=== PATIENT | male | born 1965 | race Caucasian/White ===

== ENCOUNTER 2022-08-24 13:07 | Inpatient (IN) | payer MEDICARE, MEDICAID ==
[~2022-08-24] VITALS: Ht 157.5 cm; Wt 52.4 kg
[2022-08-24] MEDS ORDERED: SODIUM CHLORIDE 0.9% 1,000 ML IV ONE (13:45)
[2022-08-24 14:15] LABS: Basophils # (auto) 0 10 ^3/uL (0-0.2); Basophils % (auto) 0.1 % (0.0-2.0); Eosinophils # (auto) 0.2 10 ^3/uL (0-0.8); Hemoglobin 7.8 g/dL (13.5-17.5); Monocytes # (auto) 0.7 10 ^3/uL (0-1.3); Neutrophils % (auto) 88.5 % (37.0-80.0)
[2022-08-24 14:16] LABS: Eosinophils % (auto) 1.8 % (0.0-7.0); Hematocrit 24.1 % (41.0-53.0); Lymphocytes # (auto) 0.5 10 ^3/uL (0.4-5.4); Mean Corpuscular Hemoglobin 26.2 pg (28.0-32.0); Mean Corpuscular Hgb Conc. 32.4 g/dL (32.0-36.0); Monocytes % (auto) 5.6 % (0.0-12.0); Neutrophils # (auto) 11.6 10 ^3/uL (1.6-8.6); Red Blood Cells 2.97 10^6/uL (4.5-5.90); Red Cell Distribution Width 15.7 % (11.8-14.3)
[2022-08-24 14:45] LABS: Albumin 2.7 g/dL (3.4-5.0); Anion Gap 3 (5-15); Blood Alcohol < 3.0 mg/dL (0-5); Blood Urea Nitrogen 16 mg/dL (7-18); Calcium 8.4 mg/dL (8.5-10.1); Carbon Dioxide 32 mmol/L (21-32); Chloride 100 mmol/L (98-107); Glucose 108 mg/dL (74-106); Potassium 3.9 mmol/L (3.5-5.1); Sodium 135 mmol/L (136-145)
[2022-08-24 14:47] LABS: INR 1.25 (0.9-1.15); Partial Thromboplastin Time 29.8 sec (24.6-33.4)
[2022-08-24 14:49] LABS: Alanine Aminotransferase 23 U/L (16-61); Alkaline Phosphatase 64 U/L (45-117); Aspartate Aminotransferase 8 U/L (15-37); BUN/Creatinine Ratio 16.3 (10.0-20.0); Bilirubin, Total 0.4 mg/dL (0.2-1.0); GFR African American 102 mL/min; GFR Non-African American 84 mL/min; Total Protein 5.4 g/dL (6.4-8.2)
[2022-08-24] MEDS ORDERED: PANTOPRAZOLE 40 MG/10 ML VIAL INJ IV ONE (15:45)
[2022-08-24] MEDS ORDERED: MORPHINE SULFATE INJ 2 MG/ml SYRG IV PRN (15:45)
[2022-08-24] MEDS ORDERED: NITROGLYCERIN 0.4 MG SL TAB SL PRN (15:45)
[2022-08-24 16:17] LABS: Urine Bacteria NONE SEEN /hpf (None Seen); Urine Blood Negative /uL (Negative); Urine Specific Gravity 1.005 (1.001-1.035); Urine WBC <1 /hpf (0 - 3)
[2022-08-24 16:28] LABS: Alcohol, Urine < 3.0 mg/dL (0-10); Amphetamine Screen, Urine NEGATIVE (NEGATIVE); Barbiturate Scree,Urine NEGATIVE (NEGATIVE); Benzodiazephine Screen, Urine NEGATIVE (NEGATIVE); Cannabinoid Screen, Urine NEGATIVE (NEGATIVE); Cocaine Screen, Urine NEGATIVE (NEGATIVE); Opiate Scree,Urine NEGATIVE (NEGATIVE); Phencyclidine Screen, Urine NEGATIVE (NEGATIVE)
[2022-08-24] MEDS ORDERED: ALBUMIN 25% 50 ML IV ONE (16:30)
[2022-08-24] MEDS ORDERED: ALBUTEROL SULF 2.5 MG/0.5ML(0.5%) NEB SOLN NEB PRN (16:30)
[2022-08-24] MEDS ORDERED: LEVO50TA7 PO ×2 (16:50→17:41)
[2022-08-24] MEDS ORDERED: RISP3TAB44 PO ×2 (16:50→17:43)
[2022-08-24] MEDS: SODIUM CHLORIDE 0.9% 1,000 ML IV SCH (17:04)
[2022-08-24 17:32] LABS: Cholesterol 82 mg/dL (< 200); Free T3 1.54 pg/mL (2.3-4.2); Free T4 (Free Thyroxine) 1.01 ng/dL (0.89-1.76); HDL Cholesterol 53 mg/dL (40-59); LDL Cholesterol 31 mg/dL (< 100); Triglycerides 13 mg/dL (< 150)
[2022-08-24] MEDS ORDERED: BENZ0.5T19 PO (17:37)
[2022-08-24] MEDS ORDERED: CHLO1TAB37 PO (17:39)
[2022-08-24] MEDS ORDERED: DOCU100T15 PO (17:39)
[2022-08-24] MEDS ORDERED: FERR325T24 PO (17:40)
[2022-08-24] MEDS ORDERED: LISI10TA34 PO (17:42)
[2022-08-24] MEDS ORDERED: PANT40TA2 PO (17:42)
[2022-08-24] MEDS ORDERED: SENN1TAB14 PO (17:44)
[2022-08-24] MEDS ORDERED: TAMS1CAP25 PO (17:45)
[2022-08-24] MEDS ORDERED: TRAZ1TAB12 PO (17:45)
[2022-08-24] MEDS ORDERED: LORA-1105 PO (17:46)
[2022-08-24] MEDS ORDERED: ONDA-144 PO (17:47)
[2022-08-24 19:45] VITALS: BP 120/64
[2022-08-24] MEDS: CEFEPIME 1GM/ 50ML 50 ML IV SCH (22:26)
[2022-08-24] MEDS: risperiDONE 1 MG TAB PO SCH (22:27)
[2022-08-25] MEDS: SODIUM CHLORIDE 0.9% 1,000 ML IV SCH ×3 (00:05→16:02)
[2022-08-25 01:01] VITALS: BP 97/60
[2022-08-25] MEDS ORDERED: TAMS0.4C36 PO (03:43)
[2022-08-25] MEDS ORDERED: QUET50TA27 PO (03:43)
[2022-08-25] MEDS ORDERED: DOCU-265 PO (03:43)
[2022-08-25] MEDS ORDERED: PANT40T PO (03:43)
[2022-08-25] MEDS ORDERED: CHOL20002 PO (03:43)
[2022-08-25 05:00] VITALS: BP_SYST 124; BP_SYST 132; BP_SYST 144; BP_DIAS 69; BP_DIAS 72; BP_DIAS 79
[2022-08-25] MEDS: CEFEPIME 1GM/ 50ML 50 ML IV SCH ×3 (05:54→21:45)
[2022-08-25 06:30] LABS: Basophils # (auto) 0 10 ^3/uL (0-0.2); Basophils % (auto) 0.3 % (0.0-2.0); Eosinophils # (auto) 0.4 10 ^3/uL (0-0.8); Eosinophils % (auto) 5.8 % (0.0-7.0); Hematocrit 25.5 % (41.0-53.0); Hemoglobin 8.2 g/dL (13.5-17.5); Lymphocytes # (auto) 1.2 10 ^3/uL (0.4-5.4); Lymphocytes % (auto) 15.5 % (10.0-50.0); Mean Corpuscular Hemoglobin 26.5 pg (28.0-32.0); Mean Corpuscular Hgb Conc. 32.3 g/dL (32.0-36.0); Mean Corpuscular Volume 82.1 fL (80.0-100.0); Monocytes # (auto) 0.5 10 ^3/uL (0-1.3); Monocytes % (auto) 6.1 % (0.0-12.0); Neutrophils # (auto) 5.4 10 ^3/uL (1.6-8.6); Neutrophils % (auto) 72.3 % (37.0-80.0); Red Blood Cells 3.11 10^6/uL (4.5-5.90); Red Cell Distribution Width 16.1 % (11.8-14.3); White Blood Cell 7.5 10^3/uL (4.4-10.8)
[2022-08-25 06:48] LABS: Potassium 4.6 mmol/L (3.5-5.1)
[2022-08-25 06:54] LABS: Albumin 2.9 g/dL (3.4-5.0); BUN/Creatinine Ratio 15.2 (10.0-20.0); Bilirubin, Total 0.4 mg/dL (0.2-1.0); Calcium 8.6 mg/dL (8.5-10.1); Total Protein 6.4 g/dL (6.4-8.2)
[2022-08-25] MEDS: LEVOTHYROXINE SODIUM 50 MCG TAB PO SCH (08:57)
[2022-08-25] MEDS: PANTOPRAZOLE 40 MG/10 ML VIAL INJ IV SCH (08:57)
[2022-08-25] MEDS: risperiDONE 1 MG TAB PO SCH ×2 (08:58→21:46)
[2022-08-25 09:00] VITALS: BP 147/76
[2022-08-25 13:00] VITALS: BP 142/84
[2022-08-25] MEDS ORDERED: BENZTROPINE MESY 0.5 MG TAB PO ONE (15:45)
[2022-08-25] MEDS ORDERED: QUEtiapine FUMARATE 25 MG TAB PO ONE (15:45)
[2022-08-25 17:00] VITALS: BP 139/82
[2022-08-25] MEDS: traZODone HCL 50 MG TAB PO SCH (21:46)
[2022-08-25] MEDS: LORazepam 0.5 MG TAB PO SCH (21:55)
[2022-08-25] MEDS: chlorproMAZINE HCL 25 MG TAB PO SCH (21:55)
[2022-08-25 22:00] VITALS: BP 134/76
[2022-08-25] MEDS ORDERED: LORazepam 2MG/ML-1ML VIAL IV PRN (23:15)
[2022-08-26] MEDS: SODIUM CHLORIDE 0.9% 1,000 ML IV SCH ×3 (01:05→22:17)
[2022-08-26 05:00] VITALS: BP 137/78
[2022-08-26] MEDS: CEFEPIME 1GM/ 50ML 50 ML IV SCH ×2 (06:04→14:36)
[2022-08-26] MEDS: LORazepam 0.5 MG TAB PO SCH ×3 (06:05→21:47)
[2022-08-26 09:00] VITALS: BP 149/90
[2022-08-26] MEDS ORDERED: ADENOSINE 45 MG in GIVE UN-DILUTED 0 ML IV ONE (09:30)
[2022-08-26] MEDS: risperiDONE 1 MG TAB PO SCH ×2 (11:28→21:47)
[2022-08-26] MEDS: LEVOTHYROXINE SODIUM 50 MCG TAB PO SCH (11:28)
[2022-08-26] MEDS: QUEtiapine FUMARATE 25 MG TAB PO SCH (11:29)
[2022-08-26] MEDS: BENZTROPINE MESY 0.5 MG TAB PO SCH (11:30)
[2022-08-26] MEDS: PANTOPRAZOLE 40 MG/10 ML VIAL INJ IV SCH (11:30)
[2022-08-26] MEDS: chlorproMAZINE HCL 25 MG TAB PO SCH ×2 (11:37→21:47)
[2022-08-26 13:00] VITALS: BP 145/94
[2022-08-26 17:00] VITALS: BP 159/84
[2022-08-26] MEDS: traZODone HCL 50 MG TAB PO SCH (21:46)
[2022-08-26 21:52] VITALS: BP 157/96
[2022-08-26 23:15] VITALS: BP 139/78
[2022-08-27] MEDS: SODIUM CHLORIDE 0.9% 1,000 ML IV SCH ×3 (02:05→18:45)
[2022-08-27 05:00] VITALS: BP 153/77
[2022-08-27] MEDS: LORazepam 0.5 MG TAB PO SCH ×3 (06:03→22:20)
[2022-08-27 09:00] VITALS: BP 141/89
[2022-08-27] MEDS: BENZTROPINE MESY 0.5 MG TAB PO SCH (09:01)
[2022-08-27] MEDS: PANTOPRAZOLE 40 MG TAB PO SCH (09:02)
[2022-08-27] MEDS: LEVOTHYROXINE SODIUM 50 MCG TAB PO SCH (09:02)
[2022-08-27] MEDS: risperiDONE 1 MG TAB PO SCH ×2 (09:03→22:20)
[2022-08-27] MEDS: QUEtiapine FUMARATE 25 MG TAB PO SCH (09:03)
[2022-08-27] MEDS: chlorproMAZINE HCL 25 MG TAB PO SCH ×2 (09:04→22:20)
[2022-08-27 13:00] VITALS: BP 134/87
[2022-08-27 17:00] VITALS: BP 149/82
[2022-08-27 20:44] VITALS: BP 149/82
[2022-08-27 22:13] VITALS: BP 149/85
[2022-08-27] MEDS: traZODone HCL 50 MG TAB PO SCH (22:19)
[2022-08-28] MEDS: SODIUM CHLORIDE 0.9% 1,000 ML IV SCH ×3 (03:05→21:34)
[2022-08-28 05:00] VITALS: BP 121/73
[2022-08-28] MEDS: LORazepam 0.5 MG TAB PO SCH ×3 (05:46→21:36)
[2022-08-28 09:00] VITALS: BP 132/82
[2022-08-28] MEDS: QUEtiapine FUMARATE 25 MG TAB PO SCH (10:12)
[2022-08-28] MEDS: LEVOTHYROXINE SODIUM 50 MCG TAB PO SCH (10:12)
[2022-08-28] MEDS: risperiDONE 1 MG TAB PO SCH ×2 (10:12→21:35)
[2022-08-28] MEDS: PANTOPRAZOLE 40 MG TAB PO SCH (10:13)
[2022-08-28] MEDS: chlorproMAZINE HCL 25 MG TAB PO SCH ×2 (10:13→22:00)
[2022-08-28] MEDS: BENZTROPINE MESY 0.5 MG TAB PO SCH (10:14)
[2022-08-28 11:22] LABS: Basophils # (auto) 0 10 ^3/uL (0-0.2); Eosinophils # (auto) 0.3 10 ^3/uL (0-0.8); Hemoglobin 9.9 g/dL (13.5-17.5); Red Cell Distribution Width 16.1 % (11.8-14.3); White Blood Cell 6.2 10^3/uL (4.4-10.8)
[2022-08-28 11:23] LABS: Basophils % (auto) 0.4 % (0.0-2.0); Eosinophils % (auto) 4.9 % (0.0-7.0); Hematocrit 30.8 % (41.0-53.0); Lymphocytes % (auto) 16.6 % (10.0-50.0); Mean Corpuscular Hemoglobin 26.5 pg (28.0-32.0); Mean Corpuscular Hgb Conc. 32.2 g/dL (32.0-36.0); Mean Corpuscular Volume 82.3 fL (80.0-100.0); Monocytes # (auto) 0.4 10 ^3/uL (0-1.3); Monocytes % (auto) 5.7 % (0.0-12.0); Neutrophils # (auto) 4.5 10 ^3/uL (1.6-8.6); Neutrophils % (auto) 72.4 % (37.0-80.0); Red Blood Cells 3.74 10^6/uL (4.5-5.90)
[2022-08-28 11:34] LABS: INR 1.11 (0.9-1.15); Partial Thromboplastin Time 28.2 sec (24.6-33.4)
[2022-08-28 11:44] LABS: Calcium 8.7 mg/dL (8.5-10.1)
[2022-08-28 11:46] LABS: BUN/Creatinine Ratio 12.2 (10.0-20.0)
[2022-08-28 13:00] VITALS: BP 137/89
[2022-08-28] MEDS: traZODone HCL 50 MG TAB PO SCH (21:34)
[2022-08-28 22:00] VITALS: BP 150/80
[2022-08-29] MEDS: SODIUM CHLORIDE 0.9% 1,000 ML IV SCH ×3 (04:05→21:09)
[2022-08-29 05:00] VITALS: BP 156/95
[2022-08-29] MEDS: LORazepam 0.5 MG TAB PO SCH ×3 (05:48→21:09)
[2022-08-29 08:39] VITALS: BP 149/86
[2022-08-29] MEDS: risperiDONE 1 MG TAB PO SCH ×2 (10:01→21:10)
[2022-08-29] MEDS: BENZTROPINE MESY 0.5 MG TAB PO SCH (10:02)
[2022-08-29] MEDS: QUEtiapine FUMARATE 25 MG TAB PO SCH (10:02)
[2022-08-29] MEDS: PANTOPRAZOLE 40 MG TAB PO SCH (10:02)
[2022-08-29] MEDS: LEVOTHYROXINE SODIUM 50 MCG TAB PO SCH (10:02)
[2022-08-29] MEDS: chlorproMAZINE HCL 25 MG TAB PO SCH ×2 (10:05→21:10)
[2022-08-29 12:39] VITALS: BP 144/83
[2022-08-29 17:00] VITALS: BP 147/81
[2022-08-29] MEDS: traZODone HCL 50 MG TAB PO SCH (21:10)
[2022-08-29 22:00] VITALS: BP 123/65
[2022-08-30 05:00] VITALS: BP 152/86
[2022-08-30] MEDS: SODIUM CHLORIDE 0.9% 1,000 ML IV SCH ×3 (05:05→21:09)
[2022-08-30] MEDS: LORazepam 0.5 MG TAB PO SCH ×3 (06:08→21:13)
[2022-08-30 09:00] VITALS: BP 164/82
[2022-08-30] MEDS: PANTOPRAZOLE 40 MG TAB PO SCH (10:25)
[2022-08-30] MEDS: risperiDONE 1 MG TAB PO SCH ×2 (10:25→21:14)
[2022-08-30] MEDS: QUEtiapine FUMARATE 25 MG TAB PO SCH (10:25)
[2022-08-30] MEDS: LEVOTHYROXINE SODIUM 50 MCG TAB PO SCH (10:25)
[2022-08-30] MEDS: BENZTROPINE MESY 0.5 MG TAB PO SCH (10:26)
[2022-08-30] MEDS: chlorproMAZINE HCL 25 MG TAB PO SCH ×2 (10:28→21:14)
[2022-08-30 13:00] VITALS: BP 158/87
[2022-08-30] MEDS: traZODone HCL 50 MG TAB PO SCH (21:13)
[2022-08-30 22:00] VITALS: BP 138/81
[2022-08-31 05:00] VITALS: BP 146/83
[2022-08-31] MEDS: LORazepam 0.5 MG TAB PO SCH ×3 (05:34→22:14)
[2022-08-31] MEDS: SODIUM CHLORIDE 0.9% 1,000 ML IV SCH ×3 (06:13→18:34)
[2022-08-31] MEDS: QUEtiapine FUMARATE 25 MG TAB PO SCH (10:17)
[2022-08-31] MEDS: BENZTROPINE MESY 0.5 MG TAB PO SCH (10:17)
[2022-08-31] MEDS: PANTOPRAZOLE 40 MG TAB PO SCH (10:17)
[2022-08-31] MEDS: chlorproMAZINE HCL 25 MG TAB PO SCH ×2 (10:18→22:20)
[2022-08-31] MEDS: risperiDONE 1 MG TAB PO SCH ×2 (10:18→22:12)
[2022-08-31] MEDS: LEVOTHYROXINE SODIUM 50 MCG TAB PO SCH (10:18)
[2022-08-31 13:00] VITALS: BP 157/91
[2022-08-31 17:00] VITALS: BP 165/96
[2022-08-31] MEDS: traZODone HCL 50 MG TAB PO SCH (22:13)
[2022-09-01 05:00] VITALS: BP 142/94
[2022-09-01] MEDS: LORazepam 0.5 MG TAB PO SCH ×3 (07:07→21:11)
[2022-09-01] MEDS: SODIUM CHLORIDE 0.9% 1,000 ML IV SCH ×2 (07:16→16:43)
[2022-09-01 09:15] VITALS: BP 145/81
[2022-09-01] MEDS: PANTOPRAZOLE 40 MG TAB PO SCH (09:30)
[2022-09-01] MEDS: QUEtiapine FUMARATE 25 MG TAB PO SCH (09:30)
[2022-09-01] MEDS: BENZTROPINE MESY 0.5 MG TAB PO SCH (09:30)
[2022-09-01] MEDS: risperiDONE 1 MG TAB PO SCH ×2 (09:30→21:11)
[2022-09-01] MEDS: LEVOTHYROXINE SODIUM 50 MCG TAB PO SCH (09:31)
[2022-09-01] MEDS: chlorproMAZINE HCL 25 MG TAB PO SCH ×2 (09:31→21:12)
[2022-09-01 12:54] VITALS: BP 145/81
[2022-09-01 13:10] VITALS: BP 161/83
[2022-09-01 16:33] VITALS: BP 162/88
[2022-09-01] MEDS: traZODone HCL 50 MG TAB PO SCH (21:10)
[2022-09-02] MEDS: SODIUM CHLORIDE 0.9% 1,000 ML IV SCH ×3 (01:57→16:25)
[2022-09-02 04:09] VITALS: BP 120/65
[2022-09-02] MEDS: LORazepam 0.5 MG TAB PO SCH ×2 (06:38→14:28)
[2022-09-02 08:48] VITALS: BP 121/65
[2022-09-02] MEDS ORDERED: OXYCODONE W/ ACETAMINOPHEN 5/325MG TABLET PO PRN (09:30)
[2022-09-02] MEDS: chlorproMAZINE HCL 25 MG TAB PO SCH (10:17)
[2022-09-02] MEDS: risperiDONE 1 MG TAB PO SCH (10:17)
[2022-09-02] MEDS: QUEtiapine FUMARATE 25 MG TAB PO SCH (10:17)
[2022-09-02] MEDS: BENZTROPINE MESY 0.5 MG TAB PO SCH (10:17)
[2022-09-02] MEDS: PANTOPRAZOLE 40 MG TAB PO SCH (10:17)
[2022-09-02] MEDS: LEVOTHYROXINE SODIUM 50 MCG TAB PO SCH (10:17)
[2022-09-02 12:54] VITALS: BP 138/84
[2022-09-02] MEDS ORDERED: GABAPENTIN 300 MG CAP PO SCH (14:00)
[2022-09-02 17:27] VITALS: BP 162/86
== END 2022-09-02 19:10 | disposition home or self-care (01) | DRG 871 ==
LOC: ER 13:07 → TELE-WESTW 16:00
PROVIDERS: ADMIT Registered Nurse; ATTEND Family Medicine
DX: A41.9 Sepsis, unspecified organism (principal); E43 Unspecified severe protein-calorie malnutrition; D64.9 Anemia, unspecified; E03.9 Hypothyroidism, unspecified; I10 Essential (primary) hypertension; K21.9 Gastro-esophageal reflux disease without esophagitis; F20.9 Schizophrenia, unspecified; E86.0 Dehydration; E88.09 Other disorders of plasma-protein metabolism, not elsewhere classified; N40.0 Benign prostatic hyperplasia without lower urinary tract symptoms; R13.10 Dysphagia, unspecified; I95.9 Hypotension, unspecified; Z68.21 Body mass index [BMI] 21.0-21.9, adult
CPT/HCPCS: 36415; 70450; 70551; 71045; 78452; 80048; 80053; 80061; 80307; 80320; 81001; 82962; 83036; 83605; 83735; 84439; 84443; 84481; 84484; 85025; 85379; 85610; 85730; 86850; 86900; 86901; 87040; 87086; 93005; 93017; 93306; 93886; 95819; 96361; 96365; 96375; 97110; 97116; 97163; 97530; C9113; G0378; J0153; Q0161

== ENCOUNTER 2024-05-19 17:59 | Inpatient (IN) | payer MEDICARE, MEDICAID ==
[~2024-05-19] VITALS: Ht 157.5 cm; Wt 72.0 kg
[~2024-05-19 17:59] MED LIST: BENZ0.5T PO; CHLO1TAB37 PO; CHOL20002 PO; DOCU-265 PO; DOCU100T15 PO; FERR325T24 PO; LEVO50TA7 PO; LISI10TA34 PO; LORA-1105 PO; ONDA-144 PO; PANT40T PO; PANT40TA2 PO; QUET50TA27 PO; RISP3TAB44 PO; SENN1TAB14 PO; TAMS0.4C39 PO; TAMS1CAP25 PO; TRAZ1TAB12 PO
--- NOTE | 2024-05-19 18:19 | ED.PDOC ---
History of Present Illness HPI Comments 59-year-old male who came to ER via EMS due to GI bleed. Per EMS, patient picked up at an assisted care facility, has history of hypertension, COPD and schizophrenia. He is not on home oxygen. Noted that patient has been having bloody stools recently, in noted that he was saturating at 85% on room air. Upon arrival of paramedics, patient had an episode of hematemesis. Patient is a very poor informant, and no further information could be taken from him. Chief Complaint: GI bleed Time Seen by MD: 18:18 Primary Care Provider: GOVIND Reviewed Notes: Pattern [employer] Notes Allergies: Coded Allergies: NO KNOWN ALLERGIES (Unverified , 08/24/22) Home Meds Reported Medications Cholecalciferol (VITAMIN D3) 2,000 Unit Tab, 1 CAP PO DAILY 08/25/22 Tamsulosin Hcl (Tamsulosin Hcl) 0.4 Mg Cap, 1 CAP PO DAILY 08/25/22 Docusate Sodium (Docusate Sodium) 100 Mg Cap, 1 CAP PO DAILY 08/25/22 Pantoprazole Sodium Sesquihydr (Pantoprazole Sodium) 40 Mg Tab, 1 TAB PO BID 08/25/22 Quetiapine Fumerate (QUETIAPINE FUMARATE) 50 Mg Tab, 1 TAB PO 08/25/22 Ondansetron (Zofran) 4 Mg Tab, 8 MG PO, TAB 08/24/22 Lorazepam (Lorazepam) 2 Mg Tab, 2 MG PO TID, TAB 08/24/22 Trazodone Hcl (Trazodone Hcl) 150 Mg Tab, 150 MG PO DAILY, MG 08/24/22 Tamsulosin HCl (Tamsulosin Hydrochloride) 0.4 Mg Cap, 0.4 MG PO, CAP 08/24/22 Senna (Senna Lax) 8.6 Mg Tab, 8.6 MG PO QHSP PRN for FOR CONSTIPATION, MG 08/24/22 Risperidone (Risperidone) 3 Mg Tab, 3 MG PO BID, TAB 08/24/22 Pantoprazole Sodium Sesquihydr (Protonix) 40 Mg Tab, 40 MG PO BID, #30 TAB 08/24/22 Lisinopril (Lisinopril) 10 Mg Tab, 10 MG PO DAILY for 30 Days, MG 08/24/22 Levothyroxine Sodium (Levothyroxine Sodium) 50 Mcg Tab, 50 MCG PO QAM for 30 Days, MCG 08/24/22 Ferrous Sulfate (Ferrous Sulfate) 325 Mg Tab, 325 MG PO DAILY, MG 08/24/22 Docusate Sodium (Docusate Sodium) 100 Mg Tab, 100 MG PO DAILYP PRN for FOR CONSTIPATION, MG 08/24/22 Chlorpromazine Hcl (Chlorpromazine Hcl) 25 Mg Tab, 50 MG PO BID, MG 08/24/22 Benztropine Mesylate (Benztropine Mesylate) 0.5 Mg Tab, 0.5 MG PO DAILY, MG 08/24/22 Risperidone (Risperidone) 3 Mg Tab, 1 TAB PO BID 08/24/22 Levothyroxine Sodium (Levothyroxine Sodium) 50 Mcg Tab, 1 TAB PO DAILY 08/24/22 Information Source: Emergency Med Personnel Mode of Arrival: EMS Severity: Moderate Timing: Days Review of Systems Unable to obtain do to Mental Illness Patient responds " Don't threaten a 72 year old man you b" when asked about abdominal pain. Vital Signs Vital Signs Date Time Temp Pulse Resp B/P (MAP) Pulse Ox O2 Delivery O2 Flow Rate FiO2 05/19/24 19:20 70 15 100 Nasal Cannula* 2 28 05/19/24 19:20 98.3 101/51 (68) 98.3 Physical Exam General: Awake, alert and oriented. No acute distress. Skin: Skin in warm, dry and intact. Appropriate color for ethnicity. Nailbeds pink with no cyanosis. HEENT: Dried blood around the mouth. The head is normocephalic and atraumatic. Conjunctivae are clear without exudates or hemorrhage. Sclera is non-icteric. EOM are intact. No signs of nystagmus. Eyelids are normal in appearance without swelling or lesions. Oral mucosa is pink and moist Neck: The neck is supple with normal range of motion. No JVD. Cardiac: Heart rate and rhythm are normal. No murmurs, gallops, or rubs are auscultated. Respiratory: No signs of respiratory distress. Lung sounds are clear in all lobes bilaterally without rales, ronchi, or wheezes. Abdominal: Abdomen is soft, non-tender without distention. Bowel sounds are present and normoactive in all four quadrants. Extremities: Upper and lower extremities are atraumatic in appearance without deformity or edema. Neurological: The patient is awake, alert normal speech. Speech is clear. There is no facial asymmetry. He is following commands. Past Medical History PAST MEDICAL HISTORY: COPD, GERD, HTN, Schizophrenia, Thyroid Surgical History: Denies all surgeries Family History Family History: Reviewed,noncontributory to illness Social History Smoker: Non-Smoker Alcohol: Denies ETOH Use Drugs: Denies Drug Use Lives In: Assisted Care Was a procedure done? Was a procedure done?: No Differential Dx Considerations may include: Anemia, electrolyte imbalance, COPD, pneumonia, GI bleed, schizophrenia, peptic ulcer disease, esophageal varices, other X-Ray, Labs, Meds, VS Vital Signs Date Time Temp Pulse Resp B/P (MAP) Pulse Ox O2 Delivery O2 Flow Rate FiO2 05/19/24 19:20 70 15 100 Nasal Cannula* 2 28 05/19/24 19:20 98.3 70 15 101/51 (68) 100 98.3 05/19/24 18:45 98.0 75 14 108/60 (76) 95 98.0 05/19/24 18:45 75 14 95 Nasal Cannula* 2 28 05/19/24 18:22 98.0 75 16 108/64 (79) 93 Lab Test 05/19/24 18:53 05/19/24 18:34 Range/Units Blood Gas Specimen Type Arterial Blood Gas Sample Site Right radial Blood Gas Patient Temperature 37.0 Arterial Blood Date Drawn [id number] Arterial Blood pH 7.513 H 7.350-7.450 Arterial Blood Partial Pressure CO2 50.6 H 35.0-48.0 mmHg Arterial Blood Partial Pressure O2 68.6 L 83.0-108.0 mmHg Arterial Blood HCO3 39.7 H 21.0-28.0 mmol/L Arterial Blood Oxygen Saturation 92.8 L 94.0-98.0 % Arterial Blood Base Excess 14.9 H -2.0-3.0 mmol/L Arterial Blood Oxyhemoglobin 92.0 L 94.0-98.0 % Arterial Blood Carboxyhemoglobin 0.2 L 0.5-1.5 % Arterial Blood Methemoglobin 0.7 0.0-1.5 % Richard Test N/a Blood Gas Total Hemoglobin 11.30 L 13.5-17.5 g/dL Blood Gas Liter Flow 3.00 Blood Gas Modality Nasal cannula FiO2 % 32.0 White Blood Count 15.7 H 4.4-10.8 10^3/uL Red Blood Count 3.88 L 4.5-5.90 10^6/uL Hemoglobin 10.5 L 13.5-17.5 g/dL Hematocrit 31.7 L 41.0-53.0 % Mean Corpuscular Volume 81.8 80.0-100.0 fL Mean Corpuscular Hemoglobin 27.0 L 28.0-32.0 pg Mean Corpuscular Hemoglobin Concent 33.0 32.0-36.0 g/dL Red Cell Distribution Width 17.6 H 11.8-14.3 % Platelet Count 307 140-450 10^3/uL Mean Platelet Volume 7.3 6.9-10.8 fL Neutrophils (%) (Auto) 90.0 H 37.0-80.0 % Lymphocytes (%) (Auto) 4.1 L 10.0-50.0 % Monocytes (%) (Auto) 5.6 0.0-12.0 % Eosinophils (%) (Auto) 0.1 0.0-7.0 % Basophils (%) (Auto) 0.2 0.0-2.0 % Neutrophils # (Auto) 14.1 H 1.6-8.6 10 ^3/uL Lymphocytes # (Auto) 0.7 0.4-5.4 10 ^3/uL Monocytes # (Auto) 0.9 0-1.3 10 ^3/uL Eosinophils # (Auto) 0 0-0.8 10 ^3/uL Basophils # (Auto) 0 0-0.2 10 ^3/uL Nucleated Red Blood Cells 0.1 % Prothrombin Time 13.1 H 9.3-11.8 sec Prothrombin Time INR 1.26 H 0.9-1.15 Sodium Level 133 L 136-145 mmol/L Potassium Level 3.5 3.5-5.1 mmol/L Chloride Level 84 L 98-107 mmol/L Carbon Dioxide Level > 40 *H 20-31 mmol/L Anion Gap 8.36520 5-15 Blood Urea Nitrogen 32 H 9-23 mg/dL Creatinine 1.77 H 0.700-1.30 mg/dL Glomerular Filtration Rate Calc 44 >90 mL/min BUN/Creatinine Ratio 18.1 10.0-20.0 Serum Glucose 153 H 74-106 mg/dL Lactic Acid Level 1.4 0.4-2.0 mmol/L Calcium Level 11.7 H 8.7-10.4 mg/dL Total Bilirubin 0.3 0.2-1.0 mg/dL Aspartate Amino Transferase (AST) 32 13-40 U/L Alanine Aminotransferase (ALT) 345 H 7-40 U/L Alkaline Phosphatase 97 46-116 U/L Total Protein 7.7 5.7-8.2 g/dL Albumin 4.5 3.2-4.8 g/dL Current Medications Medications (Trade) Dose Ordered Sig/Jose Route Start Time Stop Time Status Last Admin Pantoprazole Sodium (Protonix) 40 mg ONCE ONCE IV 05/19/24 18:15 05/19/24 18:19 DC 05/19/24 22:06 Sodium Chloride 1,000 ml @ 1,000 mls/hr Q1H ONCE IV 05/19/24 18:15 05/19/24 19:14 DC 05/19/24 21:50 Ondansetron HCl (Zofran) 4 mg ONCE ONCE IV 05/19/24 18:15 05/19/24 18:19 DC 05/19/24 22:06 CHEST RADIOGRAPH Indication: hypoxia Technique: Single frontal view of the chest was obtained Comparison: XY CHEST PORTABLE on DOS: 08/24/22 FINDINGS: Lines and Tubes: Dual-chamber pacemaker in place with pulse generator over the left chest. Lungs: Prominent perihilar peribronchial thickening and left lower lobe infiltrate. Findings may represent pneumonia or bronchitis. Pleura: No effusion. No pneumothorax. Cardiomediastinal contours: Unremarkable Bones: No acute osseous abnormality. IMPRESSION: 1. Bilateral perihilar peribronchial thickening with left lower lobe airspace disease findings may represent bronchitis or pneumonia. X-Ray, Labs, Meds, VS Comment Chest x-ray independent interpretation-bilateral pneumonia EKG independent interpretation-paced rhythm. No STEMI Time of 1ST Reevaluation: 18:13 Reevaluation 1ST: Unchanged Patient Education/Counseling: Diagnosis, Treatment Family Education/Counseling: No Family Present Departure 1 Departure Time of Disposition: 21:19 Impression: Primary Impression: Hypoxia Additional Impressions: GI bleed Pneumonia Metabolic alkalosis Acute kidney injury Anemia Hyponatremia Disposition: ADMITTED INPATIENT Condition: Stable Comments 59-year-old male who presented to the ED via EMS with hypoxia and witnessed episode of hematemesis EN route. Antibiotics initiated for possible bilateral pneumonia and GI bleed of unknown origin. IV fluids initiated. Patient admitted for further treatment, evaluation and monitoring. Extensive evaluation was performed in attempt to identify or rule out: (See differential diagnosis section) The following tests were ordered, and results were reviewed by me: (See [place] [facility] results section) The following test were independently interpreted by me: EKG, chest x-ray I reviewed and agreed with the following test results read by other providers: N/A I reviewed the following notes from the pt's past medical encounters: Hospitalization in August of 2022 at this facility Additional information was gathered from interviewing the following independent historians: EMS personnel Discussion of management or test interpretation with external physician/other qualified health resident care provider: N/A Addressed an acute or chronic illness that poses a threat to life or bodily function: GI bleed on anticoagulation, hypoxia, acute kidney injury, metabolic alkalosis, hyponatremia Decision regarding hospitalization or escalation of hospital level of care: Risk and benefits of admission for further treatment of patient's condition was considered. Due to patient's current clinical condition, high risk of decline and poor outcome if discharged and need for further inpatient management and monitoring, patient will be admitted to the hospital. Drug therapy requiring intensive monitoring for toxicity: N/A Parenteral controlled substances: N/A Decision regarding elective major surgery with identified patient or procedure risk factors: N/A Decision regarding emergency major surgery: N/A Decision not to resuscitate or to de-escalate care because of poor prognosis: N/ A Diagnosis or treatment significantly limited by social determinants of health: History of schizophrenia Critical Care Note Critical Care Time?: Yes (35 min-critical care time only) Critical care comment: Hypoxia, GI bleed on Eliquis Due to a high probability of clinically significant, life threatening deterioration, the patient required my highest level of preparedness to intervene emergently and I personally spent this critical care time directly and personally managing the patient. This critical care time included obtaining a history; examining the patient; pulse oximetry; ordering and review of studies; arranging urgent treatment with development of a management plan; evaluation of patient's response to treatment; frequent reassessment; and, discussions with other providers. This critical care time was performed to assess and manage the high probability of imminent, life-threatening deterioration that could result in multi-organ failure. It was exclusive of separately billable procedures and treating other patients and teaching time. Please see my other sections and the rest of the note for further information on patient assessment and treatment. Stability Stability form required: No I personally scribed for NAEL MALONEY MD ([email or web address]) on 05/19/24 at 18:19. Electronically submitted by Adam Villareal ([email or web address]). I personally scribed for NAEL MALONEY MD ([email or web address]) on 05/19/24 at 19:31. Electronically submitted by Adam Villareal ([email or web address]). NAEL MALONEY MD May 19, 2024 18:19
[2024-05-19 18:45] VITALS: PULSE 75; RESP 14; O2SAT 95
[2024-05-19 19:00] LABS: Base Excess 14.9 mmol/L (-2.0-3.0)
[2024-05-19 19:03] LABS: Basophils # (auto) 0 10 ^3/uL (0-0.2); Basophils % (auto) 0.2 % (0.0-2.0); Eosinophils # (auto) 0 10 ^3/uL (0-0.8); Eosinophils % (auto) 0.1 % (0.0-7.0); Hematocrit 31.7 % (41.0-53.0); Hemoglobin 10.5 g/dL (13.5-17.5); Lymphocytes # (auto) 0.7 10 ^3/uL (0.4-5.4); Lymphocytes % (auto) 4.1 % (10.0-50.0); Mean Corpuscular Volume 81.8 fL (80.0-100.0); Monocytes # (auto) 0.9 10 ^3/uL (0-1.3); Monocytes % (auto) 5.6 % (0.0-12.0); Neutrophils # (auto) 14.1 10 ^3/uL (1.6-8.6); Nucleated Red Blood Cells % 0.1 %; Platelet Count (auto) 307 10^3/uL (140-450); Red Blood Cells 3.88 10^6/uL (4.5-5.90); Red Cell Distribution Width 17.6 % (11.8-14.3); White Blood Cell 15.7 10^3/uL (4.4-10.8)
[2024-05-19 19:17] LABS: Albumin 4.5 g/dL (3.2-4.8); Alkaline Phosphatase 97 U/L (46-116); Aspartate Aminotransferase 32 U/L (13-40); BUN/Creatinine Ratio 18.1 (10.0-20.0); INR 1.26 (0.9-1.15); Potassium 3.5 mmol/L (3.5-5.1); Prothrombin Time 13.1 sec (9.3-11.8)
[2024-05-19 19:18] LABS: Total Protein 7.7 g/dL (5.7-8.2)
[2024-05-19 19:20] VITALS: PULSE 70; RESP 15; O2SAT 100
[2024-05-19 19:25] LABS: Alanine Aminotransferase 345 U/L (7-40); Anion Gap 8.99999 (5-15); Bilirubin, Total 0.3 mg/dL (0.2-1.0); Blood Urea Nitrogen 32 mg/dL (9-23); Calcium 11.7 mg/dL (8.7-10.4); Chloride 84 mmol/L (98-107); Glucose 153 mg/dL (74-106); Sodium 133 mmol/L (136-145)
--- NOTE | 2024-05-19 19:26 | DVH ---
CHEST RADIOGRAPH Indication: hypoxia Technique: Single frontal view of the chest was obtained Comparison: XY CHEST PORTABLE on DOS: 08/24/22 FINDINGS: Lines and Tubes: Dual-chamber pacemaker in place with pulse generator over the left chest. Lungs: Prominent perihilar peribronchial thickening and left lower lobe infiltrate. Findings may repr esent pneumonia or bronchitis. Pleura: No effusion. No pneumothorax. Cardiomediastinal contours: Unremarkable Bones: No acute osseous abnormality. IMPRESSION: 1. Bilateral perihilar peribronchial thickening with left lower lobe airspace disease findings may r epresent bronchitis or pneumonia.
[2024-05-19 19:46] LABS: Carbon Dioxide > 40 mmol/L (20-31)
[2024-05-19] MEDS: IOHEXOL 300 MG/ML 100ML BOTTLE IJ ONE (20:22)
--- NOTE | 2024-05-19 21:09 | DVH ---
Exam: CT CT AB PEL WITH IV CON ONLY History: GI Bleed protocol ( Upper GI Bleed) Comparison Study: None available at time of dictation. Contrast: Type of contrast: Omnipaque 300 Contrast injected: 100 mL Contrast wasted: 0 TECHNIQUE: A digital food runner image was obtained. During the uneventful, intravenous administration of c ontrast material, multislice data acquisition was obtained through the abdomen and pelvis. The data s et was subsequently reconstructed into axial images. Images were reviewed on a work station using a c ombination of axial and multiplanar using a variety of window levels and settings. Radiation Dose Information: CT Dose: CTDI volume is 8.37 mGy. Dose-length product is 478 mGy*cm FINDINGS: Lung Bases: Bibasilar pulmonary airspace disease.. Normal heart size. No pleural or pericardial effu naty. Bibasilar bronchiectasis and peribronchial thickening. Liver: The liver is normal in size. No focal lesions. Normal hepatic vascular enhancement. Gallbladder and Biliary Tree: Unremarkable Spleen: Unremarkable Pancreas: The pancreas is normal in appearance without focal lesions or abnormal enhancement. Adrenal Glands: Unremarkable Kidneys: Kidneys demonstrate normal symmetric enhancement without focal lesions, calculi or hydroneph rosis. Bladder: Unremarkable Bowel: The stomach is grossly normal in appearance. Small hiatal hernia and thickening of the distal thoracic esophagus. Small bowel and colon are normal in caliber and distribution. The appendix is no t visualized; however, no secondary findings of acute appendicitis identified. Ascites: Absent Lymphadenopathy: No mesenteric, retroperitoneal or periportal lymphadenopathy. Abdominal Wall and Mesentery: Unremarkable. Vasculature: The visualized abdominal aorta is normal in size and caliber. Abdominal and pelvic vess els demonstrate normal enhancement. Pelvic Organs: Unremarkable Musculoskeletal: No aggressive focal bony lesions, acute fractures or dislocation. Soft tissues: Unremarkable. IMPRESSION: 1. Bibasilar infiltrates bronchiectasis and peribronchial thickening. 2. No bowel obstruction 3. No calcified gallstones. All CT scans at this medical facility are performed using dose modulation techniques as appropriate t o a performed exam including the following: Automated exposure control was utilized; adjustment of th e MA and/or KV according to patient size; and use of iterative reconstruction technique.
[2024-05-19] MEDS: SODIUM CHLORIDE 0.9% 1,000 ML IV ONE (21:50)
[2024-05-19] MEDS: cefTRIAXone 1GM/50ML D5W 50 ML IV ONE (22:00)
[2024-05-19] MEDS: PANTOPRAZOLE 40 MG/10 ML VIAL INJ IV ONE (22:06)
[2024-05-19] MEDS: ONDANSETRON HCL 4 MG/2 ML VIAL IV ONE (22:06)
[2024-05-20] MEDS ORDERED: ACETAMINOPHEN 325 MG TAB PO PRN (00:45)
[2024-05-20] MEDS: SODIUM CHLORIDE 0.9% 1,000 ML IV SCH (00:45)
[2024-05-20] MEDS ORDERED: HYDROcodone-ACET 5/325MG TAB PO PRN (00:45)
[2024-05-20] MEDS: AZITHROMYCIN 500MG/ 250ML 250 ML IV ONE (01:30)
[2024-05-20] MEDS ORDERED: MORPHINE SULFATE INJ 2 MG/ml SYRG IV PRN (01:45)
[2024-05-20] MEDS ORDERED: NITROGLYCERIN 0.4 MG SL TAB SL PRN (01:45)
--- NOTE | 2024-05-20 02:14 | DVHHP2 ---
History of Present Illness Reason for Visit: GI bleed History of Present Illness The patient is a 59-year-old male with past medical history of COPD, GERD, hypertension, schizophrenia, and thyroid disease who presented to [facility] ED for evaluation of GI bleed. Patient reports having bloody stool, desaturating on room air at 85%, episodes of hematemesis, getting worse that prompted this visit. Patient was seen and evaluated in the ED, laboratory data shows WBC 15.7, hemoglobin 10.5, hematocrit 31.7, platelets 307, sodium 133, potassium 3.5, BUN 32, creatinine 1.77, GFR 44, glucose 153, calcium 11.7, PT 13.1, INR 1.26, AST 32, ALT 345, blood pressure 101/51, heart rate 74, temper ature 98.3, O2 saturation 99% on oxygen. Chest x-ray revealing bilateral perihilar peribronchial thickening with left lower lobe airspace disease findings may represent bronchitis or pneumonia; abdomen/pelvis CT revealing bibasilar infiltrates bronchiectasis, peribronchial thickening, no bowel obstruction. Patient was started on IV antibiotic regimen doxycycline, please see medication orders section in the computer. On my assessment, patient denied chest pain, no headache, no dizziness, currently on oxygen, no nausea, no vomiting, no fever, no chills. Patient was admitted for further evaluation and medical management. Past Medical History COPD, GERD, HTN, Schizophrenia, Thyroid disease. Past Surgical History Denies all surgeries Family History Reviewed, noncontributory to the management of this case. Past Social History The patient lives at home, denies smoking, alcohol or illicit drugs abuse. Review of Systems Constitutional: No: Fever, Chills, Sweats, Weakness, Malaise, Other Eyes: No: Pain, Vision change, Conjunctivae inflammation, Eyelid inflammation, Other, Redness ENT: No: Ear pain, Ear discharge, Nose pain, Nose discharge, Nose congestion, Mouth pain, Mouth swelling, Throat pain, Throat swelling, Other Respiratory: Shortness of breath; No: Cough, Dry, SOB with excertion, Wheezing, Hemoptysis, Pleuritic Pain, Sputum, Wheezing, Other Cardiovascular: No: Chest Pain, Palpitations, Orthopnea, Paroxysmal Noc. Dyspnea, Edema, Lt Headedness, Other Gastrointestinal: Other (Hematemesis); No: Nausea, Vomiting, Abdominal Pain, Di arrhea, Constipation, Melena, Hematochezia Genitourinary: No Dysuria, No Frequency, No Incontinence, No Hematuria, No Retention, No Other Musculoskeletal: No: other, neck pain, shoulder pain, arm pain, back pain, hand pain, leg pain, foot pain Skin: No: Rash, Lesions, Jaundice, Bruising, Other Neurological: No: Weakness, Numbness, Incoordination, Change in speech, Confusion, Seizures, Other Allergies: Coded Allergies: NO KNOWN ALLERGIES (Unverified , 08/24/22) Medications Current Medications Medications Dose Ordered Sig/Jose Route Start Time Stop Time Status Last Admin Dose Admin Pantoprazole Sodium 40 mg DAILY IV 05/20/24 10:00 Ceftriaxone Sodium 50 ml @ 100 mls/hr Q24H IV 05/20/24 21:00 Azithromycin 250 ml @ 125 mls/hr DAILY IV 05/21/24 10:00 Sodium Chloride 1,000 ml @ 60 mls/hr [id number] IV 05/20/24 00:45 Acetaminophen/ Hydrocodone Bitart 1 tab Q4HP PRN PO 05/20/24 00:45 Ondansetron HCl 4 mg Q4HP PRN IV 05/20/24 00:45 Docusate Sodium 100 mg BIDPRN PRN PO 05/20/24 00:45 Acetaminophen 650 mg Q6HP PRN PO 05/20/24 00:45 Levothyroxine Sodium 50 mcg QAM@0600 PO 05/20/24 06:00 Exam Vital Signs Vital Signs Date Time Temp Pulse Resp B/P (MAP) Pulse Ox O2 Delivery O2 Flow Rate FiO2 05/19/24 22:10 74 05/19/24 19:20 15 100 Nasal Cannula* 2 28 05/19/24 19:20 98.3 101/51 (68) 98.3 General Appearance: Alert, Oriented X3, Cooperative, No acute distress HEENT: Atraumatic, PERRLA, EOMI, Mucous membr. moist/pink Respiratory: Normal air movement, Other (Diminished breath sounds) Cardiovascular: Regular rate, Normal S1, Normal S2, No murmurs Abdominal: Normal bowel sounds, Soft, No tenderness, No hepatospenomegaly, No masses Extremities: No clubbing, No cyanosis, No edema, Normal pulses, No tenderness/swelling Skin: No rashes, No breakdown, No significant lesion Neuro: Normal gait, Normal speech, Strength at 5/5 X4 ext, Normal tone, Sensation intact, Cranial nerves 3-12 NL, Reflexes 2+ Psych/Mental Status: Mental status NL, Mood NL Labs/Xrays Labs Test 05/19/24 18:53 05/19/24 18:34 Range/Units Blood Gas Specimen Type Arterial Blood Gas Sample Site Right radial Blood Gas Patient Temperature 37.0 Arterial Blood Date Drawn [id number] Arterial Blood pH 7.513 H 7.350-7.450 Arterial Blood Partial Pressure CO2 50.6 H 35.0-48.0 mmHg Arterial Blood Partial Pressure O2 68.6 L 83.0-108.0 mmHg Arterial Blood HCO3 39.7 H 21.0-28.0 mmol/L Arterial Blood Oxygen Saturation 92.8 L 94.0-98.0 % Arterial Blood Base Excess 14.9 H -2.0-3.0 mmol/L Arterial Blood Oxyhemoglobin 92.0 L 94.0-98.0 % Arterial Blood Carboxyhemoglobin 0.2 L 0.5-1.5 % Arterial Blood Methemoglobin 0.7 0.0-1.5 % Richard Test N/a Blood Gas Total Hemoglobin 11.30 L 13.5-17.5 g/dL Blood Gas Liter Flow 3.00 Blood Gas Modality Nasal cannula FiO2 % 32.0 White Blood Count 15.7 H 4.4-10.8 10^3/uL Red Blood Count 3.88 L 4.5-5.90 10^6/uL Hemoglobin 10.5 L 13.5-17.5 g/dL Hematocrit 31.7 L 41.0-53.0 % Mean Corpuscular Volume 81.8 80.0-100.0 fL Mean Corpuscular Hemoglobin 27.0 L 28.0-32.0 pg Mean Corpuscular Hemoglobin Concent 33.0 32.0-36.0 g/dL Red Cell Distribution Width 17.6 H 11.8-14.3 % Platelet Count 307 140-450 10^3/uL Mean Platelet Volume 7.3 6.9-10.8 fL Neutrophils (%) (Auto) 90.0 H 37.0-80.0 % Lymphocytes (%) (Auto) 4.1 L 10.0-50.0 % Monocytes (%) (Auto) 5.6 0.0-12.0 % Eosinophils (%) (Auto) 0.1 0.0-7.0 % Basophils (%) (Auto) 0.2 0.0-2.0 % Neutrophils # (Auto) 14.1 H 1.6-8.6 10 ^3/uL Lymphocytes # (Auto) 0.7 0.4-5.4 10 ^3/uL Monocytes # (Auto) 0.9 0-1.3 10 ^3/uL Eosinophils # (Auto) 0 0-0.8 10 ^3/uL Basophils # (Auto) 0 0-0.2 10 ^3/uL Nucleated Red Blood Cells 0.1 % Prothrombin Time 13.1 H 9.3-11.8 sec Prothrombin Time INR 1.26 H 0.9-1.15 Sodium Level 133 L 136-145 mmol/L Potassium Level 3.5 3.5-5.1 mmol/L Chloride Level 84 L 98-107 mmol/L Carbon Dioxide Level > 40 *H 20-31 mmol/L Anion Gap 8.58214 5-15 Blood Urea Nitrogen 32 H 9-23 mg/dL Creatinine 1.77 H 0.700-1.30 mg/dL Glomerular Filtration Rate Calc 44 >90 mL/min BUN/Creatinine Ratio 18.1 10.0-20.0 Serum Glucose 153 H 74-106 mg/dL Lactic Acid Level 1.4 0.4-2.0 mmol/L Calcium Level 11.7 H 8.7-10.4 mg/dL Total Bilirubin 0.3 0.2-1.0 mg/dL Aspartate Amino Transferase (AST) 32 13-40 U/L Alanine Aminotransferase (ALT) 345 H 7-40 U/L Alkaline Phosphatase 97 46-116 U/L Total Protein 7.7 5.7-8.2 g/dL Albumin 4.5 3.2-4.8 g/dL PATIENT: HENRIQUE HERNANDEZ LACCT: [id number] UNIT: [id number] : 1965 LOC: ER ROOM / BED: / AGE / SEX: 59 / M ADM STATUS: REG ER SERVICE [id number] ORDERING PHYSICIAN: NAEL MALONEY MD PROCEDURE(s): ABPLIV - CT AB PEL WITH IV CON ONLY REASON: GI Bleed protocol (? Upper GI Bleed) ORDER NUMBER(s): [id number], ACCESSION NUMBER(s): [id number] Exam: CT CT AB PEL WITH IV CON ONLY History: GI Bleed protocol ( Upper GI Bleed) Comparison Study: None available at time of dictation. Contrast: Type of contrast: Omnipaque 300 Contrast injected: 100 mL Contrast wasted: 0 TECHNIQUE: A digital stone sandblaster image was obtained. During the uneventful, intravenous administration of contrast material, multislice data acquisition was obtained through the abdomen and pelvis. The data set was subsequently reconstructed into axial images. Images were reviewed on a work station using a combination of axial and multiplanar using a variety of window levels and settings. Radiation Dose Information: CT Dose: CTDI volume is 8.37 mGy. Dose-length product is 478 mGy*cm FINDINGS: Lung Bases: Bibasilar pulmonary airspace disease. Normal heart size. No pleural or pericardial effusion. Bibasilar bronchiectasis and peribronchial thickening. Liver: The liver is normal in size. No focal lesions. Normal hepatic vascular enhancement. Gallbladder and Biliary Tree: Unremarkable Spleen: Unremarkable Pancreas: The pancreas is normal in appearance without focal lesions or abnormal enhancement. Adrenal Glands: Unremarkable Kidneys: Kidneys demonstrate normal symmetric enhancement without focal lesions, calculi or hydronephrosis. Bladder: Unremarkable Bowel: The stomach is grossly normal in appearance. Small hiatal hernia and thickening of the distal thoracic esophagus. Small bowel and colon are normal in caliber and distribution. The appendix is not visualized; however, no secondary findings of acute appendicitis identified. Ascites: Absent Lymphadenopathy: No mesenteric, retroperitoneal or periportal lymphadenopathy. Abdominal Wall and Mesentery: Unremarkable. Vasculature: The visualized abdominal aorta is normal in size and caliber. Abdominal and pelvic vessels demonstrate normal enhancement. Pelvic Organs: Unremarkable Musculoskeletal: No aggressive focal bony lesions, acute fractures or dislocation. Soft tissues: Unremarkable. IMPRESSION: 1. Bibasilar infiltrates bronchiectasis and peribronchial thickening. 2. No bowel obstruction 3. No calcified gallstones. ORDERING PHYSICIAN: NAEL MALONEY MD PROCEDURE(s): CXR1 - CHEST XRAY 1 VIEW REASON: hypoxia ORDER NUMBER(s): [id number], ACCESSION NUMBER(s): [id number] CHEST RADIOGRAPH Indication: hypoxia Technique: Single frontal view of the chest was obtained Comparison: XY CHEST PORTABLE on DOS: 08/24/22 FINDINGS: Lines and Tubes: Dual-chamber pacemaker in place with pulse generator over the left chest. Lungs: Prominent perihilar peribronchial thickening and left lower lobe infiltrate. Findings may represent pneumonia or bronchitis. Pleura: No effusion. No pneumothorax. Cardiomediastinal contours: Unremarkable Bones: No acute osseous abnormality. IMPRESSION: 1. Bilateral perihilar peribronchial thickening with left lower lobe airspace disease findings may represent bronchitis or pneumonia. Assessment/Plan Assessment/Plan Acute respiratory failure with hypoxia Hyponatremia GI bleed Elevated liver enzymes Acute kidney injury Anemia, unspecified Pneumonia, unspecified organism Plan 1. Admit to telemetry unit 2. Breathing treatment 3. Pain control management 4. IV antibiotic management 5. Management of fluids and electrolytes 6. Consultation for Nephrology/hospitalist 7. Diagnostic test chest x-ray 8. DVT prophylaxis-on SCDs 9. Repeat labs CBC, CMP in a.m. 10. Home medication reviewed and reconciled 11. Continue with current medical management 12. Treatment plan discussed with patient and RN. Patient verbalized understanding. Plan discussed with: Patient, Other (RN) My Orders Orders - DION OWEN DNP Procedure Category Date Status Time Complete Blood Count LAB 05/20/24 Logged 04:00 Comprehensive LAB 05/20/24 Logged Metabolic Panel 04:00 Pantoprazole PHA 05/20/24 In Process (Protonix) 10:00 Ceftriaxone 1gm/50ml PHA 05/20/24 In Process D5w (Rocephin) 21:00 Azithromycin 500mg/ PHA 05/20/24 In Process 250ml (Zithromax 50 01:30 *[facility] CONS 05/20/24 Transmitted -[place] 00:41 Allergies YOLANDE 05/20/24 In Process 00:41 Code Status CODE 05/20/24 Transmitted 00:41 Sodium Chloride 0.9% PHA 05/20/24 In Process 00:45 Oxygen Per Hour RT 05/20/24 Transmitted 00:41 Hydrocodone-Acet PHA 05/20/24 In Process 5/325mg Tab ([place] 00:45 Ondansetron Hcl PHA 05/20/24 In Process (Zofran) 00:45 Docusate Sodium PHA 05/20/24 In Process Capsule (Colace 00:45 Complete Blood Count LAB 05/21/24 Verified 04:00 Comprehensive LAB 05/21/24 Verified Metabolic Panel 04:00 Cardiac DIET 05/20/24 Transmitted Diet-2gna,Lofat,Lochol Breakfast Condition: Serious YOLANDE 05/20/24 In Process 00:41 Acetaminophen Tablet PHA 05/20/24 In Process (Tylenol Tablet) 00:45 Bedrest With Bathroom YOLANDE 05/20/24 In Process Privileg 00:41 Sequential YOLANDE 05/20/24 In Process Compression Device Levothyroxine Tablet PHA 05/20/24 In Process (Synthroid Tablet) 06:00 Azithromycin 500mg/ PHA 05/21/24 In Process 250ml (Zithromax 50 10:00 Admit ADMIT 05/20/24 Transmitted 01:45 Nitroglycerin [facility] 05/20/24 Transmitted Sublingual (Ntrostat 01:45 Morphine Sulfate [facility] 05/20/24 Transmitted Injection 01:45 Notify Of Changes [facility] 05/20/24 Transmitted From Base 01:45 Business Economist For [facility] 05/20/24 Transmitted 24 Hours 01:45 Emergency Dysrhythmia [facility] 05/20/24 Transmitted Protocol 01:45 Rhythm Strips Once [facility] 05/20/24 Transmitted Every Shift 01:45 Oxygen By Nasal 05/20/24 Transmitted Cannula 01:45 Problem List: (1) Acute respiratory failure with hypoxia (2) Anemia, unspecified (3) GI bleed (4) Elevated liver enzymes (5) Hyponatremia (6) Acute kidney injury (7) Pneumonia, unspecified organism Date of Service: May 20, 2024 Billing Provider: DION OWEN DNP Common Visit Codes: [id number] INP/OBS CARE (HIGH) DION OWEN DNP May 20, 2024 02:14
--- NOTE | 2024-05-20 04:00 | ECG ---
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
[2024-05-20] MEDS: LEVOTHYROXINE SODIUM 50 MCG TAB PO SCH (06:00)
[2024-05-20 07:45] VITALS: RESP 11; O2SAT 96
[2024-05-20 08:00] LABS: Basophils # (auto) 0 10 ^3/uL (0-0.2); Basophils % (auto) 0.1 % (0.0-2.0); Eosinophils # (auto) 0.1 10 ^3/uL (0-0.8); Hemoglobin 8.4 g/dL (13.5-17.5); Monocytes # (auto) 0.8 10 ^3/uL (0-1.3); Platelet Count (auto) 271 10^3/uL (140-450)
[2024-05-20 08:03] LABS: Eosinophils % (auto) 0.3 % (0.0-7.0); Hematocrit 25.9 % (41.0-53.0); Lymphocytes % (auto) 5.8 % (10.0-50.0); Mean Corpuscular Hemoglobin 26.6 pg (28.0-32.0); Mean Corpuscular Hgb Conc. 32.2 g/dL (32.0-36.0); Mean Corpuscular Volume 82.6 fL (80.0-100.0); Neutrophils % (auto) 88.8 % (37.0-80.0); Red Blood Cells 3.14 10^6/uL (4.5-5.90); Red Cell Distribution Width 17.6 % (11.8-14.3); White Blood Cell 16.9 10^3/uL (4.4-10.8)
[2024-05-20 08:17] LABS: Albumin 3.5 g/dL (3.2-4.8); Anion Gap 3 (5-15); Calcium 9.9 mg/dL (8.7-10.4); Potassium 4.3 mmol/L (3.5-5.1)
[2024-05-20 08:18] LABS: Bilirubin, Total 0.2 mg/dL (0.2-1.0); Carbon Dioxide 37 mmol/L (20-31); Chloride 95 mmol/L (98-107); Glucose 125 mg/dL (74-106); Sodium 135 mmol/L (136-145)
[2024-05-20 08:30] LABS: BUN/Creatinine Ratio 28.7 (10.0-20.0)
[2024-05-20 09:00] LABS: Alkaline Phosphatase 74 U/L (46-116); Blood Urea Nitrogen 27 mg/dL (9-23)
[2024-05-20 09:01] LABS: Alanine Aminotransferase 223 U/L (7-40); Aspartate Aminotransferase 20 U/L (13-40)
[2024-05-20] MEDS: PANTOPRAZOLE 40 MG/10 ML VIAL INJ IV SCH (10:16)
[2024-05-20 15:01] LABS: COVID19 ANTIGEN SOFIA FIA NEGATIVE (NEGATIVE); Rapid Influenza A Negative (Negative); Rapid Influenza B Negative (Negative)
[2024-05-20] MEDS: ONDANSETRON HCL 4 MG/2 ML VIAL IV PRN (15:06)
[2024-05-20 18:45] VITALS: BP 101/53; PULSE 70; RESP 20; TEMP 98.1; O2SAT 94
--- NOTE | 2024-05-20 19:38 | DVHINCON2 ---
Date of service: May 20, 2024 Reason for Consultation tessy History of Present Illness 59 years old male past medical history of schizophrenia, hypertension, COPD presented with chief complaints of GI bleeding bloody stool nephrology consulted for acute kidney injury patient is a poor historian Past Medical History As per HPI Allergies: Coded Allergies: NO KNOWN ALLERGIES (Unverified , 08/24/22) Home Meds Reported Medications Cholecalciferol (VITAMIN D3) 2,000 Unit Tab, 1 CAP PO DAILY 08/25/22 Tamsulosin Hcl (Tamsulosin Hcl) 0.4 Mg Cap, 1 CAP PO DAILY 08/25/22 Docusate Sodium (Docusate Sodium) 100 Mg Cap, 1 CAP PO DAILY 08/25/22 Pantoprazole Sodium Sesquihydr (Pantoprazole Sodium) 40 Mg Tab, 1 TAB PO BID 08/25/22 Quetiapine Fumerate (QUETIAPINE FUMARATE) 50 Mg Tab, 1 TAB PO 08/25/22 Ondansetron (Zofran) 4 Mg Tab, 8 MG PO, TAB 08/24/22 Lorazepam (Lorazepam) 2 Mg Tab, 2 MG PO TID, TAB 08/24/22 Trazodone Hcl (Trazodone Hcl) 150 Mg Tab, 150 MG PO DAILY, MG 08/24/22 Tamsulosin HCl (Tamsulosin Hydrochloride) 0.4 Mg Cap, 0.4 MG PO, CAP 08/24/22 Senna (Senna Lax) 8.6 Mg Tab, 8.6 MG PO QHSP PRN for FOR CONSTIPATION, MG 08/24/22 Risperidone (Risperidone) 3 Mg Tab, 3 MG PO BID, TAB 08/24/22 Pantoprazole Sodium Sesquihydr (Protonix) 40 Mg Tab, 40 MG PO BID, #30 TAB 08/24/22 Lisinopril (Lisinopril) 10 Mg Tab, 10 MG PO DAILY for 30 Days, MG 08/24/22 Levothyroxine Sodium (Levothyroxine Sodium) 50 Mcg Tab, 50 MCG PO QAM for 30 Days, MCG 08/24/22 Ferrous Sulfate (Ferrous Sulfate) 325 Mg Tab, 325 MG PO DAILY, MG 08/24/22 Docusate Sodium (Docusate Sodium) 100 Mg Tab, 100 MG PO DAILYP PRN for FOR CONSTIPATION, MG 08/24/22 Chlorpromazine Hcl (Chlorpromazine Hcl) 25 Mg Tab, 50 MG PO BID, MG 08/24/22 Benztropine Mesylate (Benztropine Mesylate) 0.5 Mg Tab, 0.5 MG PO DAILY, MG 08/24/22 Risperidone (Risperidone) 3 Mg Tab, 1 TAB PO BID 08/24/22 Levothyroxine Sodium (Levothyroxine Sodium) 50 Mcg Tab, 1 TAB PO DAILY 08/24/22 Current Medications Current Medications Medications (Trade) Dose Ordered Sig/Jose Route PRN Reason Start Time Stop Time Status Last Admin Pantoprazole Sodium (Protonix) 40 mg DAILY IV 05/20/24 10:00 05/20/24 10:16 Ceftriaxone Sodium 50 ml @ 100 mls/hr Q24H IV 05/20/24 21:00 Azithromycin 250 ml @ 125 mls/hr DAILY IV 05/21/24 10:00 Sodium Chloride 1,000 ml @ 60 mls/hr [id number] IV 05/20/24 00:45 05/20/24 17:35 Acetaminophen/ Hydrocodone Bitart ([place] 5/325MG Tab) 1 tab Q4HP PRN PO MODERATE PAIN (4-6 PAIN SCALE) 05/20/24 00:45 Ondansetron HCl (Zofran) 4 mg Q4HP PRN IV NAUSEA / VOMITING 05/20/24 00:45 05/20/24 15:06 Docusate Sodium (Colace Capsule) 100 mg BIDPRN PRN PO FOR CONSTIPATION 05/20/24 00:45 Acetaminophen (Tylenol Tablet) 650 mg Q6HP PRN PO PAIN SCALE 1-3 OR TEMP>100.4 05/20/24 00:45 Levothyroxine Sodium (Synthroid Tablet) 50 mcg QAM@0600 PO 05/20/24 06:00 Nitroglycerin (Ntrostat Sublingual) 0.4 mg Q5MINP PRN SL FOR CHEST PAIN 05/20/24 01:45 Morphine Sulfate 2 mg Q30M PRN IV FOR CHEST PAIN 05/20/24 01:45 Family History: Patient reports no known family medical history. Review of Systems Unknown exactly H&P Exam Vital Signs/I&O Vital Sign Date Time Temp Pulse Resp B/P (MAP) Pulse Ox O2 Delivery O2 Flow Rate FiO2 05/20/24 18:51 Nasal Cannula* 4 36 05/20/24 18:45 98.1 70 20 101/53 (21) 94 98.1 Intake and Output 05/19/24 05/20/24 19:00 07:00 Intake Total 60 ml Balance 60 ml Intake IV Total 60 ml Physical Exam General-not in any distress HEENT-normocephalic, no icterus, no pallor, neck supple Respiratory-fair air entry bilateral, no rhonchi, no wheeze [id number] heard, no murmurs appreciated Abdominal-soft, nontender, nondistended Musculoskeletal-no pedal edema, no calf tenderness Labs/Diagnostic Data Labs/Diagnostic Data Laboratory Tests Test 05/20/24 14:27 05/20/24 07:30 05/19/24 18:53 05/19/24 18:34 Range/Units Influenza Type A Antigen Negative Negative Influenza Type B Antigen Negative Negative SARS-CoV-2 Antigen (Rapid) Negative NEGATIVE White Blood Count 16.9 H 15.7 H 4.4-10.8 10^3/uL Red Blood Count 3.14 L 3.88 L 4.5-5.90 10^6/uL Hemoglobin 8.4 #L 10.5 L 13.5-17.5 g/dL Hematocrit 25.9 #L 31.7 L 41.0-53.0 % Mean Corpuscular Volume 82.6 81.8 80.0-100.0 fL Mean Corpuscular Hemoglobin 26.6 L 27.0 L 28.0-32.0 pg Mean Corpuscular Hemoglobin Concent 32.2 33.0 32.0-36.0 g/dL Red Cell Distribution Width 17.6 H 17.6 H 11.8-14.3 % Platelet Count 271 307 140-450 10^3/uL Mean Platelet Volume 7.3 7.3 6.9-10.8 fL Neutrophils (%) (Auto) 88.8 H 90.0 H 37.0-80.0 % Lymphocytes (%) (Auto) 5.8 L 4.1 L 10.0-50.0 % Monocytes (%) (Auto) 5.0 5.6 0.0-12.0 % Eosinophils (%) (Auto) 0.3 0.1 0.0-7.0 % Basophils (%) (Auto) 0.1 0.2 0.0-2.0 % Neutrophils # (Auto) 15.0 H 14.1 H 1.6-8.6 10 ^3/uL Lymphocytes # (Auto) 1.0 0.7 0.4-5.4 10 ^3/uL Monocytes # (Auto) 0.8 0.9 0-1.3 10 ^3/uL Eosinophils # (Auto) 0.1 0 0-0.8 10 ^3/uL Basophils # (Auto) 0 0 0-0.2 10 ^3/uL Nucleated Red Blood Cells 0.0 0.1 % Sodium Level 135 L 133 L 136-145 mmol/L Potassium Level 4.3 3.5 3.5-5.1 mmol/L Chloride Level 95 #L 84 L 98-107 mmol/L Carbon Dioxide Level 37 H > 40 *H 20-31 mmol/L Anion Gap 3 L 8.96844 5-15 Blood Urea Nitrogen 27 H 32 H 9-23 mg/dL Creatinine 0.94 1.77 H 0.700-1.30 mg/dL Glomerular Filtration Rate Calc 95 44 >90 mL/min BUN/Creatinine Ratio 28.7 H 18.1 10.0-20.0 Serum Glucose 125 H 153 H 74-106 mg/dL Calcium Level 9.9 11.7 H 8.7-10.4 mg/dL Total Bilirubin 0.2 0.3 0.2-1.0 mg/dL Aspartate Amino Transferase (AST) 20 32 13-40 U/L Alanine Aminotransferase (ALT) 223 H 345 H 7-40 U/L Alkaline Phosphatase 74 97 46-116 U/L Total Protein 6.0 7.7 5.7-8.2 g/dL Albumin 3.5 4.5 3.2-4.8 g/dL Blood Gas Specimen Type Arterial Blood Gas Sample Site Right radial Blood Gas Patient Temperature 37.0 Arterial Blood Date Drawn [id number] Arterial Blood pH 7.513 H 7.350-7.450 Arterial Blood Partial Pressure CO2 50.6 H 35.0-48.0 mmHg Arterial Blood Partial Pressure O2 68.6 L 83.0-108.0 mmHg Arterial Blood HCO3 39.7 H 21.0-28.0 mmol/L Arterial Blood Oxygen Saturation 92.8 L 94.0-98.0 % Arterial Blood Base Excess 14.9 H -2.0-3.0 mmol/L Arterial Blood Oxyhemoglobin 92.0 L 94.0-98.0 % Arterial Blood Carboxyhemoglobin 0.2 L 0.5-1.5 % Arterial Blood Methemoglobin 0.7 0.0-1.5 % Richard Test N/a Blood Gas Total Hemoglobin 11.30 L 13.5-17.5 g/dL Blood Gas Liter Flow 3.00 Blood Gas Modality Nasal cannula FiO2 % 32.0 Prothrombin Time 13.1 H 9.3-11.8 sec Prothrombin Time INR 1.26 H 0.9-1.15 Lactic Acid Level 1.4 0.4-2.0 mmol/L Assessment Acute kidney injury hemodynamic mediated etiology Anemia /GI bleeding Acute hypoxic respiratory failure, pneumonia Metabolic alkalosis Recommendations Patient has received enough IV fluids since admission he has received IV contrast on admission for CT scan DC IV fluids patient needing 4 L nasal cannula Antibiotics renal function improved since admission Plan discussed with: Patient RAQUEL MAIN MD May 20, 2024 19:38
[2024-05-20] MEDS: cefTRIAXone 1GM/50ML D5W 50 ML IV SCH (20:23)
[2024-05-20 21:00] VITALS: BP 97/46; PULSE 68; RESP 17; TEMP 97.7; O2SAT 94
[2024-05-21] VITALS (8 sets, daily range): BP systolic 100–110; BP diastolic 44–57; PULSE 64–79; RESP 14–18; TEMP 97.7–99.1; O2SAT 96–100
[2024-05-21 04:56] LABS: Basophils # (auto) 0 10 ^3/uL (0-0.2); Eosinophils # (auto) 0.4 10 ^3/uL (0-0.8); Eosinophils % (auto) 4.9 % (0.0-7.0); Monocytes # (auto) 0.6 10 ^3/uL (0-1.3); White Blood Cell 7.7 10^3/uL (4.4-10.8)
[2024-05-21 04:59] LABS: Basophils % (auto) 0.2 % (0.0-2.0); Hematocrit 23.9 % (41.0-53.0); Hemoglobin 7.8 g/dL (13.5-17.5); Lymphocytes # (auto) 1.2 10 ^3/uL (0.4-5.4); Lymphocytes % (auto) 15.1 % (10.0-50.0); Mean Corpuscular Hemoglobin 26.9 pg (28.0-32.0); Mean Corpuscular Hgb Conc. 32.4 g/dL (32.0-36.0); Mean Corpuscular Volume 82.9 fL (80.0-100.0); Monocytes % (auto) 8.2 % (0.0-12.0); Neutrophils # (auto) 5.5 10 ^3/uL (1.6-8.6); Neutrophils % (auto) 71.6 % (37.0-80.0); Platelet Count (auto) 240 10^3/uL (140-450); Red Blood Cells 2.88 10^6/uL (4.5-5.90); Red Cell Distribution Width 17.5 % (11.8-14.3)
[2024-05-21 05:21] LABS: Albumin 3.3 g/dL (3.2-4.8); Alkaline Phosphatase 66 U/L (46-116); Anion Gap 2 (5-15); Aspartate Aminotransferase 21 U/L (13-40); BUN/Creatinine Ratio 14.1 (10.0-20.0); Blood Urea Nitrogen 10 mg/dL (9-23); Calcium 9.8 mg/dL (8.7-10.4); Potassium 3.8 mmol/L (3.5-5.1); Sodium 138 mmol/L (136-145)
[2024-05-21 05:28] LABS: Alanine Aminotransferase 164 U/L (7-40); Bilirubin, Total 0.2 mg/dL (0.2-1.0); Carbon Dioxide 38 mmol/L (20-31); Chloride 98 mmol/L (98-107); Glucose 114 mg/dL (74-106); Total Protein 5.6 g/dL (5.7-8.2)
--- NOTE | 2024-05-21 08:57 | DVHPN2 ---
Progress Note Date Seen: May 21, 2024 Medical Necessity Reason Pt with a Central, PICC or Fol: No Subjective Patient reports: No new complaints Objective vital signs Vital Sign Date Time Temp Pulse Resp B/P (MAP) Pulse Ox O2 Delivery O2 Flow Rate FiO2 05/21/24 05:00 98.2 66 17 105/53 (70) 98 98.2 05/20/24 20:30 Nasal Cannula* 4 36 Total Intake and Output 05/20/24 05/20/24 05/21/24 15:00 23:00 07:00 Intake Total 480 ml 50 ml 150 ml Output Total 700 ml 500 ml Balance -220 ml 50 ml -350 ml medications Current Medications Medications Dose Ordered Sig/Jose Route Start Time Stop Time Status Last Admin Dose Admin Pantoprazole Sodium 40 mg DAILY IV 05/20/24 10:00 05/20/24 10:16 40 MG Ceftriaxone Sodium 50 ml @ 100 mls/hr Q24H IV 05/20/24 21:00 05/20/24 20:23 100 MLS/HR Azithromycin 250 ml @ 125 mls/hr DAILY IV 05/21/24 10:00 Acetaminophen/ Hydrocodone Bitart 1 tab Q4HP PRN PO 05/20/24 00:45 Ondansetron HCl 4 mg Q4HP PRN IV 05/20/24 00:45 05/20/24 15:06 4 MG Docusate Sodium 100 mg BIDPRN PRN PO 05/20/24 00:45 Acetaminophen 650 mg Q6HP PRN PO 05/20/24 00:45 Levothyroxine Sodium 50 mcg QAM@0600 PO 05/20/24 06:00 05/21/24 05:47 50 MCG Nitroglycerin 0.4 mg Q5MINP PRN SL 05/20/24 01:45 Morphine Sulfate 2 mg Q30M PRN IV 05/20/24 01:45 laboratory and microbiology Laboratory Tests 05/21/24 04:32 Test 05/21/24 04:32 Range/Units Serum Glucose 114 H 74-106 mg/dL Problem List/Assessment/Plan Problem List/Assessment/Plan Acute kidney injury hemodynamic mediated etiology Anemia /GI bleeding Acute hypoxic respiratory failure, pneumonia Metabolic alkalosis Recommendations will sign off this case/pls reconsult if needed renal function improved since admission Plan discussed with: Patient RAQUEL MAIN MD May 21, 2024 08:57
[2024-05-21] MEDS: AZITHROMYCIN 500MG/ 250ML 250 ML IV SCH (09:56)
--- NOTE | 2024-05-21 20:14 | DVHPN2 ---
Subjective in bed resting Reviewed: Care Plan Changes from previous H/P or p: No Changes Eyes: No Pain, No Vision change, No Conjunctivae inflammation, No Eyelid inflammation, No Other, No Redness ENT: No Ear pain, No Ear discharge, No Nose pain, No Nose discharge, No Nose congestion, No Mouth pain, No Mouth swelling, No Throat pain, No Throat swelling, No Other Cardiovascular: No Chest Pain, No Palpitations, No Orthopnea, No Paroxysmal Noc. Dyspnea, No Edema, No Lt Headedness, No Other Respiratory: No Cough, No Dry; Shortness of breath; No SOB with excertion, No Wheezing, No Hemoptysis, No Pleuritic Pain, No Sputum, No Other Gastrointestinal: No Nausea, No Vomiting, No Abdominal Pain, No Diarrhea, No Constipation, No Melena, No Hematochezia; Other (Hematemesis) Genitourinary: No Dysuria, No Frequency, No Incontinence, No Hematuria, No Retention, No Other Musculoskeletal: No other, No neck pain, No shoulder pain, No arm pain, No back pain, No hand pain, No leg pain, No foot pain Skin: No Rash, No Lesions, No Jaundice, No Bruising, No Other Objective Vitals Vital Signs Date Time Temp Pulse Resp B/P (MAP) Pulse Ox O2 Delivery O2 Flow Rate FiO2 05/21/24 17:00 98.1 68 14 104/44 (64) 100 98.1 05/21/24 08:00 Nasal Cannula* 4 36 Intake/Output Intake and Output 05/21/24 05:00 Intake Total 590 ml Output Total 700 ml Balance -110 ml IV Total 590 ml Output Urine Total 700 ml General Appearance: Alert, Oriented X3 Lungs: Clear to auscultation Cardiovascular: Regular rate, Normal S1 Medications Current Medications Medications Dose Ordered Sig/Jose Route Start Time Stop Time Status Last Admin Dose Admin Pantoprazole Sodium 40 mg DAILY IV 05/20/24 10:00 05/21/24 09:56 40 MG Ceftriaxone Sodium 50 ml @ 100 mls/hr Q24H IV 05/20/24 21:00 05/20/24 20:23 100 MLS/HR Azithromycin 250 ml @ 125 mls/hr DAILY IV 05/21/24 10:00 05/21/24 09:56 125 MLS/HR Acetaminophen/ Hydrocodone Bitart 1 tab Q4HP PRN PO 05/20/24 00:45 Ondansetron HCl 4 mg Q4HP PRN IV 05/20/24 00:45 05/20/24 15:06 4 MG Docusate Sodium 100 mg BIDPRN PRN PO 05/20/24 00:45 Acetaminophen 650 mg Q6HP PRN PO 05/20/24 00:45 Levothyroxine Sodium 50 mcg QAM@0600 PO 05/20/24 06:00 05/21/24 05:47 50 MCG Nitroglycerin 0.4 mg Q5MINP PRN SL 05/20/24 01:45 Morphine Sulfate 2 mg Q30M PRN IV 05/20/24 01:45 Hold Laboratory Results Laboratory Tests 05/21/24 04:32 Chemistry Test 05/21/24 04:32 Albumin 3.3 g/dL (3.2-4.8) Calcium Level 9.8 mg/dL (8.7-10.4) Total Protein 5.6 g/dL (5.7-8.2) L LFT Test 05/21/24 04:32 Alanine Aminotransferase (ALT) 164 U/L (7-40) H Alkaline Phosphatase 66 U/L (46-116) Aspartate Amino Transferase (AST) 21 U/L (13-40) Total Bilirubin 0.2 mg/dL (0.2-1.0) Assessment/Plan Assessment/Plan Acute respiratory failure with hypoxia Hyponatremia GI bleed Elevated liver enzymes Acute kidney injury Anemia, unspecified Pneumonia, unspecified organism Plan Continue duonebs IV abx monitor kidney function has been trending down to normal Monitor H and H Plan discussed with: Patient Date of Service: May 21, 2024 Billing Provider: MICHAEL SERNA MD Common Visit Codes: [id number] INP/OBS CARE(HIGH) MICHAEL SERNA MD May 21, 2024 20:14
[2024-05-21] MEDS: DOCUSATE SOD 100 MG CAP PO PRN (21:46)
[2024-05-22] VITALS (7 sets, daily range): BP systolic 95–123; BP diastolic 46–65; PULSE 59–81; RESP 17–18; TEMP 97.6–98.6; O2SAT 94–100
[2024-05-22 10:56] LABS: Hematocrit 25.2 % (41.0-53.0)
--- NOTE | 2024-05-22 11:27 | DVHPN2 ---
Subjective The patient is seen and examined at bedside. Still complaint of shortness for breath. Reviewed: Care Plan, H&P, Labs, Medications, Previous Orders, Radiology Changes from previous H/P or p: No Changes Eyes: No Pain, No Vision change, No Conjunctivae inflammation, No Eyelid inflammation, No Other, No Redness ENT: No Ear pain, No Ear discharge, No Nose pain, No Nose discharge, No Nose congestion, No Mouth pain, No Mouth swelling, No Throat pain, No Throat swelling, No Other Cardiovascular: No Chest Pain, No Palpitations, No Orthopnea, No Paroxysmal Noc. Dyspnea, No Edema, No Lt Headedness, No Other Respiratory: No Cough, No Dry; Shortness of breath; No SOB with excertion, No Wheezing, No Hemoptysis, No Pleuritic Pain, No Sputum, No Other Gastrointestinal: No Nausea, No Vomiting, No Abdominal Pain, No Diarrhea, No Constipation, No Melena, No Hematochezia; Other (Hematemesis) Genitourinary: No Dysuria, No Frequency, No Incontinence, No Hematuria, No Retention, No Other Musculoskeletal: No other, No neck pain, No shoulder pain, No arm pain, No back pain, No hand pain, No leg pain, No foot pain Skin: No Rash, No Lesions, No Jaundice, No Bruising, No Other Objective Vitals Vital Signs Date Time Temp Pulse Resp B/P (MAP) Pulse Ox O2 Delivery O2 Flow Rate FiO2 05/22/24 09:00 97.6 65 17 123/65 (84) 98 97.6 05/21/24 19:30 Nasal Cannula* 4 36 Intake/Output Intake and Output 05/22/24 07:00 Intake Total 3220 ml Output Total 1200 ml Balance 2020 ml Intake Oral 2920 ml IV Total 300 ml Output Urine Total 1200 ml # Voids 3 General Appearance: Alert, Oriented X3, Cooperative, No acute distress HEENT: Atraumatic, PERRLA, EOMI, Mucous membr. moist/pink Neck: Supple Lungs: Clear to auscultation, Normal air movement Cardiovascular: Regular rate, Normal S1, Normal S2, No murmurs, Gallops, Rubs Abdomen: Normal bowel sounds, Soft, No tenderness Neuro: Cranial nerves 3-12 NL Psych/Mental Status: Mental status NL Medications Current Medications Medications Dose Ordered Sig/Jose Route Start Time Stop Time Status Last Admin Dose Admin Pantoprazole Sodium 40 mg DAILY IV 05/20/24 10:00 05/21/24 09:56 40 MG Ceftriaxone Sodium 50 ml @ 100 mls/hr Q24H IV 05/20/24 21:00 05/21/24 21:00 100 MLS/HR Azithromycin 250 ml @ 125 mls/hr DAILY IV 05/21/24 10:00 05/21/24 09:56 125 MLS/HR Acetaminophen/ Hydrocodone Bitart 1 tab Q4HP PRN PO 05/20/24 00:45 Ondansetron HCl 4 mg Q4HP PRN IV 05/20/24 00:45 05/20/24 15:06 4 MG Docusate Sodium 100 mg BIDPRN PRN PO 05/20/24 00:45 05/21/24 21:46 100 MG Acetaminophen 650 mg Q6HP PRN PO 05/20/24 00:45 Levothyroxine Sodium 50 mcg QAM@0600 PO 05/20/24 06:00 05/22/24 05:18 50 MCG Nitroglycerin 0.4 mg Q5MINP PRN SL 05/20/24 01:45 Morphine Sulfate 2 mg Q30M PRN IV 05/20/24 01:45 Hold Laboratory Results Laboratory Tests 05/21/24 04:32 05/22/24 01:00 Labs and/or images reviewed: Labs reviewed by me Assessment/Plan Assessment/Plan Acute respiratory failure with hypoxia Hyponatremia GI bleed Elevated liver enzymes Acute kidney injury Anemia, unspecified Pneumonia, unspecified organism Plan Continuing current management. Continuing with IV antibiotics. Continuing to monitor electrolytes. Continuing to monitor kidney function Transfuse as needed if hemoglobin less than seven. This medical document was created using an electronic medical record system with [employer] direct computerized dictation system. Although this document has been carefully reviewed, there may still be some phonetic and typographical errors. These areas are purely typographical due to imperfections of the software programs, and do not reflect any compromise in the patient's medical care. Plan discussed with: Patient Date of Service: May 22, 2024 Billing Provider: ZELALEM MARK MD Common Visit Codes: [id number] INP/OBS CARE(HIGH) ZELALEM MARK MD May 22, 2024 11:27
--- NOTE | 2024-05-22 12:25 | DVHINCON2 ---
GI Consult Consult Note GI consult note Date of Consultation: 05/22/2024 Chief Complaint: Positive stool occult Referring Physician: Kvng QUINTANA H&P: 59-year-old male with past medical history of COPD, GERD, hypertension, schizophrenia and thyroid disease, presented to ER for GI bleed Patient denies abdominal pain. No nausea or vomiting Per chart patient had episodes of hematemesis, and also complains of black stool Patient is a poor historian No EGD or colonoscopy in past per patient No blood thinners Last BM per RN 05/21/2024, no melena or red blood noted per RN Past Medical History: COPD, GERD, HTN, Schizophrenia, Thyroid disease. Past Surgical History: Denies Social History: NO smoking, drinking ETOH and use of illegal drugs. Family History: Noncontributory Review of Systems: Constitutional: no fever, chill, weight loss HEENT: no eye pain, no hearing loss, no oral lesion, no scleral icterus Heart: no chest pain, no chest pressure Lung: Shortness of breath Abdomen: see HPI Physical exam: General: NAD, AAOX3 Chest: lung brooks clear to auscultation Heart: RRR, no murmur Abdomen: non-distended, no tenderness to palpation, +BS Labs: Labs Test 05/22/24 01:00 05/21/24 22:00 05/21/24 04:32 05/20/24 14:27 Range/Units Hemoglobin 8.0 L 13.5-17.5 g/dL Hematocrit 25.2 L 41.0-53.0 % Stool Occult Blood Positive Negative Stool Occult Blood Sample #3 Negative White Blood Count 7.7 # 4.4-10.8 10^3/uL Red Blood Count 2.88 L 4.5-5.90 10^6/uL Mean Corpuscular Volume 82.9 80.0-100.0 fL Mean Corpuscular Hemoglobin 26.9 L 28.0-32.0 pg Mean Corpuscular Hemoglobin Concent 32.4 32.0-36.0 g/dL Red Cell Distribution Width 17.5 H 11.8-14.3 % Platelet Count 240 140-450 10^3/uL Mean Platelet Volume 7.2 6.9-10.8 fL Neutrophils (%) (Auto) 71.6 37.0-80.0 % Lymphocytes (%) (Auto) 15.1 10.0-50.0 % Monocytes (%) (Auto) 8.2 0.0-12.0 % Eosinophils (%) (Auto) 4.9 0.0-7.0 % Basophils (%) (Auto) 0.2 0.0-2.0 % Neutrophils # (Auto) 5.5 1.6-8.6 10 ^3/uL Lymphocytes # (Auto) 1.2 0.4-5.4 10 ^3/uL Monocytes # (Auto) 0.6 0-1.3 10 ^3/uL Eosinophils # (Auto) 0.4 0-0.8 10 ^3/uL Basophils # (Auto) 0 0-0.2 10 ^3/uL Nucleated Red Blood Cells 0.0 % Sodium Level 138 136-145 mmol/L Potassium Level 3.8 3.5-5.1 mmol/L Chloride Level 98 98-107 mmol/L Carbon Dioxide Level 38 H 20-31 mmol/L Anion Gap 2 L 5-15 Blood Urea Nitrogen 10 # 9-23 mg/dL Creatinine 0.71 0.700-1.30 mg/dL Glomerular Filtration Rate Calc 107 >90 mL/min BUN/Creatinine Ratio 14.1 10.0-20.0 Serum Glucose 114 H 74-106 mg/dL Calcium Level 9.8 8.7-10.4 mg/dL Total Bilirubin 0.2 0.2-1.0 mg/dL Aspartate Amino Transferase (AST) 21 13-40 U/L Alanine Aminotransferase (ALT) 164 H 7-40 U/L Alkaline Phosphatase 66 46-116 U/L Total Protein 5.6 L 5.7-8.2 g/dL Albumin 3.3 3.2-4.8 g/dL Influenza Type A Antigen Negative Negative Influenza Type B Antigen Negative Negative SARS-CoV-2 Antigen (Rapid) Negative NEGATIVE Test 05/19/24 18:53 05/19/24 18:34 Range/Units Blood Gas Specimen Type Arterial Blood Gas Sample Site Right radial Blood Gas Patient Temperature 37.0 Arterial Blood Date Drawn [id number] Arterial Blood pH 7.513 H 7.350-7.450 Arterial Blood Partial Pressure CO2 50.6 H 35.0-48.0 mmHg Arterial Blood Partial Pressure O2 68.6 L 83.0-108.0 mmHg Arterial Blood HCO3 39.7 H 21.0-28.0 mmol/L Arterial Blood Oxygen Saturation 92.8 L 94.0-98.0 % Arterial Blood Base Excess 14.9 H -2.0-3.0 mmol/L Arterial Blood Oxyhemoglobin 92.0 L 94.0-98.0 % Arterial Blood Carboxyhemoglobin 0.2 L 0.5-1.5 % Arterial Blood Methemoglobin 0.7 0.0-1.5 % Richard Test N/a Blood Gas Total Hemoglobin 11.30 L 13.5-17.5 g/dL Blood Gas Liter Flow 3.00 Blood Gas Modality Nasal cannula FiO2 % 32.0 Prothrombin Time 13.1 H 9.3-11.8 sec Prothrombin Time INR 1.26 H 0.9-1.15 Lactic Acid Level 1.4 0.4-2.0 mmol/L Imaging: CT abdomen pelvis IMPRESSION: 1. Bibasilar infiltrates bronchiectasis and peribronchial thickening. 2. No bowel obstruction 3. No calcified gallstones. Assessment: GI bleed Anemia Pneumonia Elevated LFTs Plan: Discussed with Dr. Viera Monitor labs, transfuse if hemoglobin less than seven Protonix We will reassess for possible GI procedures when patient is stable Discussed plan with patient and RN Thank you for this consult Date of Service: May 22, 2024 Billing Provider: REAL VILLAR Common Visit Codes: CONSULT ONLY Consultation Codes: [id number] CONSULT <60MIN REAL VILLAR May 22, 2024 12:25
[2024-05-22] MEDS ORDERED: FURO20TA3 PO (13:11)
[2024-05-22] MEDS ORDERED: DONE5TAB80 PO ×2 (13:11→13:12)
[2024-05-22] MEDS ORDERED: LISI2.5T47 PO (13:14)
[2024-05-22] MEDS ORDERED: LORA-1123 PO (13:39)
[2024-05-22] MEDS ORDERED: RIS1T PO (13:39)
[2024-05-22] MEDS ORDERED: SUCR1TAB PO (13:39)
[2024-05-22] MEDS ORDERED: METO25TA93 PO (13:39)
[2024-05-22] MEDS ORDERED: OLAN1TAB19 PO (13:39)
[2024-05-22] MEDS ORDERED: ASCO500T11 PO (13:39)
[2024-05-22] MEDS ORDERED: CHOL20007 PO (13:42)
[2024-05-22] MEDS ORDERED: ZOLP5TAB5 PO (13:44)
[2024-05-22] MEDS: SUCRALFATE 1 GM TAB PO SCH (17:24)
[2024-05-22] MEDS: ZOLPIDEM TARTRATE 5 MG TAB PO SCH (21:25)
[2024-05-22] MEDS: SENNA 8.6 MG TAB PO SCH (21:26)
[2024-05-22] MEDS: risperiDONE 1 MG TAB PO SCH (21:26)
[2024-05-22] MEDS: OLANZapine 5 MG TAB PO SCH (21:27)
[2024-05-23] VITALS (8 sets, daily range): BP systolic 91–149; BP diastolic 48–76; PULSE 60–73; RESP 16–19; TEMP 97.2–98.5; O2SAT 91–100
[2024-05-23] MEDS: PANTOPRAZOLE 40 MG TAB PO SCH (06:08)
[2024-05-23] MEDS: LEVOTHYROXINE SODIUM 50 MCG TAB PO SCH (06:08)
[2024-05-23] MEDS: DOCUSATE CALCIUM 240 MG CAP PO SCH (09:21)
[2024-05-23] MEDS: LORazepam 0.5 MG TAB PO SCH (09:22)
[2024-05-23] MEDS: FUROSEMIDE 20 MG TAB PO SCH (09:25)
[2024-05-23] MEDS: TAMSULOSIN HYDROCHLORIDE 0.4 MG CAP PO SCH (09:26)
[2024-05-23] MEDS: CHOLECALCIFEROL (VITD3) 1,000UNIT=25mCg TAB PO SCH (09:26)
[2024-05-23] MEDS: ASCORBIC ACID 500 MG TAB PO SCH (09:27)
[2024-05-23] MEDS: LISINOPRIL 5 MG TAB PO SCH (09:27)
[2024-05-23] MEDS: DONEPEZIL HYDROCHLORIDE 5 MG TAB PO SCH (09:27)
[2024-05-23] MEDS ORDERED: LORazepam 0.5 MG TAB PO SCH ×2 (10:00→15:00)
[2024-05-23] MEDS ORDERED: METOPROLOL SUCCINATE XL 50 MG TAB PO SCH (10:00)
--- NOTE | 2024-05-23 21:46 | DVHPN2 ---
Progress Note - Dictate Date Seen: May 23, 2024 Medical Necessity Reason Pt with a Central, PICC or Fol: No Subjective No new complaints\ Hungry and wants to eat Hb stable at 8.0 Pt wants an endoscopy vital signs Vital Sign Date Time Temp Pulse Resp B/P (MAP) Pulse Ox O2 Delivery O2 Flow Rate FiO2 05/23/24 16:59 97.2 66 17 103/48 (66) 100 97.2 05/23/24 08:00 Nasal Cannula* 4 36 Total Intake and Output 05/22/24 05/22/24 05/23/24 15:00 23:00 07:00 Intake Total 250 ml 594 ml 125 ml Output Total 700 ml Balance 250 ml -106 ml 125 ml medications Current Medications Medications Dose Ordered Sig/Jose Route Start Time Stop Time Status Last Admin Dose Admin Ceftriaxone Sodium 50 ml @ 100 mls/hr Q24H IV 05/20/24 21:00 05/22/24 21:25 100 MLS/HR Azithromycin 250 ml @ 125 mls/hr DAILY IV 05/21/24 10:00 05/23/24 09:28 125 MLS/HR Acetaminophen/ Hydrocodone Bitart 1 tab Q4HP PRN PO 05/20/24 00:45 Ondansetron HCl 4 mg Q4HP PRN IV 05/20/24 00:45 05/20/24 15:06 4 MG Docusate Sodium 100 mg BIDPRN PRN PO 05/20/24 00:45 05/21/24 21:46 100 MG Acetaminophen 650 mg Q6HP PRN PO 05/20/24 00:45 Nitroglycerin 0.4 mg Q5MINP PRN SL 05/20/24 01:45 Morphine Sulfate 2 mg Q30M PRN IV 05/20/24 01:45 Hold Docusate Calcium 240 mg DAILY PO 05/23/24 10:00 05/23/24 09:21 240 MG Donepezil HCl 5 mg DAILY PO 05/23/24 10:00 05/23/24 09:27 5 MG Furosemide 20 mg DAILY PO 05/23/24 10:00 05/23/24 09:25 20 MG Levothyroxine Sodium 50 mcg QAM@0600 PO 05/23/24 06:00 05/23/24 06:08 50 MCG Lisinopril 2.5 mg DAILY PO 05/23/24 10:00 05/23/24 09:27 2.5 MG Lorazepam 1 mg DAILY PO 05/23/24 15:00 Cancel Olanzapine 10 mg BID PO 05/22/24 22:00 05/23/24 09:21 10 MG Pantoprazole Sodium 40 mg DAILY@0700 PO 05/23/24 07:00 05/23/24 06:08 40 MG Risperidone 4 mg BID PO 05/22/24 22:00 05/23/24 09:25 4 MG Sennosides 17.2 mg BID PO 05/22/24 22:00 05/23/24 09:26 17.2 MG Tamsulosin HCl 0.4 mg DAILY PO 05/23/24 10:00 05/23/24 09:26 0.4 MG Sucralfate 1 gm TIDAC PO 05/22/24 17:00 05/23/24 15:13 1 GM Ascorbic Acid 500 mg DAILY PO 05/23/24 10:00 05/23/24 09:27 500 MG Cholecalciferol 2,000 unit DAILY PO 05/23/24 10:00 05/23/24 09:26 2,000 UNIT Zolpidem Tartrate 5 mg HS PO 05/22/24 22:00 05/22/24 21:25 5 MG Lorazepam 1 mg Q8HR PO 05/23/24 08:00 05/23/24 15:13 1 MG objective General: NAD, AAOX3 Chest: lung brooks clear to auscultation Heart: RRR, no murmur Abdomen: non-distended, no tenderness to palpation, +BS laboratory and microbiology Laboratory Tests 05/22/24 01:00 05/21/24 04:32 Test 05/21/24 04:32 Range/Units Serum Glucose 114 H 74-106 mg/dL Problems(with codes): (1) Elevated liver enzymes (2) Pneumonia, unspecified organism (3) Anemia, unspecified (4) GI bleed Prognosis PLAN NPO S/P MN IV PPI EGD tomorrow afternnon Plan discussed with: Patient JEANNETTE TIWARI MD May 23, 2024 21:46
[2024-05-24] VITALS (12 sets, daily range): BP systolic 92–141; BP diastolic 54–72; PULSE 61–81; RESP 14–18; TEMP 97.6–98.7; O2SAT 94–100
[2024-05-24 07:47] LABS: Basophils # (auto) 0 10 ^3/uL (0-0.2); Eosinophils # (auto) 0.3 10 ^3/uL (0-0.8); Neutrophils # (auto) 5.8 10 ^3/uL (1.6-8.6); Platelet Count (auto) 322 10^3/uL (140-450)
[2024-05-24 07:50] LABS: Basophils % (auto) 0.5 % (0.0-2.0); Eosinophils % (auto) 3.8 % (0.0-7.0); Hematocrit 25.2 % (41.0-53.0); Hemoglobin 8.3 g/dL (13.5-17.5); Lymphocytes # (auto) 1.1 10 ^3/uL (0.4-5.4); Lymphocytes % (auto) 14.3 % (10.0-50.0); Mean Corpuscular Hgb Conc. 32.7 g/dL (32.0-36.0); Mean Corpuscular Volume 82.6 fL (80.0-100.0); Monocytes # (auto) 0.4 10 ^3/uL (0-1.3); Monocytes % (auto) 5.8 % (0.0-12.0); Neutrophils % (auto) 75.6 % (37.0-80.0); Red Blood Cells 3.05 10^6/uL (4.5-5.90); Red Cell Distribution Width 17.4 % (11.8-14.3); White Blood Cell 7.6 10^3/uL (4.4-10.8)
[2024-05-24] MEDS ORDERED: SODIUM CHLORIDE LOCK 10 ML ONE (09:32)
[2024-05-24] MEDS ORDERED: fentaNYL CITRATE 100 MCG/2 ML VL ONE (09:33)
[2024-05-24] MEDS ORDERED: diphenhdrAMINE HCL 50 MG/1 ML VL ONE (09:33)
--- NOTE | 2024-05-24 12:35 | DVHPN2 ---
Reviewed: Care Plan, H&P, Labs, Medications, Previous Orders, Radiology Changes from previous H/P or p: No Changes General: Per HPI Eyes: No Pain, No Vision change, No Conjunctivae inflammation, No Eyelid inflammation, No Other, No Redness ENT: No Ear pain, No Ear discharge, No Nose pain, No Nose discharge, No Nose congestion, No Mouth pain, No Mouth swelling, No Throat pain, No Throat swelling, No Other Cardiovascular: No Chest Pain, No Palpitations, No Orthopnea, No Paroxysmal Noc. Dyspnea, No Edema, No Lt Headedness, No Other Respiratory: No Cough, No Dry; Shortness of breath; No SOB with excertion, No Wheezing, No Hemoptysis, No Pleuritic Pain, No Sputum, No Other Gastrointestinal: No Nausea, No Vomiting, No Abdominal Pain, No Diarrhea, No Constipation, No Melena, No Hematochezia; Other (Hematemesis) Genitourinary: No Dysuria, No Frequency, No Incontinence, No Hematuria, No Retention, No Other Musculoskeletal: No other, No neck pain, No shoulder pain, No arm pain, No back pain, No hand pain, No leg pain, No foot pain Skin: No Rash, No Lesions, No Jaundice, No Bruising, No Other Objective Vitals Vital Signs Date Time Temp Pulse Resp B/P (MAP) Pulse Ox O2 Delivery O2 Flow Rate FiO2 05/24/24 08:44 110/58 05/24/24 08:36 98.7 63 16 94 98.7 05/24/24 08:15 Nasal Cannula* 4 36 Intake/Output Intake and Output 05/24/24 07:00 Intake Total 1190 ml Output Total 1550 ml Balance -360 ml Intake Oral 1190 ml Output Urine Total 1550 ml General Appearance: Alert, Oriented X3, Cooperative, No acute distress HEENT: Atraumatic, PERRLA, EOMI, Mucous membr. moist/pink Neck: Supple Lungs: Clear to auscultation, Normal air movement Cardiovascular: Regular rate, Normal S1, Normal S2, No murmurs, Gallops, Rubs Abdomen: Normal bowel sounds, Soft, No tenderness Neuro: Cranial nerves 3-12 NL Psych/Mental Status: Mental status NL Medications Current Medications Medications Dose Ordered Sig/Jose Route Start Time Stop Time Status Last Admin Dose Admin Ceftriaxone Sodium 50 ml @ 100 mls/hr Q24H IV 05/20/24 21:00 05/23/24 21:00 100 MLS/HR Azithromycin 250 ml @ 125 mls/hr DAILY IV 05/21/24 10:00 05/24/24 08:53 125 MLS/HR Acetaminophen/ Hydrocodone Bitart 1 tab Q4HP PRN PO 05/20/24 00:45 Ondansetron HCl 4 mg Q4HP PRN IV 05/20/24 00:45 05/20/24 15:06 4 MG Docusate Sodium 100 mg BIDPRN PRN PO 05/20/24 00:45 05/21/24 21:46 100 MG Acetaminophen 650 mg Q6HP PRN PO 05/20/24 00:45 Nitroglycerin 0.4 mg Q5MINP PRN SL 05/20/24 01:45 Morphine Sulfate 2 mg Q30M PRN IV 05/20/24 01:45 Hold Docusate Calcium 240 mg DAILY PO 05/23/24 10:00 05/23/24 09:21 240 MG Donepezil HCl 5 mg DAILY PO 05/23/24 10:00 05/23/24 09:27 5 MG Furosemide 20 mg DAILY PO 05/23/24 10:00 05/23/24 09:25 20 MG Levothyroxine Sodium 50 mcg QAM@0600 PO 05/23/24 06:00 05/23/24 06:08 50 MCG Lisinopril 2.5 mg DAILY PO 05/23/24 10:00 05/24/24 08:44 2.5 MG Lorazepam 1 mg DAILY PO 05/23/24 15:00 Cancel Olanzapine 10 mg BID PO 05/22/24 22:00 05/23/24 22:39 10 MG Pantoprazole Sodium 40 mg DAILY@0700 PO 05/23/24 07:00 05/23/24 06:08 40 MG Risperidone 4 mg BID PO 05/22/24 22:00 05/23/24 22:39 4 MG Sennosides 17.2 mg BID PO 05/22/24 22:00 05/23/24 22:39 17.2 MG Tamsulosin HCl 0.4 mg DAILY PO 05/23/24 10:00 05/23/24 09:26 0.4 MG Sucralfate 1 gm TIDAC PO 05/22/24 17:00 05/23/24 15:13 1 GM Ascorbic Acid 500 mg DAILY PO 05/23/24 10:00 05/23/24 09:27 500 MG Cholecalciferol 2,000 unit DAILY PO 05/23/24 10:00 05/23/24 09:26 2,000 UNIT Zolpidem Tartrate 5 mg HS PO 05/22/24 22:00 05/23/24 22:38 5 MG Lorazepam 1 mg Q8HR PO 05/23/24 08:00 05/23/24 22:38 1 MG Laboratory Results Laboratory Tests 05/21/24 04:32 05/24/24 06:28 Labs and/or images reviewed: Labs reviewed by me, Image(s) reviewed by me Assessment/Plan Assessment/Plan Acute respiratory failure with hypoxia Hyponatremia GI bleed Elevated liver enzymes Acute kidney injury Anemia, unspecified Pneumonia, unspecified organism Plan Continuing current management. Continuing with IV antibiotics. Continuing to monitor electrolytes. Continuing to monitor kidney function Transfuse as needed if hemoglobin less than seven. Plan discussed with: Patient Date of Service: May 23, 2024 Billing Provider: LEONELA RABAGO DO Common Visit Codes: [id number] INP/OBS CARE(HIGH) LEONELA RABAGO DO May 24, 2024 12:35
[2024-05-24] MEDS ORDERED: LACTULOSE 20Gm/30ML SOLN PO PRN (12:45)
[2024-05-24] MEDS: LIDOCAINE VISCOUS 2% 15ML UD ONE (14:32)
[2024-05-24] MEDS: MIDAZOLAM HCL 5 MG/ML-1ML VIAL ONE (14:33)
--- NOTE | 2024-05-24 14:43 | DVHOP2 ---
Operative Report DATE OF OPERATION: 05/24/24 PROCEDURE: Upper Endoscopy with biopsy. PREOPERATIVE INDICATION: The patient is a 59 -year-old male undergoing endoscopy for upper GI bleed POSTOPERATIVE DIAGNOSES: 1. 5 cm sliding-type hiatal hernia with the acute grade C erosive esophagitis with distal esophageal ulcers and circumferential ulceration at the GE junction from which biopsies were obtained 2. Minimal gastroduodenitis otherwise normal examination of the 2nd and 3rd part of the duodenal PROCEDURE PERFORMED BY: Jeannette Viera GI NURSE: Angelic SCOPE: Olympus videoendoscope. ASA CLASS: 2. PREOPERATIVE MEDICATIONS: Versed 2 mg ordered and given by me,, Propofol 50 mg IV under supervision given by anesthesiologist present in the room I administered moderate sedation throughout this _10_ minutes procedure. An independent trained observer pushed medications at my direction, and monitored the patient's level of consciousness and physiological status throughout. PROCEDURE IN DETAIL: After obtaining an informed consent, the patient was placed on left lateral decubitus position. The patient was then sedated with the above medications. A bite block was placed between his teeth. The endoscope was then passed through the oropharynx, into the esophagus, and through the stomach and pylorus up to the second and third part of the duodenum. The endoscope was then withdrawn. Duodenal biopsies were obtained The 2nd and 3rd part of the duodenum and the duodenal bulb were normal. The pre-pyloric area and antrum showed minimal gastritis. On retroflexion the fundus cardia and angularis were normal. A hiatal hernia was noted. Gastric biopsies were obtained The endoscope was then withdrawn into the distal esophagus where the patient had a 5 cm sliding-type hiatal hernia with the acute grade C to D erosive esophagitis There was circumferential ulceration at the GE junction and also linear ulcers extending into the distal 5-7 cm of the esophagus from which biopsies were obtained The remaining mid to proximal esophagus and oropharynx were unremarkable The patient tolerated the procedure well without difficulty. COMPLICATIONS : None SPECIMENS: Duodenal biopsy Gastric biopsies Esophageal biopsies DISPOSITION: Transfer back to the floor Stable PLAN: 1. Await for biopsy result 2. Will place pt on Protonix 40 mg bid 3. Carafate suspension 1 g p.o. 4 times a day 4. DC aspirin NSAIDs smoking alcohol 5. Lifestyle and strict dietary modifications for GERD 6. Resume GI soft diet advance as tolerated 7. Outpatient follow up with GI Services for ongoing medical management Patient must be counseled about taking his medications regularly because otherwise he is at risk of developing an esophageal stricture as the esophagitis heals JEANNETTE VIERA MD May 24, 2024 14:43
--- NOTE | 2024-05-24 21:07 | DVHINCON2 ---
Date of service: May 24, 2024 Referring Physician Leonela Rabago DO Reason for Consultation Acute hypoxic respiratory failure History of Present Illness A 59-year-old man with past medical history of COPD, GERD, hypertension, schizophrenia, and thyroid disease who presented to ED on 05/20/24 for evaluation of GI bleed. Patient reported bloody stool, desaturating on room air at 85%, episodes of hematemesis, getting worse that prompted this visit. ED workup showed WBC 15.7, hemoglobin 10.5, hematocrit 31.7, platelets 307, sodium 133, potassium 3.5, BUN 32, creatinine 1.77, GFR 44, glucose 153, calcium 11.7, PT 13.1, INR 1.26, AST 32, ALT 345. Blood pressure was 101/51, heart rate 74, temperature 98.3, O2 saturation 99% on oxygen. Chest x-ray revealing bilateral perihilar peribronchial thickening with left lower lobe airspace disease, findings may represent bronchitis or pneumonia; abdomen/pelvis CT revealing bibasilar infiltrates, bronchiectasis, peribronchial thickening, and no bowel obstruction. Patient was admitted for further care, and pulmonary consultation is requested for evaluation and management of acute hypoxic respiratory failure. Review of Systems: 14-point review of systems negative unless otherwise noted above. Past Medical History: COPD, GERD, hypertension, schizophrenia, and thyroid disease Past Surgical History: None Medications: Reviewed. Allergies: Morphine Pollen Extract. Family History: No family history of premature CAD. No family history of lung disorders. Social History: Nonsmoker. No alcohol or illicit drug use. Family History: Patient reports no known family medical history. Allergies: Coded Allergies: Morphine (Verified Allergy, Unknown, 05/20/24) Pollen Extract (Verified Allergy, Unknown, 05/20/24) Home Meds Active Scripts Azithromycin (Azithromycin) 250 Mg Tab, 250 MG PO DAILY MDD 500 for 5 Days, #6 TAB 0 Refills 2 TABLETS ORALLY ON DAY ONE, THEN 1 TABLET ORALLY DAILY FOR 4 DAYS Prov:LEONELA RABAGO DO 05/25/24 Tamsulosin Hcl (Flomax) 0.4 Mg Cap, 0.4 MG PO DAILY for 30 Days, #30 CAP 4 Refills Prov:LEONELA RABAGO DO 05/25/24 Sucralfate (Sucralfate) 1 Gm Tab, 1 GM PO TIDAC for 30 Days, #90 TAB 4 Refills Prov:LEONELA RABAGO DO 05/25/24 Pantoprazole Sodium Sesquihydr (Pantoprazole Sodium) 40 Mg Tab, 40 MG PO BID for 30 Days, #60 TAB 4 Refills Prov:LEONELA RABAGO DO 05/25/24 Reported Medications Zolpidem Tartrate (Zolpidem Tartrate) 5 Mg Tab, 1 TAB PO QPM for FOR INSOMNIA, #30 TAB 2 Refills 05/22/24 Cholecalciferol (VITAMIN D3) 2,000 Unit Tab, 2000 UNIT PO DAILY, TAB 05/22/24 Ascorbic Acid (VITAMIN C TABLET) 500 Mg Tb, 500 MG PO DAILY for FOR SUPPLEMENT, TAB 05/22/24 Sucralfate (Sucralfate) 1 Gm Tab, 1 GM PO, GM 05/22/24 Risperidone (RisperDAL TABLET) 1 Mg Tb, 1 TAB PO QPM, #30 TAB 1 Refill 05/22/24 Olanzapine (OLANZAPINE) 10 Mg Tab, 10 MG PO DAILY for 30 Days, MG 05/22/24 Metoprolol Succinate (Metoprolol Succinate Er) 25 Mg Tab, 25 MG PO DAILY for 30 Days, MG 05/22/24 Lorazepam (Lorazepam) 1 Mg Tab, 1 TAB PO BID, #60 TAB 05/22/24 Lisinopril (Lisinopril) 2.5 Mg Tab, 2.5 MG PO DAILY for 30 Days, MG 05/22/24 Donepezil Hydrochloride (DONEPEZIL HCL) 5 Mg Tab, 5 MG PO DAILY for 30 Days, MG 05/22/24 Furosemide (Furosemide) 20 Mg Tab, 20 MG PO DAILY for 30 Days, MG 05/22/24 Cholecalciferol (VITAMIN D3) 2,000 Unit Tab, 1 CAP PO DAILY 08/25/22 Tamsulosin Hcl (Tamsulosin Hcl) 0.4 Mg Cap, 1 CAP PO DAILY 08/25/22 Docusate Sodium (Docusate Sodium) 100 Mg Cap, 1 CAP PO DAILY 08/25/22 Pantoprazole Sodium Sesquihydr (Pantoprazole Sodium) 40 Mg Tab, 1 TAB PO BID 08/25/22 Quetiapine Fumerate (QUETIAPINE FUMARATE) 50 Mg Tab, 1 TAB PO 08/25/22 Ondansetron (Zofran) 4 Mg Tab, 8 MG PO, TAB 08/24/22 Lorazepam (Lorazepam) 2 Mg Tab, 2 MG PO TID, TAB 08/24/22 Trazodone Hcl (Trazodone Hcl) 150 Mg Tab, 150 MG PO DAILY, MG 08/24/22 Senna (Senna Lax) 8.6 Mg Tab, 8.6 MG PO QHSP PRN for FOR CONSTIPATION, MG 08/24/22 Risperidone (Risperidone) 3 Mg Tab, 3 MG PO BID, TAB 08/24/22 Pantoprazole Sodium Sesquihydr (Protonix) 40 Mg Tab, 40 MG PO BID, #30 TAB 08/24/22 Docusate Sodium (Docusate Sodium) 100 Mg Tab, 100 MG PO DAILYP PRN for FOR CONST IPATION, MG 08/24/22 Chlorpromazine Hcl (Chlorpromazine Hcl) 25 Mg Tab, 50 MG PO BID, MG 08/24/22 Benztropine Mesylate (Benztropine Mesylate) 0.5 Mg Tab, 0.5 MG PO DAILY, MG 08/24/22 Risperidone (Risperidone) 3 Mg Tab, 1 TAB PO BID 08/24/22 Levothyroxine Sodium (Levothyroxine Sodium) 50 Mcg Tab, 1 TAB PO DAILY 08/24/22 Discontinued Reported Medications Donepezil Hydrochloride (DONEPEZIL HCL) 5 Mg Tab, 5 MG PO DAILY for 30 Days, MG 05/22/24 Tamsulosin HCl (Tamsulosin Hydrochloride) 0.4 Mg Cap, 0.4 MG PO, CAP 08/24/22 Lisinopril (Lisinopril) 10 Mg Tab, 10 MG PO DAILY for 30 Days, MG 08/24/22 Ferrous Sulfate (Ferrous Sulfate) 325 Mg Tab, 325 MG PO DAILY, MG 08/24/22 Current Medications Current Medications Medications (Trade) Dose Ordered Sig/Jose Route PRN Reason Start Time Stop Time Status Last Admin Lactulose 30 ml DAILYPRN PRN PO FOR CONSTIPATION 05/24/24 12:45 Pantoprazole Sodium (Protonix Tablet) 40 mg BID PO 05/24/24 22:00 Vital Signs Vital Signs Date Time Temp Pulse Resp B/P (MAP) Pulse Ox O2 Delivery O2 Flow Rate FiO2 05/24/24 17:04 98.0 69 18 141/72 (95) 96 98.0 05/24/24 14:46 Nasal Cannula 2.0 94 Physical Exam Gen.: Patient lying in bed in no apparent distress. On supplemental oxygen. Head: Normocephalic, atraumatic. Eyes: EOMI/PERRLA. Ears: Normal hearing. Normal anatomy. Neck/trachea: Trachea midline, supple. Nose: Normal external anatomy. Mouth: Moist mucous membranes. Chest: Decreased air entry bilaterally. No wheezing or rhonchi. Cardiovascular: Positive S1, positive S2. Regular rate and rhythm. Abdomen: Positive bowel sounds in all 4 quadrants. Soft, non-tender, non- distended. : Deferred. Rectal: Deferred. Skin: Warm, dry. Intact. Extremities: 2+ radial pulses bilaterally. No lower extremity edema. Neuro: Awake, alert, oriented x3. No gross motor or sensory deficits. Cranial nerves II through XII intact. Gait not assessed. Labs/Diagnostic Data Labs Test 05/24/24 06:28 05/21/24 22:00 05/21/24 04:32 05/20/24 14:27 Range/Units White Blood Count 7.6 4.4-10.8 10^3/uL Red Blood Count 3.05 L 4.5-5.90 10^6/uL Hemoglobin 8.3 L 13.5-17.5 g/dL Hematocrit 25.2 L 41.0-53.0 % Mean Corpuscular Volume 82.6 80.0-100.0 fL Mean Corpuscular Hemoglobin 27.0 L 28.0-32.0 pg Mean Corpuscular Hemoglobin Concent 32.7 32.0-36.0 g/dL Red Cell Distribution Width 17.4 H 11.8-14.3 % Platelet Count 322 140-450 10^3/uL Mean Platelet Volume 7.7 6.9-10.8 fL Neutrophils (%) (Auto) 75.6 37.0-80.0 % Lymphocytes (%) (Auto) 14.3 10.0-50.0 % Monocytes (%) (Auto) 5.8 0.0-12.0 % Eosinophils (%) (Auto) 3.8 0.0-7.0 % Basophils (%) (Auto) 0.5 0.0-2.0 % Neutrophils # (Auto) 5.8 1.6-8.6 10 ^3/uL Lymphocytes # (Auto) 1.1 0.4-5.4 10 ^3/uL Monocytes # (Auto) 0.4 0-1.3 10 ^3/uL Eosinophils # (Auto) 0.3 0-0.8 10 ^3/uL Basophils # (Auto) 0 0-0.2 10 ^3/uL Nucleated Red Blood Cells 0.0 % Stool Occult Blood Positive Negative Stool Occult Blood Sample #3 Negative Sodium Level 138 136-145 mmol/L Potassium Level 3.8 3.5-5.1 mmol/L Chloride Level 98 98-107 mmol/L Carbon Dioxide Level 38 H 20-31 mmol/L Anion Gap 2 L 5-15 Blood Urea Nitrogen 10 # 9-23 mg/dL Creatinine 0.71 0.700-1.30 mg/dL Glomerular Filtration Rate Calc 107 >90 mL/min BUN/Creatinine Ratio 14.1 10.0-20.0 Serum Glucose 114 H 74-106 mg/dL Calcium Level 9.8 8.7-10.4 mg/dL Total Bilirubin 0.2 0.2-1.0 mg/dL Aspartate Amino Transferase (AST) 21 13-40 U/L Alanine Aminotransferase (ALT) 164 H 7-40 U/L Alkaline Phosphatase 66 46-116 U/L Total Protein 5.6 L 5.7-8.2 g/dL Albumin 3.3 3.2-4.8 g/dL Influenza Type A Antigen Negative Negative Influenza Type B Antigen Negative Negative SARS-CoV-2 Antigen (Rapid) Negative NEGATIVE Test 05/19/24 18:53 05/19/24 18:34 Range/Units Blood Gas Specimen Type Arterial Blood Gas Sample Site Right radial Blood Gas Patient Temperature 37.0 Arterial Blood Date Drawn [id number] Arterial Blood pH 7.513 H 7.350-7.450 Arterial Blood Partial Pressure CO2 50.6 H 35.0-48.0 mmHg Arterial Blood Partial Pressure O2 68.6 L 83.0-108.0 mmHg Arterial Blood HCO3 39.7 H 21.0-28.0 mmol/L Arterial Blood Oxygen Saturation 92.8 L 94.0-98.0 % Arterial Blood Base Excess 14.9 H -2.0-3.0 mmol/L Arterial Blood Oxyhemoglobin 92.0 L 94.0-98.0 % Arterial Blood Carboxyhemoglobin 0.2 L 0.5-1.5 % Arterial Blood Methemoglobin 0.7 0.0-1.5 % Richard Test N/a Blood Gas Total Hemoglobin 11.30 L 13.5-17.5 g/dL Blood Gas Liter Flow 3.00 Blood Gas Modality Nasal cannula FiO2 % 32.0 Prothrombin Time 13.1 H 9.3-11.8 sec Prothrombin Time INR 1.26 H 0.9-1.15 Lactic Acid Level 1.4 0.4-2.0 mmol/L Assessment Impression: Acute hypoxic respiratory failure Dependence on supplemental oxygen GI hemorrhage Elevated liver enzymes Acute kidney injury, resolved Anemia Pneumonia, unspecified organism Plan: Supplemental oxygen Titrate to keep O2 sats above 92%. Pt undergoing upper endoscopy w/ biopsy by GI today Continue antibiotics Monitor renal function. Monitor electrolytes. Supplement as necessary. Monitor ins and outs. Monitor hemoglobin Follow up GI recommendations GI prophylaxis - Protonix DVT prophylaxis. Prognosis: Poor given patient's multiple co-morbidities. Rest of plan per hospitalist and other consultants. Thank you, Dr. Rabago, for allowing me to participate in this patient's care. Further recommendations will depend on the patient's clinical course. Please do not hesitate to contact me if you have any questions or concerns. This medical document was created using an electronic medical record system with [employer] computerized dictation system. Although these documentations are being carefully reviewed, there may still be some phonetic and typographical changes. The errors are purely typographical, due to imperfection on the software program, and do not reflect any compromise in the patient's medical care. Plan discussed with: Patient, Other (RN/Dr. Rabago) TESSIE GUNTER MD May 24, 2024 21:06
[2024-05-24] MEDS: PANTOPRAZOLE 40 MG TAB PO SCH (21:34)
[2024-05-25 05:00] VITALS: BP 115/61; PULSE 67; RESP 18; TEMP 98.6; O2SAT 97
[2024-05-25 08:00] VITALS: PULSE 74; PULSE 84; RESP 18; O2SAT 96
[2024-05-25 08:36] VITALS: BP 97/57; PULSE 74; RESP 18; TEMP 98.4; O2SAT 96
[2024-05-25 13:00] VITALS: BP 132/59; PULSE 89; RESP 18; TEMP 97.9; O2SAT 100
[2024-05-25] MEDS ORDERED: TAMS-35 PO (14:17)
[2024-05-25] MEDS ORDERED: SUCR1TAB PO (14:17)
[2024-05-25] MEDS ORDERED: AZIT-43 PO (14:17)
[2024-05-25] MEDS ORDERED: PANT40T PO (14:17)
--- NOTE | 2024-05-25 14:18 | DVHDS2 ---
Discharge Summary Date of Admission May 20, 2024 at 01:45 Date of Discharge: May 25, 2024 Labs/Diagnostic Data: Laboratory Results Test 05/24/24 06:28 05/21/24 22:00 05/21/24 04:32 05/20/24 14:27 White Blood Count 7.6 10^3/uL (4.4-10.8) Red Blood Count 3.05 10^6/uL (4.5-5.90) Hemoglobin 8.3 g/dL (13.5-17.5) Hematocrit 25.2 % (41.0-53.0) Mean Corpuscular Volume 82.6 fL (80.0-100.0) Mean Corpuscular Hemoglobin 27.0 pg (28.0-32.0) Mean Corpuscular Hemoglobin Concent 32.7 g/dL (32.0-36.0) Red Cell Distribution Width 17.4 % (11.8-14.3) Platelet Count 322 10^3/uL (140-450) Mean Platelet Volume 7.7 fL (6.9-10.8) Neutrophils (%) (Auto) 75.6 % (37.0-80.0) Lymphocytes (%) (Auto) 14.3 % (10.0-50.0) Monocytes (%) (Auto) 5.8 % (0.0-12.0) Eosinophils (%) (Auto) 3.8 % (0.0-7.0) Basophils (%) (Auto) 0.5 % (0.0-2.0) Neutrophils # (Auto) 5.8 10 ^3/uL (1.6-8.6) Lymphocytes # (Auto) 1.1 10 ^3/uL (0.4-5.4) Monocytes # (Auto) 0.4 10 ^3/uL (0-1.3) Eosinophils # (Auto) 0.3 10 ^3/uL (0-0.8) Basophils # (Auto) 0 10 ^3/uL (0-0.2) Nucleated Red Blood Cells 0.0 % Stool Occult Blood Positive (Negative) Stool Occult Blood Sample #3 (Negative) Sodium Level 138 mmol/L (136-145) Potassium Level 3.8 mmol/L (3.5-5.1) Chloride Level 98 mmol/L (98-107) Carbon Dioxide Level 38 mmol/L (20-31) Anion Gap 2 (5-15) Blood Urea Nitrogen 10 mg/dL (9-23) Creatinine 0.71 mg/dL (0.700-1.30) Glomerular Filtration Rate Calc 107 mL/min (>90) BUN/Creatinine Ratio 14.1 (10.0-20.0) Serum Glucose 114 mg/dL (74-106) Calcium Level 9.8 mg/dL (8.7-10.4) Total Bilirubin 0.2 mg/dL (0.2-1.0) Aspartate Amino Transferase (AST) 21 U/L (13-40) Alanine Aminotransferase (ALT) 164 U/L (7-40) Alkaline Phosphatase 66 U/L (46-116) Total Protein 5.6 g/dL (5.7-8.2) Albumin 3.3 g/dL (3.2-4.8) Influenza Type A Antigen Negative (Negative) Influenza Type B Antigen Negative (Negative) SARS-CoV-2 Antigen (Rapid) Negative (NEGATIVE) Test 05/19/24 18:53 05/19/24 18:34 Blood Gas Specimen Type Arterial Blood Gas Sample Site Right radial Blood Gas Patient Temperature 37.0 Arterial Blood Date Drawn [id number] Arterial Blood pH 7.513 (7.350-7.450) Arterial Blood Partial Pressure CO2 50.6 mmHg (35.0-48.0) Arterial Blood Partial Pressure O2 68.6 mmHg (83.0-108.0) Arterial Blood HCO3 39.7 mmol/L (21.0-28.0) Arterial Blood Oxygen Saturation 92.8 % (94.0-98.0) Arterial Blood Base Excess 14.9 mmol/L (-2.0-3.0) Arterial Blood Oxyhemoglobin 92.0 % (94.0-98.0) Arterial Blood Carboxyhemoglobin 0.2 % (0.5-1.5) Arterial Blood Methemoglobin 0.7 % (0.0-1.5) Richard Test N/a Blood Gas Total Hemoglobin 11.30 g/dL (13.5-17.5) Blood Gas Liter Flow 3.00 Blood Gas Modality Nasal cannula FiO2 % 32.0 Prothrombin Time 13.1 sec (9.3-11.8) Prothrombin Time INR 1.26 (0.9-1.15) Lactic Acid Level 1.4 mmol/L (0.4-2.0) Other Laboratory Tests 05/24/24 06:28 05/21/24 04:32 Brief Hx & Hospital Course: Acute respiratory failure with hypoxia Hyponatremia GI bleed Elevated liver enzymes Acute kidney injury Anemia, unspecified Pneumonia, unspecified organism discharged to home with self care Condition at Discharge: Good Final Diagnosis/Problems List see above Discharge Disposition: Home Discharge Instruct/Medications Diet: Cardiac 2g Na,low cholest Activity: No Restrictions, As Tolerated Discharge Statement: "Patient was advised to return to the ER or call 911 if any headaches, dizziness, shortness of breath, chest pain, abdominal pain, bleeding, fevers, or worsening of medical condition. Patient was counseled about treatment plan, medications, possible side effects, patientverbalized understanding. All questions were answered to the best of my ability. This discharge took greater then 30 minutes in planning, reviewing documentation, counseling the patient, and discussing with other team members." ASSESSMENT ASSESSMENT Assessment Date of Service: May 25, 2024 Billing Provider: LEONELA RABAGO DO Common Visit Codes: 87510-UTQ/OBS DISCH DAY >30min LEONELA RABAGO DO May 25, 2024 14:18
[2024-05-25 15:22] VITALS: BP 97/52; TEMP 36.6
[2024-05-25 16:41] VITALS: BP 121/61; PULSE 77; RESP 16; TEMP 98; O2SAT 98
--- NOTE | 2024-05-25 19:26 | DVHPN2 ---
Progress Note - Dictate Date Seen: May 25, 2024 (Late entryPatient seen at bedside at 10:00 a.m.) Medical Necessity Reason Pt with a Central, PICC or Fol: No Subjective No new complaints\ Tolerating diet Hb stable at 8.3 EGD findings discussed showing hiatal hernia with severe esophagitis vital signs Vital Sign Date Time Temp Pulse Resp B/P (MAP) Pulse Ox O2 Delivery O2 Flow Rate FiO2 05/25/24 16:41 98.0 77 16 121/61 (81) 98 98.0 05/25/24 08:00 Nasal Cannula* 2 28 Total Intake and Output 05/24/24 05/24/24 05/25/24 15:00 23:00 07:00 Intake Total 50 ml 650 ml 275 ml Output Total 400 ml Balance 50 ml 650 ml -125 ml medications Current Medications Medications Dose Ordered Sig/Jose Route Start Time Stop Time Status Last Admin Dose Admin Lorazepam 1 mg DAILY PO 05/23/24 15:00 Cancel objective General: NAD, AAOX3 Chest: lung brooks clear to auscultation Heart: RRR, no murmur Abdomen: non-distended, no tenderness to palpation, +BS laboratory and microbiology Laboratory Tests 05/24/24 06:28 05/21/24 04:32 Test 05/21/24 04:32 Range/Units Serum Glucose 114 H 74-106 mg/dL Problems(with codes): (1) Hiatal hernia with gastroesophageal reflux disease and esophagitis (2) Elevated liver enzymes (3) Acute respiratory failure with hypoxia (4) Pneumonia, unspecified organism (5) GI bleed (6) Anemia, unspecified Prognosis Plan Discharge planning is in progress Soft mechanical diet Protonix 40 mg p.o. twice a day Carafate 1 g p.o. twice a day DC aspirin NSAIDs smoking alcohol Outpatient follow up with GI elective colonoscopy Plan discussed with: Patient JEANNETTE TIWARI MD May 25, 2024 19:26
--- NOTE | 2024-05-25 23:54 | DVHPN2 ---
Progress Note - Dictate Date Seen: May 25, 2024 Medical Necessity Reason Pt with a Central, PICC or Fol: No Subjective Patient seen and examined at bedside. Breathing comfortably on room air. Overnight events reviewed. vital signs Vital Sign Date Time Temp Pulse Resp B/P (MAP) Pulse Ox O2 Delivery O2 Flow Rate FiO2 05/25/24 16:41 98.0 77 16 121/61 (81) 98 98.0 05/25/24 08:00 Nasal Cannula* 2 28 Total Intake and Output 05/24/24 05/24/24 05/25/24 15:00 23:00 07:00 Intake Total 50 ml 650 ml 275 ml Output Total 400 ml Balance 50 ml 650 ml -125 ml medications Current Medications Medications Dose Ordered Sig/Jose Route Start Time Stop Time Status Last Admin Dose Admin Lorazepam 1 mg DAILY PO 05/23/24 15:00 Cancel objective Gen.: Patient lying in bed in no apparent distress. Breathing on room air. Head: Normocephalic, atraumatic. Eyes: EOMI/PERRLA. Ears: Normal hearing. Normal anatomy. Neck/trachea: Trachea midline, supple. Nose: Normal external anatomy. Mouth: Moist mucous membranes. Chest: Decreased air entry bilaterally. No wheezing or rhonchi. Cardiovascular: Positive S1, positive S2. Regular rate and rhythm. Abdomen: Positive bowel sounds in all 4 quadrants. Soft, non-tender, non- distended. : Deferred. Rectal: Deferred. Skin: Warm, dry. Intact. Extremities: 2+ radial pulses bilaterally. No lower extremity edema. Neuro: Awake, alert, oriented x3. No gross motor or sensory deficits. Cranial nerves II through XII intact. Gait not assessed. laboratory and microbiology Laboratory Tests 05/24/24 06:28 05/21/24 04:32 Test 05/21/24 04:32 Range/Units Serum Glucose 114 H 74-106 mg/dL Assessment/Plan Impression: Acute hypoxic respiratory failure GI hemorrhage Elevated liver enzymes Acute kidney injury, resolved Anemia Pneumonia, unspecified organism Events: Currently on room air Supplemental oxygen PRN Continue antibiotics Incentive spirometry Hemoglobin stable S/p upper endoscopy w/ biopsy by GI Patient is stable for discharge from the pulmonary standpoint. Labs and imaging reviewed. Rest of plan as noted below. Plan: Supplemental oxygen PRN Titrate to keep O2 sats above 92%. Continue antibiotics Monitor renal function. Monitor electrolytes. Supplement as necessary. Monitor ins and outs. Monitor hemoglobin GI recommendations appreciated. GI prophylaxis - Protonix DVT prophylaxis. Prognosis: Guarded given patient's multiple co-morbidities. Rest of plan per hospitalist and other consultants. Thank you, Dr. Denise, for allowing me to participate in this patient's care. Further recommendations will depend on the patient's clinical course. Please do not hesitate to contact me if you have any questions or concerns. This medical document was created using an electronic medical record system with [employer] dictation system. Although these documentations are being carefully reviewed, there may still be some phonetic and typographical changes. The errors are purely typographical, due to imperfection on the software program, and do not reflect any compromise in the patient's medical care. Plan discussed with: Patient, Other (NESHA Winchester) TESSIE GUNTER MD May 25, 2024 23:54
== END 2024-05-25 17:15 | disposition home or self-care (01) | DRG 380 ==
LOC: EDBD 17:59 → EDUNIT# 17:59 → ER 18:02 → TELE 05-20 01:45 → TELE-WESTW 05-20 18:48 → OVERFLOW 05-23 15:52 → WEST WING 05-23 16:06 → OVERFLOW 05-24 13:26 → TELE-WESTW 05-24 13:44
PROVIDERS: ADMIT Nurse Practitioner Family; ATTEND Internal Medicine
PROC: 0DB68ZX Excision of Stomach, Via Natural or Artificial Opening Endoscopic, Diagnostic (ICD-10-PCS; 2024-05-24)
PROC: 0DB38ZX Excision of Lower Esophagus, Via Natural or Artificial Opening Endoscopic, Diagnostic (ICD-10-PCS; 2024-05-24)
PROC: 0DB98ZX Excision of Duodenum, Via Natural or Artificial Opening Endoscopic, Diagnostic (ICD-10-PCS; principal; 2024-05-24 14:35)
DX: K22.11 Ulcer of esophagus with bleeding (principal); J15.69 Pneumonia due to other Gram-negative bacteria; J96.01 Acute respiratory failure with hypoxia; J15.9 Unspecified bacterial pneumonia; J44.0 Chronic obstructive pulmonary disease with (acute) lower respiratory infection; N17.9 Acute kidney failure, unspecified; E87.1 Hypo-osmolality and hyponatremia; E87.3 Alkalosis; K29.91 Gastroduodenitis, unspecified, with bleeding; K25.4 Chronic or unspecified gastric ulcer with hemorrhage; D64.9 Anemia, unspecified; I10 Essential (primary) hypertension; F20.9 Schizophrenia, unspecified; K21.9 Gastro-esophageal reflux disease without esophagitis; K44.9 Diaphragmatic hernia without obstruction or gangrene; Z99.81 Dependence on supplemental oxygen; Z79.899 Other long term (current) drug therapy
CPT/HCPCS: 36415; 36600; 43239; 71045; 74177; 80053; 81001; 82270; 82805; 83605; 85014; 85018; 85025; 85610; 86850; 86900; 86901; 87426; 87804; 93005; 96361; 96365; 96367; 96375; 96376; 99291; G0378; J2250; J2405; J2470

== ENCOUNTER 2024-06-12 11:23 | Inpatient (IN) | payer MEDICARE, MEDICAID ==
[~2024-06-12] VITALS: Ht 165.1 cm; Wt 64.9 kg
[~2024-06-12 11:23] MED LIST changes: +ASCO500T11 PO; +AZIT-43 PO; +CHOL20007 PO; +DONE5TAB80 PO; -FERR325T24 PO; +FURO20TA3 PO; -LISI10TA34 PO; +LISI2.5T47 PO; +LORA-1123 PO; +METO25TA93 PO; +OLAN1TAB19 PO; +RIS1T PO; +SUCR1TAB PO; +TAMS-35 PO; -TAMS1CAP25 PO; +ZOLP5TAB5 PO
--- NOTE | 2024-06-12 11:51 | ED.PDOC ---
SOB-HPI HPI Comments HPI: Poor Historian. 59 y.o male presents to the ED for a chief complaint of acute on chronic SOB x 1 week. EMS reports patient resides at an assisted living facility, is on oxygen at the facility but was not using it on scene. Patient's SPO2 read 72% RA and was placed on a nonrebreather. Per EMS, patient is a frequent flyer with multiple visits of SOB. Vitals BP: 124/74 HR: 72 Temp: 98.4 F RR: 24 SPO2: 96% RA Past medical history: schizophrenia, GERD, COPD, HTN, Thyroid, and on Eliquis Past surgical history: Denies Allergies: Morphine and pollen extract REVIEW OF SYSTEMS: CONSTITUTIONAL: Denies acute: fever, diaphoresis, chills, HEAD: Denies acute: headache, photophobia Eyes: Denies acute: Double vision, vision loss, eye pain, eye discharge. EARS: Denies acute: tinnitus, hearing loss, ear discharge, ear pain, THROAT: Denies acute: sore throat, swelling, difficulty swallowing , pain with swallowing, change in voice. NECK: Denies acute: neck pain, neck swelling, stiff neck. HEART: Denies acute : chest pain, palpitations, LUNGS: Denies acute: wheezing, cough, hemoptysis ABDOMEN: Denies acute: abdominal pain, Nausea, Vomiting, diarrhea, melena , hematemesis, hematochezia SKIN: Denies acute: rash, redness, lesions, itchiness. EXTREMITIES: Denies acute: calf pain, numbness, tingling, weakness, denies pain in extremity. Denies acute: Low back pain. Neuro: Denies acute: focal neurological deficit, motor or sensory focal neurological deficit, tremors, seizure like activity, confusion, dizziness, change in mental status, loss of bowel or bladder function, cauda equina like symptoms. : Denies acute: dysuria, hematuria, flank pain, increase in urinary frequency. PSYCH: Denies acute: hallucination, suicidal ideation, homicidal ideation. PHYSICAL EXAM: General: no acute distress, awake and alert. Head: normocephalic, atraumatic. Neck: supple, trachea is midline, no swelling. Throat: Normal phonation. Eyes:, no erythema, no purulent discharge, no proptosis, no icterus. Heart: regular rate, regular rhythm, no significant murmur appreciated. Lungs: no apparent respiratory distress, Able to speak in full sentences. No wheezing, no rhonchi, no crackles. No stridors Clear to auscultation bilaterally. Abdomen: non tender to palpation, non distended, soft, no guarding, no rebound, + bowel sounds. Neuro: Awake, Alert, oriented to name, self, situation, follows commands Skin: no petechia, no purpura, no cyanosis, non-pale, not jaundice. Lower extremities: --no - Pitting edema no deformity, no focal swelling, no calf TTP. Makes eye contact. moves all four extremities. Face: no apparent facial droop. ED COURSE: Chief Complaint: Shortness of Breath Time Seen by MD: 11:30 Primary Care Provider: GOVIND Reviewed notes: Nurses Notes, Service Manager Notes, Allergies Information Source: Patient, Emergency Med Personnel Mode of Arrival: EMS Past Medical History PAST MEDICAL HISTORY: COPD, GERD, HTN, Schizophrenia, Thyroid Surgical History: Denies all surgeries Family History Family History: Reviewed,noncontributory to illness Social History Smoker: Non-Smoker Alcohol: Denies ETOH Use Drugs: Denies Drug Use Lives In: Assisted Care Was a procedure done? Was a procedure done?: No Differential Dx Differential Diagnosis: COPD, Pneumonia, Pulmonary Embolism, Respiratory Distress, URI, Other (DDx include ACS, unstable angina, anxiety, PE, pneumoth roax, neoplasm, cardiac ischemia, COPD, asthma, CHF, pleural effusion, tobacco abuse, pneumonia, hypoxia, hypercapnia, anemia., infection/sepsis., pulmonary edema. Asthma, Cardiac tamponade, infection.) X-Ray, Labs, Meds, VS Vital Signs Date Time Temp Pulse Resp B/P (MAP) Pulse Ox O2 Delivery O2 Flow Rate FiO2 06/12/24 17:00 67 17 118/71 (87) 99 06/12/24 16:00 74 06/12/24 15:20 77 20 138/70 94 4.0 36 06/12/24 15:00 76 19 108/55 (72) 100 06/12/24 14:19 108/55 06/12/24 13:00 65 17 114/55 (74) 100 06/12/24 12:49 Non-Rebreather 15 N/A 06/12/24 12:35 70 06/12/24 12:33 65 119/62 (81) 100 06/12/24 11:34 69 06/12/24 11:34 24 96 Non-Rebreather 10 N/A 06/12/24 11:30 98.4 72 24 124/74 (91) 96 Lab Test 06/12/24 14:53 06/12/24 14:51 06/12/24 13:15 Range/Units Urine Color Colorless Yellow Urine Clarity Clear Clear Urine pH 7.0 5.0-9.0 Urine Specific [place] 1.006 1.001-1.035 Urine Protein Negative Negative Urine Ketones Negative Negative Urine Blood Negative Negative /uL Urine Nitrite Negative Negative Urine Bilirubin Negative Negative Urine Urobilinogen Normal Negative mg/dL Urine Leukocyte Esterase Negative Negative /uL Urine RBC None seen 0 - 3 /hpf Urine Microscopic WBC < 1 0-3 /HPF Urine Squamous Epithelial Cells None seen <5 /hpf Urine Bacteria Few H None Seen /hpf Urine Glucose Normal Normal mg/dL Troponin I High Sensitivity < 3 L 3 L </=54 ng/L Thyroid Stimulating Hormone (TSH) 1.69 0.55-4.78 uIU/mL White Blood Count 5.4 4.4-10.8 10^3/uL Red Blood Count 3.41 L 4.5-5.90 10^6/uL Hemoglobin 9.2 L 13.5-17.5 g/dL Hematocrit 29.1 L 41.0-53.0 % Mean Corpuscular Volume 85.6 80.0-100.0 fL Mean Corpuscular Hemoglobin 27.0 L 28.0-32.0 pg Mean Corpuscular Hemoglobin Concent 31.6 L 32.0-36.0 g/dL Red Cell Distribution Width 20.7 H 11.8-14.3 % Platelet Count 156 140-450 10^3/uL Mean Platelet Volume 7.6 6.9-10.8 fL Neutrophils (%) (Auto) 75.8 37.0-80.0 % Lymphocytes (%) (Auto) 10.7 10.0-50.0 % Monocytes (%) (Auto) 12.0 0.0-12.0 % Eosinophils (%) (Auto) 1.3 0.0-7.0 % Basophils (%) (Auto) 0.2 0.0-2.0 % Neutrophils # (Auto) 4.1 1.6-8.6 10 ^3/uL Lymphocytes # (Auto) 0.6 0.4-5.4 10 ^3/uL Monocytes # (Auto) 0.6 0-1.3 10 ^3/uL Eosinophils # (Auto) 0.1 0-0.8 10 ^3/uL Basophils # (Auto) 0 0-0.2 10 ^3/uL Nucleated Red Blood Cells 0.1 % Sodium Level 141 136-145 mmol/L Potassium Level 4.0 3.5-5.1 mmol/L Chloride Level 97 L 98-107 mmol/L Carbon Dioxide Level 38 H 20-31 mmol/L Anion Gap 6 5-15 Blood Urea Nitrogen 12 9-23 mg/dL Creatinine 0.93 0.700-1.30 mg/dL Glomerular Filtration Rate Calc 96 >90 mL/min BUN/Creatinine Ratio 12.9 10.0-20.0 Serum Glucose 80 74-106 mg/dL Lactic Acid Level 0.8 0.4-2.0 mmol/L Calcium Level 9.5 8.7-10.4 mg/dL Total Bilirubin 0.3 0.2-1.0 mg/dL Aspartate Amino Transferase (AST) 23 13-40 U/L Alanine Aminotransferase (ALT) 21 7-40 U/L Alkaline Phosphatase 72 46-116 U/L B-Type Natriuretic Peptide 92.04 0-100 pg/mL Total Protein 6.2 5.7-8.2 g/dL Albumin 3.7 3.2-4.8 g/dL Current Medications Medications (Trade) Dose Ordered Sig/Jose Route Start Time Stop Time Status Last Admin Furosemide (Lasix Injection) 60 mg ONCE ONCE IV 06/12/24 14:00 06/12/24 14:01 DC 06/12/24 14:19 Albuterol (Ventolin Medneb) 2.5 mg Q4HPRN PRN NEB 06/12/24 15:45 06/12/24 19:48 Ipratropium [place] (Atrovent Medneb) 0.5 mg Q4HPRN PRN NEB 06/12/24 15:45 06/12/24 19:48 Methylprednisolone Sodium Succinate (Solu Medrol) 125 mg ONCE ONCE IV 06/12/24 15:45 06/12/24 15:54 DC 06/12/24 16:[address] [address] Ph: [phone] DIAGNOSTIC IMAGING Diagnostic Imaging Report : [id number] Signed PATIENT: HENRIQUE HERNANDEZ LACCT: [id number] UNIT: [id number] : 1965 LOC: ER ROOM / BED: / AGE / SEX: 59 / M ADM STATUS: REG ER SERVICE 1244 ORDERING PHYSICIAN: ANUJ HUNTER DO PROCEDURE(s): CXRP - CHEST PORTABLE REASON: sob ORDER NUMBER(s): [id number], ACCESSION NUMBER(s): [id number] CHEST RADIOGRAPH Indication: sob Technique: Single frontal view of the chest was obtained COMPARISON: XY CHEST XRAY 1 VIEW on DOS: 05/19/24, XY CHEST PORTABLE on DOS: 08/24/22 FINDINGS: Lines and Tubes: Left chest pacemaker Lungs: Increased interstitial prominence Pleura: No effusion. No pneumothorax. Cardiomediastinal contours: Unremarkable Bones: Unremarkable IMPRESSION: Pulmonary vascular congestion. ATED BY: MARCO A FINE MD DICTATED DATE/TIME: 06/12/241322 SIGNED BY: MARCO A FINE MD SIGNED DATE/TIME: 06/12/241322 CC: Time of 1ST Reevaluation: 11:50 Reevaluation 1ST: Unchanged Time of 2ND Reevaluation: 21:09 Reevaluation 2ND: Improved Patient Education/Counseling: Diagnosis, Treatment Family Education/Counseling: No Family Present Comments Patient presented with the above HPI.---respiratory---workup was initiated. patient was found with the above mentioned diagnosis. the following medications were ordered: please refer to order lists of meds and tests obtained by myself Dr. Hunter. Patient ED course and VS have been stabilized. Patient has been reassessed in the ED and remained in a stable condition. Pertinent incidental findings were discussed with the patient and/or family. Patient/family voices understanding and is agreeable with plan. Patient has been observed in the ED adequate length of time to insure improvement/stability. Escalation of care considered: Consideration of escalation to observation or admission Patient was ADMITTED to the medicine team for further evaluation and treatment of their presentation. Patient was DISCHARGED home in a stable condition. All the reports of any imaging studies that were ordered by myself were reviewed by myself. And dose of antibiotics was given for possible UTI given the presence of bacteria in the UA. Departure 1 Departure Time of Disposition: 13:52 Impression: Primary Impression: Acute respiratory distress Additional Impressions: Pulmonary vascular congestion Anemia Disposition: ADMITTED INPATIENT Admit to: Tele Condition: Guarded Discharged With: Self Critical Care Note Critical Care Time?: Yes (35 min-critical care time only) I personally scribed for ANJU HUNTER DO ([email or web address]) on 06/12/24 at 11:51. Electronically submitted by Marcela Mclaughlin (MCLAREN FLINT). I personally scribed for ANUJ HUNTER DO ([email or web address]) on 06/12/24 at 12:53. Electronically submitted by Marcela Mclaughlin (MCLAREN FLINT). I personally scribed for ANUJ HUNTER DO ([email or web address]) on 06/12/24 at 14:02. Electronically submitted by Marcela Mclaughlin (MCLAREN FLINT). I personally scribed for ANUJ HUNTER DO ([email or web address]) on 06/12/24 at 19:52. Electronically submitted by Marcela Mclaughlin (MCLAREN FLINT). ANUJ HUNTER DO Jun 12, 2024 11:51
--- NOTE | 2024-06-12 13:25 | DVH ---
CHEST RADIOGRAPH Indication: sob Technique: Single frontal view of the chest was obtained COMPARISON: XY CHEST XRAY 1 VIEW on DOS: 05/19/24, XY CHEST PORTABLE on DOS: 08/24/22 FINDINGS: Lines and Tubes: Left chest pacemaker Lungs: Increased interstitial prominence Pleura: No effusion. No pneumothorax. Cardiomediastinal contours: Unremarkable Bones: Unremarkable IMPRESSION: Pulmonary vascular congestion.
[2024-06-12 13:41] LABS: Basophils # (auto) 0 10 ^3/uL (0-0.2); Basophils % (auto) 0.2 % (0.0-2.0); Eosinophils # (auto) 0.1 10 ^3/uL (0-0.8); Eosinophils % (auto) 1.3 % (0.0-7.0); Hematocrit 29.1 % (41.0-53.0); Hemoglobin 9.2 g/dL (13.5-17.5); Lymphocytes # (auto) 0.6 10 ^3/uL (0.4-5.4); Lymphocytes % (auto) 10.7 % (10.0-50.0); Mean Corpuscular Hgb Conc. 31.6 g/dL (32.0-36.0); Mean Corpuscular Volume 85.6 fL (80.0-100.0); Monocytes # (auto) 0.6 10 ^3/uL (0-1.3); Neutrophils # (auto) 4.1 10 ^3/uL (1.6-8.6); Neutrophils % (auto) 75.8 % (37.0-80.0); Nucleated Red Blood Cells % 0.1 %; Platelet Count (auto) 156 10^3/uL (140-450); Red Blood Cells 3.41 10^6/uL (4.5-5.90); White Blood Cell 5.4 10^3/uL (4.4-10.8)
[2024-06-12 13:44] LABS: Red Cell Distribution Width 20.7 % (11.8-14.3)
[2024-06-12 13:53] LABS: Alanine Aminotransferase 21 U/L (7-40); Albumin 3.7 g/dL (3.2-4.8); Alkaline Phosphatase 72 U/L (46-116); Anion Gap 6 (5-15); Aspartate Aminotransferase 23 U/L (13-40); BUN/Creatinine Ratio 12.9 (10.0-20.0); Blood Urea Nitrogen 12 mg/dL (9-23); Calcium 9.5 mg/dL (8.7-10.4); Glucose 80 mg/dL (74-106); Sodium 141 mmol/L (136-145); Total Protein 6.2 g/dL (5.7-8.2)
[2024-06-12 13:54] LABS: Bilirubin, Total 0.3 mg/dL (0.2-1.0); Carbon Dioxide 38 mmol/L (20-31); Chloride 97 mmol/L (98-107)
[2024-06-12] MEDS: FUROSEMIDE 100 MG/10ML VIAL IV ONE (14:19)
--- NOTE | 2024-06-12 14:56 | ECG ---
[facility] Test Date: 2024-06-12 Test Time: 11:34:20 Pat Name: HENRIQUE HERNANDEZ Department: er Room: 0247T Gender: M Client Services Specialist: leonardo : 1965 Requested By: ANUJ HUNTER Order Number: [id number] Reading MD: Gorge Quarles Measurements Intervals [place] Rate: 69 P: 82 VT: 135 QRS: 115 QRSD: 113 T: -47 QT: 410 QTc: 440 Interpretive Statements Atrial-sensed ventricular-paced rhythm No further analysis attempted due to paced rhythm Electronically Signed On 06-17-2024 17:12:44 PST by Gorge Quarles Please click the below link to view image of tracing.
[2024-06-12 15:20] VITALS: BP 138/70; PULSE 77; RESP 20; O2SAT 94
[2024-06-12] MEDS ORDERED: HYDROcodone-ACET 5/325MG TAB PO PRN (15:45)
[2024-06-12 15:59] LABS: Urine Bacteria FEW /hpf (None Seen); Urine Blood Negative /uL (Negative); Urine Clarity Clear (Clear); Urine Color Colorless (Yellow); Urine Protein, UAD Negative (Negative); Urine Specific Gravity 1.006 (1.001-1.035); Urine Squamous Epithelial Cell None Seen /hpf (<5); Urine Urobilinogen Normal (Negative); Urine WBC < 1 /HPF (0-3)
[2024-06-12] MEDS: methylPREDNISolone SOD SUCC 125 MG/2 ML VL IV ONE (16:30)
[2024-06-12] MEDS ORDERED: NITROGLYCERIN 0.4 MG SL TAB SL PRN (17:45)
[2024-06-12] MEDS ORDERED: MORPHINE SULFATE INJ 2 MG/ml SYRG IV PRN (17:45)
--- NOTE | 2024-06-12 17:45 | DVHHP2 ---
History of Present Illness Reason for Visit: COPD with acute exacerbation History of Present Illness The patient is a 59-year-old male with past medical history of schizophrenia, thyroid disease, hypertension, GERD, and COPD who presented to [facility] ED with complaint of shortness of breaths for the past 1 week. P harvinderient's symptoms progressively get worse with generalized weakness, desaturating on room air at 72%, increased work of breathing, getting worse today that prompted this visit. Patient was seen and evaluated in the ED, laboratory data shows WBC 5.4, hemoglobin 9.2, hematocrit 29.1, platelets 156, sodium 141, potassium 4.0, BUN 12, creatinine 0.93, GFR 96, glucose 80, troponin 3, BNP 92.04, blood pressure 108/55, heart rate 65, temperature 98.4 F, O2 saturation 96% on non-rebreather. Chest x-ray revealing pulmonary vascular congestion. Please see medication orders section in the computer. On my assessment, patient denied chest pain, no headache, no dizziness, currently on oxygen, no diarrhea, no nausea, no vomiting, no fever, no chills. Patient was admitted for further evaluation and medical management. Past Medical History COPD, GERD, HTN, Schizophrenia, Thyroid Past Surgical History Denies all surgeries Family History Reviewed, noncontributory to the management of this case. Past Social History The patient lives at home, denies smoking, alcohol or illicit drugs abuse. Review of Systems Constitutional: Yes: Weakness; No: Fever, Chills, Sweats, Malaise, Other Eyes: No: Pain, Vision change, Conjunctivae inflammation, Eyelid inflammation, Other, Redness ENT: No: Ear pain, Ear discharge, Nose pain, Nose discharge, Nose congestion, Mouth pain, Mouth swelling, Throat pain, Throat swelling, Other Respiratory: Shortness of breath, SOB with excertion, Other (SOB at rest); No: Cough, Dry, Wheezing, Hemoptysis, Pleuritic Pain, Sputum, Wheezing Cardiovascular: No: Chest Pain, Palpitations, Orthopnea, Paroxysmal Noc. Dyspnea, Edema, Lt Headedness, Other Gastrointestinal: No: Nausea, Vomiting, Abdominal Pain, Diarrhea, Constipation, Melena, Hematochezia, Other Genitourinary: No Dysuria, No Frequency, No Incontinence, No Hematuria, No Retention, No Other Musculoskeletal: No: other, neck pain, shoulder pain, arm pain, back pain, hand pain, leg pain, foot pain Skin: No: Rash, Lesions, Jaundice, Bruising, Other Neurological: No: Weakness, Numbness, Incoordination, Change in speech, Confusion, Seizures, Other Allergies: Coded Allergies: Morphine (Verified Allergy, Unknown, 05/20/24) Pollen Extract (Verified Allergy, Unknown, 05/20/24) Medications Current Medications Medications Dose Ordered Sig/Jose Route Start Time Stop Time Status Last Admin Dose Admin Furosemide 40 mg DAILY IV 06/13/24 10:00 Albuterol 2.5 mg Q4HPRN PRN NEB 06/12/24 15:45 Ipratropium [place] 0.5 mg Q4HPRN PRN NEB 06/12/24 15:45 Methylprednisolone Sodium Succinate 40 mg Q8HR IV 06/12/24 22:00 Famotidine 20 mg Q12HR IV 06/12/24 22:00 Levothyroxine Sodium 50 mcg QAM@0600 PO 06/13/24 06:00 Risperidone 3 mg DAILY PO 06/13/24 10:00 Trazodone HCl 150 mg HS PO 06/12/24 22:00 Sodium Chloride 10 ml Q8HR IV 06/12/24 22:00 Acetaminophen/ Hydrocodone Bitart 1 tab Q4HP PRN PO 06/12/24 15:45 UNV Ondansetron HCl 4 mg Q4HP PRN IV 06/12/24 15:45 Docusate Sodium 100 mg BIDPRN PRN PO 06/12/24 15:45 Acetaminophen 650 mg Q6HP PRN PO 06/12/24 15:45 Exam Vital Signs Vital Signs Date Time Temp Pulse Resp B/P (MAP) Pulse Ox O2 Delivery O2 Flow Rate FiO2 06/12/24 17:00 67 17 118/71 (87) 99 06/12/24 15:20 4.0 36 06/12/24 12:49 Non-Rebreather 06/12/24 11:30 98.4 General Appearance: Alert, Oriented X3, Cooperative, No acute distress HEENT: Atraumatic, PERRLA, EOMI, Mucous membr. moist/pink Respiratory: Normal air movement, Other (Congestion) Cardiovascular: Regular rate, Normal S1, Normal S2, No murmurs Abdominal: Normal bowel sounds, Soft, No tenderness, No hepatospenomegaly, No masses Extremities: No clubbing, No cyanosis, No edema, Normal pulses, No tenderness/swelling Skin: No rashes, No breakdown, No significant lesion Neuro: Normal speech, Normal tone, Sensation intact, Cranial nerves 3-12 NL, Reflexes 2+, Other (Generalized weakness) Psych/Mental Status: Mental status NL, Mood NL Labs/Xrays Labs Test 06/12/24 14:53 06/12/24 14:51 06/12/24 13:15 Range/Units Urine Color Colorless Yellow Urine Clarity Clear Clear Urine pH 7.0 5.0-9.0 Urine Specific [place] 1.006 1.001-1.035 Urine Protein Negative Negative Urine Ketones Negative Negative Urine Blood Negative Negative /uL Urine Nitrite Negative Negative Urine Bilirubin Negative Negative Urine Urobilinogen Normal Negative mg/dL Urine Leukocyte Esterase Negative Negative /uL Urine RBC None seen 0 - 3 /hpf Urine Microscopic WBC < 1 0-3 /HPF Urine Squamous Epithelial Cells None seen <5 /hpf Urine Bacteria Few H None Seen /hpf Urine Glucose Normal Normal mg/dL Troponin I High Sensitivity < 3 L </=54 ng/L Thyroid Stimulating Hormone (TSH) 1.69 0.55-4.78 uIU/mL White Blood Count 5.4 4.4-10.8 10^3/uL Red Blood Count 3.41 L 4.5-5.90 10^6/uL Hemoglobin 9.2 L 13.5-17.5 g/dL Hematocrit 29.1 L 41.0-53.0 % Mean Corpuscular Volume 85.6 80.0-100.0 fL Mean Corpuscular Hemoglobin 27.0 L 28.0-32.0 pg Mean Corpuscular Hemoglobin Concent 31.6 L 32.0-36.0 g/dL Red Cell Distribution Width 20.7 H 11.8-14.3 % Platelet Count 156 140-450 10^3/uL Mean Platelet Volume 7.6 6.9-10.8 fL Neutrophils (%) (Auto) 75.8 37.0-80.0 % Lymphocytes (%) (Auto) 10.7 10.0-50.0 % Monocytes (%) (Auto) 12.0 0.0-12.0 % Eosinophils (%) (Auto) 1.3 0.0-7.0 % Basophils (%) (Auto) 0.2 0.0-2.0 % Neutrophils # (Auto) 4.1 1.6-8.6 10 ^3/uL Lymphocytes # (Auto) 0.6 0.4-5.4 10 ^3/uL Monocytes # (Auto) 0.6 0-1.3 10 ^3/uL Eosinophils # (Auto) 0.1 0-0.8 10 ^3/uL Basophils # (Auto) 0 0-0.2 10 ^3/uL Nucleated Red Blood Cells 0.1 % Sodium Level 141 136-145 mmol/L Potassium Level 4.0 3.5-5.1 mmol/L Chloride Level 97 L 98-107 mmol/L Carbon Dioxide Level 38 H 20-31 mmol/L Anion Gap 6 5-15 Blood Urea Nitrogen 12 9-23 mg/dL Creatinine 0.93 0.700-1.30 mg/dL Glomerular Filtration Rate Calc 96 >90 mL/min BUN/Creatinine Ratio 12.9 10.0-20.0 Serum Glucose 80 74-106 mg/dL Lactic Acid Level 0.8 0.4-2.0 mmol/L Calcium Level 9.5 8.7-10.4 mg/dL Total Bilirubin 0.3 0.2-1.0 mg/dL Aspartate Amino Transferase (AST) 23 13-40 U/L Alanine Aminotransferase (ALT) 21 7-40 U/L Alkaline Phosphatase 72 46-116 U/L B-Type Natriuretic Peptide 92.04 0-100 pg/mL Total Protein 6.2 5.7-8.2 g/dL Albumin 3.7 3.2-4.8 g/dL PATIENT: HENRIQUE HERNANDEZ LACCT: [id number] UNIT: [id number] : 1965 LOC: ER ROOM / BED: / AGE / SEX: 59 / M ADM STATUS: REG ER SERVICE 1244 ORDERING PHYSICIAN: ANUJ HUNTER DO PROCEDURE(s): CXRP - CHEST PORTABLE REASON: sob ORDER NUMBER(s): [id number], ACCESSION NUMBER(s): [id number] CHEST RADIOGRAPH Indication: sob Technique: Single frontal view of the chest was obtained COMPARISON: XY CHEST XRAY 1 VIEW on DOS: 05/19/24, XY CHEST PORTABLE on DOS: 5/15/23 FINDINGS: Lines and Tubes: Left chest pacemaker Lungs: Increased interstitial prominence Pleura: No effusion. No pneumothorax. Cardiomediastinal contours: Unremarkable Bones: Unremarkable IMPRESSION: Pulmonary vascular congestion. Assessment/Plan Assessment/Plan COPD with acute exacerbation Acute respiratory distress Pulmonary vascular congestion Anemia, unspecified Generalized weakness Plan 1. Admit to telemetry unit 2. Breathing treatment 3. Pain control management 4. Management of fluids and electrolytes 5. Consultation for pulmonology 6. Diagnostic tests chest x-ray 7. DVT prophylaxis on SCDs 8. Repeat labs CBC, CMP in a.m. 9. Continue with current medical management 10. Treatment plan discussed with patient and RN. Patient verbalized understanding. Plan discussed with: Patient, Other (RN) My Orders Orders - DION OWEN DNP Procedure Category Date Status Time Furosemide Injection PHA 06/13/24 In Process (Lasix Injection) 10:00 Albuterol Medneb PHA 06/12/24 In Process (Ventolin Medneb) 15:45 Ipratropium Medneb PHA 06/12/24 In Process (Atrovent Medneb) 15:45 Methylprednisolone PHA 06/12/24 In Process Sod Succ (Solu Medrol 22:00 Famotidine Injection PHA 06/12/24 In Process (Pepcid Injection) 22:00 Levothyroxine Tablet PHA 06/13/24 In Process (Synthroid Tablet) 06:00 Risperidone Tablet PHA 06/13/24 In Process (Risperdal Tablet) 10:00 Trazodone Hcl PHA 06/12/24 In Process (Desyrel) 22:00 Allergies YOLANDE 06/12/24 In Process 15:31 Code Status CODE 06/12/24 Transmitted 15:31 Sodium Chloride Lock PHA 06/12/24 In Process (Saline Lock Ns) 22:00 Oxygen Per Hour RT 06/12/24 Transmitted 15:31 Hydrocodone-Acet PHA 06/12/24 Pending 5/325mg Tab ([place] 15:45 Ondansetron Hcl PHA 06/12/24 In Process (Zofran) 15:45 Docusate Sodium PHA 06/12/24 In Process Capsule (Colace 15:45 Complete Blood Count LAB 06/13/24 Verified 04:00 Comprehensive LAB 06/13/24 Verified Metabolic Panel 04:00 Cardiac DIET 06/12/24 Transmitted Diet-2gna,Lofat,Lochol Dinner Condition: Serious YOLANDE 06/12/24 In Process 15:31 Acetaminophen Tablet PHA 06/12/24 In Process (Tylenol Tablet) 15:45 Bedrest With Bathroom YOLANDE 06/12/24 In Process Privileg 15:31 Sequential YOLANDE 06/12/24 In Process Compression Device Problem List: (1) COPD with acute exacerbation (2) Acute respiratory distress (3) Pulmonary vascular congestion (4) Anemia, unspecified (5) Generalized weakness Date of Service: Jun 12, 2024 Billing Provider: DION OWEN DNP Common Visit Codes: 39457-IOEFINC INP/OBS CARE (HIGH) DION OWEN DNP Jun 12, 2024 17:45
[2024-06-12 19:30] VITALS: PULSE 60; RESP 18; O2SAT 94
[2024-06-12] MEDS: ALBUTEROL SULF 2.5 MG/0.5ML(0.5%) NEB SOLN NEB PRN (19:48)
[2024-06-12] MEDS: IPRATROPIUM BROM 0.5 MG/2.5ML INH SOL NEB PRN (19:48)
[2024-06-12 19:49] VITALS: PULSE 62; RESP 18; O2SAT 96
[2024-06-12 19:55] VITALS: PULSE 78; RESP 16; O2SAT 99
[2024-06-12] MEDS: SODIUM CHLOR 0.9% PF (SALINE LOCK) 10ML VIAL/SYR IV SCH (22:23)
[2024-06-12] MEDS: FAMOTIDINE (10MG/ML) 2ML VL IV SCH (22:24)
[2024-06-12] MEDS: methylPREDNISolone SOD SUCC 40 MG/ML VL IV SCH (22:24)
[2024-06-12] MEDS: cefTRIAXone 1GM/50ML D5W 50 ML IV SCH (22:46)
[2024-06-12] MEDS: traZODone HCL 50 MG TAB PO SCH (23:14)
[2024-06-13] VITALS (11 sets, daily range): BP systolic 107–116; BP diastolic 51–62; PULSE 60–87; RESP 14–18; TEMP 97.4–98; O2SAT 85–99
[2024-06-13] MEDS: LEVOTHYROXINE SODIUM 50 MCG TAB PO SCH (06:12)
[2024-06-13 07:38] LABS: Basophils # (auto) 0 10 ^3/uL (0-0.2); Eosinophils # (auto) 0 10 ^3/uL (0-0.8); Hematocrit 30.5 % (41.0-53.0); Lymphocytes # (auto) 0.3 10 ^3/uL (0.4-5.4); Mean Corpuscular Hemoglobin 28.1 pg (28.0-32.0); Mean Corpuscular Hgb Conc. 32.9 g/dL (32.0-36.0); Mean Corpuscular Volume 85.3 fL (80.0-100.0); Monocytes # (auto) 0.2 10 ^3/uL (0-1.3); Monocytes % (auto) 2.1 % (0.0-12.0); Neutrophils % (auto) 93.9 % (37.0-80.0); Platelet Count (auto) 186 10^3/uL (140-450); Red Blood Cells 3.57 10^6/uL (4.5-5.90); Red Cell Distribution Width 20.3 % (11.8-14.3); White Blood Cell 8.5 10^3/uL (4.4-10.8)
[2024-06-13 07:52] LABS: Alanine Aminotransferase 17 U/L (7-40); Albumin 4.3 g/dL (3.2-4.8); Alkaline Phosphatase 80 U/L (46-116); Anion Gap 6 (5-15); Aspartate Aminotransferase 18 U/L (13-40); Bilirubin, Total 0.3 mg/dL (0.2-1.0); Blood Urea Nitrogen 14 mg/dL (9-23); Calcium 9.7 mg/dL (8.7-10.4); Chloride 100 mmol/L (98-107); Potassium 4.4 mmol/L (3.5-5.1); Sodium 140 mmol/L (136-145); Total Protein 7.4 g/dL (5.7-8.2)
[2024-06-13 08:11] LABS: Carbon Dioxide 34 mmol/L (20-31); Glucose 136 mg/dL (74-106)
[2024-06-13] MEDS: ONDANSETRON HCL 4 MG/2 ML VIAL IV PRN (09:53)
[2024-06-13] MEDS: risperiDONE 1 MG TAB PO SCH (10:42)
[2024-06-13] MEDS: FUROSEMIDE 40 MG/4 ML VIAL IV SCH ×2 (10:42→22:00)
[2024-06-13] MEDS: ACETAMINOPHEN 325 MG TAB PO PRN (10:43)
--- NOTE | 2024-06-13 17:47 | DVHPN2 ---
Subjective Seen and examined at bedside, still short of breath. Will increase Lasix. Changes from previous H/P or p: No Changes Eyes: No Pain, No Vision change, No Conjunctivae inflammation, No Eyelid inflammation, No Other, No Redness ENT: No Ear pain, No Ear discharge, No Nose pain, No Nose discharge, No Nose congestion, No Mouth pain, No Mouth swelling, No Throat pain, No Throat swelling, No Other Cardiovascular: No Chest Pain, No Palpitations, No Orthopnea, No Paroxysmal Noc. Dyspnea, No Edema, No Lt Headedness, No Other Respiratory: No Cough, No Dry; Shortness of breath, SOB with excertion; No Wheezing, No Hemoptysis, No Pleuritic Pain, No Sputum; Other (SOB at rest) Gastrointestinal: No Nausea, No Vomiting, No Abdominal Pain, No Diarrhea, No Constipation, No Melena, No Hematochezia, No Other Genitourinary: No Dysuria, No Frequency, No Incontinence, No Hematuria, No Retention, No Other Musculoskeletal: No other, No neck pain, No shoulder pain, No arm pain, No back pain, No hand pain, No leg pain, No foot pain Skin: No Rash, No Lesions, No Jaundice, No Bruising, No Other Objective Vitals Vital Signs Date Time Temp Pulse Resp B/P (MAP) Pulse Ox O2 Delivery O2 Flow Rate FiO2 06/13/24 16:59 97.9 66 17 108/51 (70) 94 97.9 06/13/24 14:57 Nasal Cannula* 3 32 Intake/Output Intake and Output 06/13/24 07:00 Intake Total 50 ml Output Total 420 ml Balance -370 ml Intake IV Total 50 ml Output Urine Total 420 ml Exam Gen: in bed NAD Cvs: N S1/S2, RRR Resp: Creps Abd: Soft, NT, BS+ Flour Inspector: AAO x 4 Medications Current Medications Medications Dose Ordered Sig/Jose Route Start Time Stop Time Status Last Admin Dose Admin Furosemide 40 mg DAILY IV 06/13/24 10:00 06/13/24 10:42 40 MG Albuterol 2.5 mg Q4HPRN PRN NEB 06/12/24 15:45 06/13/24 06:43 2.5 MG Ipratropium [place] 0.5 mg Q4HPRN PRN NEB 06/12/24 15:45 06/13/24 06:43 0.5 MG Methylprednisolone Sodium Succinate 40 mg Q8HR IV 06/12/24 22:00 06/13/24 15:39 40 MG Famotidine 20 mg Q12HR IV 06/12/24 22:00 06/13/24 10:42 20 MG Levothyroxine Sodium 50 mcg QAM@0600 PO 06/13/24 06:00 06/13/24 06:12 50 MCG Risperidone 3 mg DAILY PO 06/13/24 10:00 Trazodone HCl 150 mg HS PO 06/12/24 22:00 06/12/24 23:14 150 MG Sodium Chloride 10 ml Q8HR IV 06/12/24 22:00 06/13/24 14:00 10 ML Acetaminophen/ Hydrocodone Bitart 1 tab Q4HP PRN PO 06/12/24 15:45 Hold Ondansetron HCl 4 mg Q4HP PRN IV 06/12/24 15:45 06/13/24 09:53 4 MG Docusate Sodium 100 mg BIDPRN PRN PO 06/12/24 15:45 Acetaminophen 650 mg Q6HP PRN PO 06/12/24 15:45 Nitroglycerin 0.4 mg Q5MINP PRN SL 06/12/24 17:45 Morphine Sulfate 2 mg Q30M PRN IV 06/12/24 17:45 Hold Ceftriaxone Sodium 50 ml @ 100 mls/hr DAILY@2100 IV 06/12/24 22:30 06/12/24 22:46 100 MLS/HR Laboratory Results Laboratory Tests 06/13/24 05:43 Chemistry Test 06/13/24 05:43 Albumin 4.3 g/dL (3.2-4.8) Calcium Level 9.7 mg/dL (8.7-10.4) Total Protein 7.4 g/dL (5.7-8.2) LFT Test 06/13/24 05:43 Alanine Aminotransferase (ALT) 17 U/L (7-40) Alkaline Phosphatase 80 U/L (46-116) Aspartate Amino Transferase (AST) 18 U/L (13-40) Total Bilirubin 0.3 mg/dL (0.2-1.0) Urinalysis Test 06/12/24 14:53 Urine Color Colorless (Yellow) Urine Clarity Clear (Clear) Urine pH 7.0 (5.0-9.0) Urine Specific [place] 1.006 (1.001-1.035) Urine Protein Negative (Negative) Urine Ketones Negative (Negative) Urine Blood Negative /uL (Negative) Urine Nitrite Negative (Negative) Urine Bilirubin Negative (Negative) Urine Urobilinogen Normal mg/dL (Negative) Urine Leukocyte Esterase Negative /uL (Negative) Urine RBC None seen /hpf (0 - 3) Urine Microscopic WBC < 1 /HPF (0-3) Urine Squamous Epithelial Cells None seen /hpf (<5) Urine Bacteria Few /hpf (None Seen) H Urine Glucose Normal mg/dL (Normal) Assessment/Plan Assessment/Plan # Acute Diastolic CHF - Lasix IV # Recent GI Bleed - Protonix - Carafate # Anemia # COPD Exacerbation - Bronchodilators # Goals of care discussion >18 mins FULL CODE Plan discussed with: Patient My Orders Orders - VERENA EMERSON MD Procedure Category Date Status Time Pantoprazole Tablet PHA 06/14/24 Transmitted (Protonix Tablet) 06:00 Pantoprazole Tablet PHA 06/13/24 Transmitted (Protonix Tablet) 17:45 Sucralfate Tab PHA 06/13/24 Transmitted (Carafate Tab) 22:00 Complete Blood Count LAB 06/14/24 Verified 04:00 Comprehensive LAB 06/14/24 Verified Metabolic Panel 04:00 Date of Service: Jun 13, 2024 Billing Provider: VERENA EMERSON MD Common Visit Codes: [id number] INP/OBS CARE(HIGH) Secondary Visit Codes: [id number] CARE PLAN 30 MINUTES VERNEA EMERSON MD Jun 13, 2024 17:47
[2024-06-13] MEDS: PANTOPRAZOLE 40 MG TAB PO ONE (18:48)
[2024-06-13] MEDS: SUCRALFATE 1 GM TAB PO SCH (22:56)
[2024-06-14] VITALS (14 sets, daily range): BP systolic 104–133; BP diastolic 46–69; PULSE 60–105; RESP 16–20; TEMP 97.3–98.7; O2SAT 90–95
[2024-06-14] MEDS: PANTOPRAZOLE 40 MG TAB PO SCH (05:39)
[2024-06-14 06:22] LABS: Basophils # (auto) 0 10 ^3/uL (0-0.2); Eosinophils # (auto) 0 10 ^3/uL (0-0.8); Hemoglobin 10.1 g/dL (13.5-17.5); Lymphocytes # (auto) 0.2 10 ^3/uL (0.4-5.4); Lymphocytes % (auto) 2.7 % (10.0-50.0); Mean Corpuscular Hgb Conc. 31.6 g/dL (32.0-36.0); Mean Corpuscular Volume 85.5 fL (80.0-100.0); Monocytes # (auto) 0.6 10 ^3/uL (0-1.3); Monocytes % (auto) 6.9 % (0.0-12.0); Neutrophils # (auto) 7.6 10 ^3/uL (1.6-8.6); Neutrophils % (auto) 90.4 % (37.0-80.0); Platelet Count (auto) 184 10^3/uL (140-450); Red Blood Cells 3.74 10^6/uL (4.5-5.90); Red Cell Distribution Width 19.8 % (11.8-14.3); White Blood Cell 8.4 10^3/uL (4.4-10.8)
--- NOTE | 2024-06-14 06:46 | DVH ---
EXAM: XR Chest, 1 View CLINICAL INDICATION: R/O ASPIRATION TECHNIQUE: Frontal view of the chest. COMPARISON: XY CHEST PORTABLE on DOS: 06/12/24, XY CHEST XRAY 1 VIEW on DOS: 05/19/24, XY CHEST PORTABL E on DOS: 08/24/22 FINDINGS: LUNGS AND PLEURAL SPACES: Left basilar atelectasis or pneumonia. No pneumothorax. HEART: No cardiomegaly. MEDIASTINUM: Unremarkable. Normal mediastinal contour. BONES/JOINTS: Unremarkable. No acute fracture. IMPRESSION: Left basilar atelectasis or pneumonia.
[2024-06-14 06:52] LABS: Alanine Aminotransferase 26 U/L (7-40); Albumin 4.1 g/dL (3.2-4.8); Alkaline Phosphatase 78 U/L (46-116); Anion Gap 8.99999 (5-15); Aspartate Aminotransferase 31 U/L (13-40); BUN/Creatinine Ratio 16.8 (10.0-20.0); Blood Urea Nitrogen 18 mg/dL (9-23); Calcium 10.1 mg/dL (8.7-10.4); Chloride 91 mmol/L (98-107); Glucose 154 mg/dL (74-106); Potassium 4.3 mmol/L (3.5-5.1); Sodium 140 mmol/L (136-145); Total Protein 7.2 g/dL (5.7-8.2)
[2024-06-14 06:54] LABS: Bilirubin, Total 0.2 mg/dL (0.2-1.0)
[2024-06-14 06:57] LABS: Carbon Dioxide > 40 mmol/L (20-31)
--- NOTE | 2024-06-14 07:20 | RESUS ---
CODE ASSIST ASSESSSMENT Initial Information Code Assist Date: Jun 14, 2024 Code Assist Time: 06:12 Location of Arrest: [id number] Provider Name TAYA RESIDENT Time Notified: 06:12 Time PMD returned call: 06:12 Crash Cart Opened and Supplies: No Situation Staff concerned/worried, speci: SaO2 <90 Situation comment: PT STARTED VOMITTING, SA02 84. Background Background: 59 y.o male presents to the ED for a chief complaint of acute on chronic SOB x 1 week. EMS reports patient resides at an assisted living facility, is on oxygen at the facility but was not using it on scene. Patient's SPO2 read 72% RA and was placed on a nonrebreather. Per EMS, patient is a frequent flyer with multiple visits of SOB, Amitted to telemetry. Assessment Temperature (Fahrenheit): 98.4 Blood Pressure Systolic: 112 Blood Pressure Diastolic: 61 Respiratory Rate: 20 O2 Sat by Pulse Oximetry: 94 Assessment comment: Pt aaox4 speaking in full sentences, pt placed in oxymizer O2 sat improved to 94% xray ordered pt was to remain in telemetry. Outcome Outcome: Problem Resolved Team Members Team Members Caridad Madden Silvia RN HS, Jazmyne RN, Linda RN, Clemente RN, Nithin RN, Bob RT. DOMINGO HERNANDEZ Jun 14, 2024 07:20
--- NOTE | 2024-06-14 12:54 | DVHINCON2 ---
GI Consult Consult Note GI Consult note Date of Consultation: 06/14/2024 Chief Complaint: ? GI bleed Referring Physician: H&P: 59-year-old male PMH schizophrenia, thyroid disease, hypertension, GERD and COPD presented to ED with shortness of breath for one-week Patient had episode of vomiting while doing a breathing treatment, concerns for aspiration. CT chest completed results pending Patient denies abdominal pain. No nausea or vomiting. No hematemesis. No melena or red blood in stool SP EGD DATE OF OPERATION: 05/24/24 PROCEDURE: Upper Endoscopy with biopsy. PREOPERATIVE INDICATION: The patient is a 59 -year-old male undergoing endoscopy for upper GI bleed POSTOPERATIVE DIAGNOSES: 1. 5 cm sliding-type hiatal hernia with the acute grade C erosive esophagitis with distal esophageal ulcers and circumferential ulceration at the GE junction from which biopsies were obtained 2. Minimal gastroduodenitis otherwise normal examination of the 2nd and 3rd part of the duodenal PROCEDURE PERFORMED BY: Destinee Viera Pathology report acute esophagitis, and chronic gastritis Report placed in chart Past Medical History: COPD, GERD, HTN, Schizophrenia, Thyroid Past Surgical History: Denies Social History: NO smoking, drinking ETOH and use of illegal drugs. Family History: Noncontributory Review of Systems: Constitutional: no fever, chill, weight loss HEENT: no eye pain, no hearing loss, no oral lesion, no scleral icterus Heart: no chest pain, no chest pressure Lung: Shortness of breath Abdomen: see HPI Physical exam: General: NAD, AAOX3 Chest: lung brooks with mild wheezing bilaterally Heart: RRR, no murmur Abdomen: non-distended, no tenderness to palpation, +BS Labs: Labs Test 06/14/24 05:48 06/12/24 14:53 06/12/24 14:51 06/12/24 13:15 Range/Units White Blood Count 8.4 4.4-10.8 10^3/uL Red Blood Count 3.74 L 4.5-5.90 10^6/uL Hemoglobin 10.1 L 13.5-17.5 g/dL Hematocrit 32.0 L 41.0-53.0 % Mean Corpuscular Volume 85.5 80.0-100.0 fL Mean Corpuscular Hemoglobin 27.0 L 28.0-32.0 pg Mean Corpuscular Hemoglobin Concent 31.6 L 32.0-36.0 g/dL Red Cell Distribution Width 19.8 H 11.8-14.3 % Platelet Count 184 140-450 10^3/uL Mean Platelet Volume 7.7 6.9-10.8 fL Neutrophils (%) (Auto) 90.4 H 37.0-80.0 % Lymphocytes (%) (Auto) 2.7 L 10.0-50.0 % Monocytes (%) (Auto) 6.9 0.0-12.0 % Eosinophils (%) (Auto) 0.0 0.0-7.0 % Basophils (%) (Auto) 0.0 0.0-2.0 % Neutrophils # (Auto) 7.6 1.6-8.6 10 ^3/uL Lymphocytes # (Auto) 0.2 L 0.4-5.4 10 ^3/uL Monocytes # (Auto) 0.6 0-1.3 10 ^3/uL Eosinophils # (Auto) 0 0-0.8 10 ^3/uL Basophils # (Auto) 0 0-0.2 10 ^3/uL Nucleated Red Blood Cells 0.0 % Sodium Level 140 136-145 mmol/L Potassium Level 4.3 3.5-5.1 mmol/L Chloride Level 91 L 98-107 mmol/L Carbon Dioxide Level > 40 *H 20-31 mmol/L Anion Gap 8.44801 5-15 Blood Urea Nitrogen 18 9-23 mg/dL Creatinine 1.07 0.700-1.30 mg/dL Glomerular Filtration Rate Calc 81 >90 mL/min BUN/Creatinine Ratio 16.8 10.0-20.0 Serum Glucose 154 H 74-106 mg/dL Hemoglobin A1c 4.8 <5.7 % A1C Calcium Level 10.1 8.7-10.4 mg/dL Total Bilirubin 0.2 0.2-1.0 mg/dL Aspartate Amino Transferase (AST) 31 13-40 U/L Alanine Aminotransferase (ALT) 26 7-40 U/L Alkaline Phosphatase 78 46-116 U/L Total Protein 7.2 5.7-8.2 g/dL Albumin 4.1 3.2-4.8 g/dL Urine Color Colorless Yellow Urine Clarity Clear Clear Urine pH 7.0 5.0-9.0 Urine Specific [place] 1.006 1.001-1.035 Urine Protein Negative Negative Urine Ketones Negative Negative Urine Blood Negative Negative /uL Urine Nitrite Negative Negative Urine Bilirubin Negative Negative Urine Urobilinogen Normal Negative mg/dL Urine Leukocyte Esterase Negative Negative /uL Urine RBC None seen 0 - 3 /hpf Urine Microscopic WBC < 1 0-3 /HPF Urine Squamous Epithelial Cells None seen <5 /hpf Urine Bacteria Few H None Seen /hpf Urine Glucose Normal Normal mg/dL Troponin I High Sensitivity < 3 L </=54 ng/L Thyroid Stimulating Hormone (TSH) 1.69 0.55-4.78 uIU/mL Lactic Acid Level 0.8 0.4-2.0 mmol/L B-Type Natriuretic Peptide 92.04 0-100 pg/mL Imaging: CT chest Results pending Assessment: Esophagitis Gastritis Recent GI bleed Anemia COPD Plan: Discussed with Dr. Viera Protonix and Carafate Zofran We will continue to monitor the patient Clear liquid diet advanced as tolerated, after results of CT chest reviewed Discussed plan with patient and RN Thank you for the consult Date of Service: Jun 14, 2024 Billing Provider: REAL VILLAR Common Visit Codes: CONSULT ONLY Consultation Codes: [id number] CONSULT <60MIN REAL VILLAR Jun 14, 2024 12:54
--- NOTE | 2024-06-14 13:49 | DVH ---
Procedure: CT CHEST WITHOUT CONTRAST Reason for study/Clinical History: aspiration PNA Comparison Study: None available at time of dictation. TECHNIQUE: Multidetector CT of the chest was performed from the lung apices to the upper abdomen with out the use of intravenous contract. Axial, coronal and sagittal multiplanar reformats were performed . Radiation Dose Information: CT Dose: CTDI volume is 6.28 mGy. Dose-length product is 214.7 mGy*cm The dose indicators for CT are the volume Computed Tomography (CT) Dose Index (CTDIvol) and the Dose Length Product (DLP), and are measured in units of mGy and mGy-cm, respectively. These indicators are not patient dose, but values generated from the CT scanner acquisition factors. The report includes radiation exposure data for exposures received during this examination. FINDINGS: Lower neck: Unremarkable. Lungs: Diffuse tree-in-bud nodularity and patchy airspace opacities in the bilateral lower lobes. Heart/Vascular Structures: Cardiomegaly. Coronary artery calcifications. Vascular calcifications of t he aorta. Lymph Nodes: No adenopathy Pleura: No pleural effusion or significant pneumothorax. Musculoskeletal: No acute osseous abnormality. Degenerative changes of the spine. Soft tissues: Left chest wall pacemaker. Upper abdomen: Distended stomach. Moderate esophageal thickening; nonspecific and unchanged. IMPRESSION: Diffuse tree-in-bud nodularity with patchy bilateral airspace opacities in the bilateral lower lobes. Findings may represent atypical pneumonia with possible atelectasis or developing pneumonia in the l kojo bases. Findings appear improved when compared to images of the lung bases seen on CT chest dated 05/19/2024. Radiation optimization: All CT scans at this facility use at least one of these dose optimization [place] hniques: automated exposure control mA and/or kV adjustment per patient size (includes targeted exam s where dose is matched to clinical indication) or iterative reconstruction.
--- NOTE | 2024-06-14 16:43 | DVHPN2 ---
Subjective Seen and examined at bedside, patient has code assist early AM. Underwent repeat CT Chest. Patient seems drowsy at times. Changes from previous H/P or p: No Changes Eyes: No Pain, No Vision change, No Conjunctivae inflammation, No Eyelid inflammation, No Other, No Redness ENT: No Ear pain, No Ear discharge, No Nose pain, No Nose discharge, No Nose congestion, No Mouth pain, No Mouth swelling, No Throat pain, No Throat swelling, No Other Cardiovascular: No Chest Pain, No Palpitations, No Orthopnea, No Paroxysmal Noc. Dyspnea, No Edema, No Lt Headedness, No Other Respiratory: No Cough, No Dry; Shortness of breath, SOB with excertion; No Wheezing, No Hemoptysis, No Pleuritic Pain, No Sputum; Other (SOB at rest) Gastrointestinal: No Nausea, No Vomiting, No Abdominal Pain, No Diarrhea, No Constipation, No Melena, No Hematochezia, No Other Genitourinary: No Dysuria, No Frequency, No Incontinence, No Hematuria, No Retention, No Other Musculoskeletal: No other, No neck pain, No shoulder pain, No arm pain, No back pain, No hand pain, No leg pain, No foot pain Skin: No Rash, No Lesions, No Jaundice, No Bruising, No Other Objective Vitals Vital Signs Date Time Temp Pulse Resp B/P (MAP) Pulse Ox O2 Delivery O2 Flow Rate FiO2 06/14/24 12:40 98.7 72 17 119/68 (85) 92 98.7 06/14/24 08:00 Oxymizer 8 N/A Intake/Output Intake and Output 06/14/24 07:00 Intake Total 150 ml Output Total 1300 ml Balance -1150 ml Intake Oral 150 ml Output Urine Total 1300 ml # Voids 2 Exam Gen: in bed NAD Cvs: N S1/S2, RRR Resp: Creps Abd: Soft, NT, BS+ Hop Grower: AAO x 3 Medications Current Medications Medications Dose Ordered Sig/Jose Route Start Time Stop Time Status Last Admin Dose Admin Albuterol 2.5 mg Q4HPRN PRN NEB 06/12/24 15:45 06/14/24 05:48 2.5 MG Ipratropium [place] 0.5 mg Q4HPRN PRN NEB 06/12/24 15:45 06/14/24 05:48 0.5 MG Methylprednisolone Sodium Succinate 40 mg Q8HR IV 06/12/24 22:00 06/14/24 14:30 40 MG Levothyroxine Sodium 50 mcg QAM@0600 PO 06/13/24 06:00 06/13/24 06:12 50 MCG Risperidone 3 mg DAILY PO 06/13/24 10:00 06/14/24 09:29 3 MG Trazodone HCl 150 mg HS PO 06/12/24 22:00 06/13/24 22:57 150 MG Sodium Chloride 10 ml Q8HR IV 06/12/24 22:00 06/14/24 14:14 10 ML Acetaminophen/ Hydrocodone Bitart 1 tab Q4HP PRN PO 06/12/24 15:45 Hold Ondansetron HCl 4 mg Q4HP PRN IV 06/12/24 15:45 06/14/24 06:29 4 MG Docusate Sodium 100 mg BIDPRN PRN PO 06/12/24 15:45 Acetaminophen 650 mg Q6HP PRN PO 06/12/24 15:45 Nitroglycerin 0.4 mg Q5MINP PRN SL 06/12/24 17:45 Morphine Sulfate 2 mg Q30M PRN IV 06/12/24 17:45 Hold Ceftriaxone Sodium 50 ml @ 100 mls/hr DAILY@2100 IV 06/12/24 22:30 06/13/24 22:50 100 MLS/HR Pantoprazole Sodium 40 mg BID@0600,1700 PO 06/14/24 06:00 06/14/24 05:39 40 MG Sucralfate 1 gm QIDACHS PO 06/13/24 22:00 06/14/24 12:31 1 GM Furosemide 40 mg BID IV 06/13/24 22:00 06/14/24 09:29 40 MG Laboratory Results Laboratory Tests 06/14/24 05:48 Chemistry Test 06/14/24 05:48 Albumin 4.1 g/dL (3.2-4.8) Calcium Level 10.1 mg/dL (8.7-10.4) Total Protein 7.2 g/dL (5.7-8.2) LFT Test 06/14/24 05:48 Alanine Aminotransferase (ALT) 26 U/L (7-40) Alkaline Phosphatase 78 U/L (46-116) Aspartate Amino Transferase (AST) 31 U/L (13-40) Total Bilirubin 0.2 mg/dL (0.2-1.0) HgA1c, TSH Test 06/14/24 05:48 Hemoglobin A1c 4.8 % A1C (<5.7) Urinalysis Test 06/12/24 14:53 Urine Color Colorless (Yellow) Urine Clarity Clear (Clear) Urine pH 7.0 (5.0-9.0) Urine Specific [place] 1.006 (1.001-1.035) Urine Protein Negative (Negative) Urine Ketones Negative (Negative) Urine Blood Negative /uL (Negative) Urine Nitrite Negative (Negative) Urine Bilirubin Negative (Negative) Urine Urobilinogen Normal mg/dL (Negative) Urine Leukocyte Esterase Negative /uL (Negative) Urine RBC None seen /hpf (0 - 3) Urine Microscopic WBC < 1 /HPF (0-3) Urine Squamous Epithelial Cells None seen /hpf (<5) Urine Bacteria Few /hpf (None Seen) H Urine Glucose Normal mg/dL (Normal) Assessment/Plan Assessment/Plan # Possible Aspiration PNA due to Rapid Response - Merrem - CT Chest done # Acute Diastolic CHF - Lasix IV # Recent GI Bleed - Protonix - Carafate # Anemia # COPD Exacerbation - Bronchodilators # Chronic Resp Failure - Cont Oxygen # Goals of care discussion >18 mins FULL CODE critical care time 45 mins Plan discussed with: Patient My Orders Orders - VERENA EMERSON MD Procedure Category Date Status Time Pantoprazole Tablet PHA 06/14/24 In Process (Protonix Tablet) 06:00 Sucralfate Tab PHA 06/13/24 In Process (Carafate Tab) 22:00 Furosemide Injection PHA 06/13/24 In Process (Lasix Injection) 22:[address] 06/14/24 Resulted 11:[address] 06/14/24 Logged 11:22 Mechanical Soft Diet DIET 06/14/24 Transmitted Dinner Meropenem 2gm/ 250ml PHA 06/14/24 Logged 22:[address] 06/14/24 Logged 16:37 Abg W/ Co-Ox RT 06/14/24 Logged 16:37 Pt Request For Service PT 06/14/24 Logged 16:37 Date of Service: Jun 14, 2024 Billing Provider: VERENA EMERSON MD Common Visit Codes: [id number] CARE 30-74 MIN VERENA EMERSON MD Jun 14, 2024 16:43
[2024-06-14 16:56] LABS: Base Excess 16.3 mmol/L (-2.0-3.0)
--- NOTE | 2024-06-14 19:24 | DVH ---
CT HEAD WITHOUT CONTRAST INDICATION: aloc COMPARISON: CT HEAD WITHOUT CONTRAST on DOS: 08/24/22 TECHNIQUE: CT of the head without intravenous contrast. RADIATION DOSE: CTDIvol: 56.07 mGy, DLP: 1983.82 mGy*cm FINDINGS: There is no evidence of intracranial hemorrhage, infarct, extra-axial collection, mass effect, midli ne shift, herniation or hydrocephalus. The ventricles, sulci and cisterns are normal. The romero-whit e differentiation is normal. The cerebellar tonsils are mildly low-lying, stable compared to the prio r study. Considerable mucosal thickening in bilateral maxillary and ethmoid sinuses. Mastoid air cell s and middle ear cavities are clear. Soft tissues and osseous structures are unremarkable. IMPRESSION: No acute intracranial abnormality identified. Paranasal sinus mucosal disease.
[2024-06-14] MEDS: MEROPENEM 1GM IVPB 100 ML IV ONE (23:05)
[2024-06-14] MEDS: MEROPENEM 2GM/ 250ML 250 ML IV SCH (23:31)
[2024-06-15] VITALS (17 sets, daily range): BP systolic 103–134; BP diastolic 46–67; PULSE 60–73; RESP 16–19; TEMP 97.2–98.4; O2SAT 90–97
[2024-06-15 03:24] LABS: Base Excess 18.6 mmol/L (-2.0-3.0)
--- NOTE | 2024-06-15 10:26 | DVHSR ---
APPROVED REPORT EXAM: Two-dimensional and M-mode echocardiogram with Doppler and color Doppler. Blood Pressure: 106/52 mmHg INDICATION Heart Failure RISK FACTORS Height: 5'5", Weight: 145 DIMENSIONS LVDd4.8 (3.8-5.7cm)LA (2D)3.5 (1.9-4.0cm)Aortic Root2.9 (2.0-3.7cm) LVDs3.5 (2.5-4.0cm)LA (MM) (1.9-4.0cm)Aortic Cusp Exc1.7 (1.5-2.0cm) EF (%) 53.0 (55-70%)Rt. Atrium3.7 (1.9-4.0cm)Asc. Aorta3.0 cm IVSd0.9 (0.7-1.1cm)RV (D)2.9 (1.8-2.4cm) PWd0.8 (0.7-1.1cm) Mitral Valve MitralMitral Stenosis E wave0.86m/sMV Mean GR.mmHg A wave0.79m/sMV Peak GR.mmHg E/A ratio1.12D MVAcm2 DECEL [id number] 1/2 Timems Aortic Valve Aortic ValveAortic Stenosis V10.89m/Karli Mean GR.5mmHg V21.45m/Karli Peak GR.8mmHg LVOT Diameter2.2 (1.8-2.4cm)Doppler AVA2.33cm2 Pulmonic Valve V21.12m/s Tricuspid Valve TR Velocity2.36m/s [id number] Other Information Quality : Technically LimitedRhythm : Technically limited study due to body habitus. Conclusion Technically good study. Sinus rhythm. Normal chamber sizes. Normal valves. Left ventricular function preserved at 60% with normal RV function. Dopplers unremarkable. No pericardial effusion masses or vegetations.
--- NOTE | 2024-06-15 12:52 | DVHPN2 ---
Subjective Pt had episode of emesis after eating. No hematemesis Changes from previous H/P or p: No Changes Eyes: No Pain, No Vision change, No Conjunctivae inflammation, No Eyelid inflammation, No Other, No Redness ENT: No Ear pain, No Ear discharge, No Nose pain, No Nose discharge, No Nose congestion, No Mouth pain, No Mouth swelling, No Throat pain, No Throat swelling, No Other Cardiovascular: No Chest Pain, No Palpitations, No Orthopnea, No Paroxysmal Noc. Dyspnea, No Edema, No Lt Headedness, No Other Respiratory: No Cough, No Dry; Shortness of breath, SOB with excertion; No Wheezing, No Hemoptysis, No Pleuritic Pain, No Sputum; Other (SOB at rest) Gastrointestinal: No Nausea, No Vomiting, No Abdominal Pain, No Diarrhea, No Constipation, No Melena, No Hematochezia, No Other Genitourinary: No Dysuria, No Frequency, No Incontinence, No Hematuria, No Retention, No Other Musculoskeletal: No other, No neck pain, No shoulder pain, No arm pain, No back pain, No hand pain, No leg pain, No foot pain Skin: No Rash, No Lesions, No Jaundice, No Bruising, No Other Objective Vitals Vital Signs Date Time Temp Pulse Resp B/P (MAP) Pulse Ox O2 Delivery O2 Flow Rate FiO2 06/15/24 10:21 126/65 06/15/24 10:19 73 18 95 8.0 64 06/15/24 09:06 97.2 97.2 06/15/24 08:00 Oxymizer Intake/Output Intake and Output 06/15/24 07:00 Intake Total 800 ml Output Total 2000 ml Balance -1200 ml Intake Oral 550 ml IV Total 250 ml Output Urine Total 2000 ml General Appearance: Alert, Oriented X3, Cooperative, No acute distress, mild distress, moderate distress, severe distress, Other Lungs: Clear to auscultation, Normal air movement, Other Cardiovascular: Regular rate, Normal S1, Normal S2, No murmurs, Gallops, Rubs, Other Abdomen: Normal bowel sounds, Soft, No tenderness, No hepatospenomegaly, No masses, Other Medications Current Medications Medications Dose Ordered Sig/Jose Route Start Time Stop Time Status Last Admin Dose Admin Albuterol 2.5 mg Q4HPRN PRN NEB 06/12/24 15:45 06/15/24 06:30 2.5 MG Ipratropium [place] 0.5 mg Q4HPRN PRN NEB 06/12/24 15:45 06/15/24 06:30 0.5 MG Methylprednisolone Sodium Succinate 40 mg Q8HR IV 06/12/24 22:00 06/15/24 06:55 40 MG Levothyroxine Sodium 50 mcg QAM@0600 PO 06/13/24 06:00 06/15/24 06:26 50 MCG Risperidone 3 mg DAILY PO 06/13/24 10:00 06/15/24 10:21 3 MG Trazodone HCl 150 mg HS PO 06/12/24 22:00 06/14/24 22:31 150 MG Sodium Chloride 10 ml Q8HR IV 06/12/24 22:00 06/15/24 06:29 10 ML Acetaminophen/ Hydrocodone Bitart 1 tab Q4HP PRN PO 06/12/24 15:45 Hold Ondansetron HCl 4 mg Q4HP PRN IV 06/12/24 15:45 06/15/24 12:18 4 MG Docusate Sodium 100 mg BIDPRN PRN PO 06/12/24 15:45 Acetaminophen 650 mg Q6HP PRN PO 06/12/24 15:45 Nitroglycerin 0.4 mg Q5MINP PRN SL 06/12/24 17:45 Morphine Sulfate 2 mg Q30M PRN IV 06/12/24 17:45 Hold Pantoprazole Sodium 40 mg BID@0600,1700 PO 06/14/24 06:00 06/15/24 06:26 40 MG Sucralfate 1 gm QIDACHS PO 06/13/24 22:00 06/15/24 12:18 1 GM Furosemide 40 mg BID IV 06/13/24 22:00 06/15/24 10:21 40 MG Meropenem 250 ml @ 83.3 mls/hr Q8HR IV 06/14/24 22:00 06/15/24 10:29 83.3 MLS/HR Laboratory Results Laboratory Tests 06/14/24 05:48 Urinalysis Test 06/12/24 14:53 Urine Color Colorless (Yellow) Urine Clarity Clear (Clear) Urine pH 7.0 (5.0-9.0) Urine Specific [place] 1.006 (1.001-1.035) Urine Protein Negative (Negative) Urine Ketones Negative (Negative) Urine Blood Negative /uL (Negative) Urine Nitrite Negative (Negative) Urine Bilirubin Negative (Negative) Urine Urobilinogen Normal mg/dL (Negative) Urine Leukocyte Esterase Negative /uL (Negative) Urine RBC None seen /hpf (0 - 3) Urine Microscopic WBC < 1 /HPF (0-3) Urine Squamous Epithelial Cells None seen /hpf (<5) Urine Bacteria Few /hpf (None Seen) H Urine Glucose Normal mg/dL (Normal) Blood Gas Results Test 06/14/24 16:48 06/15/24 03:10 Arterial Blood pH 7.401 (7.350-7.450) 7.441 (7.350-7.450) FiO2 % 64.0 70.0 Labs and/or images reviewed: Labs reviewed by me, Image(s) reviewed by me Assessment/Plan Assessment/Plan Esophagitis Gastritis Recent GI bleed Anemia COPD Plan: Discussed with Dr. Maximiliano Genao Continue Protonix and Carafate We will continue to monitor the patient Plan discussed with: Patient, Other (RN) Date of Service: Jun 15, 2024 Billing Provider: REAL VILLAR Common Visit Codes: [id number] INP/OBS CARE(MOD) REAL VILLAR Jun 15, 2024 12:52
--- NOTE | 2024-06-15 17:42 | DVHPN2 ---
Subjective Seen and examined at bedside, patient was on BIPAP overnight. Patient is a Chronic CO2 retainer. ABG reviewed. Patient is now on nasal cannula oxygen. Get PT Eval. Changes from previous H/P or p: No Changes Eyes: No Pain, No Vision change, No Conjunctivae inflammation, No Eyelid inflammation, No Other, No Redness ENT: No Ear pain, No Ear discharge, No Nose pain, No Nose discharge, No Nose congestion, No Mouth pain, No Mouth swelling, No Throat pain, No Throat swelling, No Other Cardiovascular: No Chest Pain, No Palpitations, No Orthopnea, No Paroxysmal Noc. Dyspnea, No Edema, No Lt Headedness, No Other Respiratory: No Cough, No Dry; Shortness of breath, SOB with excertion; No Wheezing, No Hemoptysis, No Pleuritic Pain, No Sputum Gastrointestinal: No Nausea, No Vomiting, No Abdominal Pain, No Diarrhea, No Constipation, No Melena, No Hematochezia, No Other Genitourinary: No Dysuria, No Frequency, No Incontinence, No Hematuria, No Retention, No Other Musculoskeletal: No other, No neck pain, No shoulder pain, No arm pain, No back pain, No hand pain, No leg pain, No foot pain Skin: No Rash, No Lesions, No Jaundice, No Bruising, No Other Objective Vitals Vital Signs Date Time Temp Pulse Resp B/P (MAP) Pulse Ox O2 Delivery O2 Flow Rate FiO2 06/15/24 17:22 98.0 65 16 117/59 (78) 91 98.0 06/15/24 15:22 Nasal Cannula 6.0 06/15/24 15:22 44 Intake/Output Intake and Output 06/15/24 07:00 Intake Total 800 ml Output Total 2000 ml Balance -1200 ml Intake Oral 550 ml IV Total 250 ml Output Urine Total 2000 ml Exam Gen: in bed NAD Cvs: N S1/S2, RRR Resp: Creps Abd: Soft, NT, BS+ Toll [employer] Operator: AAO x 3 General Appearance: Alert, Oriented X3, Cooperative, No acute distress, mild distress, moderate distress, severe distress, Other Lungs: Clear to auscultation, Normal air movement, Other Cardiovascular: Regular rate, Normal S1, Normal S2, No murmurs, Gallops, Rubs, Other Abdomen: Normal bowel sounds, Soft, No tenderness, No hepatospenomegaly, No masses, Other Medications Current Medications Medications Dose Ordered Sig/Jose Route Start Time Stop Time Status Last Admin Dose Admin Albuterol 2.5 mg Q4HPRN PRN NEB 06/12/24 15:45 06/15/24 06:30 2.5 MG Ipratropium [place] 0.5 mg Q4HPRN PRN NEB 06/12/24 15:45 06/15/24 06:30 0.5 MG Methylprednisolone Sodium Succinate 40 mg Q8HR IV 06/12/24 22:00 06/15/24 14:00 40 MG Levothyroxine Sodium 50 mcg QAM@0600 PO 06/13/24 06:00 06/15/24 06:26 50 MCG Risperidone 3 mg DAILY PO 06/13/24 10:00 06/15/24 10:21 3 MG Trazodone HCl 150 mg HS PO 06/12/24 22:00 06/14/24 22:31 150 MG Sodium Chloride 10 ml Q8HR IV 06/12/24 22:00 06/15/24 14:26 10 ML Acetaminophen/ Hydrocodone Bitart 1 tab Q4HP PRN PO 06/12/24 15:45 Hold Ondansetron HCl 4 mg Q4HP PRN IV 06/12/24 15:45 06/15/24 12:18 4 MG Docusate Sodium 100 mg BIDPRN PRN PO 06/12/24 15:45 Acetaminophen 650 mg Q6HP PRN PO 06/12/24 15:45 Nitroglycerin 0.4 mg Q5MINP PRN SL 06/12/24 17:45 Morphine Sulfate 2 mg Q30M PRN IV 06/12/24 17:45 Hold Pantoprazole Sodium 40 mg BID@0600,1700 PO 06/14/24 06:00 06/15/24 06:26 40 MG Sucralfate 1 gm QIDACHS PO 06/13/24 22:00 06/15/24 12:18 1 GM Furosemide 40 mg BID IV 06/13/24 22:00 06/15/24 10:21 40 MG Meropenem 250 ml @ 83.3 mls/hr Q8HR IV 06/14/24 22:00 06/15/24 16:19 83.3 MLS/HR Laboratory Results Laboratory Tests 06/14/24 05:48 Urinalysis Test 06/12/24 14:53 Urine Color Colorless (Yellow) Urine Clarity Clear (Clear) Urine pH 7.0 (5.0-9.0) Urine Specific [place] 1.006 (1.001-1.035) Urine Protein Negative (Negative) Urine Ketones Negative (Negative) Urine Blood Negative /uL (Negative) Urine Nitrite Negative (Negative) Urine Bilirubin Negative (Negative) Urine Urobilinogen Normal mg/dL (Negative) Urine Leukocyte Esterase Negative /uL (Negative) Urine RBC None seen /hpf (0 - 3) Urine Microscopic WBC < 1 /HPF (0-3) Urine Squamous Epithelial Cells None seen /hpf (<5) Urine Bacteria Few /hpf (None Seen) H Urine Glucose Normal mg/dL (Normal) Blood Gas Results Test 06/15/24 03:10 Arterial Blood pH 7.441 (7.350-7.450) FiO2 % 70.0 Assessment/Plan Assessment/Plan # Possible Aspiration PNA due to Rapid Response - Merrem - CT Chest done and reviewed # Acute Diastolic CHF - Lasix IV # Recent GI Bleed - Protonix - Carafate # Anemia # COPD Exacerbation - Bronchodilators # Chronic Resp Failure - Cont Oxygen # Goals of care discussion >18 mins FULL CODE Plan discussed with: Patient My Orders Orders - VERENA EMERSON MD Procedure Category Date Status Time Abg W/ Co-Ox RT 06/16/24 Logged 04:00 Date of Service: Jun 15, 2024 Billing Provider: VERENA EMERSON MD Common Visit Codes: [id number] INP/OBS CARE(HIGH) Secondary Visit Codes: [id number] CARE PLAN 30 MINUTES VERENA EMERSON MD Jun 15, 2024 17:42
[2024-06-16] VITALS (14 sets, daily range): BP systolic 105–127; BP diastolic 44–69; PULSE 60–69; RESP 15–18; TEMP 97.5–98.3; O2SAT 92–97
[2024-06-16 06:11] LABS: Base Excess 15.6 mmol/L (-2.0-3.0)
[2024-06-16 07:38] LABS: Potassium 4.1 mmol/L (3.5-5.1); Sodium 138 mmol/L (136-145)
[2024-06-16 07:39] LABS: Anion Gap 4.99999 (5-15); Chloride 93 mmol/L (98-107)
[2024-06-16 07:43] LABS: Carbon Dioxide > 40 mmol/L (20-31)
[2024-06-16 07:45] LABS: BUN/Creatinine Ratio 28.2 (10.0-20.0); Magnesium 2.1 mg/dL (1.6-2.6)
[2024-06-16 07:46] LABS: Blood Urea Nitrogen 24 mg/dL (9-23); Glucose 124 mg/dL (74-106)
--- NOTE | 2024-06-16 13:09 | DVHPN2 ---
Subjective Seen and examined at bedside, patient is on 6L oxygen. Patient is very dorwsy, will decrease Trazadone to 50mg qhs. Titrate oxygen down. Changes from previous H/P or p: No Changes Eyes: No Pain, No Vision change, No Conjunctivae inflammation, No Eyelid inflammation, No Other, No Redness ENT: No Ear pain, No Ear discharge, No Nose pain, No Nose discharge, No Nose congestion, No Mouth pain, No Mouth swelling, No Throat pain, No Throat swelling, No Other Cardiovascular: No Chest Pain, No Palpitations, No Orthopnea, No Paroxysmal Noc. Dyspnea, No Edema, No Lt Headedness, No Other Respiratory: No Cough, No Dry, No Shortness of breath, No SOB with excertion, No Wheezing, No Hemoptysis, No Pleuritic Pain, No Sputum, No Other Gastrointestinal: No Nausea, No Vomiting, No Abdominal Pain, No Diarrhea, No Constipation, No Melena, No Hematochezia, No Other Genitourinary: No Dysuria, No Frequency, No Incontinence, No Hematuria, No Retention, No Other Musculoskeletal: No other, No neck pain, No shoulder pain, No arm pain, No back pain, No hand pain, No leg pain, No foot pain Skin: No Rash, No Lesions, No Jaundice, No Bruising, No Other Objective Vitals Vital Signs Date Time Temp Pulse Resp B/P (MAP) Pulse Ox O2 Delivery O2 Flow Rate FiO2 06/16/24 10:00 117/64 06/16/24 09:48 93 Nasal Cannula* 6 44 06/16/24 09:00 97.5 69 18 97.5 Intake/Output Intake and Output 06/16/24 07:00 Intake Total 1900 ml Output Total 650 ml Balance 1250 ml Intake Oral 1150 ml IV Total 750 ml Output Urine Total 650 ml # Voids 4 Exam Gen: in bed NAD Cvs: N S1/S2, RRR Resp: Creps Abd: Soft, NT, BS+ 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 And 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: 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 x 3 General Appearance: Alert, Oriented X3, Cooperative, No acute distress, mild distress, moderate distress, severe distress, Other Lungs: Clear to auscultation, Normal air movement, Other Cardiovascular: Regular rate, Normal S1, Normal S2, No murmurs, Gallops, Rubs, Other Abdomen: Normal bowel sounds, Soft, No tenderness, No hepatospenomegaly, No masses, Other Psych/Mental Status: Other (drowsy) Medications Current Medications Medications Dose Ordered Sig/Jose Route Start Time Stop Time Status Last Admin Dose Admin Albuterol 2.5 mg Q4HPRN PRN NEB 06/12/24 15:45 06/15/24 06:30 2.5 MG Ipratropium [place] 0.5 mg Q4HPRN PRN NEB 06/12/24 15:45 06/15/24 06:30 0.5 MG Methylprednisolone Sodium Succinate 40 mg Q8HR IV 06/12/24 22:00 06/16/24 05:56 40 MG Levothyroxine Sodium 50 mcg QAM@0600 PO 06/13/24 06:00 06/16/24 07:38 50 MCG Risperidone 3 mg DAILY PO 06/13/24 10:00 06/16/24 09:58 3 MG Sodium Chloride 10 ml Q8HR IV 06/12/24 22:00 06/16/24 06:00 10 ML Acetaminophen/ Hydrocodone Bitart 1 tab Q4HP PRN PO 06/12/24 15:45 Hold Ondansetron HCl 4 mg Q4HP PRN IV 06/12/24 15:45 06/15/24 12:18 4 MG Docusate Sodium 100 mg BIDPRN PRN PO 06/12/24 15:45 Acetaminophen 650 mg Q6HP PRN PO 06/12/24 15:45 Nitroglycerin 0.4 mg Q5MINP PRN SL 06/12/24 17:45 Morphine Sulfate 2 mg Q30M PRN IV 06/12/24 17:45 Hold Pantoprazole Sodium 40 mg BID@0600,1700 PO 06/14/24 06:00 06/16/24 07:38 40 MG Sucralfate 1 gm QIDACHS PO 06/13/24 22:00 06/16/24 12:10 1 GM Furosemide 40 mg BID IV 06/13/24 22:00 06/16/24 10:00 40 MG Meropenem 250 ml @ 83.3 mls/hr Q8HR IV 06/14/24 22:00 06/16/24 06:00 83.3 MLS/HR Trazodone HCl 50 mg HS PO 06/16/24 22:00 UNV Laboratory Results Laboratory Tests 06/14/24 05:48 06/16/24 06:32 Chemistry Test 06/16/24 06:32 Calcium Level 10.0 mg/dL (8.7-10.4) Magnesium Level 2.1 mg/dL (1.6-2.6) Cardiac Markers Test 06/16/24 06:32 B-Type Natriuretic Peptide 45.88 pg/mL (0-100) Urinalysis Test 06/12/24 14:53 Urine Color Colorless (Yellow) Urine Clarity Clear (Clear) Urine pH 7.0 (5.0-9.0) Urine Specific [place] 1.006 (1.001-1.035) Urine Protein Negative (Negative) Urine Ketones Negative (Negative) Urine Blood Negative /uL (Negative) Urine Nitrite Negative (Negative) Urine Bilirubin Negative (Negative) Urine Urobilinogen Normal mg/dL (Negative) Urine Leukocyte Esterase Negative /uL (Negative) Urine RBC None seen /hpf (0 - 3) Urine Microscopic WBC < 1 /HPF (0-3) Urine Squamous Epithelial Cells None seen /hpf (<5) Urine Bacteria Few /hpf (None Seen) H Urine Glucose Normal mg/dL (Normal) Blood Gas Results Test 06/16/24 05:59 Arterial Blood pH 7.474 (7.350-7.450) FiO2 % 50.0 Assessment/Plan Assessment/Plan # Possible Aspiration PNA due to Rapid Response - Mer[place] - CT Chest done and reviewed # Acute Diastolic CHF - Lasix IV # Chronic CO2 retainer # Recent GI Bleed - Protonix - Carafate # Anemia # COPD Exacerbation - Bronchodilators # Chronic Resp Failure - Cont Oxygen # Goals of care discussion >18 mins FULL CODE Plan discussed with: Patient My Orders Orders - VERENA EMERSON MD Procedure Category Date Status Time Abg W/ Co-Ox RT 06/16/24 Logged 04:00 Basic Metabolic Panel LAB 06/17/24 Verified 04:00 Chest Portable XY 06/17/24 Logged 04:00 Trazodone Hcl PHA 06/16/24 Logged (Desyrel) 22:00 Date of Service: Jun 16, 2024 Billing Provider: VERENA EMERSON MD Common Visit Codes: [id number] INP/OBS CARE(MOD) VERENA EMERSON MD Jun 16, 2024 13:09
[2024-06-16] MEDS: traZODone HCL 50 MG TAB PO SCH (21:38)
[2024-06-16] MEDS: DOCUSATE SOD 100 MG CAP PO PRN (21:42)
[2024-06-17] VITALS (10 sets, daily range): BP systolic 107–123; BP diastolic 56–73; PULSE 51–60; RESP 16–18; TEMP 97.3–98.5; O2SAT 91–97
--- NOTE | 2024-06-17 05:31 | DVH ---
CHEST RADIOGRAPH Indication: copd Technique: Single frontal view of the chest was obtained Comparison: XY CHEST PORTABLE on DOS: 06/14/24, XY CHEST PORTABLE on DOS: 06/12/24, XY CHEST XRAY 1 VIEW on DOS: 05/19/24 IMPRESSION: Heart appears stable in size with multi lead left cardiac device. Patchy bibasilar airspace opacities . No sizable effusion or pneumothorax
[2024-06-17 07:02] LABS: Potassium 4.2 mmol/L (3.5-5.1)
[2024-06-17 07:04] LABS: Calcium 9.7 mg/dL (8.7-10.4)
[2024-06-17 07:08] LABS: BUN/Creatinine Ratio 25.9 (10.0-20.0); Blood Urea Nitrogen 21 mg/dL (9-23)
[2024-06-17 07:11] LABS: Chloride 90 mmol/L (98-107); Sodium 135 mmol/L (136-145)
[2024-06-17 07:13] LABS: Anion Gap 4.99999 (5-15); Carbon Dioxide > 40 mmol/L (20-31); Glucose 129 mg/dL (74-106)
--- NOTE | 2024-06-17 13:16 | DVHPN2 ---
Subjective The patient is seen and examined at bedside. No complaint today. Minimal shortness a breath. Reviewed: Care Plan, H&P, Labs, Medications, Previous Orders, Radiology Changes from previous H/P or p: No Changes Eyes: No Pain, No Vision change, No Conjunctivae inflammation, No Eyelid inflammation, No Other, No Redness ENT: No Ear pain, No Ear discharge, No Nose pain, No Nose discharge, No Nose congestion, No Mouth pain, No Mouth swelling, No Throat pain, No Throat swelling, No Other Cardiovascular: No Chest Pain, No Palpitations, No Orthopnea, No Paroxysmal Noc. Dyspnea, No Edema, No Lt Headedness, No Other Respiratory: No Cough, No Dry, No Shortness of breath, No SOB with excertion, No Wheezing, No Hemoptysis, No Pleuritic Pain, No Sputum, No Other Gastrointestinal: No Nausea, No Vomiting, No Abdominal Pain, No Diarrhea, No Constipation, No Melena, No Hematochezia, No Other Genitourinary: No Dysuria, No Frequency, No Incontinence, No Hematuria, No Retention, No Other Musculoskeletal: No other, No neck pain, No shoulder pain, No arm pain, No back pain, No hand pain, No leg pain, No foot pain Skin: No Rash, No Lesions, No Jaundice, No Bruising, No Other Objective Vitals Vital Signs Date Time Temp Pulse Resp B/P (MAP) Pulse Ox O2 Delivery O2 Flow Rate FiO2 06/17/24 10:01 107/61 06/17/24 09:16 98.2 58 16 92 98.2 06/17/24 08:00 Nasal Cannula* 3 32 Intake/Output Intake and Output 06/17/24 07:00 Intake Total 2050 ml Output Total 1325 ml Balance 725 ml Intake Oral 1550 ml IV Total 500 ml Output Urine Total 1325 ml # Voids 5 General Appearance: Alert, Oriented X3, Cooperative, No acute distress, mild distress, moderate distress, severe distress, Other Lungs: Clear to auscultation, Normal air movement, Other Cardiovascular: Regular rate, Normal S1, Normal S2, No murmurs, Gallops, Rubs, Other Abdomen: Normal bowel sounds, Soft, No tenderness, No hepatospenomegaly, No masses, Other Psych/Mental Status: Other (drowsy) Medications Current Medications Medications Dose Ordered Sig/Jose Route Start Time Stop Time Status Last Admin Dose Admin Albuterol 2.5 mg Q4HPRN PRN NEB 06/12/24 15:45 06/15/24 06:30 2.5 MG Ipratropium [place] 0.5 mg Q4HPRN PRN NEB 06/12/24 15:45 06/15/24 06:30 0.5 MG Methylprednisolone Sodium Succinate 40 mg Q8HR IV 06/12/24 22:00 06/17/24 13:15 40 MG Levothyroxine Sodium 50 mcg QAM@0600 PO 06/13/24 06:00 06/17/24 05:45 50 MCG Risperidone 3 mg DAILY PO 06/13/24 10:00 06/17/24 10:01 3 MG Sodium Chloride 10 ml Q8HR IV 06/12/24 22:00 06/17/24 13:15 10 ML Acetaminophen/ Hydrocodone Bitart 1 tab Q4HP PRN PO 06/12/24 15:45 Hold Ondansetron HCl 4 mg Q4HP PRN IV 06/12/24 15:45 06/16/24 16:53 4 MG Docusate Sodium 100 mg BIDPRN PRN PO 06/12/24 15:45 06/16/24 21:42 100 MG Acetaminophen 650 mg Q6HP PRN PO 06/12/24 15:45 Nitroglycerin 0.4 mg Q5MINP PRN SL 06/12/24 17:45 Morphine Sulfate 2 mg Q30M PRN IV 06/12/24 17:45 Hold Pantoprazole Sodium 40 mg BID@0600,1700 PO 06/14/24 06:00 06/17/24 05:45 40 MG Sucralfate 1 gm QIDACHS PO 06/13/24 22:00 06/17/24 10:01 1 GM Furosemide 40 mg BID IV 06/13/24 22:00 06/17/24 10:01 40 MG Meropenem 250 ml @ 83.3 mls/hr Q8HR IV 06/14/24 22:00 06/17/24 13:15 83.3 MLS/HR Trazodone HCl 50 mg HS PO 06/16/24 22:00 06/16/24 21:38 50 MG Laboratory Results Laboratory Tests 06/14/24 05:48 3/8/25 06:21 Chemistry Test 06/17/24 06:21 Calcium Level 9.7 mg/dL (8.7-10.4) Urinalysis Test 06/12/24 14:53 Urine Color Colorless (Yellow) Urine Clarity Clear (Clear) Urine pH 7.0 (5.0-9.0) Urine Specific [place] 1.006 (1.001-1.035) Urine Protein Negative (Negative) Urine Ketones Negative (Negative) Urine Blood Negative /uL (Negative) Urine Nitrite Negative (Negative) Urine Bilirubin Negative (Negative) Urine Urobilinogen Normal mg/dL (Negative) Urine Leukocyte Esterase Negative /uL (Negative) Urine RBC None seen /hpf (0 - 3) Urine Microscopic WBC < 1 /HPF (0-3) Urine Squamous Epithelial Cells None seen /hpf (<5) Urine Bacteria Few /hpf (None Seen) H Urine Glucose Normal mg/dL (Normal) Labs and/or images reviewed: Labs reviewed by me Assessment/Plan Assessment/Plan # Aspiration PNA - continuing IV antibiotic Merrem - CT Chest done and reviewed # Acute Diastolic CHF - continuing Lasix IV # Chronic CO2 retainer # Recent GI Bleed - continuing Protonix - continuing Carafate # Anemia -continuing to monitor # COPD Exacerbation - Bronchodilators # Chronic Resp Failure - Cont Oxygen to titrate for SO2 greater than 92% This medical document was created using an electronic medical record system with [employer] direct computerized dictation system. Although this document has been carefully reviewed, there may still be some phonetic and typographical errors. These areas are purely typographical due to imperfections of the software programs, and do not reflect any compromise in the patient's medical care. Plan discussed with: Patient Date of Service: Jun 17, 2024 Billing Provider: ZELALEM MARK MD Common Visit Codes: [id number] INP/OBS CARE(HIGH) ZELALEM MARK MD Jun 17, 2024 13:16
--- NOTE | 2024-06-17 14:44 | DVHPN2 ---
Progress Note - Dictate Date Seen: Jun 17, 2024 Medical Necessity Reason Pt with a Central, PICC or Fol: No Subjective Patient is clinically improved today He is more awake and alert and talkative Patient underwent physical therapy and was able to walk to the door He is tolerating a soft mechanical diet Is BiPAP has been discontinued and he is on 3 L nasal cannula H&H is stable and there was no active GI bleeding reported vital signs Vital Sign Date Time Temp Pulse Resp B/P (MAP) Pulse Ox O2 Delivery O2 Flow Rate FiO2 06/17/24 10:01 107/61 06/17/24 09:16 98.2 58 16 92 98.2 06/17/24 08:00 Nasal Cannula* 3 32 Total Intake and Output 06/16/24 06/16/24 06/17/24 15:00 23:00 07:00 Intake Total 1350 ml 700 ml Output Total 650 ml 675 ml Balance 700 ml 25 ml medications Current Medications Medications Dose Ordered Sig/Jose Route Start Time Stop Time Status Last Admin Dose Admin Albuterol 2.5 mg Q4HPRN PRN NEB 06/12/24 15:45 06/15/24 06:30 2.5 MG Ipratropium [place] 0.5 mg Q4HPRN PRN NEB 06/12/24 15:45 06/15/24 06:30 0.5 MG Methylprednisolone Sodium Succinate 40 mg Q8HR IV 06/12/24 22:00 06/17/24 13:15 40 MG Levothyroxine Sodium 50 mcg QAM@0600 PO 06/13/24 06:00 06/17/24 05:45 50 MCG Risperidone 3 mg DAILY PO 06/13/24 10:00 06/17/24 10:01 3 MG Sodium Chloride 10 ml Q8HR IV 06/12/24 22:00 06/17/24 13:15 10 ML Acetaminophen/ Hydrocodone Bitart 1 tab Q4HP PRN PO 06/12/24 15:45 Hold Ondansetron HCl 4 mg Q4HP PRN IV 06/12/24 15:45 06/16/24 16:53 4 MG Docusate Sodium 100 mg BIDPRN PRN PO 06/12/24 15:45 06/16/24 21:42 100 MG Acetaminophen 650 mg Q6HP PRN PO 06/12/24 15:45 Nitroglycerin 0.4 mg Q5MINP PRN SL 06/12/24 17:45 Morphine Sulfate 2 mg Q30M PRN IV 06/12/24 17:45 Hold Pantoprazole Sodium 40 mg BID@0600,1700 PO 06/14/24 06:00 06/17/24 05:45 40 MG Sucralfate 1 gm QIDACHS PO 06/13/24 22:00 06/17/24 10:01 1 GM Furosemide 40 mg BID IV 06/13/24 22:00 06/17/24 10:01 40 MG Meropenem 250 ml @ 83.3 mls/hr Q8HR IV 06/14/24 22:00 06/17/24 13:15 83.3 MLS/HR Trazodone HCl 50 mg HS PO 06/16/24 22:00 06/16/24 21:38 50 MG objective On nasal cannula Awake and ambulatory Hemodynamically stable laboratory and microbiology Laboratory Tests 06/17/24 06:21 06/14/24 05:48 Test 06/17/24 06:21 Range/Units Serum Glucose 129 H 74-106 mg/dL Problems(with codes): (1) Anemia, unspecified (2) Generalized weakness (3) Hiatal hernia with gastroesophageal reflux disease and esophagitis (4) Elevated liver enzymes (5) Acute respiratory failure with hypoxia Prognosis Plan Protonix 40 mg IV q.12 hours Carafate suspension 1 g p.o. three to 4 times a day DC aspirin NSAIDs smoking alcohol Continue supportive care I will follow up patient with you Plan discussed with: Other (Nurse) JEANNETTE TIWARI MD Jun 17, 2024 14:44
[2024-06-18] VITALS (11 sets, daily range): BP systolic 112–141; BP diastolic 57–81; PULSE 60–76; RESP 16–18; TEMP 97.2–98.4; O2SAT 92–97
--- NOTE | 2024-06-18 12:58 | DVHPN2 ---
Subjective The patient is seen and examined at bedside. Remained very weak and tired. Complain of shortness for breath Reviewed: Care Plan, H&P, Labs, Medications, Previous Orders, Radiology Changes from previous H/P or p: No Changes Eyes: No Pain, No Vision change, No Conjunctivae inflammation, No Eyelid inflammation, No Other, No Redness ENT: No Ear pain, No Ear discharge, No Nose pain, No Nose discharge, No Nose congestion, No Mouth pain, No Mouth swelling, No Throat pain, No Throat swelling, No Other Cardiovascular: No Chest Pain, No Palpitations, No Orthopnea, No Paroxysmal Noc. Dyspnea, No Edema, No Lt Headedness, No Other Respiratory: No Cough, No Dry, No Shortness of breath, No SOB with excertion, No Wheezing, No Hemoptysis, No Pleuritic Pain, No Sputum, No Other Gastrointestinal: No Nausea, No Vomiting, No Abdominal Pain, No Diarrhea, No Constipation, No Melena, No Hematochezia, No Other Genitourinary: No Dysuria, No Frequency, No Incontinence, No Hematuria, No Retention, No Other Musculoskeletal: No other, No neck pain, No shoulder pain, No arm pain, No back pain, No hand pain, No leg pain, No foot pain Skin: No Rash, No Lesions, No Jaundice, No Bruising, No Other Objective Vitals Vital Signs Date Time Temp Pulse Resp B/P (MAP) Pulse Ox O2 Delivery O2 Flow Rate FiO2 06/18/24 10:45 112/67 06/18/24 09:00 97.8 60 16 92 97.8 06/18/24 08:00 Nasal Cannula* 2 28 Intake/Output Intake and Output 06/18/24 06:59 Intake Total 1980 ml Balance 1980 ml Intake Oral 1230 ml IV Total 750 ml # Voids 9 General Appearance: Alert, Oriented X3, Cooperative, No acute distress, mild distress, moderate distress, severe distress, Other Lungs: Clear to auscultation, Normal air movement, Other Cardiovascular: Regular rate, Normal S1, Normal S2, No murmurs, Gallops, Rubs, Other Abdomen: Normal bowel sounds, Soft, No tenderness, No hepatospenomegaly, No masses, Other Psych/Mental Status: Other (drowsy) Medications Current Medications Medications Dose Ordered Sig/Jose Route Start Time Stop Time Status Last Admin Dose Admin Albuterol 2.5 mg Q4HPRN PRN NEB 06/12/24 15:45 06/15/24 06:30 2.5 MG Ipratropium [place] 0.5 mg Q4HPRN PRN NEB 06/12/24 15:45 06/15/24 06:30 0.5 MG Methylprednisolone Sodium Succinate 40 mg Q8HR IV 06/12/24 22:00 06/18/24 05:37 40 MG Levothyroxine Sodium 50 mcg QAM@0600 PO 06/13/24 06:00 06/18/24 05:37 50 MCG Risperidone 3 mg DAILY PO 06/13/24 10:00 06/18/24 10:45 3 MG Sodium Chloride 10 ml Q8HR IV 06/12/24 22:00 06/18/24 05:37 10 ML Acetaminophen/ Hydrocodone Bitart 1 tab Q4HP PRN PO 06/12/24 15:45 Hold Ondansetron HCl 4 mg Q4HP PRN IV 06/12/24 15:45 06/16/24 16:53 4 MG Docusate Sodium 100 mg BIDPRN PRN PO 06/12/24 15:45 06/16/24 21:42 100 MG Acetaminophen 650 mg Q6HP PRN PO 06/12/24 15:45 Nitroglycerin 0.4 mg Q5MINP PRN SL 06/12/24 17:45 Morphine Sulfate 2 mg Q30M PRN IV 06/12/24 17:45 Hold Pantoprazole Sodium 40 mg BID@0600,1700 PO 06/14/24 06:00 06/18/24 05:37 40 MG Sucralfate 1 gm QIDACHS PO 06/13/24 22:00 06/18/24 10:45 1 GM Furosemide 40 mg BID IV 06/13/24 22:00 06/18/24 10:45 40 MG Meropenem 250 ml @ 83.3 mls/hr Q8HR IV 06/14/24 22:00 06/18/24 05:37 83.3 MLS/HR Trazodone HCl 50 mg HS PO 06/16/24 22:00 06/17/24 21:34 50 MG Laboratory Results Laboratory Tests 06/14/24 05:48 06/17/24 06:21 Urinalysis Test 06/12/24 14:53 Urine Color Colorless (Yellow) Urine Clarity Clear (Clear) Urine pH 7.0 (5.0-9.0) Urine Specific [place] 1.006 (1.001-1.035) Urine Protein Negative (Negative) Urine Ketones Negative (Negative) Urine Blood Negative /uL (Negative) Urine Nitrite Negative (Negative) Urine Bilirubin Negative (Negative) Urine Urobilinogen Normal mg/dL (Negative) Urine Leukocyte Esterase Negative /uL (Negative) Urine RBC None seen /hpf (0 - 3) Urine Microscopic WBC < 1 /HPF (0-3) Urine Squamous Epithelial Cells None seen /hpf (<5) Urine Bacteria Few /hpf (None Seen) H Urine Glucose Normal mg/dL (Normal) Labs and/or images reviewed: Labs reviewed by me Assessment/Plan Assessment/Plan # Aspiration PNA - continuing Merrem - CT Chest done and reviewed # Acute Diastolic CHF - continuing Lasix IV # Chronic CO2 retainer # Recent GI Bleed - continuing Protonix - continuing Carafate # Anemia -continuing to monitor # COPD Exacerbation - Bronchodilators # Chronic Resp Failure - Cont Oxygen to titrate for SO2 greater than 92% This medical document was created using an electronic medical record system with [employer] direct computerized dictation system. Although this document has been carefully reviewed, there may still be some phonetic and typographical errors. These areas are purely typographical due to imperfections of the software programs, and do not reflect any compromise in the patient's medical care. Plan discussed with: Patient Date of Service: Jun 18, 2024 Billing Provider: ZELALEM MARK MD Common Visit Codes: [id number] INP/OBS CARE(HIGH) ZELALEM MARK MD Jun 18, 2024 12:58
--- NOTE | 2024-06-18 22:09 | DVHPN2 ---
Progress Note - Dictate Date Seen: Jun 18, 2024 Medical Necessity Reason Pt with a Central, PICC or Fol: No Subjective Patient is clinically improved today He is more awake and alert and talkative Patient underwent physical therapy and was able to walk to the door He is tolerating a soft mechanical diet Is BiPAP has been discontinued and he is on 2 L nasal cannula H&H is stable and there was no active GI bleeding reported, hemoglobin stable at 10.1 vital signs Vital Sign Date Time Temp Pulse Resp B/P (MAP) Pulse Ox O2 Delivery O2 Flow Rate FiO2 06/18/24 21:21 113/70 06/18/24 19:53 93 Nasal Cannula 2.0 06/18/24 19:53 28 06/18/24 17:00 97.2 60 18 97.2 Total Intake and Output 06/17/24 06/17/24 06/18/24 15:00 23:00 07:00 Intake Total 250 ml 700 ml 1030 ml Balance 250 ml 700 ml 1030 ml medications Current Medications Medications Dose Ordered Sig/Jose Route Start Time Stop Time Status Last Admin Dose Admin Albuterol 2.5 mg Q4HPRN PRN NEB 06/12/24 15:45 06/15/24 06:30 2.5 MG Ipratropium [place] 0.5 mg Q4HPRN PRN NEB 06/12/24 15:45 06/15/24 06:30 0.5 MG Methylprednisolone Sodium Succinate 40 mg Q8HR IV 06/12/24 22:00 06/18/24 21:22 40 MG Levothyroxine Sodium 50 mcg QAM@0600 PO 06/13/24 06:00 06/18/24 05:37 50 MCG Risperidone 3 mg DAILY PO 06/13/24 10:00 06/18/24 10:45 3 MG Sodium Chloride 10 ml Q8HR IV 06/12/24 22:00 06/18/24 21:22 10 ML Acetaminophen/ Hydrocodone Bitart 1 tab Q4HP PRN PO 06/12/24 15:45 Hold Ondansetron HCl 4 mg Q4HP PRN IV 06/12/24 15:45 06/16/24 16:53 4 MG Docusate Sodium 100 mg BIDPRN PRN PO 06/12/24 15:45 06/16/24 21:42 100 MG Acetaminophen 650 mg Q6HP PRN PO 06/12/24 15:45 Nitroglycerin 0.4 mg Q5MINP PRN SL 06/12/24 17:45 Morphine Sulfate 2 mg Q30M PRN IV 06/12/24 17:45 Hold Pantoprazole Sodium 40 mg BID@0600,1700 PO 06/14/24 06:00 06/18/24 17:00 40 MG Sucralfate 1 gm QIDACHS PO 06/13/24 22:00 06/18/24 21:22 1 GM Furosemide 40 mg BID IV 06/13/24 22:00 06/18/24 21:21 40 MG Meropenem 250 ml @ 83.3 mls/hr Q8HR IV 06/14/24 22:00 06/18/24 21:21 83.3 MLS/HR Trazodone HCl 50 mg HS PO 06/16/24 22:00 06/18/24 21:22 50 MG objective On nasal cannula Awake and ambulatory Hemodynamically stable laboratory and microbiology Laboratory Tests 06/17/24 06:21 06/14/24 05:48 Test 06/17/24 06:21 Range/Units Serum Glucose 129 H 74-106 mg/dL Problems(with codes): (1) Hiatal hernia with gastroesophageal reflux disease and esophagitis (2) Acute respiratory failure with hypoxia (3) Anemia, unspecified (4) COPD with acute exacerbation (5) Generalized weakness (6) Anemia (7) Pneumonia Prognosis Plan Protonix 40 mg IV q.12 hours Carafate suspension 1 g p.o. three to 4 times a day DC aspirin NSAIDs smoking alcohol Continue supportive care I will follow up patient with you as needed Discharge planning as per hospitalist when pulmonary status improves Patient will likely benefit from being maintained on Protonix 40 mg p.o. q.a.m. and Carafate 1 g p.o. twice a day upon discharge Plan discussed with: Patient, Other (Nurse Ezequiel) JEANNETTE TIWARI MD Jun 18, 2024 22:08
[2024-06-19] VITALS (10 sets, daily range): BP systolic 111–136; BP diastolic 66–78; PULSE 60–71; RESP 16–19; TEMP 97.5–98.7; O2SAT 90–97
--- NOTE | 2024-06-19 11:01 | DVHPN2 ---
Subjective Feeling better this morning with no complaints Reviewed: Care Plan, H&P, Labs, Medications, Previous Orders, Radiology, Other (Consultation) Changes from previous H/P or p: Changes Objective Vitals Vital Signs Date Time Temp Pulse Resp B/P (MAP) Pulse Ox O2 Delivery O2 Flow Rate FiO2 06/19/24 10:36 128/71 06/19/24 09:00 97.5 61 17 92 97.5 06/19/24 06:46 Nasal Cannula* 3 32 Intake/Output Intake and Output 06/19/24 07:00 Intake Total 2440 ml Output Total 0 ml Balance 2440 ml Intake Oral 1690 ml IV Total 750 ml Stool Total 0 ml # Voids 8 General Appearance: Alert, Oriented X3, Cooperative, No acute distress Lungs: Other (Decreased air entry bilaterally with scattered wheezing and crackles) Cardiovascular: Regular rate, Normal S1, Normal S2 Abdomen: Normal bowel sounds, Soft, No tenderness Neuro: Normal speech, Cranial nerves 3-12 NL Psych/Mental Status: Mental status NL, Mood NL Medications Current Medications Medications Dose Ordered Sig/Jose Route Start Time Stop Time Status Last Admin Dose Admin Albuterol 2.5 mg Q4HPRN PRN NEB 06/12/24 15:45 06/15/24 06:30 2.5 MG Ipratropium [place] 0.5 mg Q4HPRN PRN NEB 06/12/24 15:45 06/15/24 06:30 0.5 MG Methylprednisolone Sodium Succinate 40 mg Q8HR IV 06/12/24 22:00 06/19/24 06:09 40 MG Levothyroxine Sodium 50 mcg QAM@0600 PO 06/13/24 06:00 06/19/24 06:09 50 MCG Risperidone 3 mg DAILY PO 06/13/24 10:00 06/19/24 10:36 3 MG Sodium Chloride 10 ml Q8HR IV 06/12/24 22:00 06/19/24 06:09 10 ML Acetaminophen/ Hydrocodone Bitart 1 tab Q4HP PRN PO 06/12/24 15:45 Hold Ondansetron HCl 4 mg Q4HP PRN IV 06/12/24 15:45 06/16/24 16:53 4 MG Docusate Sodium 100 mg BIDPRN PRN PO 06/12/24 15:45 06/16/24 21:42 100 MG Acetaminophen 650 mg Q6HP PRN PO 06/12/24 15:45 Nitroglycerin 0.4 mg Q5MINP PRN SL 06/12/24 17:45 Morphine Sulfate 2 mg Q30M PRN IV 06/12/24 17:45 Hold Pantoprazole Sodium 40 mg BID@0600,1700 PO 06/14/24 06:00 06/19/24 06:09 40 MG Sucralfate 1 gm QIDACHS PO 06/13/24 22:00 06/19/24 06:09 1 GM Furosemide 40 mg BID IV 06/13/24 22:00 06/19/24 10:36 40 MG Meropenem 250 ml @ 83.3 mls/hr Q8HR IV 06/14/24 22:00 06/19/24 06:09 83.3 MLS/HR Trazodone HCl 50 mg HS PO 06/16/24 22:00 06/18/24 21:22 50 MG Laboratory Results Laboratory Tests 06/14/24 05:48 06/17/24 06:21 Urinalysis Test 06/12/24 14:53 Urine Color Colorless (Yellow) Urine Clarity Clear (Clear) Urine pH 7.0 (5.0-9.0) Urine Specific [place] 1.006 (1.001-1.035) Urine Protein Negative (Negative) Urine Ketones Negative (Negative) Urine Blood Negative /uL (Negative) Urine Nitrite Negative (Negative) Urine Bilirubin Negative (Negative) Urine Urobilinogen Normal mg/dL (Negative) Urine Leukocyte Esterase Negative /uL (Negative) Urine RBC None seen /hpf (0 - 3) Urine Microscopic WBC < 1 /HPF (0-3) Urine Squamous Epithelial Cells None seen /hpf (<5) Urine Bacteria Few /hpf (None Seen) H Urine Glucose Normal mg/dL (Normal) Labs and/or images reviewed: Labs reviewed by me, Image(s) reviewed by me Assessment/Plan Assessment/Plan Covering: #Acute on chronic hypoxic and hypercapnic respiratory failure due to COPD exacerbation secondary to suspected aspiration pneumonia; continue IV antibiotics; continue oxygen therapy as needed; continue IV steroids; continue nebulizers; reviewed ABGs and available imaging studies including chest CT; continue monitoring #Suspected aspiration pneumonia; continue IV antibiotics; reviewed the available imaging studies; continue monitoring #Blood loss anemia due to GI bleed; evaluated by GI; to continue IV pantoprazole and sucralfate; GI is following; stable hemoglobin level; continue monitoring #Acute on chronic diastolic heart failure; continue IV diuresis; telemetry; continue monitoring #Hypertensive kidney and heart disease; continue antihypertensive medications and adjust accordingly; avoid nephrotoxic agents; continue monitoring Goals of care discussed with the patient for 20 minutes; full code Late Entry. This medical document was created using an electronic medical record system with computerized dictation system. Although this document has been carefully reviewed, there might still be some phonetic and typographical errors. These areas are purely typographical due to imperfections of the software programs, and do not reflect any compromise in the patient's medical care. Plan discussed with: Patient, Other (Nurse) Date of Service: Jun 19, 2024 Billing Provider: BRENT COOPER MD Common Visit Codes: [id number] INP/OBS CARE(HIGH) Secondary Visit Codes: [id number] CARE PLAN 30 MINUTES (20 minutes) BRENT COOPER MD Jun 19, 2024 11:01
[2024-06-19] MEDS: SUCRALFATE 1 GM/10 ML ORAL SUSP PO SCH (22:00)
[2024-06-20 05:00] VITALS: BP 122/66; PULSE 60; RESP 18; TEMP 97.8; O2SAT 96
[2024-06-20 06:27] VITALS: O2SAT 92
[2024-06-20 07:14] LABS: Alanine Aminotransferase 51 U/L (7-40); Albumin 3.7 g/dL (3.2-4.8); Alkaline Phosphatase 78 U/L (46-116); Anion Gap 6 (5-15); Aspartate Aminotransferase 20 U/L (13-40); BUN/Creatinine Ratio 28.6 (10.0-20.0); Bilirubin, Total 0.3 mg/dL (0.2-1.0); Blood Urea Nitrogen 22 mg/dL (9-23); Calcium 9.8 mg/dL (8.7-10.4); Carbon Dioxide 38 mmol/L (20-31); Chloride 92 mmol/L (98-107); Glucose 130 mg/dL (74-106); Potassium 3.9 mmol/L (3.5-5.1); Sodium 136 mmol/L (136-145); Total Protein 6.6 g/dL (5.7-8.2)
[2024-06-20 08:05] VITALS: PULSE 60; RESP 16; O2SAT 92
[2024-06-20 09:58] VITALS: BP 139/71; PULSE 65; RESP 18; TEMP 97.6; O2SAT 96
[2024-06-20 09:59] LABS: Basophils # (auto) 0 10 ^3/uL (0-0.2); Eosinophils # (auto) 0 10 ^3/uL (0-0.8); Eosinophils % (auto) 0.1 % (0.0-7.0); Hematocrit 34.6 % (41.0-53.0); Hemoglobin 11.2 g/dL (13.5-17.5); Lymphocytes # (auto) 0.5 10 ^3/uL (0.4-5.4); Lymphocytes % (auto) 4.8 % (10.0-50.0); Mean Corpuscular Hemoglobin 27.4 pg (28.0-32.0); Mean Corpuscular Hgb Conc. 32.3 g/dL (32.0-36.0); Mean Corpuscular Volume 84.8 fL (80.0-100.0); Monocytes # (auto) 0.3 10 ^3/uL (0-1.3); Monocytes % (auto) 2.8 % (0.0-12.0); Neutrophils # (auto) 8.7 10 ^3/uL (1.6-8.6); Neutrophils % (auto) 92.3 % (37.0-80.0); Platelet Count (auto) 278 10^3/uL (140-450); Red Blood Cells 4.08 10^6/uL (4.5-5.90); Red Cell Distribution Width 18.2 % (11.8-14.3); White Blood Cell 9.5 10^3/uL (4.4-10.8)
[2024-06-20 12:23] VITALS: BP 111/68; PULSE 77; RESP 17; TEMP 98.2; O2SAT 92
--- NOTE | 2024-06-20 13:32 | DVHDS2 ---
Discharge Summary Date of Admission Jun 12, 2024 at 17:43 Date of Discharge: Jun 20, 2024 Admitting Diagnosis Aspiration Pneumonia Labs/Diagnostic Data: Laboratory Results Test 06/20/24 06:32 06/16/24 06:32 06/16/24 05:59 06/15/24 03:10 White Blood Count 9.5 10^3/uL (4.4-10.8) Red Blood Count 4.08 10^6/uL (4.5-5.90) Hemoglobin 11.2 g/dL (13.5-17.5) Hematocrit 34.6 % (41.0-53.0) Mean Corpuscular Volume 84.8 fL (80.0-100.0) Mean Corpuscular Hemoglobin 27.4 pg (28.0-32.0) Mean Corpuscular Hemoglobin Concent 32.3 g/dL (32.0-36.0) Red Cell Distribution Width 18.2 % (11.8-14.3) Platelet Count 278 10^3/uL (140-450) Mean Platelet Volume 8.1 fL (6.9-10.8) Neutrophils (%) (Auto) 92.3 % (37.0-80.0) Lymphocytes (%) (Auto) 4.8 % (10.0-50.0) Monocytes (%) (Auto) 2.8 % (0.0-12.0) Eosinophils (%) (Auto) 0.1 % (0.0-7.0) Basophils (%) (Auto) 0.0 % (0.0-2.0) Neutrophils # (Auto) 8.7 10 ^3/uL (1.6-8.6) Lymphocytes # (Auto) 0.5 10 ^3/uL (0.4-5.4) Monocytes # (Auto) 0.3 10 ^3/uL (0-1.3) Eosinophils # (Auto) 0 10 ^3/uL (0-0.8) Basophils # (Auto) 0 10 ^3/uL (0-0.2) Nucleated Red Blood Cells 0.0 % Sodium Level 136 mmol/L (136-145) Potassium Level 3.9 mmol/L (3.5-5.1) Chloride Level 92 mmol/L (98-107) Carbon Dioxide Level 38 mmol/L (20-31) Anion Gap 6 (5-15) Blood Urea Nitrogen 22 mg/dL (9-23) Creatinine 0.77 mg/dL (0.700-1.30) Glomerular Filtration Rate Calc 104 mL/min (>90) BUN/Creatinine Ratio 28.6 (10.0-20.0) Serum Glucose 130 mg/dL (74-106) Calcium Level 9.8 mg/dL (8.7-10.4) Total Bilirubin 0.3 mg/dL (0.2-1.0) Aspartate Amino Transferase (AST) 20 U/L (13-40) Alanine Aminotransferase (ALT) 51 U/L (7-40) Alkaline Phosphatase 78 U/L (46-116) Total Protein 6.6 g/dL (5.7-8.2) Albumin 3.7 g/dL (3.2-4.8) Magnesium Level 2.1 mg/dL (1.6-2.6) B-Type Natriuretic Peptide 45.88 pg/mL (0-100) Blood Gas Specimen Type Arterial Blood Gas Sample Site Right radial Blood Gas Patient Temperature 37.0 Arterial Blood Date Drawn [id number] Arterial Blood pH 7.474 (7.350-7.450) Arterial Blood Partial Pressure CO2 57.7 mmHg (35.0-48.0) Arterial Blood Partial Pressure O2 77.8 mmHg (83.0-108.0) Arterial Blood HCO3 41.4 mmol/L (21.0-28.0) Arterial Blood Oxygen Saturation 94.5 % (94.0-98.0) Arterial Blood Base Excess 15.6 mmol/L (-2.0-3.0) Arterial Blood Oxyhemoglobin 93.9 % (94.0-98.0) Arterial Blood Carboxyhemoglobin 0.2 % (0.5-1.5) Arterial Blood Methemoglobin 0.4 % (0.0-1.5) Richard Test Yes Blood Gas Total Hemoglobin 10.70 g/dL (13.5-17.5) Blood Gas Set Respiration Rate 14.0 Blood Gas Modality Mask - bipap FiO2 % 50.0 Blood Gas EPAP 5 Blood Gas IPAP 15 Blood Gas Critical Value Read Back Yes Blood Gas Notified Whom madelaine Calderon, inpatient nursing aide Blood Gas Notified Time [id number] Blood Gas Notified By madelaine Chau, blood bank worker Test 06/14/24 16:48 3/5/25 05:48 06/12/24 14:53 06/12/24 14:51 Blood Gas Liter Flow 8.00 Hemoglobin A1c 4.8 % A1C (<5.7) Urine Color Colorless (Yellow) Urine Clarity Clear (Clear) Urine pH 7.0 (5.0-9.0) Urine Specific [place] 1.006 (1.001-1.035) Urine Protein Negative (Negative) Urine Ketones Negative (Negative) Urine Blood Negative /uL (Negative) Urine Nitrite Negative (Negative) Urine Bilirubin Negative (Negative) Urine Urobilinogen Normal mg/dL (Negative) Urine Leukocyte Esterase Negative /uL (Negative) Urine RBC None seen /hpf (0 - 3) Urine Microscopic WBC < 1 /HPF (0-3) Urine Squamous Epithelial Cells None seen /hpf (<5) Urine Bacteria Few /hpf (None Seen) Urine Glucose Normal mg/dL (Normal) Troponin I High Sensitivity < 3 ng/L (</=54) Thyroid Stimulating Hormone (TSH) 1.69 uIU/mL (0.55-4.78) Test 06/12/24 13:15 Lactic Acid Level 0.8 mmol/L (0.4-2.0) Other Laboratory Tests 06/20/24 06:32 Brief Hx & Hospital Course: The patient is a 59-year-old male with past medical history of schizophrenia, thyroid disease, hypertension, GERD, and COPD who presented to [facility] ED with complaint of shortness of breaths for the past 1 week. Patient's symptoms progressively get worse with generalized weakness, desaturating on room air at 72%, increased work of breathing, getting worse today that prompted this visit. Patient was recently discharged from the hospital. Had repeat CT of the chest 10 was treated for possible aspiration pneumonia patient is on oxygen back to baseline at 2-3 L nasal cannula. Patient can be discharged home must resume Protonix and Carafate. Patient completed 8 days of antibiotics does not need anymore. Condition at Discharge: Poor Final Diagnosis/Problems List # Aspiration PNA - Resolved # Acute Diastolic CHF - Resolved # Chronic CO2 retainer # Recent GI Bleed - continuing Protonix - continuing Carafate # Anemia -continuing to monitor # COPD Exacerbation - Resolved # Acute on Chronic Resp Failure - Cont Oxygen to titrate for SO2 greater than 92% Discharge Disposition: Home Discharge Instruct/Medications Diet: Cardiac 2g Na,low cholest (2 gm sodium, low cholesterol) Activity: Light activity Follow Up/Referral: PCP in 1 week Medications: Resume Home Meds Discharge Statement: "Patient was advised to return to the ER or call 911 if any headaches, dizziness, shortness of breath, chest pain, abdominal pain, bleeding, fevers, or worsening of medical condition. Patient was counseled about treatment plan, medications, possible side effects, patientverbalized understanding. All questions were answered to the best of my ability. This discharge took greater then 30 minutes in planning, reviewing documentation, counseling the patient, and discussing with other team members." ASSESSMENT ASSESSMENT Assessment Date of Service: Jun 20, 2024 Billing Provider: VERENA EMERSON MD Common Visit Codes: [id number] DISCH DAY >30min VERENA EMERSON MD Jun 20, 2024 13:32
--- NOTE | 2024-06-20 16:35 | DVHPN2 ---
Progress Note Date Seen: Jun 20, 2024 Resident Creating Document: DYAN LADD RESIDENT Medical Necessity Reason Pt with a Central, PICC or Fol: No Subjective Review of Systems Patient is clinically improved today He is more awake and alert and talkative Patient underwent physical therapy and was able to walk to the door He is tolerating a soft mechanical diet Is BiPAP has been discontinued and he is on 2 L nasal cannula H&H is stable and there was no active GI bleeding reported, hemoglobin stable at 11.2 Objective vital signs Vital Sign Date Time Temp Pulse Resp B/P (MAP) Pulse Ox O2 Delivery O2 Flow Rate FiO2 06/20/24 12:23 98.2 77 17 111/68 (82) 92 98.2 06/20/24 08:05 Nasal Cannula* 2 28 Total Intake and Output 06/19/24 06/19/24 06/20/24 15:00 23:00 07:00 Intake Total 250 ml 850 ml 450 ml Output Total 400 ml Balance 250 ml 450 ml 450 ml medications Current Medications Medications Dose Ordered Sig/Jose Route Start Time Stop Time Status Last Admin Dose Admin Albuterol 2.5 mg Q4HPRN PRN NEB 06/12/24 15:45 06/15/24 06:30 2.5 MG Ipratropium [place] 0.5 mg Q4HPRN PRN NEB 06/12/24 15:45 06/15/24 06:30 0.5 MG Methylprednisolone Sodium Succinate 40 mg Q8HR IV 06/12/24 22:00 06/20/24 05:57 40 MG Levothyroxine Sodium 50 mcg QAM@0600 PO 06/13/24 06:00 06/20/24 05:57 50 MCG Risperidone 3 mg DAILY PO 06/13/24 10:00 06/20/24 10:10 3 MG Sodium Chloride 10 ml Q8HR IV 06/12/24 22:00 06/20/24 05:58 10 ML Acetaminophen/ Hydrocodone Bitart 1 tab Q4HP PRN PO 06/12/24 15:45 Hold Ondansetron HCl 4 mg Q4HP PRN IV 06/12/24 15:45 06/16/24 16:53 4 MG Docusate Sodium 100 mg BIDPRN PRN PO 06/12/24 15:45 06/16/24 21:42 100 MG Acetaminophen 650 mg Q6HP PRN PO 06/12/24 15:45 Nitroglycerin 0.4 mg Q5MINP PRN SL 06/12/24 17:45 Morphine Sulfate 2 mg Q30M PRN IV 06/12/24 17:45 Hold Pantoprazole Sodium 40 mg BID@0600,1700 PO 06/14/24 06:00 06/20/24 05:57 40 MG Furosemide 40 mg BID IV 06/13/24 22:00 06/20/24 10:09 40 MG Meropenem 250 ml @ 83.3 mls/hr Q8HR IV 06/14/24 22:00 06/20/24 05:57 83.3 MLS/HR Trazodone HCl 50 mg HS PO 06/16/24 22:00 06/19/24 21:31 50 MG Sucralfate 1 gm QIDACHS PO 06/19/24 22:00 06/20/24 10:09 1 GM Examination On nasal cannula Awake and ambulatory Hemodynamically stable laboratory and microbiology Laboratory Tests 06/20/24 06:32 Test 06/20/24 06:32 Range/Units Serum Glucose 130 H 74-106 mg/dL Problem List/Assessment/Plan Problem List/Assessment/Plan (1) Hiatal hernia with gastroesophageal reflux disease and esophagitis (2) Acute respiratory failure with hypoxia (3) Anemia, unspecified (4) COPD with acute exacerbation (5) Generalized weakness (6) Anemia (7) Pneumonia Protonix 40 mg IV q.12 hours Carafate suspension 1 g p.o. three to 4 times a day DC aspirin NSAIDs smoking alcohol Continue supportive care I will follow up patient with you as needed Discharge planning as per hospitalist when pulmonary status improves Patient will likely benefit from being maintained on Protonix 40 mg p.o. q.a.m. and Carafate 1 g p.o. twice a day upon discharge Thank you so much for the opportunity to consult on your patient. GI team will follow the patient. In case of any questions or concerns please feel free to reach out. Case discussed with Dr. Koki Viera. The patient and caregiver team agreed to the plan. Plan discussed with: Patient JULEEDYAN RESIDENT Jun 20, 2024 16:35
[2024-06-20 17:34] VITALS: BP 124/70; PULSE 60; RESP 18; TEMP 97.9; O2SAT 92
== END 2024-06-20 19:00 | disposition home or self-care (01) | DRG 177 ==
LOC: EDBD 11:23 → ER 11:30 → OVERFLOW 17:43 → TELE-EAST 06-13 14:08
PROVIDERS: ADMIT Internal Medicine; ATTEND Internal Medicine
PROC: 5A09357 Assistance with Respiratory Ventilation, Less than 24 Consecutive Hours, Continuous Positive Airway Pressure (ICD-10-PCS; principal; 2024-06-14)
PROC: 5A09357 Assistance with Respiratory Ventilation, Less than 24 Consecutive Hours, Continuous Positive Airway Pressure (ICD-10-PCS; 2024-06-15)
PROC: 5A09357 Assistance with Respiratory Ventilation, Less than 24 Consecutive Hours, Continuous Positive Airway Pressure (ICD-10-PCS; 2024-06-16)
DX: J69.0 Pneumonitis due to inhalation of food and vomit (principal); I50.33 Acute on chronic diastolic (congestive) heart failure; J96.21 Acute and chronic respiratory failure with hypoxia; J96.22 Acute and chronic respiratory failure with hypercapnia; J44.1 Chronic obstructive pulmonary disease with (acute) exacerbation; J44.0 Chronic obstructive pulmonary disease with (acute) lower respiratory infection; I11.0 Hypertensive heart disease with heart failure; K29.70 Gastritis, unspecified, without bleeding; D50.0 Iron deficiency anemia secondary to blood loss (chronic); K21.00 Gastro-esophageal reflux disease with esophagitis, without bleeding; F20.9 Schizophrenia, unspecified; Z88.5 Allergy status to narcotic agent; Z91.09 Other allergy status, other than to drugs and biological substances; Z79.899 Other long term (current) drug therapy; Z79.84 Long term (current) use of oral hypoglycemic drugs; Z79.1 Long term (current) use of non-steroidal anti-inflammatories (NSAID); Z79.891 Long term (current) use of opiate analgesic
CPT/HCPCS: 36415; 36600; 70450; 71045; 71250; 80048; 80053; 81001; 82805; 83036; 83605; 83735; 83880; 84443; 84484; 85025; 92507; 92610; 93005; 93306; 94640; 94660; 96374; 96375; 97110; 97116; 97163; 97530; 99291; G0378; J2185; J2405; J3490

== ENCOUNTER 2024-06-21 23:28 | Inpatient (IN) | payer MEDICARE, MEDICAID ==
[~2024-06-21] VITALS: Ht 162.6 cm; Wt 58.2 kg
[~2024-06-21 23:28] MED LIST changes: -AZIT-43 PO; -LORA-1105 PO; -LORA-1123 PO; -PANT40TA2 PO; -TAMS0.4C39 PO
[2024-06-22] VITALS (9 sets, daily range): BP systolic 109–142; BP diastolic 61–76; PULSE 60–80; RESP 12–18; TEMP 97.8–100.2; O2SAT 92–100
--- NOTE | 2024-06-22 00:06 | ED.PDOC ---
GI ASSESSMENT HPI Comments 59 year old male brought in by EMS presents to the ED with a chief complaint of coffee ground emesis . Per EMS, patient is from a boarding facility, was discharged from this ED yesterday (06/20/24). Patient was admitted in June 01, 2024 with GI bleed, he had an EGD at that time showing esophageal ulcers and esophagitis. EMS states, patient woke up experiencing nausea/vomiting described as coffee grounds, BP was 90/50, abdominal pain was 10/10, Zofran and 300 ML fluids were given, pain decreased 7/10, BP improved 110 systolic. The additional 700 mL IV fluids were completed in the emergency department. PMHx COPD, CHF, schizophrenia, HTN. Denies chest pain, diarrhea, constipation, shortness of breath, headache, dizziness. No other symptoms or modifying factors present at this time. Chief Complaint: Nausea/Vomiting Time Seen by MD: 23:51 Primary Care Provider: GOVIND Reviewed Notes: Medications, Allergies Allergies: Coded Allergies: Morphine (Verified Allergy, Unknown, 05/20/24) Pollen Extract (Verified Allergy, Unknown, 05/20/24) Home Meds Active Scripts Tamsulosin Hcl (Flomax) 0.4 Mg Cap, 0.4 MG PO DAILY for 30 Days, #30 CAP 4 Refills Prov:RABAGOLEONELA DO 05/25/24 Reported Medications Zolpidem Tartrate (Zolpidem Tartrate) 5 Mg Tab, 1 TAB PO QPM for FOR INSOMNIA, #30 TAB 2 Refills 05/22/24 Cholecalciferol (VITAMIN D3) 2,000 Unit Tab, 2000 UNIT PO DAILY, TAB 05/22/24 Ascorbic Acid (VITAMIN C TABLET) 500 Mg Tb, 500 MG PO DAILY for FOR SUPPLEMENT, TAB 05/22/24 Sucralfate (Sucralfate) 1 Gm Tab, 1 GM PO, GM 05/22/24 Risperidone (RisperDAL TABLET) 1 Mg Tb, 1 TAB PO QPM, #30 TAB 1 Refill 05/22/24 Olanzapine (OLANZAPINE) 10 Mg Tab, 10 MG PO DAILY for 30 Days, MG 05/22/24 Metoprolol Succinate (Metoprolol Succinate Er) 25 Mg Tab, 25 MG PO DAILY for 30 Days, MG 05/22/24 Lisinopril (Lisinopril) 2.5 Mg Tab, 2.5 MG PO DAILY for 30 Days, MG 05/22/24 Donepezil Hydrochloride (DONEPEZIL HCL) 5 Mg Tab, 5 MG PO DAILY for 30 Days, MG 05/22/24 Furosemide (Furosemide) 20 Mg Tab, 20 MG PO DAILY for 30 Days, MG 05/22/24 Cholecalciferol (VITAMIN D3) 2,000 Unit Tab, 1 CAP PO DAILY 08/25/22 Docusate Sodium (Docusate Sodium) 100 Mg Cap, 1 CAP PO DAILY 08/25/22 Pantoprazole Sodium Sesquihydr (Pantoprazole Sodium) 40 Mg Tab, 1 TAB PO BID 08/25/22 Quetiapine Fumerate (QUETIAPINE FUMARATE) 50 Mg Tab, 1 TAB PO 08/25/22 Ondansetron (Zofran) 4 Mg Tab, 8 MG PO, TAB 08/24/22 Trazodone Hcl (Trazodone Hcl) 150 Mg Tab, 150 MG PO DAILY, MG 08/24/22 Senna (Senna Lax) 8.6 Mg Tab, 8.6 MG PO QHSP PRN for FOR CONSTIPATION, MG 08/24/22 Risperidone (Risperidone) 3 Mg Tab, 3 MG PO BID, TAB 08/24/22 Docusate Sodium (Docusate Sodium) 100 Mg Tab, 100 MG PO DAILYP PRN for FOR CONSTIPATION, MG 08/24/22 Chlorpromazine Hcl (Chlorpromazine Hcl) 25 Mg Tab, 50 MG PO BID, MG 08/24/22 Benztropine Mesylate (Benztropine Mesylate) 0.5 Mg Tab, 0.5 MG PO DAILY, MG 08/24/22 Risperidone (Risperidone) 3 Mg Tab, 1 TAB PO BID 08/24/22 Levothyroxine Sodium (Levothyroxine Sodium) 50 Mcg Tab, 1 TAB PO DAILY 08/24/22 Discontinued Reported Medications Lorazepam (Lorazepam) 1 Mg Tab, 1 TAB PO BID, #60 TAB 05/22/24 Tamsulosin Hcl (Tamsulosin Hcl) 0.4 Mg Cap, 1 CAP PO DAILY 08/25/22 Lorazepam (Lorazepam) 2 Mg Tab, 2 MG PO TID, TAB 08/24/22 Pantoprazole Sodium Sesquihydr (Protonix) 40 Mg Tab, 40 MG PO BID, #30 TAB 08/24/22 Discontinued Scripts Azithromycin (Azithromycin) 250 Mg Tab, 250 MG PO DAILY MDD 500 for 5 Days, #6 TAB 0 Refills 2 TABLETS ORALLY ON DAY ONE, THEN 1 TABLET ORALLY DAILY FOR 4 DAYS Prov:LEONELA RABAGO DO 05/25/24 Sucralfate (Sucralfate) 1 Gm Tab, 1 GM PO TIDAC for 30 Days, #90 TAB 4 Refills Prov:LEONELA RABAGO DO 05/25/24 Pantoprazole Sodium Sesquihydr (Pantoprazole Sodium) 40 Mg Tab, 40 MG PO BID for 30 Days, #60 TAB 4 Refills Prov:LEONELA RABAGO DO 05/25/24 Information Source: Patient, Emergency Med Personnel Mode of Arrival: EMS Timing: Days Duration: Since onset Prehospital treatment: None Quality: Aching Vomitus: Coffee Grounds Severity: Moderate Recent: None Recent Hx of: None Pain Location: Diffuse Associated sign and symptoms: Nausea, Vomiting, Abdominal Pain Vital Signs Vital Signs Date Time Temp Pulse Resp B/P (MAP) Pulse Ox O2 Delivery O2 Flow Rate FiO2 06/22/24 04:10 77 17 94 Nasal Cannula* 4 36 06/22/24 03:00 99/51 (67) 06/22/24 01:00 99.4 99.4 Physical Exam General: Awake, alert and oriented. No acute distress. Skin: Skin in warm, dry and intact. Appropriate color for ethnicity. HEENT: The head is normocephalic and atraumatic. Conjunctivae are clear without exudates or hemorrhage. Sclera is non-icteric. EOM are intact. No signs of nystagmus. Eyelids are normal in appearance without swelling or lesions. Oral mucosa is pink and moist Neck: The neck is supple with normal range of motion. No JVD. Cardiac: Heart rate and rhythm are normal. No murmurs, gallops, or rubs are auscultated. Respiratory: No signs of respiratory distress. Lung sounds are clear in all lobes bilaterally without rales, ronchi, or wheezes. Abdominal: Abdomen is soft, non-tender without distention. Bowel sounds are present and normoactive in all four quadrants. Extremities: Upper and lower extremities are atraumatic in appearance without deformity or edema. Neurological: The patient is awake, alert and oriented to person, and situation with normal speech. Speech is clear. There is no facial asymmetry. Psychiatric: Appropriate mood and affect. Good judgement and insight. No visual or auditory hallucinations. Review of Systems: REVIEW OF SYSTEMS: No fever, no chills, or fatigue HEENT: No sore throat, no earache, no congestion, no neck pain. Cardiac: No chest pain. No palpitations. Lungs: No shortness of breath, no cough. GI: Positive nausea, positive vomiting, no diarrhea, no constipation, positive abdominal pain, positive coffee-ground emesis : No dysuria, frequency, or urgency. No hematuria. Musculoskeletal: No joint pain , no joint swelling, no extremity edema. Skin: No rash, no itching. Neuro: No headache, no dizziness, no weakness Past Medical History PAST MEDICAL HISTORY: CHF, COPD, GERD, HTN, Schizophrenia, Thyroid Surgical History: Pacemaker Family History Family History: Reviewed,noncontributory to illness Social History Smoker: Non-Smoker Alcohol: Denies ETOH Use Drugs: Denies Drug Use Lives In: Assisted Care Was a procedure done? Was a procedure done?: No GI differential Dx Differential Diagnosis: Cholangitis, Cholecystitis, Esophageal rupture, Esophagitis, Gastritis/PUD, Gastroenteritis, GI hemorrhage, Inflammatory BD, Ischemic Bowel, Pancreatitis, Other X-Ray, Labs, Meds, VS Vital Signs Date Time Temp Pulse Resp B/P (MAP) Pulse Ox O2 Delivery O2 Flow Rate FiO2 06/22/24 04:10 77 17 94 Nasal Cannula* 4 36 06/22/24 04:00 70 06/22/24 03:00 71 16 99/51 (67) 91 06/22/24 02:00 18 92 Nasal Cannula* 4 36 06/22/24 01:00 99.4 63 15 106/57 (73) 93 99.4 06/22/24 00:00 66 16 108/50 (69) 92 06/22/24 00:00 68 06/21/24 23:35 97.8 65 17 99/54 (69) 91 Lab Test 06/22/24 03:05 06/22/24 02:04 06/22/24 00:55 Range/Units Lactic Acid Level 2.9 *H 2.9 *H 0.4-2.0 mmol/L Blood Gas Specimen Type Arterial Blood Gas Sample Site Left radial Blood Gas Patient Temperature 37.0 Arterial Blood Date Drawn [id number] Arterial Blood pH 7.468 H 7.350-7.450 Arterial Blood Partial Pressure CO2 51.2 H 35.0-48.0 mmHg Arterial Blood Partial Pressure O2 51.3 *L 83.0-108.0 mmHg Arterial Blood HCO3 36.3 H 21.0-28.0 mmol/L Arterial Blood Oxygen Saturation 85.0 L 94.0-98.0 % Arterial Blood Base Excess 11.0 H -2.0-3.0 mmol/L Arterial Blood Oxyhemoglobin 84.1 L 94.0-98.0 % Arterial Blood Carboxyhemoglobin 0.5 0.5-1.5 % Arterial Blood Methemoglobin 0.6 0.0-1.5 % Richard Test Modified Blood Gas Total Hemoglobin 11.00 L 13.5-17.5 g/dL Blood Gas Liter Flow 2.00 Blood Gas Modality Nasal cannula FiO2 % 28.0 Blood Gas Critical Value Read Back Yes Blood Gas Notified Whom guillermo Ruff md Blood Gas Notified Time [id number] Blood Gas Notified By reuben Martinez rrt White Blood Count 19.5 #H 4.4-10.8 10^3/uL Red Blood Count 4.26 L 4.5-5.90 10^6/uL Hemoglobin 10.9 L 13.5-17.5 g/dL Hematocrit 35.2 L 41.0-53.0 % Mean Corpuscular Volume 82.6 80.0-100.0 fL Mean Corpuscular Hemoglobin 25.7 L 28.0-32.0 pg Mean Corpuscular Hemoglobin Concent 31.1 L 32.0-36.0 g/dL Red Cell Distribution Width 18.3 H 11.8-14.3 % Platelet Count 300 140-450 10^3/uL Mean Platelet Volume 7.5 6.9-10.8 fL Neutrophils (%) (Auto) 90.7 H 37.0-80.0 % Lymphocytes (%) (Auto) 5.4 L 10.0-50.0 % Monocytes (%) (Auto) 3.5 0.0-12.0 % Eosinophils (%) (Auto) 0.3 0.0-7.0 % Basophils (%) (Auto) 0.1 0.0-2.0 % Neutrophils # (Auto) 17.7 H 1.6-8.6 10 ^3/uL Lymphocytes # (Auto) 1.0 0.4-5.4 10 ^3/uL Monocytes # (Auto) 0.7 0-1.3 10 ^3/uL Eosinophils # (Auto) 0.1 0-0.8 10 ^3/uL Basophils # (Auto) 0 0-0.2 10 ^3/uL Nucleated Red Blood Cells 0.0 % Prothrombin Time 11.7 9.3-11.8 sec Prothrombin Time INR 1.12 0.9-1.15 Sodium Level 133 L 136-145 mmol/L Potassium Level 4.5 3.5-5.1 mmol/L Chloride Level 87 L 98-107 mmol/L Carbon Dioxide Level > 40 *H 20-31 mmol/L Anion Gap 5.05377 5-15 Blood Urea Nitrogen 32 #H 9-23 mg/dL Creatinine 1.13 0.700-1.30 mg/dL Glomerular Filtration Rate Calc 76 >90 mL/min BUN/Creatinine Ratio 28.3 H 10.0-20.0 Serum Glucose 113 H 74-106 mg/dL Calcium Level 9.7 8.7-10.4 mg/dL Total Bilirubin 0.3 0.2-1.0 mg/dL Aspartate Amino Transferase (AST) 20 13-40 U/L Alanine Aminotransferase (ALT) 38 7-40 U/L Alkaline Phosphatase 76 46-116 U/L Total Protein 6.0 5.7-8.2 g/dL Albumin 3.5 3.2-4.8 g/dL Current Medications Medications (Trade) Dose Ordered Sig/Jose Route Start Time Stop Time Status Last Admin Pantoprazole Sodium (Protonix) 40 mg ONCE ONCE IV 06/22/24 00:45 06/22/24 00:46 DC 06/22/24 01:22 Ceftriaxone Sodium 50 ml @ 100 mls/hr ONCE ONCE IV 06/22/24 02:30 06/22/24 02:59 DC 06/22/24 03:31 Sodium Chloride 1,000 ml @ 1,000 mls/hr Q1H ONCE IV 06/22/24 02:45 06/22/24 03:44 DC 06/22/24 03:00 Sodium Chloride 1,000 ml @ 130 mls/hr Q7H42M ONCE IV 06/22/24 02:45 06/22/24 10:26 DC 06/22/24 05:50 [facility] [id number] [place] [address] Ph: [phone] DIAGNOSTIC IMAGING Diagnostic Imaging Report : [id number] Signed PATIENT: HENRIQUE HERNANDEZ LACCT: [id number] UNIT: [id number] : 1965 LOC: ER ROOM / BED: / AGE / SEX: 59 / M ADM STATUS: REG ER SERVICE [id number] ORDERING PHYSICIAN: NAEL RUFF MD PROCEDURE(s): ABPLIV - CT AB PEL WITH IV CON ONLY REASON: GI bleed protocol ORDER NUMBER(s): [id number], ACCESSION NUMBER(s): [id number] Exam: CT CT AB PEL WITH IV CON ONLY History: sepsis, GI bleed Comparison Study: None available at time of dictation. Contrast: 100 cc Omnipaque 300 TECHNIQUE: A digital director of state image was obtained. During the uneventful, intravenous administration of contrast material, multislice data acquisition was obtained through the abdomen and pelvis. The data set was subsequently reconstructed into axial images. Images were reviewed on a work station using a combination of axial and multiplanar using a variety of window levels and settings. All CT scans at this medical facility are performed using dose modulation techniques as appropriate to a performed exam including the following: Automated exposure control was utilized; adjustment of the MA and/or KV according to patient size; and use of iterative reconstruction technique. Radiation Dose Information: CT Dose: CTDI volume is 11.97 mGy. Dose-length product is 640.92 mGy*cm FINDINGS: Imaged portions of the lung bases demonstrate bilateral but left predominant interstitial and alveolar airspace opacities. There is a moderate hiatal hernia with esophageal wall thickening. Intracardiac device is noted. The liver, spleen, pancreas and adrenal glands appear unremarkable. There has been prior cholecystectomy. The kidneys enhance symmetrically with multiple cysts. There is no hydronephrosis. There is a large amount of intracolonic stool. Scattered colonic diverticulosis. Few scattered clips in the right lower quadrant. No free fluid, free air, or adenopathy. No suspicious osseous lesion. IMPRESSION: 1. Pulmonary findings favor diffuse pneumonia, left lung predominant. 2. Moderate hiatal hernia with esophageal wall thickening. 3. Large amount of intracolonic stool 4. If there is persistent clinical concern for GI bleed, consider CT angiography GI bleed protocol or nuclear scan. ATED BY: GILBERT MATUTE MD DICTATED DATE/TIME: 06/22/24310 SIGNED BY: GILBERT MATUTE MD SIGNED DATE/TIME: 06/22/24310 CC: [place] [id number] Ph: [phone] DIAGNOSTIC IMAGING Diagnostic Imaging Report : [id number] Signed PATIENT: HENRIQUE HERNANDEZ ACCT: [id number] UNIT: [id number] : 1965 LOC: ER ROOM / BED: / AGE / SEX: 59 / M ADM STATUS: REG ER SERVICE 7 ORDERING PHYSICIAN: NAEL RUFF MD PROCEDURE(s): CXR1 - CHEST XRAY 1 VIEW REASON: Suspected sepsis ORDER NUMBER(s): [id number], ACCESSION NUMBER(s): [id number] CHEST RADIOGRAPH Indication: Suspected sepsis Technique: Single frontal view of the chest was obtained Comparison: XY CHEST PORTABLE on DOS: 06/17/24, XY CHEST PORTABLE on DOS: 06/14/24, XY CHEST PORTABLE on DOS: 06/12/24 IMPRESSION: The heart is stable in size with multi lead left cardiac device. The right lung appears clear. New patchy airspace opacities and interstitial opacities in the left lung. No sizable effusion or pneumothorax. ATED BY: GILBERT MATUTE MD DICTATED DATE/TIME: 06/22/24256 SIGNED BY: GILBERT MATUTE MD SIGNED DATE/TIME: 06/22/24256 CC: Time of 1ST Reevaluation: 00:21 Reevaluation 1ST: Unchanged Patient Education/Counseling: Diagnosis, Treatment, Prognosis Family Education/Counseling: No Family Present Departure 1 Departure Time of Disposition: 02:33 Impression: Primary Impression: Coffee ground emesis Additional Impressions: Metabolic alkalosis Lactic acidemia Leukocytosis Suspected sepsis Disposition: 09 ADMITTED INPATIENT Condition: Stable Comments 59-year-old male who presents to the emergency department with of the coffee ground emesis. Patient is on 2 L nasal cannula at baseline. ABG showed metabolic alkalosis, possibly secondary to chronic vomiting/upper GI bleed. Sepsis suspected in the setting of leukocytosis and elevated lactic acid. Antibiotics and fluids initiated. Patient admitted for further treatment, evaluation and monitoring. Critical Care Note Critical Care Time?: No Stability Stability form required: No I personally scribed for NAEL RUFF MD ([email or web address]) on 06/22/24 at 00:06. Electronically submitted by Ev Thorpe ([email or web address]). I personally scribed for NAEL RUFF MD ([email or web address]) on 06/22/24 at 03:36. Electronically submitted by Ev Thorpe ([email or web address]). NAEL RUFF MD Jun 22, 2024 00:06
[2024-06-22] MEDS: IOHEXOL 300 MG/ML 100ML BOTTLE IJ ONE (00:59)
[2024-06-22 01:08] LABS: Basophils # (auto) 0 10 ^3/uL (0-0.2); Basophils % (auto) 0.1 % (0.0-2.0); Eosinophils # (auto) 0.1 10 ^3/uL (0-0.8); Eosinophils % (auto) 0.3 % (0.0-7.0); Hematocrit 35.2 % (41.0-53.0); Hemoglobin 10.9 g/dL (13.5-17.5); Lymphocytes % (auto) 5.4 % (10.0-50.0); Mean Corpuscular Hemoglobin 25.7 pg (28.0-32.0); Mean Corpuscular Hgb Conc. 31.1 g/dL (32.0-36.0); Mean Corpuscular Volume 82.6 fL (80.0-100.0); Monocytes # (auto) 0.7 10 ^3/uL (0-1.3); Monocytes % (auto) 3.5 % (0.0-12.0); Neutrophils # (auto) 17.7 10 ^3/uL (1.6-8.6); Neutrophils % (auto) 90.7 % (37.0-80.0); Platelet Count (auto) 300 10^3/uL (140-450); Red Blood Cells 4.26 10^6/uL (4.5-5.90); Red Cell Distribution Width 18.3 % (11.8-14.3); White Blood Cell 19.5 10^3/uL (4.4-10.8)
[2024-06-22] MEDS: PANTOPRAZOLE 40 MG/10 ML VIAL INJ IV ONE (01:22)
[2024-06-22 01:34] LABS: Alanine Aminotransferase 38 U/L (7-40); Albumin 3.5 g/dL (3.2-4.8); Alkaline Phosphatase 76 U/L (46-116); Aspartate Aminotransferase 20 U/L (13-40); BUN/Creatinine Ratio 28.3 (10.0-20.0); Bilirubin, Total 0.3 mg/dL (0.2-1.0); Calcium 9.7 mg/dL (8.7-10.4); Potassium 4.5 mmol/L (3.5-5.1)
[2024-06-22 01:41] LABS: Anion Gap 5.99999 (5-15); Blood Urea Nitrogen 32 mg/dL (9-23); Chloride 87 mmol/L (98-107); Glucose 113 mg/dL (74-106); Sodium 133 mmol/L (136-145)
[2024-06-22 01:42] LABS: Carbon Dioxide > 40 mmol/L (20-31); Lactic Acid w/Reflex 2.9 mmol/L (0.4-2.0)
[2024-06-22] MEDS: SODIUM CHLORIDE 0.9% 500 ML IV ONE (02:00)
[2024-06-22] MEDS: VANCOMYCIN 1GM/250ML KIT 250 ML IV ONE (02:45)
--- NOTE | 2024-06-22 02:59 | DVH ---
CHEST RADIOGRAPH Indication: Suspected sepsis Technique: Single frontal view of the chest was obtained Comparison: XY CHEST PORTABLE on DOS: 06/17/24, XY CHEST PORTABLE on DOS: 06/14/24, XY CHEST PORTABLE on DOS: 06/12/24 IMPRESSION: The heart is stable in size with multi lead left cardiac device. The right lung appears clear. New patchy airspace opacities and interstitial opacities in the left lung. No sizable effusion or pneumot horax.
[2024-06-22] MEDS: SODIUM CHLORIDE 0.9% 1,000 ML IV ONE ×4 (03:00→07:45)
--- NOTE | 2024-06-22 03:13 | DVH ---
Exam: CT CT AB PEL WITH IV CON ONLY History: sepsis, GI bleed Comparison Study: None available at time of dictation. Contrast: 100 cc Omnipaque 300 TECHNIQUE: A digital rx specialist image was obtained. During the uneventful, intravenous administration of c ontrast material, multislice data acquisition was obtained through the abdomen and pelvis. The data s et was subsequently reconstructed into axial images. Images were reviewed on a work station using a c ombination of axial and multiplanar using a variety of window levels and settings. All CT scans at this medical facility are performed using dose modulation techniques as appropriate t o a performed exam including the following: Automated exposure control was utilized; adjustment of th e MA and/or KV according to patient size; and use of iterative reconstruction technique. Radiation Dose Information: CT Dose: CTDI volume is 11.97 mGy. Dose-length product is 640.92 mGy*cm FINDINGS: Imaged portions of the lung bases demonstrate bilateral but left predominant interstitial and alveola r airspace opacities. There is a moderate hiatal hernia with esophageal wall thickening. Intracardia c device is noted. The liver, spleen, pancreas and adrenal glands appear unremarkable. There has been prior cholecystect valente. The kidneys enhance symmetrically with multiple cysts. There is no hydronephrosis. There is a large amount of intracolonic stool. Scattered colonic diverticulosis. Few scattered clips in the right lower quadrant. No free fluid, free air, or adenopathy. No suspicious osseous lesion. IMPRESSION: 1. Pulmonary findings favor diffuse pneumonia, left lung predominant. 2. Moderate hiatal hernia with esophageal wall thickening. 3. Large amount of intracolonic stool 4. If there is persistent clinical concern for GI bleed, consider CT angiography GI bleed protocol or nuclear scan.
[2024-06-22] MEDS: cefTRIAXone 1GM/50ML D5W 50 ML IV ONE (03:31)
[2024-06-22] MEDS ORDERED: metroNIDAZOLE 500MG/100ML 100 ML IV ONE (04:00)
[2024-06-22 04:01] LABS: INR 1.12 (0.9-1.15); Prothrombin Time 11.7 sec (9.3-11.8)
[2024-06-22 04:58] LABS: Monocytes # (auto) 0.6 10 ^3/uL (0-1.3); Monocytes % (auto) 3.2 % (0.0-12.0)
[2024-06-22 05:00] LABS: Basophils # (auto) 0.1 10 ^3/uL (0-0.2); Basophils % (auto) 0.3 % (0.0-2.0); Eosinophils # (auto) 0 10 ^3/uL (0-0.8); Eosinophils % (auto) 0.1 % (0.0-7.0); Hematocrit 33.2 % (41.0-53.0); Hemoglobin 10.5 g/dL (13.5-17.5); Lymphocytes # (auto) 0.8 10 ^3/uL (0.4-5.4); Lymphocytes % (auto) 4.4 % (10.0-50.0); Mean Corpuscular Hemoglobin 26.3 pg (28.0-32.0); Mean Corpuscular Hgb Conc. 31.6 g/dL (32.0-36.0); Mean Corpuscular Volume 83.1 fL (80.0-100.0); Platelet Count (auto) 267 10^3/uL (140-450); Red Cell Distribution Width 18.2 % (11.8-14.3); White Blood Cell 17.5 10^3/uL (4.4-10.8)
[2024-06-22 05:28] LABS: Potassium 3.8 mmol/L (3.5-5.1)
[2024-06-22 05:29] LABS: Calcium 8.8 mg/dL (8.7-10.4)
[2024-06-22 05:34] LABS: BUN/Creatinine Ratio 25.8 (10.0-20.0); Glucose 95 mg/dL (74-106)
[2024-06-22] MEDS: DOXYCYCLINE 100MG/100ML 100 ML IV SCH (05:41)
[2024-06-22] MEDS: SUCRALFATE 1 GM/10 ML ORAL SUSP PO ONE (05:42)
[2024-06-22 05:46] LABS: Anion Gap 3.99999 (5-15); Blood Alcohol < 3.0 mg/dL (<10); Blood Urea Nitrogen 24 mg/dL (9-23); Chloride 90 mmol/L (98-107); Sodium 134 mmol/L (136-145)
[2024-06-22 05:56] LABS: Lactic Acid w/Reflex 3.4 mmol/L (0.4-2.0)
[2024-06-22 05:57] LABS: Carbon Dioxide > 40 mmol/L (20-31)
[2024-06-22] MEDS ORDERED: CEFEPIME 1GM/ 50ML 50 ML IV SCH (06:00)
[2024-06-22] MEDS: SUCRALFATE 1 GM/10 ML ORAL SUSP PO SCH (06:00)
[2024-06-22] MEDS ORDERED: MEROPENEM 1GM IVPB 50 ML IV SCH (06:00)
--- NOTE | 2024-06-22 06:09 | DVHHPRES ---
History of Present Illness Resident Creating Document: EDDIE SORIANO RESIDENT Reason for Visit: Coffee ground emesis History of Present Illness This is a 59 year old male brought in by EMS with a chief complaint of nausea and vomiting onset 1 day. Patient has a history of schizophrenia and incoherent. Notes taken from EMS report. Per EMS, patient lives in a boarding facility. EMS states that the patient woke up experiencing, abdominal pains, nausea/vomiting. Vomitus described as coffee ground, hypotensive with BP was 90/50. He initially received 300ml and later 700ml on route to the ED. Vitals measured in the ED and blood work showed very septic patient. Patient started on Zosyn and doxycycline. Of note, patient was recently managed for aspiration pneumonia and discharged from here 2 days ago (06/20/24). He was also was admitted in May, with GI bleed. EGD then showed esophageal ulcers and esophagitis. PMHx: COPD, CHF, schizophrenia, HTN. Pshx: EGD FMHX: noncontributory Social history: lives in boarding facility. Review of Systems Constitutional: No: Fever, Chills, Sweats, Weakness, Malaise, Other Eyes: No: Pain, Vision change, Conjunctivae inflammation, Eyelid inflammation, Other, Redness ENT: No: Ear pain, Ear discharge, Nose pain, Nose discharge, Nose congestion, Mouth pain, Mouth swelling, Throat pain, Throat swelling, Other Respiratory: Cough, Dry, Shortness of breath, SOB with excertion, Other Cardiovascular: No: Chest Pain, Palpitations, Orthopnea, Paroxysmal Noc. Dyspnea, Edema, Lt Headedness, Other Gastrointestinal: Nausea, Vomiting, Abdominal Pain Genitourinary: No Dysuria, No Frequency, No Incontinence, No Hematuria, No Retention, No Other Musculoskeletal: No: other, neck pain, shoulder pain, arm pain, back pain, hand pain, leg pain, foot pain Skin: No: Rash, Lesions, Jaundice, Bruising, Other Allergies: Coded Allergies: Morphine (Verified Allergy, Unknown, 05/20/24) Pollen Extract (Verified Allergy, Unknown, 05/20/24) Medications Current Medications Medications Dose Ordered Sig/Jose Route Start Time Stop Time Status Last Admin Dose Admin Enoxaparin Sodium 40 mg DAILY SC 06/22/24 10:00 UNV Exam Vital Signs Vital Signs Date Time Temp Pulse Resp B/P (MAP) Pulse Ox O2 Delivery O2 Flow Rate FiO2 06/22/24 03:00 71 16 99/51 (67) 91 06/22/24 02:00 Nasal Cannula* 4 36 06/22/24 01:00 99.4 99.4 Exam General Appearance: Alert, Oriented X2, No acute distress HEENT: Atraumatic, PERRLA, EOMI, Mucous membrane moist/pink Respiratory: crackles bilateral Cardiovascular: Regular rate, Normal S1, Normal S2, No murmurs, no chest wall tenderness Abdominal: Mild tenderness, bowel sounds present, no scars noted Extremities: No clubbing, No cyanosis, No edema, Normal pulses, No t enderness/swelling Skin: No rashes, No breakdown, No significant lesion Neuro: speech is difficulty to comprehend, Strength at 5/5 X4 ext, Normal tone, Sensation intact, Cranial nerves 3-12 NL, Reflexes 2+ Psych/Mental Status: difficult to assess. Schizophrenia Labs/Xrays Labs Test 06/22/24 04:41 06/22/24 03:05 06/22/24 02:04 06/22/24 00:55 Range/Units Lactic Acid Level 2.9 *H 0.4-2.0 mmol/L Blood Gas Specimen Type Arterial Blood Gas Sample Site Left radial Blood Gas Patient Temperature 37.0 Arterial Blood Date Drawn [id number] Arterial Blood pH 7.468 H 7.350-7.450 Arterial Blood Partial Pressure CO2 51.2 H 35.0-48.0 mmHg Arterial Blood Partial Pressure O2 51.3 *L 83.0-108.0 mmHg Arterial Blood HCO3 36.3 H 21.0-28.0 mmol/L Arterial Blood Oxygen Saturation 85.0 L 94.0-98.0 % Arterial Blood Base Excess 11.0 H -2.0-3.0 mmol/L Arterial Blood Oxyhemoglobin 84.1 L 94.0-98.0 % Arterial Blood Carboxyhemoglobin 0.5 0.5-1.5 % Arterial Blood Methemoglobin 0.6 0.0-1.5 % Richard Test Modified Blood Gas Total Hemoglobin 11.00 L 13.5-17.5 g/dL Blood Gas Liter Flow 2.00 Blood Gas Modality Nasal cannula FiO2 % 28.0 Blood Gas Critical Value Read Back Yes Blood Gas Notified Whom guillermo Ruff md Blood Gas Notified Time [id number] Blood Gas Notified By reuben Martinez rrt Eosinophils (%) (Auto) 0.3 0.0-7.0 % Eosinophils # (Auto) 0.1 0-0.8 10 ^3/uL Basophils # (Auto) 0 0-0.2 10 ^3/uL Nucleated Red Blood Cells 0.0 % Prothrombin Time 11.7 9.3-11.8 sec Prothrombin Time INR 1.12 0.9-1.15 Sodium Level 133 L 136-145 mmol/L Potassium Level 4.5 3.5-5.1 mmol/L Chloride Level 87 L 98-107 mmol/L Carbon Dioxide Level > 40 *H 20-31 mmol/L Anion Gap 5.58234 5-15 Blood Urea Nitrogen 32 #H 9-23 mg/dL Creatinine 1.13 0.700-1.30 mg/dL Glomerular Filtration Rate Calc 76 >90 mL/min BUN/Creatinine Ratio 28.3 H 10.0-20.0 Serum Glucose 113 H 74-106 mg/dL Calcium Level 9.7 8.7-10.4 mg/dL Total Bilirubin 0.3 0.2-1.0 mg/dL Aspartate Amino Transferase (AST) 20 13-40 U/L Alanine Aminotransferase (ALT) 38 7-40 U/L Alkaline Phosphatase 76 46-116 U/L Total Protein 6.0 5.7-8.2 g/dL Albumin 3.5 3.2-4.8 g/dL Assessment/Plan Assessment/Plan Assessment SEPTIC SHOCK SEPSIS DUE TO ASPIRATION PNEUMONIA Acute on chronic hypoxic-hypercapnic respiratory failure Erosive esophagitis (EGD then showed esophageal ulcers and esophagitis) COPD, stable Normocytic anemia likely duo to UGI bleed Diastolic CHF SCHIZOPHRENIA PLAN Zosyn and doxycycline Carafate Protonix 40 mg BID IV fluid Monitor lactic acid blood culture urine culture MRSA Repeat labs DVT prophylaxis: SCD DIET: clear fluid Goal of care discussed for more than 30 minute, full code Case and plan discussed with Dr. Goldstein Plan discussed with: Patient, Other My Orders Orders - EDDIE SORIANO RESIDENT Procedure Category Date Status Time Admit ADMIT 06/22/24 Transmitted 04:27 Enoxaparin Sodium PHA 06/22/24 In Process (Lovenox) 10:00 Oxygen By Nasal RT 06/22/24 Transmitted Cannula 04:27 Respiratory Culture TAMERA 06/22/24 Logged W/ Gs 04:29 Sputum Induction RT 06/22/24 Logged 04:29 Complete Blood Count LAB 06/22/24 In Process 04:29 Drug Screen LAB 06/22/24 Logged 04:29 Clear Liq Diet DIET 06/22/24 Transmitted Breakfast Doxycycline PHA 06/22/24 In Process 100mg/100ml 04:45 Pantoprazole PHA 06/22/24 In Process (Protonix) 10:00 Date of Service: Jun 22, 2024 Billing Provider: VERENA GOLDSTEIN MD Common Visit Codes: [id number] INP/OBS CARE (HIGH) Secondary Visit Codes: [id number] CARE PLAN 30 MINUTES EDDIE SORIANO RESIDENT Jun 22, 2024 06:09 VERENA GOLDSTEIN MD Jun 22, 2024 11:35
[2024-06-22] MEDS: PIPERACILLIN-TAZOB 3.375GM 100 ML IV ONE (07:50)
[2024-06-22 08:02] LABS: Lactic Acid w/Reflex 2.7 mmol/L (0.4-2.0)
[2024-06-22] MEDS: PANTOPRAZOLE 40 MG/10 ML VIAL INJ IV SCH (08:31)
[2024-06-22] MEDS ORDERED: PANTOPRAZOLE 40 MG/10 ML VIAL INJ IV SCH (10:00)
[2024-06-22] MEDS ORDERED: ENOXAPARIN SOD 40 MG/0.4 ML SYRINGE SC SCH (10:00)
[2024-06-22 10:57] LABS: % Iron Saturation 20.8 % (20-55)
--- NOTE | 2024-06-22 11:57 | DVHPNRES ---
Progress Note Date Seen: Jun 22, 2024 Resident Creating Document: COLETTE SOLOMON RESIDENT Medical Necessity Reason Pt with a Central, PICC or Fol: Yes Subjective Review of Systems This is a 59 year old male Past medical history of COPD, CHF, hypertension, schizophrenia brought in by EMS with a chief complaint of nausea and vomiting onset 1 day. Patient has a history of schizophrenia and incoherent. Notes taken from EMS report. Per EMS, patient lives in a boarding facility. EMS states that the patient woke up experiencing, abdominal pains, nausea/vomiting. Vomitus described as coffee ground, hypotensive with BP was 90/50. He initially received 300ml and later 700ml on route to the ED. Vitals measured in the ED and blood work showed very septic patient. Patient started on Zosyn and doxycycline. Of note, patient was recently managed for aspiration pneumonia and discharged from here 2 days ago (06/20/24). He was also was admitted in May, with GI bleed. EGD then showed esophageal ulcers and esophagitis. Patient was seen and examined at the bedside. He is alert oriented x2 and on 4 L oxygen with saturation 94 %. Patient has schizophrenia and not coherent, difficult to understand. No active complaints and wants to go home. Constitutional: No: Fever, Chills, Sweats, Weakness, Malaise, Other Eyes: No: Pain, Vision change, Conjunctivae inflammation, Eyelid inflammation, Other, Redness ENT: No: Ear pain, Ear discharge, Nose pain, Nose discharge, Nose congestion, Mouth pain, Mouth swelling, Throat pain, Throat swelling, Other Respiratory: Shortness of breath, improving, Cough, No Dry,Wheezing, Hemoptysis, Pleuritic Pain, Sputum, Wheezing, Other Cardiovascular: No: Chest Pain, Palpitations, Orthopnea, Paroxysmal Noc. Dyspnea, Edema, Lt Headedness, Other Gastrointestinal: No: Nausea, Vomiting, Abdominal Pain, Diarrhea, Constipation, Melena, Hematochezia, Other Musculoskeletal: No: other, neck pain, shoulder pain, arm pain, back pain, hand pain, leg pain, foot pain Neurological:; No: Weakness, Numbness, Incoordination, Change in speech, Confusion, Seizures Objective vital signs Vital Sign Date Time Temp Pulse Resp B/P (MAP) Pulse Ox O2 Delivery O2 Flow Rate FiO2 06/22/24 10:16 81 13 74/47 (56) 94 06/22/24 08:00 100.2 100.2 06/22/24 08:00 Nasal Cannula* 5 40 Total Intake and Output 06/21/24 06/21/24 06/22/24 15:00 23:00 07:00 Intake Total 1266 ml Balance 1266 ml medications Current Medications Medications Dose Ordered Sig/Jose Route Start Time Stop Time Status Last Admin Dose Admin Doxycycline Hyclate 100 ml @ 50 mls/hr Q12H IV 06/22/24 04:45 06/22/24 05:41 50 MLS/HR Sucralfate 1 gm QID@0600,1130,1700,2200 PO 06/22/24 06:00 Piperacillin Sod/ Tazobactam Sod 100 ml @ 25 mls/hr Q6HR IV 06/22/24 12:00 Pantoprazole Sodium 40 mg BID IV 06/22/24 07:45 06/22/24 08:31 40 MG Examination Physical examination: General Appearance: Alert, Oriented X2, Cooperative, mild distress HEENT: Atraumatic, PERRLA, EOMI, Mucous membrane moist/pink Respiratory: Bilateral basal crackles. Cardiovascular: Regular rate, Normal S1, Normal S2, No murmurs, no chest wall tenderness Abdominal: Normal bowel sounds, Soft, No tenderness, No hepatospenomegaly, No masses Extremities: No clubbing, No cyanosis, No edema, Normal pulses, No tenderness/swelling Skin: No rashes, No breakdown, No significant lesion Neuro: Normal speech, Strength at 5/5 X4 ext, Normal tone, Sensation intact, grossly intact cranial nerves. Psych/Mental Status: Mental status NL, Mood NL laboratory and microbiology Laboratory Tests 06/22/24 04:41 Test 06/22/24 04:41 Range/Units Serum Glucose 95 74-106 mg/dL Labs and/or images reviewed: Labs reviewed by me, Image(s) reviewed by me Problem List/Assessment/Plan Problem List/Assessment/Plan Assessment and plan: # Sepsis due to possible aspiration pneumonia # Acute on chronic hypoxic- hypercapnic respiratory failure due to possible aspiration pneumonia # Chronic diastolic heart failure - On admission patient was presented with tachycardia, tachypnea, elevated temperature, hypotension and elevated lactic acid - CT abdomen pelvis demonstrated diffuse pneumonia mostly on the left side, moderate hiatal hernia with esophageal wall thickening and large amount of intracolonic stool - chest x-ray showed new patchy airspace opacities and interstitial opacities in the left lung. - Echo on 06/14/24 demonstrated EF 60% with normal RV function - Patient was given 2.5 L IV NS bolus followed by IV normal saline 1L at 150 mL/hours - IV Zosyn 3.375 mg q.6 hours IV doxycycline 100 mg b.i.d. - Pending blood culture, U/A, urine C/ S and sputum C/S - Lasix 20 mg p.o. daily # Possible upper GI bleeding likely due to erosive esophagitis # Acute on chronic normocytic anemia likely due to upper GI bleed - EGD on 05/24/24 demonstrated 5 cm sliding-type hiatal hernia with acute grade C erosive esophagitis with distal esophageal ulcer and circumferential ulceration at the GE junction and minimal gastroduodenitis. - Pending FOBT - IV Protonix 40 mg b.i.d. - Carafate suspension p.o. 1 g q.i.d. - GI consultation - Monitor H/H # History of chronic COPD - Med neb with albuterol and ipratropium q.6 p.r.n. # History of schizophrenia - Continue medications # Chronic hypothyroidism - Coninue levothyroxine 50 mcg at q.a.m. daily # BPH - continue Flomax 0.4 mg daily PUD prophylaxis: On protonix DVT prophylaxis: Hold due to the possibility of the bleeding Code status : code Plan discussed with Dr. Huynh Plan discussed with: Patient, Other My Orders My Orders Orders - COLETTE SOLOMON Procedure Category Date Status Time Pantoprazole PHA 06/22/24 In Process (Protonix) 07:45 Sodium Chloride 0.9% PHA 06/22/24 In Process 07:45 Date of Service: Jun 22, 2024 Billing Provider: ERYN CAMPOS MD Common Visit Codes: [id number] INP/OBS CARE(HIGH) COLETTE SOLOMON Jun 22, 2024 11:57 ERYN CAMPOS MD Jun 25, 2024 23:47
[2024-06-22] MEDS ORDERED: SENNA 8.6 MG TAB PO PRN (12:00)
[2024-06-22] MEDS: PIPERACILLIN-TAZOB 3.375GM 100 ML IV SCH (12:24)
[2024-06-22] MEDS ORDERED: ALBUTEROL SULF 2.5 MG/0.5ML(0.5%) NEB SOLN NEB PRN (12:30)
[2024-06-22] MEDS ORDERED: IPRATROPIUM BROM 0.5 MG/2.5ML INH SOL NEB PRN (12:30)
[2024-06-22] MEDS: ZOLPIDEM TARTRATE 5 MG TAB PO SCH (18:24)
[2024-06-22] MEDS: risperiDONE 1 MG TAB PO SCH (18:24)
--- NOTE | 2024-06-22 19:58 | DVHINCON2 ---
Date of service: Jun 22, 2024 Referring Physician Nausea vomiting with a history of schizophrenia. Reason for Consultation This 59-year-old male was brought to the emergency room with complaints of nausea vomiting for one day apparently has got history of schizophrenia and he is incoherent and unable to get any much detailed history history is obtained from the nurses the chart. Patient apparently has a nausea vomiting and vomited some coffee-ground emesis he was also hypotensive with blood pressure being 90/50 in the ER. History of Present Illness This 59-year-old male was brought to the emergency room with complaints of nausea vomiting for one day apparently has got history of schizophrenia and he is incoherent and unable to get any much detailed history history is obtained from the nurses the chart. Patient apparently has a nausea vomiting and vomited some coffee-ground emesis he was also hypotensive with blood pressure being 90/50 in the ER. Patient was complaints of weakness patient apparently was admitted here recently for this aspiration pneumonia and discharged about two days ago. Patient had some GI bleeding which had shown some esophageal ulcers in 2024. Past Medical History History of CHF schizophrenia hypertension COPD Past Surgical History None Family History: Patient reports no known family medical history. Family History Noncontributory Social History Denies smoking or drinking Allergies: Coded Allergies: Morphine (Verified Allergy, Unknown, 05/20/24) Pollen Extract (Verified Allergy, Unknown, 05/20/24) Home Meds Active Scripts Tamsulosin Hcl (Flomax) 0.4 Mg Cap, 0.4 MG PO DAILY for 30 Days, #30 CAP 4 Refills Prov:RABAGOLEONELA Arcos Ger DO 05/25/24 Reported Medications Zolpidem Tartrate (Zolpidem Tartrate) 5 Mg Tab, 1 TAB PO QPM for FOR INSOMNIA, #30 TAB 2 Refills 05/22/24 Cholecalciferol (VITAMIN D3) 2,000 Unit Tab, 2000 UNIT PO DAILY, TAB 05/22/24 Ascorbic Acid (VITAMIN C TABLET) 500 Mg Tb, 500 MG PO DAILY for FOR SUPPLEMENT, TAB 05/22/24 Sucralfate (Sucralfate) 1 Gm Tab, 1 GM PO, GM 05/22/24 Risperidone (RisperDAL TABLET) 1 Mg Tb, 1 TAB PO QPM, #30 TAB 1 Refill 05/22/24 Olanzapine (OLANZAPINE) 10 Mg Tab, 10 MG PO DAILY for 30 Days, MG 05/22/24 Metoprolol Succinate (Metoprolol Succinate Er) 25 Mg Tab, 25 MG PO DAILY for 30 Days, MG 05/22/24 Lisinopril (Lisinopril) 2.5 Mg Tab, 2.5 MG PO DAILY for 30 Days, MG 05/22/24 Donepezil Hydrochloride (DONEPEZIL HCL) 5 Mg Tab, 5 MG PO DAILY for 30 Days, MG 05/22/24 Furosemide (Furosemide) 20 Mg Tab, 20 MG PO DAILY for 30 Days, MG 05/22/24 Cholecalciferol (VITAMIN D3) 2,000 Unit Tab, 1 CAP PO DAILY 08/25/22 Docusate Sodium (Docusate Sodium) 100 Mg Cap, 1 CAP PO DAILY 08/25/22 Pantoprazole Sodium Sesquihydr (Pantoprazole Sodium) 40 Mg Tab, 1 TAB PO BID 08/25/22 Quetiapine Fumerate (QUETIAPINE FUMARATE) 50 Mg Tab, 1 TAB PO 08/25/22 Ondansetron (Zofran) 4 Mg Tab, 8 MG PO, TAB 08/24/22 Trazodone Hcl (Trazodone Hcl) 150 Mg Tab, 150 MG PO DAILY, MG 08/24/22 Senna (Senna Lax) 8.6 Mg Tab, 8.6 MG PO QHSP PRN for FOR CONSTIPATION, MG 08/24/22 Risperidone (Risperidone) 3 Mg Tab, 3 MG PO BID, TAB 08/24/22 Docusate Sodium (Docusate Sodium) 100 Mg Tab, 100 MG PO DAILYP PRN for FOR CONSTIPATION, MG 08/24/22 Chlorpromazine Hcl (Chlorpromazine Hcl) 25 Mg Tab, 50 MG PO BID, MG 08/24/22 Benztropine Mesylate (Benztropine Mesylate) 0.5 Mg Tab, 0.5 MG PO DAILY, MG 08/24/22 Risperidone (Risperidone) 3 Mg Tab, 1 TAB PO BID 08/24/22 Levothyroxine Sodium (Levothyroxine Sodium) 50 Mcg Tab, 1 TAB PO DAILY 08/24/22 Discontinued Reported Medications Lorazepam (Lorazepam) 1 Mg Tab, 1 TAB PO BID, #60 TAB 05/22/24 Tamsulosin Hcl (Tamsulosin Hcl) 0.4 Mg Cap, 1 CAP PO DAILY 08/25/22 Lorazepam (Lorazepam) 2 Mg Tab, 2 MG PO TID, TAB 08/24/22 Pantoprazole Sodium Sesquihydr (Protonix) 40 Mg Tab, 40 MG PO BID, #30 TAB 08/24/22 Discontinued Scripts Azithromycin (Azithromycin) 250 Mg Tab, 250 MG PO DAILY MDD 500 for 5 Days, #6 TAB 0 Refills 2 TABLETS ORALLY ON DAY ONE, THEN 1 TABLET ORALLY DAILY FOR 4 DAYS Prov:LEONELA RABAGO DO 05/25/24 Sucralfate (Sucralfate) 1 Gm Tab, 1 GM PO TIDAC for 30 Days, #90 TAB 4 Refills Prov:LEONELA RABAGO DO 05/25/24 Pantoprazole Sodium Sesquihydr (Pantoprazole Sodium) 40 Mg Tab, 40 MG PO BID for 30 Days, #60 TAB 4 Refills Prov:LEONELA RABAGO DO 05/25/24 Current Medications Current Medications Medications (Trade) Dose Ordered Sig/Jose Route PRN Reason Start Time Stop Time Status Last Admin Enoxaparin Sodium (Lovenox) 40 mg DAILY SC 06/22/24 10:00 06/22/24 07:45 DC Cefepime HCl 50 ml @ 12.5 mls/hr Q8HR IV 06/22/24 06:00 06/22/24 04:52 DC Doxycycline Hyclate 100 ml @ 50 mls/hr Q12H IV 06/22/24 04:45 06/22/24 05:41 Pantoprazole Sodium (Protonix) 40 mg DAILY IV 06/22/24 10:00 06/22/24 07:40 DC Sucralfate (Carafate Susp) 1 gm QID@0600,1130,1700,2200 PO 06/22/24 06:00 06/22/24 17:00 Meropenem 50 ml @ 17 mls/hr Q8HR IV 06/22/24 06:00 06/22/24 06:40 DC Piperacillin Sod/ Tazobactam Sod 100 ml @ 25 mls/hr Q6HR IV 06/22/24 12:00 06/22/24 12:24 Pantoprazole Sodium (Protonix) 40 mg BID IV 06/22/24 07:45 06/22/24 08:31 Benztropine Mesylate (Cogentin Tablet) 0.5 mg DAILY PO 06/23/24 10:00 Chlorpromazine HCl (Thorazine Tablet) 50 mg BID PO 06/22/24 22:00 Docusate Sodium (Colace Capsule) 100 mg BID PO 06/22/24 22:00 Donepezil HCl (Aricept Tablet) 5 mg DAILY PO 06/23/24 10:00 Furosemide (Lasix Tablet) 20 mg DAILY PO 06/23/24 10:00 Levothyroxine Sodium (Synthroid Tablet) 50 mcg DAILY PO 06/23/24 10:00 Risperidone (RisperDAL TABLET) 1 mg QPM PO 06/22/24 18:00 06/22/24 18:24 Sennosides (Senokot Tablet) 8.6 mg QHSP PRN PO FOR CONSTIPATION 06/22/24 12:00 Tamsulosin HCl (Flomax) 0.4 mg DAILY PO 06/23/24 10:00 Zolpidem Tartrate (Ambien) 5 mg QPM PO 06/22/24 18:00 06/22/24 18:24 Albuterol (Ventolin Medneb) 2.5 mg Q6HPRN PRN NEB SHORTNESS OF BREATH 06/22/24 12:30 Ipratropium Sawyer (Atrovent Medneb) 0.5 mg Q6HPRN PRN NEB SHORTNESS OF BREATH 06/22/24 12:30 Review of Systems Noncontributory Vital Signs Vital Signs Date Time Temp Pulse Resp B/P (MAP) Pulse Ox O2 Delivery O2 Flow Rate FiO2 06/22/24 18:00 98.3 75 18 109/61 (77) 96 98.3 06/22/24 17:46 Nasal Cannula* 2 28 Physical Exam Originally built and nourished male in no acute distress Vitals stable HEENT examination No pallor no icterus lungs clear Cardiovascular unremarkable Abdomen soft no tenderness no rigidity no guarding Bowel sounds normal no masses Extremities no edema no varicosities Labs/Diagnostic Data Labs Test 06/22/24 07:12 06/22/24 04:41 06/22/24 02:04 06/22/24 00:55 Range/Units Lactic Acid Level 2.7 *H 0.4-2.0 mmol/L White Blood Count 17.5 H 4.4-10.8 10^3/uL Red Blood Count 4.00 L 4.5-5.90 10^6/uL Hemoglobin 10.5 L 13.5-17.5 g/dL Hematocrit 33.2 L 41.0-53.0 % Mean Corpuscular Volume 83.1 80.0-100.0 fL Mean Corpuscular Hemoglobin 26.3 L 28.0-32.0 pg Mean Corpuscular Hemoglobin Concent 31.6 L 32.0-36.0 g/dL Red Cell Distribution Width 18.2 H 11.8-14.3 % Platelet Count 267 140-450 10^3/uL Mean Platelet Volume 7.7 6.9-10.8 fL Neutrophils (%) (Auto) 92.0 H 37.0-80.0 % Lymphocytes (%) (Auto) 4.4 L 10.0-50.0 % Monocytes (%) (Auto) 3.2 0.0-12.0 % Eosinophils (%) (Auto) 0.1 0.0-7.0 % Basophils (%) (Auto) 0.3 0.0-2.0 % Neutrophils # (Auto) 16.0 H 1.6-8.6 10 ^3/uL Lymphocytes # (Auto) 0.8 0.4-5.4 10 ^3/uL Monocytes # (Auto) 0.6 0-1.3 10 ^3/uL Eosinophils # (Auto) 0 0-0.8 10 ^3/uL Basophils # (Auto) 0.1 0-0.2 10 ^3/uL Nucleated Red Blood Cells 0.0 % Sodium Level 134 L 136-145 mmol/L Potassium Level 3.8 3.5-5.1 mmol/L Chloride Level 90 L 98-107 mmol/L Carbon Dioxide Level > 40 *H 20-31 mmol/L Anion Gap 3.64699 L 5-15 Blood Urea Nitrogen 24 H 9-23 mg/dL Creatinine 0.93 0.700-1.30 mg/dL Glomerular Filtration Rate Calc 96 >90 mL/min BUN/Creatinine Ratio 25.8 H 10.0-20.0 Serum Glucose 95 74-106 mg/dL Calcium Level 8.8 8.7-10.4 mg/dL Iron Level 59 L 65-175 ug/dL Total Iron Binding Capacity 284 250-425 ug/dL Percent Iron Saturation 20.8 20-55 % Ferritin 204.4 22-322 ng/mL B-Type Natriuretic Peptide 13.23 0-100 pg/mL Plasma/Serum Blood Alcohol < 3.0 <10 mg/dL Blood Gas Specimen Type Arterial Blood Gas Sample Site Left radial Blood Gas Patient Temperature 37.0 Arterial Blood Date Drawn [id number] Arterial Blood pH 7.468 H 7.350-7.450 Arterial Blood Partial Pressure CO2 51.2 H 35.0-48.0 mmHg Arterial Blood Partial Pressure O2 51.3 *L 83.0-108.0 mmHg Arterial Blood HCO3 36.3 H 21.0-28.0 mmol/L Arterial Blood Oxygen Saturation 85.0 L 94.0-98.0 % Arterial Blood Base Excess 11.0 H -2.0-3.0 mmol/L Arterial Blood Oxyhemoglobin 84.1 L 94.0-98.0 % Arterial Blood Carboxyhemoglobin 0.5 0.5-1.5 % Arterial Blood Methemoglobin 0.6 0.0-1.5 % Richard Test Modified Blood Gas Total Hemoglobin 11.00 L 13.5-17.5 g/dL Blood Gas Liter Flow 2.00 Blood Gas Modality Nasal cannula FiO2 % 28.0 Blood Gas Critical Value Read Back Yes Blood Gas Notified Whom guillermo Ruff md Blood Gas Notified Time [id number] Blood Gas Notified By reuben Martinez rrt Prothrombin Time 11.7 9.3-11.8 sec Prothrombin Time INR 1.12 0.9-1.15 Total Bilirubin 0.3 0.2-1.0 mg/dL Aspartate Amino Transferase (AST) 20 13-40 U/L Alanine Aminotransferase (ALT) 38 7-40 U/L Alkaline Phosphatase 76 46-116 U/L Total Protein 6.0 5.7-8.2 g/dL Albumin 3.5 3.2-4.8 g/dL Assessment 59-year-old male with the complaints of nausea vomiting and some hematemesis and with a hemoglobin of 10.5 abdomen is soft nontender. Patient has got history of schizophrenia not able to get much detailed history And had EGD done in May which showed that patient had esophageal ulcer and esophagitis Clinical impression possible esophagitis with esophageal ulcer with bleeding Plan/Recommendation We will recommend to treat with PPIs follow the hemoglobin closely If hemoglobin drops continues to have hematemesis we will recommend EGD evaluation CT scan showed apparently thickening of the esophagus in the distal end possibly from esophagitis or ulcers Thank you Dr. Forman Plan discussed with: Patient JESSY FORMAN MD Jun 22, 2024 19:58
[2024-06-22] MEDS: chlorproMAZINE HCL 25 MG TAB PO SCH (21:57)
[2024-06-22] MEDS: DOCUSATE SOD 100 MG CAP PO SCH (22:26)
[2024-06-23] VITALS (9 sets, daily range): BP systolic 114–146; BP diastolic 64–74; PULSE 60–75; RESP 16–18; TEMP 97.2–98.3; O2SAT 94–100
[2024-06-23 05:53] LABS: Basophils # (auto) 0 10 ^3/uL (0-0.2); Eosinophils # (auto) 0.2 10 ^3/uL (0-0.8); Eosinophils % (auto) 1.1 % (0.0-7.0); Hematocrit 32.3 % (41.0-53.0); Hemoglobin 10.5 g/dL (13.5-17.5); Lymphocytes # (auto) 0.8 10 ^3/uL (0.4-5.4); Lymphocytes % (auto) 5.4 % (10.0-50.0); Mean Corpuscular Hemoglobin 27.5 pg (28.0-32.0); Mean Corpuscular Hgb Conc. 32.6 g/dL (32.0-36.0); Mean Corpuscular Volume 84.3 fL (80.0-100.0); Monocytes # (auto) 0.6 10 ^3/uL (0-1.3); Monocytes % (auto) 4.2 % (0.0-12.0); Neutrophils # (auto) 13.1 10 ^3/uL (1.6-8.6); Neutrophils % (auto) 89.3 % (37.0-80.0); Platelet Count (auto) 268 10^3/uL (140-450); Red Blood Cells 3.83 10^6/uL (4.5-5.90); Red Cell Distribution Width 18.5 % (11.8-14.3); White Blood Cell 14.7 10^3/uL (4.4-10.8)
[2024-06-23 06:13] LABS: Alanine Aminotransferase 30 U/L (7-40); Albumin 3.4 g/dL (3.2-4.8); Alkaline Phosphatase 77 U/L (46-116); Anion Gap 4 (5-15); Aspartate Aminotransferase 17 U/L (13-40); BUN/Creatinine Ratio 12.3 (10.0-20.0); Bilirubin, Total 0.5 mg/dL (0.2-1.0); Calcium 9.1 mg/dL (8.7-10.4); Chloride 101 mmol/L (98-107); Glucose 85 mg/dL (74-106); Sodium 140 mmol/L (136-145); Total Protein 5.9 g/dL (5.7-8.2)
[2024-06-23 06:18] LABS: Carbon Dioxide 35 mmol/L (20-31)
[2024-06-23 06:19] LABS: Blood Urea Nitrogen 9 mg/dL (9-23)
[2024-06-23] MEDS: TAMSULOSIN HYDROCHLORIDE 0.4 MG CAP PO SCH (09:33)
[2024-06-23] MEDS: BENZTROPINE MESY 0.5 MG TAB PO SCH (09:35)
[2024-06-23] MEDS: LEVOTHYROXINE SODIUM 50 MCG TAB PO SCH (09:35)
[2024-06-23] MEDS: FUROSEMIDE 20 MG TAB PO SCH (09:37)
[2024-06-23] MEDS: DONEPEZIL HYDROCHLORIDE 5 MG TAB PO SCH (10:00)
[2024-06-23 10:28] LABS: Urine Bacteria None Seen /hpf (None Seen)
[2024-06-23 10:42] LABS: Urine Blood 1+ /uL (Negative); Urine Clarity Clear (Clear); Urine Color Light-Yellow (Yellow); Urine Protein, UAD TRACE (Negative); Urine Specific Gravity 1.011 (1.001-1.035); Urine Squamous Epithelial Cell None Seen /hpf (<5); Urine Urobilinogen Normal (Negative); Urine WBC 3 /HPF (0-3)
[2024-06-23 10:52] LABS: Amphetamine Screen, Urine Neg (NEGATIVE); Barbiturate Scree,Urine Neg (NEGATIVE); Benzodiazephine Screen, Urine Neg (NEGATIVE); Cannabinoid Screen, Urine Neg (NEGATIVE); Cocaine Screen, Urine Neg (NEGATIVE); Opiate Scree,Urine Neg (NEGATIVE); Phencyclidine Screen, Urine Neg (NEGATIVE)
--- NOTE | 2024-06-23 17:32 | DVHPNRES ---
Progress Note Date Seen: Jun 23, 2024 Resident Creating Document: COLETTE SOLOMON RESIDENT Medical Necessity Reason Pt with a Central, PICC or Fol: Yes Subjective Review of Systems Patient was seen and examined on the bedside. He is alert oriented x2 and on 2L oxygen with saturation 97%. No active complaint Objective vital signs Vital Sign Date Time Temp Pulse Resp B/P (MAP) Pulse Ox O2 Delivery O2 Flow Rate FiO2 06/23/24 17:00 97.9 60 16 146/73 (97) 98 97.9 06/23/24 08:00 Nasal Cannula* 2 28 Total Intake and Output 06/22/24 06/22/24 06/23/24 15:00 23:00 07:00 Intake Total 1013 ml 720 ml Output Total 550 ml Balance 1013 ml 170 ml medications Current Medications Medications Dose Ordered Sig/Jose Route Start Time Stop Time Status Last Admin Dose Admin Doxycycline Hyclate 100 ml @ 50 mls/hr Q12H IV 06/22/24 04:45 06/23/24 17:04 50 MLS/HR Sucralfate 1 gm QID@0600,1130,1700,2200 PO 06/22/24 06:00 06/23/24 17:03 1 GM Piperacillin Sod/ Tazobactam Sod 100 ml @ 25 mls/hr Q6HR IV 06/22/24 12:00 06/23/24 12:06 25 MLS/HR Pantoprazole Sodium 40 mg BID IV 06/22/24 07:45 06/23/24 09:35 40 MG Benztropine Mesylate 0.5 mg DAILY PO 06/23/24 10:00 06/23/24 09:35 0.5 MG Chlorpromazine HCl 50 mg BID PO 06/22/24 22:00 Docusate Sodium 100 mg BID PO 06/22/24 22:00 06/23/24 09:33 100 MG Donepezil HCl 5 mg DAILY PO 06/23/24 10:00 Furosemide 20 mg DAILY PO 06/23/24 10:00 06/23/24 09:37 20 MG Levothyroxine Sodium 50 mcg DAILY PO 06/23/24 10:00 06/23/24 09:35 50 MCG Risperidone 1 mg QPM PO 06/22/24 18:00 06/22/24 18:24 1 MG Sennosides 8.6 mg QHSP PRN PO 06/22/24 12:00 Tamsulosin HCl 0.4 mg DAILY PO 06/23/24 10:00 06/23/24 09:33 0.4 MG Zolpidem Tartrate 5 mg QPM PO 06/22/24 18:00 06/22/24 18:24 5 MG Examination Physical examination: General Appearance: Alert, Oriented X3, Cooperative, No acute distress HEENT: Atraumatic, PERRLA, EOMI, Mucous membrane moist/pink Respiratory: Bilateral fine crackles. Cardiovascular: Regular rate, Normal S1, Normal S2, No murmurs, no chest wall tenderness Abdominal: Normal bowel sounds, Soft, No tenderness, No hepatospenomegaly, No masses Extremities: No clubbing, No cyanosis, No edema, Normal pulses, No tenderness/swelling Skin: No rashes, No breakdown, No significant lesion Neuro: Normal speech, Strength at 5/5 X4 ext, Normal tone, Sensation intact, grossly intact cranial nerves Psych/Mental Status: Mental status NL, Mood NL laboratory and microbiology Laboratory Tests 06/23/24 04:36 Test 06/23/24 04:36 Range/Units Serum Glucose 85 74-106 mg/dL Microbiology Date/Time Source Procedure Growth Status 06/22/24 03:05 Blood Blood Culture - Preliminary NO GROWTH AFTER 24 HOURS OF INCUBATION. Resulted Labs and/or images reviewed: Labs reviewed by me, Image(s) reviewed by me Problem List/Assessment/Plan Problem List/Assessment/Plan Assessment and plan: # Sepsis due to possible aspiration pneumonia # Acute on chronic hypoxic- hypercapnic respiratory failure due to possible aspiration pneumonia # Chronic diastolic heart failure - On admission patient was presented with tachycardia, tachypnea, elevated temperature, hypotension and elevated lactic acid - CT abdomen pelvis demonstrated diffuse pneumonia mostly on the left side, moderate hiatal hernia with esophageal wall thickening and large amount of intracolonic stool - chest x-ray showed new patchy airspace opacities and interstitial opacities in the left lung. - Echo on 06/14/24 demonstrated EF 60% with normal RV function - Patient was given 2.5 L IV NS bolus followed by IV normal saline 1L at 150 mL/hours - IV cefepime 1 gm bid and IV doxycycline 100 mg b.i.d. - Blood culture showed no growth in 24 hours of incubation and U/A was normal - Pending urine C/ S and sputum C/S - Lasix 20 mg p.o. daily # Possible upper GI bleeding likely due to erosive esophagitis # Acute on chronic normocytic anemia likely due to upper GI bleed - EGD on 05/24/24 demonstrated 5 cm sliding-type hiatal hernia with acute grade C erosive esophagitis with distal esophageal ulcer and circumferential ulceration at the GE junction and minimal gastroduodenitis. - Pending FOBT - IV Protonix 40 mg b.i.d. - Carafate suspension p.o. 1 g q.i.d. - GI mentioned monitor H&H and recommended EGD if hemoglobin drops abruptly. - Monitor H/H # History of chronic COPD - Med neb with albuterol and ipratropium q.6 p.r.n. # History of schizophrenia - Continue medications # Chronic hypothyroidism - Coninue levothyroxine 50 mcg at q.a.m. daily # BPH - continue Flomax 0.4 mg daily PUD prophylaxis: On protonix DVT prophylaxis: Hold due to the possibility of the bleeding Code status : code Plan discussed with Dr. Huynh Plan discussed with: Patient, Other My Orders My Orders Orders - COLETTE SOLOMON Procedure Category Date Status Time Mrsa Screen TAMERA 06/23/24 Uncollected 06:54 Date of Service: Jun 23, 2024 Billing Provider: ERYN CAMPOS MD Common Visit Codes: [id number] INP/OBS CARE(HIGH) COLETTE SOLOOMN Jun 23, 2024 17:32 ERYN CAMPOS MD Jun 25, 2024 23:59
[2024-06-24] VITALS (8 sets, daily range): BP systolic 117–154; BP diastolic 70–84; PULSE 60–75; RESP 16–19; TEMP 97.4–97.8; O2SAT 97–99
[2024-06-24 07:06] LABS: Basophils # (auto) 0 10 ^3/uL (0-0.2); Eosinophils # (auto) 0.2 10 ^3/uL (0-0.8); Hemoglobin 10.7 g/dL (13.5-17.5); Monocytes # (auto) 0.7 10 ^3/uL (0-1.3)
[2024-06-24 07:08] LABS: Basophils % (auto) 0.2 % (0.0-2.0); Eosinophils % (auto) 1.9 % (0.0-7.0); Hematocrit 33.6 % (41.0-53.0); Lymphocytes # (auto) 0.9 10 ^3/uL (0.4-5.4); Lymphocytes % (auto) 7.5 % (10.0-50.0); Mean Corpuscular Hemoglobin 26.5 pg (28.0-32.0); Mean Corpuscular Hgb Conc. 31.8 g/dL (32.0-36.0); Mean Corpuscular Volume 83.4 fL (80.0-100.0); Monocytes % (auto) 5.7 % (0.0-12.0); Neutrophils # (auto) 10.4 10 ^3/uL (1.6-8.6); Neutrophils % (auto) 84.7 % (37.0-80.0); Platelet Count (auto) 275 10^3/uL (140-450); Red Blood Cells 4.03 10^6/uL (4.5-5.90); White Blood Cell 12.2 10^3/uL (4.4-10.8)
--- NOTE | 2024-06-24 15:55 | DVHPN2 ---
Progress Note - Dictate Date Seen: Jun 24, 2024 Medical Necessity Reason Pt with a Central, PICC or Fol: Yes Subjective Patient has got some aspiration pneumonia has an nausea anorexia cough vital signs Vital Sign Date Time Temp Pulse Resp B/P (MAP) Pulse Ox O2 Delivery O2 Flow Rate FiO2 06/24/24 13:00 97.5 60 17 154/75 (101) 99 97.5 06/24/24 08:00 Nasal Cannula* 2 28 Total Intake and Output 06/23/24 06/23/24 06/24/24 15:00 23:00 07:00 Intake Total 680 ml 340 ml 1275 ml Output Total 600 ml 650 ml Balance 680 ml -260 ml 625 ml medications Current Medications Medications Dose Ordered Sig/Jose Route Start Time Stop Time Status Last Admin Dose Admin Doxycycline Hyclate 100 ml @ 50 mls/hr Q12H IV 06/22/24 04:45 06/24/24 05:21 50 MLS/HR Sucralfate 1 gm QID@0600,1130,1700,2200 PO 06/22/24 06:00 06/24/24 12:35 1 GM Piperacillin Sod/ Tazobactam Sod 100 ml @ 25 mls/hr Q6HR IV 06/22/24 12:00 06/24/24 12:36 25 MLS/HR Pantoprazole Sodium 40 mg BID IV 06/22/24 07:45 06/24/24 10:46 40 MG Benztropine Mesylate 0.5 mg DAILY PO 06/23/24 10:00 06/24/24 10:46 0.5 MG Chlorpromazine HCl 50 mg BID PO 06/22/24 22:00 06/24/24 10:48 50 MG Docusate Sodium 100 mg BID PO 06/22/24 22:00 06/24/24 10:47 100 MG Donepezil HCl 5 mg DAILY PO 06/23/24 10:00 06/24/24 10:46 5 MG Furosemide 20 mg DAILY PO 06/23/24 10:00 06/24/24 10:49 20 MG Levothyroxine Sodium 50 mcg DAILY PO 06/23/24 10:00 06/24/24 10:47 50 MCG Risperidone 1 mg QPM PO 06/22/24 18:00 06/23/24 18:53 1 MG Sennosides 8.6 mg QHSP PRN PO 06/22/24 12:00 Tamsulosin HCl 0.4 mg DAILY PO 06/23/24 10:00 06/24/24 10:47 0.4 MG Zolpidem Tartrate 5 mg QPM PO 06/22/24 18:00 06/23/24 18:52 5 MG objective Abdomen is soft nontender chest x-ray had shown some infiltrates probably from aspiration laboratory and microbiology Laboratory Tests 06/24/24 06:13 06/23/24 04:36 Test 06/23/24 04:36 Range/Units Serum Glucose 85 74-106 mg/dL Assessment/Plan 59-year-old male with the complaints of nausea vomiting and some hematemesis and with a hemoglobin of 10.5 abdomen is soft nontender. Patient has got history of schizophrenia not able to get much detailed history And had EGD done in May which showed that patient had esophageal ulcer and esophagitis Clinical impression possible esophagitis with esophageal ulcer with bleeding Patient continues to have problems with aspiration as well as nausea vomiting and GI symptoms with regurgitation etc. may have to evaluate again endoscopically to ensure the esophageal ulcers are healed and there is no strictures or other pathology We will wait until the pneumonia has cleared for further intervention at this time Thank you Dr. Forman Plan discussed with: Patient JESSY FORMAN MD Jun 24, 2024 15:55
[2024-06-24] MEDS ORDERED: AUG875T PO (16:55)
--- NOTE | 2024-06-24 17:03 | DVHDSRES ---
Discharge Summary Date of Admission Resident Creating Document: COLETTE SOLOMON RESIDENT Jun 22, 2024 at 04:27 Date of Discharge: Jun 25, 2024 Admitting Diagnosis Hematemesis Labs/Diagnostic Data: Laboratory Results Test 06/24/24 06:13 06/23/24 19:40 06/23/24 10:15 06/23/24 06:58 White Blood Count 12.2 10^3/uL (4.4-10.8) Red Blood Count 4.03 10^6/uL (4.5-5.90) Hemoglobin 10.7 g/dL (13.5-17.5) Hematocrit 33.6 % (41.0-53.0) Mean Corpuscular Volume 83.4 fL (80.0-100.0) Mean Corpuscular Hemoglobin 26.5 pg (28.0-32.0) Mean Corpuscular Hemoglobin Concent 31.8 g/dL (32.0-36.0) Red Cell Distribution Width 18.0 % (11.8-14.3) Platelet Count 275 10^3/uL (140-450) Mean Platelet Volume 7.8 fL (6.9-10.8) Neutrophils (%) (Auto) 84.7 % (37.0-80.0) Lymphocytes (%) (Auto) 7.5 % (10.0-50.0) Monocytes (%) (Auto) 5.7 % (0.0-12.0) Eosinophils (%) (Auto) 1.9 % (0.0-7.0) Basophils (%) (Auto) 0.2 % (0.0-2.0) Neutrophils # (Auto) 10.4 10 ^3/uL (1.6-8.6) Lymphocytes # (Auto) 0.9 10 ^3/uL (0.4-5.4) Monocytes # (Auto) 0.7 10 ^3/uL (0-1.3) Eosinophils # (Auto) 0.2 10 ^3/uL (0-0.8) Basophils # (Auto) 0 10 ^3/uL (0-0.2) Nucleated Red Blood Cells 0.0 % Stool Occult Blood Negative (Negative) Stool Occult Blood Sample #3 (Negative) Urine Color Light-yellow (Yellow) Urine Clarity Clear (Clear) Urine pH 7.0 (5.0-9.0) Urine Specific [place] 1.011 (1.001-1.035) Urine Protein Trace (Negative) Urine Ketones Negative (Negative) Urine Blood 1+ /uL (Negative) Urine Nitrite Negative (Negative) Urine Bilirubin Negative (Negative) Urine Urobilinogen Normal mg/dL (Negative) Urine Leukocyte Esterase Negative /uL (Negative) Urine RBC 33 /hpf (0 - 3) Urine Microscopic WBC 3 /HPF (0-3) Urine Squamous Epithelial Cells None seen /hpf (<5) Urine Bacteria None seen /hpf (None Seen) Urine Glucose Normal mg/dL (Normal) Urine Opiates Screen Neg (NEGATIVE) Urine Fentanyl Screen Neg (NEGATIVE) Urine Barbiturates Screen Neg (NEGATIVE) Urine Phencyclidine Screen Neg (NEGATIVE) Urine Amphetamines Screen Neg (NEGATIVE) Urine Benzodiazepines Screen Neg (NEGATIVE) Urine Cocaine Screen Neg (NEGATIVE) Urine Cannabinoids Screen Neg (NEGATIVE) Lactic Acid Level 0.6 mmol/L (0.4-2.0) Test 06/23/24 04:36 06/22/24 04:41 06/22/24 02:04 06/22/24 00:55 Sodium Level 140 mmol/L (136-145) Potassium Level 4.0 mmol/L (3.5-5.1) Chloride Level 101 mmol/L (98-107) Carbon Dioxide Level 35 mmol/L (20-31) Anion Gap 4 (5-15) Blood Urea Nitrogen 9 mg/dL (9-23) Creatinine 0.73 mg/dL (0.700-1.30) Glomerular Filtration Rate Calc 106 mL/min (>90) BUN/Creatinine Ratio 12.3 (10.0-20.0) Serum Glucose 85 mg/dL (74-106) Calcium Level 9.1 mg/dL (8.7-10.4) Total Bilirubin 0.5 mg/dL (0.2-1.0) Aspartate Amino Transferase (AST) 17 U/L (13-40) Alanine Aminotransferase (ALT) 30 U/L (7-40) Alkaline Phosphatase 77 U/L (46-116) Total Protein 5.9 g/dL (5.7-8.2) Albumin 3.4 g/dL (3.2-4.8) Iron Level 59 ug/dL (65-175) Total Iron Binding Capacity 284 ug/dL (250-425) Percent Iron Saturation 20.8 % (20-55) Ferritin 204.4 ng/mL (22-322) B-Type Natriuretic Peptide 13.23 pg/mL (0-100) Plasma/Serum Blood Alcohol < 3.0 mg/dL (<10) Blood Gas Specimen Type Arterial Blood Gas Sample Site Left radial Blood Gas Patient Temperature 37.0 Arterial Blood Date Drawn [id number] Arterial Blood pH 7.468 (7.350-7.450) Arterial Blood Partial Pressure CO2 51.2 mmHg (35.0-48.0) Arterial Blood Partial Pressure O2 51.3 mmHg (83.0-108.0) Arterial Blood HCO3 36.3 mmol/L (21.0-28.0) Arterial Blood Oxygen Saturation 85.0 % (94.0-98.0) Arterial Blood Base Excess 11.0 mmol/L (-2.0-3.0) Arterial Blood Oxyhemoglobin 84.1 % (94.0-98.0) Arterial Blood Carboxyhemoglobin 0.5 % (0.5-1.5) Arterial Blood Methemoglobin 0.6 % (0.0-1.5) Richard Test Modified Blood Gas Total Hemoglobin 11.00 g/dL (13.5-17.5) Blood Gas Liter Flow 2.00 Blood Gas Modality Nasal cannula FiO2 % 28.0 Blood Gas Critical Value Read Back Yes Blood Gas Notified Whom guillermo Ruff md Blood Gas Notified Time [id number] Blood Gas Notified By reuben Martinez rrt Prothrombin Time 11.7 sec (9.3-11.8) Prothrombin Time INR 1.12 (0.9-1.15) Other Laboratory Tests 06/24/24 06:13 06/23/24 04:36 Brief Hx & Hospital Course: This is a 59 year old male Past medical history of COPD, CHF, hypertension, schizophrenia brought in by EMS with a chief complaint of nausea and vomiting onset 1 day. Patient has a history of schizophrenia and incoherent. Notes taken from EMS report. Per EMS, patient lives in a boarding facility. EMS states that the patient woke up experiencing, abdominal pains, nausea/vomiting. Vomitus described as coffee ground, hypotensive with BP was 90/50. He initially received 300ml and later 700ml on route to the ED. Vitals measured in the ED and blood work showed very septic patient. Patient started on Zosyn and doxycycline. Of note, patient was recently managed for aspiration pneumonia and discharged from here 2 days ago (06/20/24). He was also was admitted in May, with GI bleed. EGD then showed esophageal ulcers and esophagitis. Patient was admitted due for the evaluation of hematemesis. EGD on 05/24/24 demonstrated 5 cm sliding-type hiatal hernia with acute grade C erosive esophagitis with distal esophageal ulcer and circumferential ulceration at the GE junction and minimal gastroduodenitis. Patient was given Protonix, Carafate. GI method consultant evaluated the patient and advised endoscopy to ensure esophageal ulcers are healed and there is no strictures or other pathology once patient is cleared from pneumonia. Patient is diagnosis sepsis due to pneumonia and he was in respiratory failure due to pneumonia. On admission patient was presented with tachycardia, tachypnea, elevated temperature, hypotension and elevated lactic acid. CT abdomen pelvis demonstrated diffuse pneumonia mostly on the left side, moderate hiatal hernia with esophageal wall thickening and large amount of intracolonic stool. chest x-ray showed new patchy airspace opacities and interstitial opacities in the left lung. Echo on 06/14/24 demonstrated EF 60% with normal RV function. Patient was given 2.5 L IV NS bolus followed by IV normal saline 1L at 150 mL/hours , IV Zosyn 3.375 mg q.6 hours IV doxycycline 100 mg b.i.d.Lasix 20 mg p.o. daily ordered blood culture, U/A, urine C/ S and sputum C/S. Patient condition was improving and in condition to discharge home with Augmentin and advised to follow up with PCP and GI method consultant within 1 week. General Appearance: Alert, Oriented X3, Cooperative, mild distress HEENT: Atraumatic, PERRLA, EOMI, Mucous membrane moist/pink Respiratory: Bilateral basal crackles. Cardiovascular: Regular rate, Normal S1, Normal S2, No murmurs, no chest wall tenderness Abdominal: Normal bowel sounds, Soft, No tenderness, No hepatospenomegaly, No masses Extremities: No clubbing, No cyanosis, No edema, Normal pulses, No tenderness/swelling Skin: No rashes, No breakdown, No significant lesion Neuro: Normal speech, Strength at 5/5 X4 ext, Normal tone, Sensation intact, grossly intact cranial nerves. Psych/Mental Status: Mental status NL, Mood NL Operations or Procedures - CT abdomen pelvis demonstrated diffuse pneumonia mostly on the left side, moderate hiatal hernia with esophageal wall thickening and large amount of intracolonic stool - chest x-ray showed new patchy airspace opacities and interstitial opacities in the left lung. Condition at Discharge: Stable Final Diagnosis/Problems List # Possible upper GI bleeding likely due to erosive esophagitis # Hemetemisis # Acute on chronic normocytic anemia likely due to upper GI bleed # Sepsis due to possible aspiration pneumonia # Acute on chronic hypoxic- hypercapnic respiratory failure due to possible aspiration pneumonia # Chronic diastolic heart failure # History of chronic COPD # History of schizophrenia # Chronic hypothyroidism # BPH Discharge Disposition: Assisted Living Facility Discharge Instruct/Medications Diet: Consistent carbohydrate, Cardiac 2g Na,low cholest, Renal Activity: No Restrictions, As Tolerated Follow Up/Referral: GI within 1 week for endoscopy PCP Medications: Augmentin for 1 week Discharge Statement: "Patient was advised to return to the ER or call 911 if any headaches, dizziness, shortness of breath, chest pain, abdominal pain, bleeding, fevers, or worsening of medical condition. Patient was counseled about treatment plan, medications, possible side effects, patientverbalized understanding. All questions were answered to the best of my ability. This discharge took greater then 30 minutes in planning, reviewing documentation, counseling the patient, and discussing with other team members." ASSESSMENT ASSESSMENT Assessment Hematemesis Date of Service: Jun 24, 2024 Billing Provider: VERENA EMERSON MD Common Visit Codes: 67535-LSI/OBS DISCH DAY >30min JAMAR RUBIN RESIDENT Jun 24, 2024 17:03 VERENA EMERSON MD Jun 25, 2024 11:25 COLETTE SOLOMON RESIDENT Jun 25, 2024 15:04
[2024-06-25 01:00] VITALS: BP 123/82; PULSE 70; RESP 19; TEMP 98.8; O2SAT 99
[2024-06-25 05:00] VITALS: BP 128/77; PULSE 72; RESP 18; TEMP 98.7; O2SAT 97
[2024-06-25 08:00] VITALS: PULSE 104; RESP 19; O2SAT 96
[2024-06-25] MEDS: PIPERACILLIN-TAZOB 3.375GM 100 ML IV SCH (08:00)
[2024-06-25 09:00] VITALS: BP 140/88; PULSE 65; RESP 16; TEMP 97.1; O2SAT 100
--- NOTE | 2024-06-25 11:52 | DVHPNRES ---
Progress Note Date Seen: Jun 25, 2024 Resident Creating Document: COLETTE SOLOMON RESIDENT Medical Necessity Reason Pt with a Central, PICC or Fol: Yes Subjective Review of Systems Patient was seen and examined on the bedside. He is alert, oriented x3 and on 2 L oxygen saturation 97%. Discharged yesterday but was staying in the hospital for transfer to boarding care facility due to transportation issues. Objective vital signs Vital Sign Date Time Temp Pulse Resp B/P (MAP) Pulse Ox O2 Delivery O2 Flow Rate FiO2 06/25/24 09:00 97.1 65 16 140/88 (105) 100 97.1 06/25/24 08:00 Nasal Cannula* 2 28 Total Intake and Output 06/24/24 06/24/24 06/25/24 15:00 23:00 07:00 Intake Total 2285 ml 650 ml Output Total 1815 ml Balance 470 ml 650 ml medications Current Medications Medications Dose Ordered Sig/Jose Route Start Time Stop Time Status Last Admin Dose Admin Doxycycline Hyclate 100 ml @ 50 mls/hr Q12H IV 06/22/24 04:45 06/25/24 05:20 50 MLS/HR Sucralfate 1 gm QID@0600,1130,1700,2200 PO 06/22/24 06:00 06/25/24 05:32 1 GM Pantoprazole Sodium 40 mg BID IV 06/22/24 07:45 06/25/24 08:35 40 MG Benztropine Mesylate 0.5 mg DAILY PO 06/23/24 10:00 06/25/24 08:34 0.5 MG Chlorpromazine HCl 50 mg BID PO 06/22/24 22:00 06/25/24 08:40 50 MG Docusate Sodium 100 mg BID PO 06/22/24 22:00 06/25/24 08:42 100 MG Donepezil HCl 5 mg DAILY PO 06/23/24 10:00 06/25/24 08:38 5 MG Furosemide 20 mg DAILY PO 06/23/24 10:00 06/25/24 08:39 20 MG Levothyroxine Sodium 50 mcg DAILY PO 06/23/24 10:00 06/25/24 08:34 50 MCG Risperidone 1 mg QPM PO 06/22/24 18:00 06/24/24 17:25 1 MG Sennosides 8.6 mg QHSP PRN PO 06/22/24 12:00 Tamsulosin HCl 0.4 mg DAILY PO 06/23/24 10:00 06/25/24 08:35 0.4 MG Zolpidem Tartrate 5 mg QPM PO 06/22/24 18:00 06/24/24 17:25 5 MG Piperacillin Sod/ Tazobactam Sod 100 ml @ 25 mls/hr Q6H IV 06/25/24 08:00 Examination Physical examination: General Appearance: Alert, Oriented X2, noncoherent. HEENT: Atraumatic, PERRLA, EOMI, Mucous membrane moist/pink Respiratory: Clear to auscultation, Normal air movement Cardiovascular: Regular rate, Normal S1, Normal S2, No murmurs, no chest wall tenderness Abdominal: Normal bowel sounds, Soft, No tenderness, No hepatospenomegaly, No masses Extremities: No clubbing, No cyanosis, No edema, Normal pulses, No tenderness/swelling Skin: No rashes, No breakdown, No significant lesion Neuro: Normal gait, Normal speech, Strength at 5/5 X4 ext, Normal tone, Sensation intact, grossly intact cranial nerves Psych/Mental Status: Mental status NL, Mood NL laboratory and microbiology Laboratory Tests 06/24/24 06:13 06/23/24 04:36 Test 06/23/24 04:36 Range/Units Serum Glucose 85 74-106 mg/dL Microbiology Date/Time Source Procedure Growth Status 06/23/24 10:15 Voided Urine Urine Culture - Preliminary Resulted 06/23/24 10:15 Sputum Gram Stain - Final Resulted 06/23/24 10:15 Sputum Respiratory Culture - Preliminary Resulted 06/23/24 09:50 Nose MRSA Screen - Final Complete 06/22/24 03:05 Blood Blood Culture - Preliminary NO GROWTH AFTER 72 HOURS OF INCUBATION. Resulted Labs and/or images reviewed: Labs reviewed by me, Image(s) reviewed by me Problem List/Assessment/Plan Problem List/Assessment/Plan Assessment and plan: # Possible upper GI bleeding likely due to erosive esophagitis # Acute on chronic normocytic anemia likely due to upper GI bleed - EGD on 05/24/24 demonstrated 5 cm sliding-type hiatal hernia with acute grade C erosive esophagitis with distal esophageal ulcer and circumferential ulceration at the GE junction and minimal gastroduodenitis. - FOBT negative - IV Protonix 40 mg b.i.d. - Carafate suspension p.o. 1 g q.i.d. - H/H is stable and GI recommended outpatient follow up. # Sepsis due to possible aspiration pneumonia # Acute on chronic hypoxic- hypercapnic respiratory failure due to possible aspiration pneumonia # Chronic diastolic heart failure - On admission patient was presented with tachycardia, tachypnea, elevated temperature, hypotension and elevated lactic acid - CT abdomen pelvis demonstrated diffuse pneumonia mostly on the left side, moderate hiatal hernia with esophageal wall thickening and large amount of intracolonic stool - chest x-ray showed new patchy airspace opacities and interstitial opacities in the left lung. - Echo on 06/14/24 demonstrated EF 60% with normal RV function - Patient was given 2.5 L IV NS bolus followed by IV normal saline 1L at 150 mL/hours - IV cefepime 1 gm bid and IV doxycycline 100 mg b.i.d. - Blood culture showed no growth in 24 hours of incubation and U/A was normal - Urine and sputum C/s were negative. - Lasix 20 mg p.o. daily # History of chronic COPD - Med neb with albuterol and ipratropium q.6 p.r.n. # History of schizophrenia - Continue medications # Chronic hypothyroidism - Coninue levothyroxine 50 mcg at q.a.m. daily # BPH - continue Flomax 0.4 mg daily PUD prophylaxis: On protonix DVT prophylaxis: Hold due to the possibility of the bleeding Code status : Full code Plan discussed with Dr. Goldstein Plan discussed with: Patient, Other Dietary Evaluation Review Recommendations by RD: Protein Supplementation Comments: 1) Initiate Ensure clear qd 2) Advance to cardiac diet when medically feasible, pending [employer] approavl 3) Continue to encourage optimal PO intake 4) F/u with pharmaceutical sales Expected Outcomes/Goals: 1) appetite and labs to improve 2) diet to advance 3) F/u in 3 days Date of Service: Jun 25, 2024 Billing Provider: VERENA GOLDSTEIN MD Common Visit Codes: 63892-[id number] INP/OBS CARE(MOD) JUANITOCOLETTE RESIDENT Jun 25, 2024 11:52 VERENA GOLDSTEIN MD Jun 25, 2024 15:00
[2024-06-25 12:06] VITALS: BP 140/58
[2024-06-25 13:00] VITALS: BP 143/71; PULSE 81; RESP 17; TEMP 98.1; O2SAT 97
== END 2024-06-25 16:30 | disposition home or self-care (01) | DRG 871 ==
LOC: EDSEX 23:28 → EDBD 23:28 → ER 23:28 → OVERFLOW 06-22 04:27 → WEST WING 06-22 17:26
PROVIDERS: ADMIT Internal Medicine; ATTEND Emergency Medicine
DX: A41.9 Sepsis, unspecified organism (principal); J69.0 Pneumonitis due to inhalation of food and vomit; J96.21 Acute and chronic respiratory failure with hypoxia; R65.21 Severe sepsis with septic shock; J96.22 Acute and chronic respiratory failure with hypercapnia; K22.11 Ulcer of esophagus with bleeding; E87.4 Mixed disorder of acid-base balance; I50.32 Chronic diastolic (congestive) heart failure; I11.0 Hypertensive heart disease with heart failure; E03.8 Other specified hypothyroidism; D50.0 Iron deficiency anemia secondary to blood loss (chronic); N40.0 Benign prostatic hyperplasia without lower urinary tract symptoms; F20.9 Schizophrenia, unspecified; J44.9 Chronic obstructive pulmonary disease, unspecified; K21.9 Gastro-esophageal reflux disease without esophagitis; Z88.5 Allergy status to narcotic agent; Z91.09 Other allergy status, other than to drugs and biological substances; Z79.899 Other long term (current) drug therapy; Z79.2 Long term (current) use of antibiotics; Z87.19 Personal history of other diseases of the digestive system
CPT/HCPCS: 36415; 36600; 71045; 74177; 80048; 80053; 80307; 80320; 81001; 82270; 82728; 82805; 83540; 83550; 83605; 83880; 85025; 85610; 87040; 87070; 87081; 87086; 87205; G0378; J2470; J2543; Q0161

== ENCOUNTER 2024-06-27 12:20 | Emergency (ER) | payer MEDICARE, MEDICAID ==
[~2024-06-27] VITALS: Ht 157.5 cm; Wt 62.7 kg
[~2024-06-27 12:20] MED LIST changes: +AUG875T PO
[2024-06-27 12:39] VITALS: BP 140/65; PULSE 78; RESP 18; TEMP 98.4; O2SAT 95
--- NOTE | 2024-06-27 12:39 | ED.PDOC ---
History of Present Illness HPI Comments 57 y/o M, BIBA with PMHX of COPD, hypothyroidism , and anemia presents to the ED for CC of nose bleeding. EMS states, patient is coming from a boarding care where he has been experiencing reoccurring nose bleeds x2days with an uncontrollable nose bleed since 1110 this morning (06/27/24). EMS relays, that patient was seen at [facility] on 07/05/24 for unrelated symptoms. Patient is currently on Eliquis. Patient denies trauma, headache, fatigue, weakness or dizziness. No other symptoms or modifying factors at this time. Chief Complaint: Nose Bleed Time Seen by MD: 12:25 Primary Care Provider: GOVIND Reviewed Notes: Nurses Notes, Hvac Sheet Metal Installer Notes, Medications, Allergies Allergies: Coded Allergies: Morphine (Verified Allergy, Unknown, 05/20/24) Pollen Extract (Verified Allergy, Unknown, 05/20/24) Home Meds Active Scripts Amoxicillin & Pot Clavulanate (AUGMENTIN TABLET) 875 Mg Tb, 875 MG PO BID PRN for 7 Days, #14 TAB Prov:JAMAR RUBIN RESIDENT 06/24/24 Tamsulosin Hcl (Flomax) 0.4 Mg Cap, 0.4 MG PO DAILY for 30 Days, #30 CAP 4 Refills Prov:LEONELA RABAGO DO 05/25/24 Reported Medications Zolpidem Tartrate (Zolpidem Tartrate) 5 Mg Tab, 1 TAB PO QPM for FOR INSOMNIA, #30 TAB 2 Refills 05/22/24 Cholecalciferol (VITAMIN D3) 2,000 Unit Tab, 2000 UNIT PO DAILY, TAB 05/22/24 Ascorbic Acid (VITAMIN C TABLET) 500 Mg Tb, 500 MG PO DAILY for FOR SUPPLEMENT, TAB 05/22/24 Sucralfate (Sucralfate) 1 Gm Tab, 1 GM PO, GM 05/22/24 Risperidone (RisperDAL TABLET) 1 Mg Tb, 1 TAB PO QPM, #30 TAB 1 Refill 05/22/24 Olanzapine (OLANZAPINE) 10 Mg Tab, 10 MG PO DAILY for 30 Days, MG 05/22/24 Metoprolol Succinate (Metoprolol Succinate Er) 25 Mg Tab, 25 MG PO DAILY for 30 Days, MG 05/22/24 Lisinopril (Lisinopril) 2.5 Mg Tab, 2.5 MG PO DAILY for 30 Days, MG 05/22/24 Donepezil Hydrochloride (DONEPEZIL HCL) 5 Mg Tab, 5 MG PO DAILY for 30 Days, MG 05/22/24 Furosemide (Furosemide) 20 Mg Tab, 20 MG PO DAILY for 30 Days, MG 05/22/24 Cholecalciferol (VITAMIN D3) 2,000 Unit Tab, 1 CAP PO DAILY 08/25/22 Docusate Sodium (Docusate Sodium) 100 Mg Cap, 1 CAP PO DAILY 08/25/22 Pantoprazole Sodium Sesquihydr (Pantoprazole Sodium) 40 Mg Tab, 1 TAB PO BID 08/25/22 Quetiapine Fumerate (QUETIAPINE FUMARATE) 50 Mg Tab, 1 TAB PO 08/25/22 Ondansetron (Zofran) 4 Mg Tab, 8 MG PO, TAB 08/24/22 Trazodone Hcl (Trazodone Hcl) 150 Mg Tab, 150 MG PO DAILY, MG 08/24/22 Senna (Senna Lax) 8.6 Mg Tab, 8.6 MG PO QHSP PRN for FOR CONSTIPATION, MG 08/24/22 Risperidone (Risperidone) 3 Mg Tab, 3 MG PO BID, TAB 08/24/22 Docusate Sodium (Docusate Sodium) 100 Mg Tab, 100 MG PO DAILYP PRN for FOR CONSTIPATION, MG 08/24/22 Chlorpromazine Hcl (Chlorpromazine Hcl) 25 Mg Tab, 50 MG PO BID, MG 08/24/22 Benztropine Mesylate (Benztropine Mesylate) 0.5 Mg Tab, 0.5 MG PO DAILY, MG 08/24/22 Risperidone (Risperidone) 3 Mg Tab, 1 TAB PO BID 08/24/22 Levothyroxine Sodium (Levothyroxine Sodium) 50 Mcg Tab, 1 TAB PO DAILY 08/24/22 Discontinued Reported Medications Lorazepam (Lorazepam) 1 Mg Tab, 1 TAB PO BID, #60 TAB 05/22/24 Tamsulosin Hcl (Tamsulosin Hcl) 0.4 Mg Cap, 1 CAP PO DAILY 08/25/22 Lorazepam (Lorazepam) 2 Mg Tab, 2 MG PO TID, TAB 08/24/22 Pantoprazole Sodium Sesquihydr (Protonix) 40 Mg Tab, 40 MG PO BID, #30 TAB 08/24/22 Discontinued Scripts Azithromycin (Azithromycin) 250 Mg Tab, 250 MG PO DAILY MDD 500 for 5 Days, #6 TAB 0 Refills 2 TABLETS ORALLY ON DAY ONE, THEN 1 TABLET ORALLY DAILY FOR 4 DAYS Prov:LEONELA RABAGO DO 05/25/24 Sucralfate (Sucralfate) 1 Gm Tab, 1 GM PO TIDAC for 30 Days, #90 TAB 4 Refills Prov:LEONELA RABAGO DO 05/25/24 Pantoprazole Sodium Sesquihydr (Pantoprazole Sodium) 40 Mg Tab, 40 MG PO BID for 30 Days, #60 TAB 4 Refills Prov:LEONELA RABAGO DO 05/25/24 Information Source: Patient, Emergency Med Personnel Mode of Arrival: EMS Severity: Moderate Timing: Days Duration: Since onset Prehospital treatment: None Past Medical History PAST MEDICAL HISTORY: CHF, COPD, GERD, HTN, Schizophrenia, Thyroid Surgical History: Pacemaker Family History Family History: Reviewed,noncontributory to illness Social History Smoker: Non-Smoker Alcohol: Denies ETOH Use Drugs: Denies Drug Use Lives In: Assisted Care Constitutional: denies: chills, diaphoresis, fatigue, fever, malaise, sweats, weakness, others EENTM: reports: nose bleeding; denies: blurred vision, double vision, ear bleeding, ear discharge, ear drainage, ear pain, ear ringing, eye pain, eye redness, hearing loss, mouth pain, mouth swelling, nasal discharge, nose congestion, nose pain, photophobia, tearing, throat pain, throat swelling, voice changes, others Respiratory: denies: cough, hemoptysis, orthopnea, SOB at rest, shortness of breath, SOB with excertion, stridor, wheezing, others Cardiovascular: denies: chest pain, dizzy spells, diaphoresis, Dyspnea on exertion, edema, irregular heart beat, left arm pain, lightheadedness, palpitations, PND, syncope, others Gastrointestinal: denies: abdomen distended, abdominal pain, blood streaked bowels, constipated, diarrhea, dysphagia, difficulty swallowing, hematemesis, melena, nausea, poor appetite, poor fluid intake, rectal bleeding, rectal pain, vomiting, others Genitourinary: denies: burning, dysuria, flank pain, frequency, hematuria, incontinence, penile discharge, penile sore, pain, testicle pain, testicle swelling, urgency, others Neurological: denies: dizziness, fainting, headache, left sided numbness, left sided weakness, numbness, paresthesia, pre-existing deficit, right sided numbness, right sided weakness, seizure, speech problems, tingling, tremors, weakness, others Musculoskeletal: denies: back pain, gout, joint pain, joint swelling, muscle pain, muscle stiffness, neck pain, others Integumetry: denies: bruises, change in color, change in hair/nails, dryness, laceration, lesions, lumps, rash, wounds, others Allergic/Immunocompromised: denies: Difficulty Healing, Frequent Infections, Hives, Itching, others Hematologic/Lymphatic: denies: anemia, blood clots, easy bleeding, easy bruising, swollen glands, others Endocrine: denies: excessive hunger, excessive sweating, excessive thirst, excessive urination, flushing, intolerance to cold, intolerance to heat, unexplained weight gain, unexplained weight loss, others Psychiatric: denies: anxiety, bipolar disorder, depression, hopeless, panic disorder, schizophrenia, sleepless, suicidal, others All Other Systems: Reviewed and Negative Physical Exam General Appearance: No Apparent Distress HEENT: Pharynx Normal, TMs Normal, Other (Epistaxis from both nares) Neck: Full Range of Motion, Non-Tender, Normal, Normal Inspection Respiratory: Chest Non-Tender, Lungs Clear, No Accessory Muscle Use, No Respiratory Distress, Normal Breath Sounds Cardiovascular: No Edema, No JVD, No Murmur, No Gallop, Normal Peripheral Pulses, Regular Rate/Rhythm Breast Exam: Deferred Gastrointestinal: No Organomegaly, Non Tender, No Pulsatile Mass, Normal Bowel Sounds, Soft Genitalia: Deferred Pelvic: Deferred Rectal: Deferred Extremities: No calf tenderness, Normal capillary refill, Normal inspection, Normal range of motion, Non-tender, No pedal edema Musculoskeletal : Apperance: Normal Neurologic: Alert, hospitality internship II-XII nml as Tested, No Motor Deficits, Normal Affect, Normal Mood, No Sensory Deficits Cerebellar Function: Normal Reflexes: Normal Skin: Dry, Normal Color, Warm Lymphatic: No Adenopathy Was a procedure done? Was a procedure done?: No Nasal Cautery and Pack Indicaton: Anterior epitaxis Silver nitrate: Bilateral Hemostasis: Was obtained Location of packing: Bilateral Packing: Expanding sponge Informed consent obtained: Yes Risks/benefits/alt described: Yes Differential Dx Considerations may include: Epistaxis X-Ray, Labs, Meds, VS Vital Signs Date Time Temp Pulse Resp B/P (MAP) Pulse Ox O2 Delivery O2 Flow Rate FiO2 06/27/24 12:39 98.4 78 18 140/65 (90) 95 98.4 Lab Test 06/27/24 14:42 Range/Units White Blood Count 6.2 # 4.4-10.8 10^3/uL Red Blood Count 3.84 L 4.5-5.90 10^6/uL Hemoglobin 10.0 L 13.5-17.5 g/dL Hematocrit 31.8 L 41.0-53.0 % Mean Corpuscular Volume 82.9 80.0-100.0 fL Mean Corpuscular Hemoglobin 26.2 L 28.0-32.0 pg Mean Corpuscular Hemoglobin Concent 31.6 L 32.0-36.0 g/dL Red Cell Distribution Width 18.2 H 11.8-14.3 % Platelet Count 293 140-450 10^3/uL Mean Platelet Volume 7.4 6.9-10.8 fL Neutrophils (%) (Auto) 75.1 37.0-80.0 % Lymphocytes (%) (Auto) 11.8 10.0-50.0 % Monocytes (%) (Auto) 10.9 0.0-12.0 % Eosinophils (%) (Auto) 1.6 0.0-7.0 % Basophils (%) (Auto) 0.6 0.0-2.0 % Neutrophils # (Auto) 4.6 1.6-8.6 10 ^3/uL Lymphocytes # (Auto) 0.7 0.4-5.4 10 ^3/uL Monocytes # (Auto) 0.7 0-1.3 10 ^3/uL Eosinophils # (Auto) 0.1 0-0.8 10 ^3/uL Basophils # (Auto) 0 0-0.2 10 ^3/uL Nucleated Red Blood Cells 0.0 % Prothrombin Time 11.9 H 9.3-11.8 sec Prothrombin Time INR 1.14 0.9-1.15 Activated Partial Thromboplast Time 20.8 L 24.5-34.5 SEC The patient's CBC shows mild anemia with a hemoglobin of 10 and hematocrit of 31.8 The rest of the CBC is within normal limits The INR is 1.14 At this time, the patient was being discharged and will follow up with the primary care doctor Patient will return to the emergency department's the condition worsens Time of 1ST Reevaluation: 12:55 Reevaluation 1ST: Unchanged Patient Education/Counseling: Diagnosis, Treatment, Prognosis, Need For Follow Up Family Education/Counseling: No Family Present Departure 1 Departure Time of Disposition: 22:00 Impression: Primary Impression: Epistaxis Disposition: HOME / SELF CARE / HOMELESS Condition: Fair Discharged With: Self Critical Care Note Critical Care Time?: No Stability Stability form required: No Heart Score Heart Score: Heart Score Response (Comments) Value History N/A 0 EKG N/A 0 Age N/A 0 Risk Factors N/A 0 Troponin N/A 0 Total 0 I personally scribed for CINTIA CHEW MD ([email or web address]) on 06/27/24 at 12:39. Electronically submitted by Silvana Cisneros ([email or web address]). CINTIA CHEW MD Jun 27, 2024 12:39
[2024-06-27 14:59] LABS: Basophils # (auto) 0 10 ^3/uL (0-0.2); Eosinophils # (auto) 0.1 10 ^3/uL (0-0.8); Eosinophils % (auto) 1.6 % (0.0-7.0); Lymphocytes # (auto) 0.7 10 ^3/uL (0.4-5.4); Monocytes # (auto) 0.7 10 ^3/uL (0-1.3)
[2024-06-27 15:01] LABS: Basophils % (auto) 0.6 % (0.0-2.0); Hematocrit 31.8 % (41.0-53.0); Lymphocytes % (auto) 11.8 % (10.0-50.0); Mean Corpuscular Hemoglobin 26.2 pg (28.0-32.0); Mean Corpuscular Hgb Conc. 31.6 g/dL (32.0-36.0); Mean Corpuscular Volume 82.9 fL (80.0-100.0); Monocytes % (auto) 10.9 % (0.0-12.0); Neutrophils # (auto) 4.6 10 ^3/uL (1.6-8.6); Neutrophils % (auto) 75.1 % (37.0-80.0); Platelet Count (auto) 293 10^3/uL (140-450); Red Blood Cells 3.84 10^6/uL (4.5-5.90); Red Cell Distribution Width 18.2 % (11.8-14.3); White Blood Cell 6.2 10^3/uL (4.4-10.8)
[2024-06-27 15:18] LABS: INR 1.14 (0.9-1.15); Partial Thromboplastin Time 20.8 SEC (24.5-34.5); Prothrombin Time 11.9 sec (9.3-11.8)
== END 2024-06-27 22:02 | disposition home or self-care (01) ==
LOC: ER 12:20 → EDBD 12:20 → ER 22:02
DX: R04.0 Epistaxis (principal); I11.0 Hypertensive heart disease with heart failure; I50.89 Other heart failure; J44.9 Chronic obstructive pulmonary disease, unspecified; K21.9 Gastro-esophageal reflux disease without esophagitis; E03.9 Hypothyroidism, unspecified; Z98.890 Other specified postprocedural states; Z88.6 Allergy status to analgesic agent; Z88.8 Allergy status to other drugs, medicaments and biological substances; Z79.899 Other long term (current) drug therapy
CPT/HCPCS: 30901; 36415; 85025; 85610; 85730

== ENCOUNTER 2024-06-28 17:31 | Emergency (ER) | payer MEDICARE, MEDICAID ==
[~2024-06-28] VITALS: Ht 157.5 cm; Wt 63.0 kg
--- NOTE | 2024-06-28 18:26 | ED.PDOC ---
Epistaxis- HPI HPI Comments PATIENT COMPLAINING OF NOSEBLEED ON THE RIGHT SIDE. PATIENT WAS SEEN YESTERDAY FOR SAME SYMPTOMS. PATIENT STATES THEY REMOVED THE RHINO ROCKET, AFTER REMOVING RHINO ROCKET NO STARTED TO BLEED AGAIN. Chief Complaint: Nose Bleed Time Seen by MD: 17:47 Primary Care Provider: GOVIND Reviewed Notes: Nurses Notes Allergies: Coded Allergies: Morphine (Verified Allergy, Unknown, 05/20/24) Pollen Extract (Verified Allergy, Unknown, 05/20/24) Home Meds Active Scripts Amoxicillin & Pot Clavulanate (AUGMENTIN TABLET) 875 Mg Tb, 875 MG PO BID PRN for 7 Days, #14 TAB Prov:JAMAR RUBIN RESIDENT 06/24/24 Tamsulosin Hcl (Flomax) 0.4 Mg Cap, 0.4 MG PO DAILY for 30 Days, #30 CAP 4 Refills Prov:LEONELA RABAGO DO 05/25/24 Reported Medications Zolpidem Tartrate (Zolpidem Tartrate) 5 Mg Tab, 1 TAB PO QPM for FOR INSOMNIA, #30 TAB 2 Refills 05/22/24 Cholecalciferol (VITAMIN D3) 2,000 Unit Tab, 2000 UNIT PO DAILY, TAB 05/22/24 Ascorbic Acid (VITAMIN C TABLET) 500 Mg Tb, 500 MG PO DAILY for FOR SUPPLEMENT, TAB 05/22/24 Sucralfate (Sucralfate) 1 Gm Tab, 1 GM PO, GM 05/22/24 Risperidone (RisperDAL TABLET) 1 Mg Tb, 1 TAB PO QPM, #30 TAB 1 Refill 05/22/24 Olanzapine (OLANZAPINE) 10 Mg Tab, 10 MG PO DAILY for 30 Days, MG 05/22/24 Metoprolol Succinate (Metoprolol Succinate Er) 25 Mg Tab, 25 MG PO DAILY for 30 Days, MG 05/22/24 Lisinopril (Lisinopril) 2.5 Mg Tab, 2.5 MG PO DAILY for 30 Days, MG 05/22/24 Donepezil Hydrochloride (DONEPEZIL HCL) 5 Mg Tab, 5 MG PO DAILY for 30 Days, MG 05/22/24 Furosemide (Furosemide) 20 Mg Tab, 20 MG PO DAILY for 30 Days, MG 05/22/24 Cholecalciferol (VITAMIN D3) 2,000 Unit Tab, 1 CAP PO DAILY 08/25/22 Docusate Sodium (Docusate Sodium) 100 Mg Cap, 1 CAP PO DAILY 08/25/22 Pantoprazole Sodium Sesquihydr (Pantoprazole Sodium) 40 Mg Tab, 1 TAB PO BID 08/25/22 Quetiapine Fumerate (QUETIAPINE FUMARATE) 50 Mg Tab, 1 TAB PO 08/25/22 Ondansetron (Zofran) 4 Mg Tab, 8 MG PO, TAB 08/24/22 Trazodone Hcl (Trazodone Hcl) 150 Mg Tab, 150 MG PO DAILY, MG 08/24/22 Senna (Senna Lax) 8.6 Mg Tab, 8.6 MG PO QHSP PRN for FOR CONSTIPATION, MG 08/24/22 Risperidone (Risperidone) 3 Mg Tab, 3 MG PO BID, TAB 08/24/22 Docusate Sodium (Docusate Sodium) 100 Mg Tab, 100 MG PO DAILYP PRN for FOR CONSTIPATION, MG 08/24/22 Chlorpromazine Hcl (Chlorpromazine Hcl) 25 Mg Tab, 50 MG PO BID, MG 08/24/22 Benztropine Mesylate (Benztropine Mesylate) 0.5 Mg Tab, 0.5 MG PO DAILY, MG 08/24/22 Risperidone (Risperidone) 3 Mg Tab, 1 TAB PO BID 08/24/22 Levothyroxine Sodium (Levothyroxine Sodium) 50 Mcg Tab, 1 TAB PO DAILY 08/24/22 Information Source: Patient Mode of Arrival: EMS Severity: Bleeding Controlled Past Medical History PAST MEDICAL HISTORY: CHF, COPD, GERD, HTN, Schizophrenia, Thyroid Surgical History: Pacemaker Family History Family History: Reviewed,noncontributory to illness Social History Smoker: Non-Smoker Alcohol: Denies ETOH Use Drugs: Denies Drug Use Lives In: Assisted Care Constitutional: denies: chills, diaphoresis, fatigue, fever, malaise, sweats, weakness, others EENTM: reports: nose bleeding; denies: blurred vision, double vision, ear blee ding, ear discharge, ear drainage, ear pain, ear ringing, eye pain, eye redness, hearing loss, mouth pain, mouth swelling, nasal discharge, nose congestion, nose pain, photophobia, tearing, throat pain, throat swelling, voice changes, others Respiratory: denies: cough, hemoptysis, orthopnea, SOB at rest, shortness of breath, SOB with excertion, stridor, wheezing, others Cardiovascular: denies: chest pain, dizzy spells, diaphoresis, Dyspnea on exertion, edema, irregular heart beat, left arm pain, lightheadedness, palpitations, PND, syncope, others Gastrointestinal: denies: abdomen distended, abdominal pain, blood streaked bowels, constipated, diarrhea, dysphagia, difficulty swallowing, hematemesis, melena, nausea, poor appetite, poor fluid intake, rectal bleeding, rectal pain, vomiting, others Genitourinary: denies: burning, dysuria, flank pain, frequency, hematuria, incontinence, penile discharge, penile sore, pain, testicle pain, testicle swelling, urgency, others Neurological: denies: dizziness, fainting, headache, left sided numbness, left sided weakness, numbness, paresthesia, pre-existing deficit, right sided numbness, right sided weakness, seizure, speech problems, tingling, tremors, weakness, others Integumetry: denies: bruises, change in color, change in hair/nails, dryness, laceration, lesions, lumps, rash, wounds, others Allergic/Immunocompromised: denies: Difficulty Healing, Frequent Infections, Hives, Itching, others Physical Exam General Appearance: No Apparent Distress, Normal HEENT: Normal ENT Inspection, Pharynx Normal, TMs Normal, Other (BLEEDING HAS STOPPED UPON ARRIVAL. TISSUE WAS REMOVED WITH A CLOT ATTACHED, NO CONTINUOUS BLEEDING.) Neck: Full Range of Motion, Non-Tender, Normal, Normal Inspection Respiratory: Chest Non-Tender, Lungs Clear, No Accessory Muscle Use, No Respiratory Distress, Normal Breath Sounds Cardiovascular: No Edema, No JVD, No Murmur, No Gallop, Normal Peripheral Pulses, Regular Rate/Rhythm Breast Exam: Deferred Gastrointestinal: No Organomegaly, Non Tender, No Pulsatile Mass, Normal Bowel Sounds, Soft Genitalia: Deferred Pelvic: Deferred Rectal: Deferred Extremities: No calf tenderness, Normal capillary refill, Normal inspection, Normal range of motion, Non-tender, No pedal edema Musculoskeletal : Apperance: Normal Neurologic: Alert, certified technician II-XII nml as Tested, No Motor Deficits, Normal Affect, Normal Mood, No Sensory Deficits Cerebellar Function: Normal Reflexes: Normal Skin: Dry, Normal Color, Warm Lymphatic: No Adenopathy Was a procedure done? Was a procedure done?: No Differential Diagnosis (NSB) Differential Diagnosis: Anterior Nasal Bleed, Posterior Nasal Bleed, Hypertension, Coagulopathy X-Ray, Labs, Meds, VS Vital Signs Date Time Temp Pulse Resp B/P (MAP) Pulse Ox O2 Delivery O2 Flow Rate FiO2 06/28/24 17:35 98.8 72 15 122/78 (93) 98 98.8 X-Ray, Labs, Meds, VS Comment IMAGING: X-RAYS AND CT SCANS WERE REVIEWED AND INTERPRETED BY THIS PROVIDER, IMAGING SHOWS NO FRACTURES AND NO PATHOLOGICAL DISEASE. PENDING RADIOLOGY REVIEW. LABORATORY: LABS REVIEWED AND INTERPRETED BY THIS PROVIDER. NO SIGNIFICANT ABNORMALITIES NOTED. PATIENT HAS PRIOR MEDICAL VISITS REVIEWED. MED RECONCILIATION PERFORMED VITAL SIGNS REVIEWED Time of 1ST Reevaluation: 18:25 Reevaluation 1ST: Improved Patient Education/Counseling: Diagnosis, Treatment, Need For Follow Up (FOLLOW UP WITH PCP IN THE NEXT 2-4 DAYS.) Family Education/Counseling: Diagnosis Departure 1 Departure Time of Disposition: 18:24 Impression: Primary Impression: Epistaxis Disposition: 01 HOME / SELF CARE / HOMELESS Condition: Fair Discharged With: Self Critical Care Note Critical Care Time?: No Stability Stability form required: No Heart Score Heart Score: Heart Score Response (Comments) Value History N/A 0 EKG N/A 0 Age N/A 0 Risk Factors N/A 0 Troponin N/A 0 Total 0 RICHARD JAQUEZ Jun 28, 2024 18:26
[2024-06-28 18:48] VITALS: BP 101/65; PULSE 80; RESP 18; TEMP 98.2; O2SAT 99
== END 2024-06-28 19:08 | disposition home or self-care (01) ==
LOC: ER 17:31 → EDBD 17:31 → ER 19:08
DX: R04.0 Epistaxis (principal); I11.0 Hypertensive heart disease with heart failure; I50.9 Heart failure, unspecified; J44.9 Chronic obstructive pulmonary disease, unspecified; K21.9 Gastro-esophageal reflux disease without esophagitis; Z95.0 Presence of cardiac pacemaker; Z88.5 Allergy status to narcotic agent; Z79.899 Other long term (current) drug therapy; Z79.890 Hormone replacement therapy; Z91.048 Other nonmedicinal substance allergy status

== ENCOUNTER 2024-06-29 12:37 | Inpatient (IN) | payer MEDICARE, MEDICAID ==
[~2024-06-29] VITALS: Ht 157.5 cm; Wt 63.3 kg
--- NOTE | 2024-06-29 13:02 | ED.PDOC ---
History of Present Illness HPI Comments 59 y/o M, BIBA with PMHX of HTN, CHF, COPD, and GERD presents to the ED for CC of nose bleed. EMS states, patient is coming from a boarding care facility where he began to experience uncontrolled epistaxis. EMS relays, that patient was seen for same symptoms on 06/27/24 and 06/28/24; departed this morning at 0100. Patient denies active bleeding, fever, chills, nausea, vomiting, headache, or injury. No other associated symptoms, modifiers, recent injuries or sick contacts at this time. Time Seen by MD: 12:10 Primary Care Provider: GOVIND Reviewed Notes: Nurses Notes, Medications, Allergies Allergies: Coded Allergies: Morphine (Verified Allergy, Unknown, 05/20/24) Pollen Extract (Verified Allergy, Unknown, 05/20/24) Home Meds Active Scripts Amoxicillin & Pot Clavulanate (AUGMENTIN TABLET) 875 Mg Tb, 875 MG PO BID PRN for 7 Days, #14 TAB Prov:JAMAR RUBIN RESIDENT 06/24/24 Tamsulosin Hcl (Flomax) 0.4 Mg Cap, 0.4 MG PO DAILY for 30 Days, #30 CAP 4 Refills Prov:RABAGO,LEONELA Ger DO 05/25/24 Reported Medications Zolpidem Tartrate (Zolpidem Tartrate) 5 Mg Tab, 1 TAB PO QPM for FOR INSOMNIA, #30 TAB 2 Refills 05/22/24 Cholecalciferol (VITAMIN D3) 2,000 Unit Tab, 2000 UNIT PO DAILY, TAB 05/22/24 Ascorbic Acid (VITAMIN C TABLET) 500 Mg Tb, 500 MG PO DAILY for FOR SUPPLEMENT, TAB 05/22/24 Sucralfate (Sucralfate) 1 Gm Tab, 1 GM PO, GM 05/22/24 Risperidone (RisperDAL TABLET) 1 Mg Tb, 1 TAB PO QPM, #30 TAB 1 Refill 05/22/24 Olanzapine (OLANZAPINE) 10 Mg Tab, 10 MG PO DAILY for 30 Days, MG 05/22/24 Metoprolol Succinate (Metoprolol Succinate Er) 25 Mg Tab, 25 MG PO DAILY for 30 Days, MG 05/22/24 Lisinopril (Lisinopril) 2.5 Mg Tab, 2.5 MG PO DAILY for 30 Days, MG 05/22/24 Donepezil Hydrochloride (DONEPEZIL HCL) 5 Mg Tab, 5 MG PO DAILY for 30 Days, MG 05/22/24 Furosemide (Furosemide) 20 Mg Tab, 20 MG PO DAILY for 30 Days, MG 05/22/24 Cholecalciferol (VITAMIN D3) 2,000 Unit Tab, 1 CAP PO DAILY 08/25/22 Docusate Sodium (Docusate Sodium) 100 Mg Cap, 1 CAP PO DAILY 08/25/22 Pantoprazole Sodium Sesquihydr (Pantoprazole Sodium) 40 Mg Tab, 1 TAB PO BID 08/25/22 Quetiapine Fumerate (QUETIAPINE FUMARATE) 50 Mg Tab, 1 TAB PO 08/25/22 Ondansetron (Zofran) 4 Mg Tab, 8 MG PO, TAB 08/24/22 Trazodone Hcl (Trazodone Hcl) 150 Mg Tab, 150 MG PO DAILY, MG 08/24/22 Senna (Senna Lax) 8.6 Mg Tab, 8.6 MG PO QHSP PRN for FOR CONSTIPATION, MG 08/24/22 Risperidone (Risperidone) 3 Mg Tab, 3 MG PO BID, TAB 08/24/22 Docusate Sodium (Docusate Sodium) 100 Mg Tab, 100 MG PO DAILYP PRN for FOR CONSTIPATION, MG 08/24/22 Chlorpromazine Hcl (Chlorpromazine Hcl) 25 Mg Tab, 50 MG PO BID, MG 08/24/22 Benztropine Mesylate (Benztropine Mesylate) 0.5 Mg Tab, 0.5 MG PO DAILY, MG 08/24/22 Risperidone (Risperidone) 3 Mg Tab, 1 TAB PO BID 08/24/22 Levothyroxine Sodium (Levothyroxine Sodium) 50 Mcg Tab, 1 TAB PO DAILY 08/24/22 Information Source: Patient, Emergency Med Personnel Mode of Arrival: EMS Severity: Mild Timing: Hours Duration: Since onset Prehospital treatment: None Past Medical History PAST MEDICAL HISTORY: CHF, COPD, GERD, HTN, Schizophrenia, Thyroid Surgical History: Pacemaker Family History Family History: Reviewed,noncontributory to illness Social History Smoker: Non-Smoker Alcohol: Denies ETOH Use Drugs: Denies Drug Use Lives In: Assisted Care Constitutional: denies: chills, diaphoresis, fatigue, fever, malaise, sweats, weakness, others EENTM: reports: nose bleeding; denies: blurred vision, double vision, ear bleeding, ear discharge, ear drainage, ear pain, ear ringing, eye pain, eye redness, hearing loss, mouth pain, mouth swelling, nasal discharge, nose congestion, nose pain, photophobia, tearing, throat pain, throat swelling, voice changes, others Respiratory: denies: cough, hemoptysis, orthopnea, SOB at rest, shortness of breath, SOB with excertion, stridor, wheezing, others Cardiovascular: denies: chest pain, dizzy spells, diaphoresis, Dyspnea on exertion, edema, irregular heart beat, left arm pain, lightheadedness, palpitations, PND, syncope, others Gastrointestinal: denies: abdomen distended, abdominal pain, blood streaked bowels, constipated, diarrhea, dysphagia, difficulty swallowing, hematemesis, melena, nausea, poor appetite, poor fluid intake, rectal bleeding, rectal pain, vomiting, others Genitourinary: denies: burning, dysuria, flank pain, frequency, hematuria, incontinence, penile discharge, penile sore, pain, testicle pain, testicle swelling, urgency, others Neurological: denies: dizziness, fainting, headache, left sided numbness, left sided weakness, numbness, paresthesia, pre-existing deficit, right sided numbne ss, right sided weakness, seizure, speech problems, tingling, tremors, weakness, others Musculoskeletal: denies: back pain, gout, joint pain, joint swelling, muscle pain, muscle stiffness, neck pain, others Integumetry: denies: bruises, change in color, change in hair/nails, dryness, laceration, lesions, lumps, rash, wounds, others Allergic/Immunocompromised: denies: Difficulty Healing, Frequent Infections, Hives, Itching, others Hematologic/Lymphatic: denies: anemia, blood clots, easy bleeding, easy bruising, swollen glands, others Endocrine: denies: excessive hunger, excessive sweating, excessive thirst, excessive urination, flushing, intolerance to cold, intolerance to heat, unexplained weight gain, unexplained weight loss, others Psychiatric: denies: anxiety, bipolar disorder, depression, hopeless, panic disorder, schizophrenia, sleepless, suicidal, others All Other Systems: Reviewed and Negative Physical Exam General Appearance: Moderate Distress HEENT: Other (Nosebleed) Neck: Full Range of Motion, Non-Tender, Normal, Normal Inspection Respiratory: Chest Non-Tender, Lungs Clear, No Accessory Muscle Use, No Respiratory Distress, Normal Breath Sounds Cardiovascular: No Edema, No JVD, No Murmur, No Gallop, Normal Peripheral Pulses, Regular Rate/Rhythm Breast Exam: Deferred Gastrointestinal: No Organomegaly, Non Tender, No Pulsatile Mass, Normal Bowel Sounds, Soft Genitalia: Deferred Pelvic: Deferred Rectal: Deferred Extremities: No calf tenderness, No pedal edema Musculoskeletal : Apperance: Normal Neurologic: Alert Cerebellar Function: NOT DONE Reflexes: NOT DONE Skin: Pallor Peripheral Pulses: 3+ Radial (R), 3+ Radial (L) Lymphatic: No Adenopathy Was a procedure done? Was a procedure done?: No Differential Dx Considerations may include: uncontrolled epistaxis X-Ray, Labs, Meds, VS Vital Signs Date Time Temp Pulse Resp B/P (MAP) Pulse Ox O2 Delivery O2 Flow Rate FiO2 06/29/24 16:49 96 18 98 Room Air* 0 21 06/29/24 16:49 98.4 96 14 120/62 (81) 98 98.4 Lab Test 06/29/24 16:15 06/29/24 14:30 Range/Units White Blood Count 12.4 #H 4.4-10.8 10^3/uL Red Blood Count 3.54 L 4.5-5.90 10^6/uL Hemoglobin 9.1 L 13.5-17.5 g/dL Hematocrit 29.4 L 41.0-53.0 % Mean Corpuscular Volume 82.9 80.0-100.0 fL Mean Corpuscular Hemoglobin 25.7 L 28.0-32.0 pg Mean Corpuscular Hemoglobin Concent 31.0 L 32.0-36.0 g/dL Red Cell Distribution Width 18.1 H 11.8-14.3 % Platelet Count 260 140-450 10^3/uL Mean Platelet Volume 7.3 6.9-10.8 fL Neutrophils (%) (Auto) 86.1 H 37.0-80.0 % Lymphocytes (%) (Auto) 6.6 L 10.0-50.0 % Monocytes (%) (Auto) 6.8 0.0-12.0 % Eosinophils (%) (Auto) 0.3 0.0-7.0 % Basophils (%) (Auto) 0.2 0.0-2.0 % Neutrophils # (Auto) 10.7 H 1.6-8.6 10 ^3/uL Lymphocytes # (Auto) 0.8 0.4-5.4 10 ^3/uL Monocytes # (Auto) 0.8 0-1.3 10 ^3/uL Eosinophils # (Auto) 0 0-0.8 10 ^3/uL Basophils # (Auto) 0 0-0.2 10 ^3/uL Nucleated Red Blood Cells 0.0 % Sodium Level 143 136-145 mmol/L Potassium Level 4.0 3.5-5.1 mmol/L Chloride Level 100 98-107 mmol/L Carbon Dioxide Level 38 H 20-31 mmol/L Anion Gap 5 5-15 Blood Urea Nitrogen 13 9-23 mg/dL Creatinine 0.85 0.700-1.30 mg/dL Glomerular Filtration Rate Calc 101 >90 mL/min BUN/Creatinine Ratio 15.3 10.0-20.0 Serum Glucose 122 H 74-106 mg/dL Calcium Level 10.8 H 8.7-10.4 mg/dL Prothrombin Time 10.9 9.3-11.8 sec Prothrombin Time INR 1.03 0.9-1.15 Current Medications Medications (Trade) Dose Ordered Sig/Jose Route Start Time Stop Time Status Last Admin Sodium Chloride 1,000 ml @ 1,000 mls/hr Q1H ONCE IV 06/29/24 15:30 06/29/24 16:29 DC 06/29/24 16:35 [place] [id number] Ph: [phone] DIAGNOSTIC IMAGING Diagnostic Imaging Report : [id number] Signed PATIENT: HENRIQUE HERNANDEZ LACCT: [id number] UNIT: [id number] : 1965 LOC: ER ROOM / BED: / AGE / SEX: 59 / M ADM STATUS: REG ER SERVICE 1530 ORDERING PHYSICIAN: SOFIA TELLEZ MD PROCEDURE(s): CXRP - CHEST PORTABLE REASON: sob ORDER NUMBER(s): [id number], ACCESSION NUMBER(s): [id number] CHEST RADIOGRAPH Indication: sob Technique: Single frontal view of the chest was obtained COMPARISON: XY CHEST XRAY 1 VIEW on DOS: 06/22/24, XY CHEST PORTABLE on DOS: 06/17/24, XY CHEST PORTABLE on DOS: 06/14/24, XY CHEST PORTABLE on DOS: 06/12/24, XY CHEST XRAY 1 VIEW on DOS: 05/19/24 FINDINGS: Lines and Tubes: None Lungs: Persistent interstitial infiltrate left lung, mildly less prominent than on the prior study. Pleura: No effusion. No pneumothorax. Cardiomediastinal contours: Unremarkable Bones: Unremarkable IMPRESSION: 1. Persistent interstitial infiltrate left lung, mildly improved when compared to the prior study. ATED BY: FATUMA LEE MD DICTATED DATE/TIME: 06/29/241617 SIGNED BY: FATUMA LEE MD SIGNED DATE/TIME: 06/29/241617 CC: Patient alert. Continues to have nosebleed. Was seen here few hours ago for similar symptom. Vitals stable. Reviewed his previous visit. Able to control the bleeding. Possibly nose picking. Explained to the patient. He will be admitted for possible placement. Continue monitoring. WBC elevated. Was given Rocephin. Was given azithromycin. Hypercalcemia. Establish intravenous access. Was given fluids. Chest x-ray reviewed does show pneumonia. Time of 1ST Reevaluation: 12:40 Reevaluation 1ST: Unchanged Patient Education/Counseling: Diagnosis, Treatment Family Education/Counseling: No Family Present Departure 1 Departure Time of Disposition: 15:37 Impression: Primary Impression: Pneumonia Qualified Codes: J18.9 - Pneumonia, unspecified organism Additional Impressions: Sinusitis Qualified Codes: J01.10 - Acute frontal sinusitis, unspecified Hypercalcemia Epistaxis Disposition: ADMITTED INPATIENT Admit to: Med Surg Condition: Guarded Critical Care Note Critical Care Time?: No Stability Stability form required: No Heart Score Heart Score: Heart Score Response (Comments) Value History N/A 0 EKG N/A 0 Age N/A 0 Risk Factors N/A 0 Troponin N/A 0 Total 0 I personally scribed for SOFIA TELLEZ MD ([email or web address]) on 06/29/24 at 13:01. Electronically submitted by Silvana Cisneros ([email or web address]). I personally scribed for SOFIA TELLEZ MD ([email or web address]) on 06/29/24 at 16:34. Electronically submitted by Silvana Cisneros ([email or web address]). SOFIA TELLEZ MD Jun 29, 2024 13:01
[2024-06-29 14:59] LABS: INR 1.03 (0.9-1.15); Prothrombin Time 10.9 sec (9.3-11.8)
--- NOTE | 2024-06-29 16:20 | DVH ---
CHEST RADIOGRAPH Indication: sob Technique: Single frontal view of the chest was obtained COMPARISON: XY CHEST XRAY 1 VIEW on DOS: 06/22/24, XY CHEST PORTABLE on DOS: 06/17/24, XY CHEST PORTABLE on DOS: 06/14/24, XY CHEST PORTABLE on DOS: 06/12/24, XY CHEST XRAY 1 VIEW on DOS: 05/19/24 FINDINGS: Lines and Tubes: None Lungs: Persistent interstitial infiltrate left lung, mildly less prominent than on the prior study. Pleura: No effusion. No pneumothorax. Cardiomediastinal contours: Unremarkable Bones: Unremarkable IMPRESSION: 1. Persistent interstitial infiltrate left lung, mildly improved when compared to the prior study.
[2024-06-29 16:26] LABS: Basophils # (auto) 0 10 ^3/uL (0-0.2); Basophils % (auto) 0.2 % (0.0-2.0); Eosinophils # (auto) 0 10 ^3/uL (0-0.8); Lymphocytes # (auto) 0.8 10 ^3/uL (0.4-5.4); Mean Corpuscular Hemoglobin 25.7 pg (28.0-32.0); Mean Corpuscular Volume 82.9 fL (80.0-100.0); Monocytes # (auto) 0.8 10 ^3/uL (0-1.3); Red Cell Distribution Width 18.1 % (11.8-14.3)
[2024-06-29 16:28] LABS: Eosinophils % (auto) 0.3 % (0.0-7.0); Hematocrit 29.4 % (41.0-53.0); Hemoglobin 9.1 g/dL (13.5-17.5); Lymphocytes % (auto) 6.6 % (10.0-50.0); Monocytes % (auto) 6.8 % (0.0-12.0); Neutrophils # (auto) 10.7 10 ^3/uL (1.6-8.6); Neutrophils % (auto) 86.1 % (37.0-80.0); Platelet Count (auto) 260 10^3/uL (140-450); Red Blood Cells 3.54 10^6/uL (4.5-5.90); White Blood Cell 12.4 10^3/uL (4.4-10.8)
[2024-06-29] MEDS: SODIUM CHLORIDE 0.9% 1,000 ML IV ONE (16:35)
[2024-06-29 16:46] LABS: Chloride 100 mmol/L (98-107); Sodium 143 mmol/L (136-145)
[2024-06-29 16:47] LABS: Anion Gap 5 (5-15)
[2024-06-29 16:49] VITALS: PULSE 96; RESP 18; O2SAT 98
[2024-06-29 16:52] LABS: BUN/Creatinine Ratio 15.3 (10.0-20.0); Blood Urea Nitrogen 13 mg/dL (9-23)
[2024-06-29 16:55] LABS: Calcium 10.8 mg/dL (8.7-10.4); Carbon Dioxide 38 mmol/L (20-31); Glucose 122 mg/dL (74-106)
[2024-06-29] MEDS: AZITHROMYCIN 500MG/ 250ML 250 ML IV ONE (18:07)
[2024-06-29] MEDS: cefTRIAXone 1GM/50ML D5W 50 ML IV ONE (18:07)
[2024-06-29 22:02] VITALS: PULSE 67; RESP 14; O2SAT 97
--- NOTE | 2024-06-29 23:43 | DVHHPRES ---
History of Present Illness Resident Creating Document: EDDIE SORIANO RESIDENT Reason for Visit: Epistaxis History of Present Illness Patient is a 59-year-old male was recently seen and managed for epistaxis. Epistaxis resolved and patient was discharge home. Kofi returned to the ED this evening with similar problem. On direct questioning, patient said that he is feeling well and has not had any further nose bleed prior to reporting to the ED. He mentioned that this second nose bleed was because he was picking his nose. But the bleeding has stopped. He is not on any blood thinners. Patient is stable and on antibiotics for the his recent aspiration pneumonia. PMHx: COPD, CHF, schizophrenia, HTN. Pshx: EGD FMHX: noncontributory Social history: lives in boarding facility. Past Medical History See HPI Past Surgical History See HPI Review of Systems Review of Systems Constitutional: Denies fever no chills no feeling of malaise HEENT: Denies headache, ear pain, ear discharges, conjunctivitis, nasal discharge throat pain, No more epistaxis Cardiovascular: Denies chest pain, palpitation, orthopnea, PND, or pedal edema Respiratory: Denies shortness of breath, cough cough, sputum production, hemoptysis, GI: Denies abdominal pain, nausea, vomiting, diarrhea, hematemesis, hematochezia, : Denies frequency, urgency, hematuria, Endocrine: Denies unintentional weight gain or weight loss, feeling of hot flashes, Yobany: Denies easy bruising, bleeding disorders, epistaxis Musculoskeletal: Denies joint pains, muscle aches Psych: No evidence of depression, sin, suicidal ideation Constitutional: No: Fever, Chills, Sweats, Weakness, Malaise, Other Allergies: Coded Allergies: Morphine (Verified Allergy, Unknown, 05/20/24) Pollen Extract (Verified Allergy, Unknown, 05/20/24) Exam Vital Signs Vital Signs Date Time Temp Pulse Resp B/P (MAP) Pulse Ox O2 Delivery O2 Flow Rate FiO2 06/29/24 22:02 67 14 97 Nasal Cannula* 2 28 06/29/24 22:00 98.2 125/60 (81) 98.2 Exam General Appearance: Alert, Oriented X3, Cooperative, No acute distress HEENT: Atraumatic, PERRLA, EOMI, Mucous membrane moist/pink Respiratory: Clear to auscultation, Normal air movement Cardiovascular: Regular rate, Normal S1, Normal S2, No murmurs, no chest wall tenderness Abdominal: NO distention, no tenderness, bowel sounds present, no scars noted Extremities: No clubbing, No cyanosis, No edema, Normal pulses, No tenderness/swelling Skin: No rashes, No breakdown, No significant lesion Neuro: Normal gait, Normal speech, Strength at 5/5 X4 ext, Normal tone, Sensation intact, Cranial nerves 3-12 NL, Reflexes 2+ Psych/Mental Status: Mental status NL, Mood NL Labs/Xrays Labs Test 06/29/24 16:15 06/29/24 14:30 Range/Units White Blood Count 12.4 #H 4.4-10.8 10^3/uL Red Blood Count 3.54 L 4.5-5.90 10^6/uL Hemoglobin 9.1 L 13.5-17.5 g/dL Hematocrit 29.4 L 41.0-53.0 % Mean Corpuscular Volume 82.9 80.0-100.0 fL Mean Corpuscular Hemoglobin 25.7 L 28.0-32.0 pg Mean Corpuscular Hemoglobin Concent 31.0 L 32.0-36.0 g/dL Red Cell Distribution Width 18.1 H 11.8-14.3 % Platelet Count 260 140-450 10^3/uL Mean Platelet Volume 7.3 6.9-10.8 fL Neutrophils (%) (Auto) 86.1 H 37.0-80.0 % Lymphocytes (%) (Auto) 6.6 L 10.0-50.0 % Monocytes (%) (Auto) 6.8 0.0-12.0 % Eosinophils (%) (Auto) 0.3 0.0-7.0 % Basophils (%) (Auto) 0.2 0.0-2.0 % Neutrophils # (Auto) 10.7 H 1.6-8.6 10 ^3/uL Lymphocytes # (Auto) 0.8 0.4-5.4 10 ^3/uL Monocytes # (Auto) 0.8 0-1.3 10 ^3/uL Eosinophils # (Auto) 0 0-0.8 10 ^3/uL Basophils # (Auto) 0 0-0.2 10 ^3/uL Nucleated Red Blood Cells 0.0 % Sodium Level 143 136-145 mmol/L Potassium Level 4.0 3.5-5.1 mmol/L Chloride Level 100 98-107 mmol/L Carbon Dioxide Level 38 H 20-31 mmol/L Anion Gap 5 5-15 Blood Urea Nitrogen 13 9-23 mg/dL Creatinine 0.85 0.700-1.30 mg/dL Glomerular Filtration Rate Calc 101 >90 mL/min BUN/Creatinine Ratio 15.3 10.0-20.0 Serum Glucose 122 H 74-106 mg/dL Calcium Level 10.8 H 8.7-10.4 mg/dL Prothrombin Time 10.9 9.3-11.8 sec Prothrombin Time INR 1.03 0.9-1.15 Assessment/Plan Assessment/Plan Assessment Epistaxis resolved Leukocytosis likely reactive Mild mild hypercalcemia COPD CHF schizophrenia HTN. Recent history of aspiration pneumonia swollen antibiotics Plan Continue all medications as instructed Monitor H/H Recommend he uses humidifier house Goal of care discussed for more than 15 minutes; full code Case and plan discussed with Dr. Goldstein Plan discussed with: Patient Date of Service: Jun 29, 2024 Billing Provider: VERENA GOLDSTEIN MD Common Visit Codes: [id number] INP/OBS CARE (HIGH) EDDIE SORIANO RESIDENT Jun 29, 2024 23:43 VERENA GOLDSTEIN MD Jun 30, 2024 18:45
[2024-06-30] VITALS (8 sets, daily range): BP systolic 128–153; BP diastolic 48–73; PULSE 71–88; RESP 14–18; TEMP 97.6–98.2; O2SAT 92–100
[2024-06-30] MEDS ORDERED: SENNA 8.6 MG TAB PO PRN (04:30)
[2024-06-30 07:26] LABS: Basophils # (auto) 0 10 ^3/uL (0-0.2); Basophils % (auto) 0.3 % (0.0-2.0); Eosinophils # (auto) 0.1 10 ^3/uL (0-0.8); Eosinophils % (auto) 0.9 % (0.0-7.0); Hematocrit 23.3 % (41.0-53.0); Hemoglobin 7.6 g/dL (13.5-17.5); Lymphocytes # (auto) 0.9 10 ^3/uL (0.4-5.4); Lymphocytes % (auto) 9.6 % (10.0-50.0); Mean Corpuscular Hemoglobin 26.7 pg (28.0-32.0); Mean Corpuscular Hgb Conc. 32.6 g/dL (32.0-36.0); Mean Corpuscular Volume 82.1 fL (80.0-100.0); Monocytes # (auto) 0.6 10 ^3/uL (0-1.3); Monocytes % (auto) 6.7 % (0.0-12.0); Neutrophils # (auto) 7.4 10 ^3/uL (1.6-8.6); Neutrophils % (auto) 82.5 % (37.0-80.0); Platelet Count (auto) 196 10^3/uL (140-450); Red Blood Cells 2.84 10^6/uL (4.5-5.90); Red Cell Distribution Width 17.8 % (11.8-14.3)
[2024-06-30 07:46] LABS: Alanine Aminotransferase 13 U/L (7-40); Albumin 3.3 g/dL (3.2-4.8); Alkaline Phosphatase 62 U/L (46-116); Anion Gap 2 (5-15); BUN/Creatinine Ratio 17.2 (10.0-20.0); Blood Urea Nitrogen 11 mg/dL (9-23); Calcium 10.1 mg/dL (8.7-10.4); Chloride 102 mmol/L (98-107); Sodium 140 mmol/L (136-145)
[2024-06-30 07:47] LABS: Aspartate Aminotransferase 8 U/L (13-40); Bilirubin, Total 0.2 mg/dL (0.2-1.0); Carbon Dioxide 36 mmol/L (20-31); Glucose 118 mg/dL (74-106); Total Protein 5.6 g/dL (5.7-8.2)
[2024-06-30] MEDS ORDERED: DOCUSATE SOD 100 MG CAP PO PRN (08:15)
[2024-06-30] MEDS: ASCORBIC ACID 500 MG TAB PO SCH (08:22)
[2024-06-30] MEDS: SUCRALFATE 1 GM TAB PO SCH (08:22)
[2024-06-30] MEDS: PANTOPRAZOLE 40 MG TAB PO SCH (08:23)
[2024-06-30] MEDS: DONEPEZIL HYDROCHLORIDE 5 MG TAB PO SCH (08:23)
[2024-06-30] MEDS: TAMSULOSIN HYDROCHLORIDE 0.4 MG CAP PO SCH (08:23)
[2024-06-30] MEDS: OLANZapine 5 MG TAB PO SCH (08:24)
[2024-06-30] MEDS: FUROSEMIDE 20 MG TAB PO SCH (08:24)
[2024-06-30] MEDS: DOCUSATE SOD 100 MG CAP PO SCH (08:24)
[2024-06-30] MEDS: BENZTROPINE MESY 0.5 MG TAB PO SCH (08:25)
[2024-06-30] MEDS: METOPROLOL SUCCINATE XL 50 MG TAB PO SCH (08:25)
[2024-06-30] MEDS: CHOLECALCIFEROL (VITD3) 1,000UNIT=25mCg TAB PO SCH ×2 (08:25→08:27)
[2024-06-30] MEDS: LEVOTHYROXINE SODIUM 50 MCG TAB PO SCH (08:25)
[2024-06-30] MEDS: traZODone HCL 50 MG TAB PO SCH (08:25)
[2024-06-30] MEDS: LISINOPRIL 5 MG TAB PO SCH (08:26)
[2024-06-30] MEDS ORDERED: risperiDONE 1 MG TAB PO SCH ×3 (10:00→18:00)
[2024-06-30] MEDS: chlorproMAZINE HCL 25 MG TAB PO SCH (10:00)
--- NOTE | 2024-06-30 12:03 | DVHPNRES ---
Progress Note Date Seen: Jun 30, 2024 Resident Creating Document: JAMAR RUBIN RESIDENT Medical Necessity Reason Pt with a Central, PICC or Fol: No Subjective Review of Systems Sukhdev Riley is a 59-year-old male was recently seen and managed for epistaxis. Epistaxis resolved and patient was discharge home. Patiet returned to the ED this evening with similar problem. On direct questioning, patient said that he is feeling well and has not had any further nose bleed prior to reporting to the ED. He mentioned that this second nose bleed was because he was picking his nose. But the bleeding has stopped. He is not on any blood thinners. Patient is stable and on antibiotics for the his recent aspiration pneumonia. PMHx: COPD, CHF, schizophrenia, HTN. Pshx: EGD FMHX: noncontributory Social history: lives in boarding facility. Allergies: Morphine, pollen extract Patient seen and examined at the bedside. Patient reported improvement in his bleeding since admission. Patient is currently still symptoms of pneumonia, continuing azithromycin. Objective vital signs Vital Sign Date Time Temp Pulse Resp B/P (MAP) Pulse Ox O2 Delivery O2 Flow Rate FiO2 06/30/24 08:58 97.6 71 15 133/48 (76) 100 97.6 06/30/24 07:30 Oxymizer 2 N/A Total Intake and Output 06/29/24 06/29/24 06/30/24 15:00 23:00 07:00 Intake Total 1300 ml 200 ml Output Total 0 ml Balance 1300 ml 200 ml medications Current Medications Medications Dose Ordered Sig/Jose Route Start Time Stop Time Status Last Admin Dose Admin Ascorbic Acid 500 mg DAILY PO 06/30/24 10:00 06/30/24 08:22 500 MG Benztropine Mesylate 0.5 mg DAILY PO 06/30/24 10:00 06/30/24 08:25 0.5 MG Chlorpromazine HCl 50 mg BID PO 06/30/24 10:00 Donepezil HCl 5 mg DAILY PO 06/30/24 10:00 06/30/24 08:23 5 MG Furosemide 20 mg DAILY PO 06/30/24 10:00 06/30/24 08:24 20 MG Levothyroxine Sodium 50 mcg DAILY PO 06/30/24 10:00 06/30/24 08:25 50 MCG Pantoprazole Sodium 40 mg BID PO 06/30/24 10:00 06/30/24 08:23 40 MG Risperidone 1 mg QPM PO 06/30/24 18:00 Future Hold Sennosides 8.6 mg QHSP PRN PO 06/30/24 04:30 Sucralfate 1 gm DAILY PO 06/30/24 10:00 06/30/24 08:22 1 GM Tamsulosin HCl 0.4 mg DAILY PO 06/30/24 10:00 06/30/24 08:23 0.4 MG Zolpidem Tartrate 5 mg QPM PO 06/30/24 18:00 Cholecalciferol 2,000 unit DAILY PO 06/30/24 10:00 06/30/24 08:25 2,000 UNIT Cholecalciferol 2,000 unit DAILY PO 06/30/24 10:00 Docusate Sodium 100 mg DAILYP PRN PO 06/30/24 08:15 Lisinopril 2.5 mg DAILY PO 06/30/24 10:00 Metoprolol Succinate 25 mg DAILY PO 06/30/24 10:00 Olanzapine 10 mg DAILY PO 06/30/24 10:00 06/30/24 08:24 10 MG Risperidone 1 mg BID PO 06/30/24 10:00 Hold Risperidone 3 mg BID PO 06/30/24 10:00 Hold Trazodone HCl 150 mg DAILY PO 06/30/24 10:00 06/30/24 08:25 150 MG Docusate Sodium 100 mg DAILY PO 06/30/24 10:00 06/30/24 08:24 100 MG Examination Pt is lying on bed General Appearance: Alert, Oriented X3, Cooperative, Not in acute distress HEENT: Atraumatic, Mucous membranes moist/pink Respiratory: Clear to auscultation, Normal air movement, crackles Cardiovascular: Regular rate, Normal S1, Normal S2, No murmurs Abdominal: Active bowel sounds, Soft, no distention, no tenderness Extremities: No edema, Normal pulses, No tenderness/swelling Skin: No Significant rash, except past surgical scars Neuro: Normal speech, sensorimotor deficits none Psych/Mental Status: Mental status NL, Mood NL Nurse was there as sharperone during examination laboratory and microbiology Laboratory Tests 06/30/24 06:45 Test 06/30/24 06:45 Range/Units Serum Glucose 118 H 74-106 mg/dL Labs and/or images reviewed: Labs reviewed by me, Image(s) reviewed by me Problem List/Assessment/Plan Problem List/Assessment/Plan # Spontaneous epistaxis - conservative measures - nasal pack if needed - avoid blood thinners - monitor hemoglobin and hematocrit # Leukocytosis likely reactive # Aspiration pneumonia- POA- resolving - evident on CXR - azithromycin # ? Blood loss anemia from PUD # ? Hemetemisis # PUD - Protonix - Carafate - Monitor H&H - Transfusion if needed # HTN - home meds # COPD not in exacerbation # Schizophrenia - resume home meds Protonix SCDs Cardiac diet Goals of care discussed with the patient for more than 27 minutes: Full code status Case discussed with Dr. Huynh, patient and nurse Plan discussed with: Patient My Orders My Orders Orders - JAMAR RUBIN Procedure Category Date Status Time Azithromycin 500mg/ PHA 07/01/24 Logged 250ml (Zithromax 50 10:00 Azithromycin 500mg/ PHA 06/30/24 Logged 250ml (Zithromax 50 12:00 Date of Service: Jun 30, 2024 Billing Provider: ERYN CAMPOS MD Common Visit Codes: [id number] INP/OBS CARE(HIGH) JAMAR RUBIN Jun 30, 2024 12:03 ERYN CAMPOS MD Jul 03, 2024 00:57
[2024-06-30] MEDS: AZITHROMYCIN 500MG/ 250ML 250 ML IV ONE (14:41)
[2024-06-30] MEDS: ZOLPIDEM TARTRATE 5 MG TAB PO SCH (17:54)
[2024-07-01] VITALS (10 sets, daily range): BP systolic 105–124; BP diastolic 48–70; PULSE 65–82; RESP 12–19; TEMP 97.6–99.5; O2SAT 92–100
[2024-07-01 05:45] LABS: Basophils # (auto) 0 10 ^3/uL (0-0.2); Basophils % (auto) 0.2 % (0.0-2.0); Eosinophils # (auto) 0.1 10 ^3/uL (0-0.8); Lymphocytes # (auto) 0.8 10 ^3/uL (0.4-5.4); Monocytes # (auto) 0.5 10 ^3/uL (0-1.3); Monocytes % (auto) 4.8 % (0.0-12.0)
[2024-07-01 05:46] LABS: Anion Gap 3 (5-15); Chloride 101 mmol/L (98-107); Potassium 3.8 mmol/L (3.5-5.1); Sodium 139 mmol/L (136-145)
[2024-07-01 05:47] LABS: Calcium 9.5 mg/dL (8.7-10.4); Eosinophils % (auto) 0.9 % (0.0-7.0); Hematocrit 19.5 % (41.0-53.0); Lymphocytes % (auto) 8.5 % (10.0-50.0); Mean Corpuscular Hemoglobin 27.4 pg (28.0-32.0); Mean Corpuscular Hgb Conc. 33.3 g/dL (32.0-36.0); Mean Corpuscular Volume 82.2 fL (80.0-100.0); Neutrophils # (auto) 8.3 10 ^3/uL (1.6-8.6); Neutrophils % (auto) 85.6 % (37.0-80.0); Platelet Count (auto) 173 10^3/uL (140-450); Red Blood Cells 2.37 10^6/uL (4.5-5.90); Red Cell Distribution Width 17.8 % (11.8-14.3); White Blood Cell 9.7 10^3/uL (4.4-10.8)
[2024-07-01 05:49] LABS: Hemoglobin 6.5 g/dL (13.5-17.5)
[2024-07-01 05:53] LABS: Blood Urea Nitrogen 5 mg/dL (9-23); Carbon Dioxide 35 mmol/L (20-31); Glucose 108 mg/dL (74-106)
--- NOTE | 2024-07-01 09:33 | DVHPN2 ---
Subjective The patient is confused; receiving blood Reviewed: Care Plan, H&P, Labs, Medications, Previous Orders, Radiology Changes from previous H/P or p: Changes Objective Vitals Vital Signs Date Time Temp Pulse Resp B/P (MAP) Pulse Ox O2 Delivery O2 Flow Rate FiO2 07/01/24 08:00 Room Air* 0 21 07/01/24 05:18 97.8 77 19 105/48 (67) 95 97.8 Intake/Output Intake and Output 07/01/24 07:00 Intake Total 1050 ml Output Total 800 ml Balance 250 ml Intake Oral 800 ml IV Total 250 ml Output Urine Total 800 ml # Voids 2 General Appearance: Alert, Cooperative, No acute distress, Other (Confused) HEENT: Atraumatic, Other (No signs of epistaxis) Lungs: Other (Decreased air entry bibasilarly with scattered crackles bibasilarly) Cardiovascular: Regular rate, Normal S1, Normal S2 Abdomen: Normal bowel sounds, Soft, No tenderness Neuro: Normal speech, Cranial nerves 3-12 NL Psych/Mental Status: Other (Confused) Medications Current Medications Medications Dose Ordered Sig/Jose Route Start Time Stop Time Status Last Admin Dose Admin Ascorbic Acid 500 mg DAILY PO 06/30/24 10:00 06/30/24 08:22 500 MG Benztropine Mesylate 0.5 mg DAILY PO 06/30/24 10:00 06/30/24 08:25 0.5 MG Chlorpromazine HCl 50 mg BID PO 06/30/24 10:00 06/30/24 21:20 50 MG Donepezil HCl 5 mg DAILY PO 06/30/24 10:00 06/30/24 08:23 5 MG Furosemide 20 mg DAILY PO 06/30/24 10:00 06/30/24 08:24 20 MG Pantoprazole Sodium 40 mg BID PO 06/30/24 10:00 06/30/24 21:20 40 MG Risperidone 1 mg QPM PO 06/30/24 18:00 Hold Sennosides 8.6 mg QHSP PRN PO 06/30/24 04:30 Sucralfate 1 gm DAILY PO 06/30/24 10:00 06/30/24 08:22 1 GM Tamsulosin HCl 0.4 mg DAILY PO 06/30/24 10:00 06/30/24 08:23 0.4 MG Cholecalciferol 2,000 unit DAILY PO 06/30/24 10:00 Lisinopril 2.5 mg DAILY PO 06/30/24 10:00 Metoprolol Succinate 25 mg DAILY PO 06/30/24 10:00 Olanzapine 10 mg DAILY PO 06/30/24 10:00 06/30/24 08:24 10 MG Trazodone HCl 150 mg DAILY PO 06/30/24 10:00 06/30/24 08:25 150 MG Docusate Sodium 100 mg DAILY PO 06/30/24 10:00 06/30/24 08:24 100 MG Azithromycin 250 ml @ 125 mls/hr DAILY IV 07/01/24 10:00 Levothyroxine Sodium 50 mcg DAILY@0600 PO 07/02/24 06:00 Zolpidem Tartrate 5 mg HS PO 07/01/24 22:00 Laboratory Results Laboratory Tests 07/01/24 05:08 Chemistry Test 07/01/24 05:08 Calcium Level 9.5 mg/dL (8.7-10.4) Labs and/or images reviewed: Labs reviewed by me, Image(s) reviewed by me Assessment/Plan Assessment/Plan Covering: #Acute blood loss anemia due to suspected hematemesis in the setting of peptic ulcer disease; the patient is receiving 1 unit of packed RBCs as morning hemoglobin of 6.5; to close monitor H and H; reviewed recent EGD so consulted GI; to keep patient NPO after midnight for EGD tomorrow; to switch oral pantoprazole to pantoprazole infusion; to put on clear liquid diet for now; continue monitoring #Acute hypoxic respiratory failure due to suspected aspiration pneumonia; continue IV antibiotics; continue oxygen therapy as needed; reviewed chest x- ray; continue monitoring #Suspected sepsis due to suspected aspiration pneumonia; continue IV antibiotics; continue monitoring #Essential hypertension; continue and adjust antihypertensive medications according to blood pressure measurements; continue monitoring #Schizophrenia with cognitive decline; the patient is confused; continue home medications; continue monitoring #Hypothyroidism; continue levothyroxine; continue monitoring Goals of care discussed for 20 minutes; full code Late Entry. This medical document was created using an electronic medical record system with computerized dictation system. Although this document has been carefully reviewed, there might still be some phonetic and typographical errors. These areas are purely typographical due to imperfections of the software programs, and do not reflect any compromise in the patient's medical care. Plan discussed with: Patient, Other (Nurse) Date of Service: Jul 01, 2024 Billing Provider: BRENT COOPER MD Common Visit Codes: [id number] INP/OBS CARE(HIGH) Secondary Visit Codes: [id number] CARE PLAN 30 MINUTES (20 minutes) BRENT COOPER MD Jul 01, 2024 09:33
[2024-07-01] MEDS: LEVOTHYROXINE SODIUM 50 MCG TAB PO ONE (09:43)
[2024-07-01] MEDS: AZITHROMYCIN 500MG/ 250ML 250 ML IV SCH (13:40)
[2024-07-01] MEDS: PANTOPRAZOLE 40mg/50ML NS AE 50 ML IV SCH (18:34)
[2024-07-01 19:24] LABS: Basophils # (auto) 0 10 ^3/uL (0-0.2); Basophils % (auto) 0.4 % (0.0-2.0); Eosinophils # (auto) 0.1 10 ^3/uL (0-0.8); Eosinophils % (auto) 2.1 % (0.0-7.0); Hematocrit 23.2 % (41.0-53.0); Hemoglobin 7.7 g/dL (13.5-17.5); Lymphocytes # (auto) 0.9 10 ^3/uL (0.4-5.4); Lymphocytes % (auto) 16.5 % (10.0-50.0); Mean Corpuscular Hemoglobin 27.7 pg (28.0-32.0); Mean Corpuscular Hgb Conc. 33.1 g/dL (32.0-36.0); Mean Corpuscular Volume 83.5 fL (80.0-100.0); Monocytes # (auto) 0.4 10 ^3/uL (0-1.3); Monocytes % (auto) 6.2 % (0.0-12.0); Neutrophils # (auto) 4.3 10 ^3/uL (1.6-8.6); Neutrophils % (auto) 74.8 % (37.0-80.0); Platelet Count (auto) 159 10^3/uL (140-450); Red Blood Cells 2.78 10^6/uL (4.5-5.90); Red Cell Distribution Width 17.3 % (11.8-14.3); White Blood Cell 5.7 10^3/uL (4.4-10.8)
[2024-07-01] MEDS: ZOLPIDEM TARTRATE 5 MG TAB PO SCH (21:29)
[2024-07-01] MEDS: ACETAMINOPHEN 325 MG TAB PO PRN (22:25)
[2024-07-02] VITALS (8 sets, daily range): BP systolic 104–136; BP diastolic 51–70; PULSE 54–79; RESP 11–18; TEMP 98–98.6; O2SAT 92–100
[2024-07-02] MEDS: LEVOTHYROXINE SODIUM 50 MCG TAB PO SCH (05:22)
--- NOTE | 2024-07-02 11:28 | DVHPN2 ---
Subjective The patient is confused; hemoglobin above 7 this morning Reviewed: Care Plan, H&P, Labs, Medications, Previous Orders, Radiology Changes from previous H/P or p: Changes Objective Vitals Vital Signs Date Time Temp Pulse Resp B/P (MAP) Pulse Ox O2 Delivery O2 Flow Rate FiO2 07/02/24 10:23 79 126/64 07/02/24 08:43 98.2 16 99 98.2 07/01/24 20:00 Room Air* 2 N/A Oxymizer Intake/Output Intake and Output 07/02/24 07:00 Intake Total 1490 ml Output Total 1650 ml Balance -160 ml Intake Oral 940 ml IV Total 250 ml Blood Product 300 ml Output Urine Total 1650 ml # Voids 1 # Bowel Movements 1 General Appearance: Alert, Cooperative, No acute distress, Other (Confused) HEENT: Atraumatic, Other (No signs of epistaxis) Lungs: Other (Decreased air entry bibasilarly with scattered crackles bibasilarly) Cardiovascular: Regular rate, Normal S1, Normal S2 Abdomen: Normal bowel sounds, Soft, No tenderness Neuro: Normal speech, Cranial nerves 3-12 NL Psych/Mental Status: Other (Confused) Medications Current Medications Medications Dose Ordered Sig/Jose Route Start Time Stop Time Status Last Admin Dose Admin Benztropine Mesylate 0.5 mg DAILY PO 06/30/24 10:00 07/02/24 10:16 0.5 MG Chlorpromazine HCl 50 mg BID PO 06/30/24 10:00 07/02/24 09:48 50 MG Donepezil HCl 5 mg DAILY PO 06/30/24 10:00 07/02/24 10:11 5 MG Risperidone 1 mg QPM PO 06/30/24 18:00 Hold Sennosides 8.6 mg QHSP PRN PO 06/30/24 04:30 Sucralfate 1 gm DAILY PO 06/30/24 10:00 07/02/24 10:10 1 GM Tamsulosin HCl 0.4 mg DAILY PO 06/30/24 10:00 07/02/24 10:08 0.4 MG Cholecalciferol 2,000 unit DAILY PO 06/30/24 10:00 07/02/24 10:14 2,000 UNIT Lisinopril 2.5 mg DAILY PO 06/30/24 10:00 07/02/24 10:10 2.5 MG Metoprolol Succinate 25 mg DAILY PO 06/30/24 10:00 07/02/24 10:23 25 MG Olanzapine 10 mg DAILY PO 06/30/24 10:00 07/02/24 10:17 10 MG Trazodone HCl 150 mg DAILY PO 06/30/24 10:00 07/02/24 10:12 150 MG Docusate Sodium 100 mg DAILY PO 06/30/24 10:00 07/02/24 10:16 100 MG Azithromycin 250 ml @ 125 mls/hr DAILY IV 07/01/24 10:00 07/01/24 13:40 125 MLS/HR Levothyroxine Sodium 50 mcg DAILY@0600 PO 07/02/24 06:00 Zolpidem Tartrate 5 mg HS PO 07/01/24 22:00 Pantoprazole Sodium 50 ml @ 10 mls/hr Q5H IV 07/01/24 18:00 07/02/24 09:00 10 MLS/HR Acetaminophen 650 mg Q6HP PRN PO 07/01/24 22:15 07/01/24 22:25 650 MG Laboratory Results Laboratory Tests 07/01/24 05:08 07/01/24 19:09 Labs and/or images reviewed: Labs reviewed by me, Image(s) reviewed by me Assessment/Plan Assessment/Plan Covering: #Acute blood loss anemia due to suspected hematemesis in the setting of peptic ulcer disease; status post one unit of packed RBCs; morning hemoglobin of 7.7; to close monitor H and H; reviewed recent EGD; GI is following; NPO for EGD today; continue pantoprazole infusion; continue monitoring #Acute hypoxic respiratory failure due to suspected aspiration pneumonia; continue IV antibiotics; continue oxygen therapy as needed; reviewed chest x- ray; continue monitoring #Suspected sepsis due to suspected aspiration pneumonia; continue IV antibiotics; continue monitoring #Essential hypertension; continue and adjust antihypertensive medications according to blood pressure measurements; continue monitoring #Schizophrenia with cognitive decline; the patient is confused; continue home medications; continue monitoring #Hypothyroidism; continue levothyroxine; continue monitoring Late Entry. This medical document was created using an electronic medical record system with computerized dictation system. Although this document has been carefully reviewed, there might still be some phonetic and typographical errors. These areas are purely typographical due to imperfections of the software programs, and do not reflect any compromise in the patient's medical care. Plan discussed with: Patient, Other (Nurse) My Orders Orders - BRENT COOPER MD Procedure Category Date Status Time * Gi Dvh Delivery Nurse CONS 07/01/24 Transmitted 17:42 Clear Liq Diet DIET 07/01/24 Transmitted Dinner Pantoprazole PHA 07/01/24 In Process 40mg/50ml Ns Ae 18:00 Npo After Midnight ORDERS 07/01/24 Transmitted Date of Service: Jul 02, 2024 Billing Provider: BRENT COOPER MD Common Visit Codes: [id number] INP/OBS CARE(HIGH) BRENT COOPER MD Jul 02, 2024 11:28
[2024-07-02] MEDS ORDERED: HYDROmorphone HCL 2 MG/ML VL/or syr IV PRN (13:15)
[2024-07-02] MEDS: ONDANSETRON HCL 4 MG/2 ML VIAL IV ONE (13:15)
--- NOTE | 2024-07-02 13:17 | DVHINCON2 ---
Date of service: Jul 02, 2024 Referring Physician Jaime Reason for Consultation GI bleed History of Present Illness Patient is a 59-year-old male with recent GI bleed history, endoscopy last month showing severe esophagitis and ulceration and distal esophagus, admitted with thoughts of epistaxis however also possible GI bleed. GI consultation obtained for EGD. Patient has had hematemesis. It also has had melena. Denies any chest pain or shortness of breath. Patient has a history of COPD, CHF, hypertension, schizophrenia. Past Medical History As above Past Surgical History History of EGD other history not known Family History: Patient reports no known family medical history. Family History Noncontributory Allergies: Coded Allergies: Morphine (Verified Allergy, Unknown, 05/20/24) Pollen Extract (Verified Allergy, Unknown, 05/20/24) Home Meds Active Scripts Amoxicillin & Pot Clavulanate (AUGMENTIN TABLET) 875 Mg Tb, 875 MG PO BID PRN for 7 Days, #14 TAB Prov:JAMAR RUBIN RESIDENT 06/24/24 Tamsulosin Hcl (Flomax) 0.4 Mg Cap, 0.4 MG PO DAILY for 30 Days, #30 CAP 4 Refills Prov:LEONELA RABAGO DO 05/25/24 Reported Medications Zolpidem Tartrate (Zolpidem Tartrate) 5 Mg Tab, 1 TAB PO QPM for FOR INSOMNIA, #30 TAB 2 Refills 05/22/24 Cholecalciferol (VITAMIN D3) 2,000 Unit Tab, 2000 UNIT PO DAILY, TAB 05/22/24 Sucralfate (Sucralfate) 1 Gm Tab, 1 GM PO, GM 05/22/24 Risperidone (RisperDAL TABLET) 1 Mg Tb, 1 TAB PO QPM, #30 TAB 1 Refill 05/22/24 Olanzapine (OLANZAPINE) 10 Mg Tab, 10 MG PO DAILY for 30 Days, MG 05/22/24 Metoprolol Succinate (Metoprolol Succinate Er) 25 Mg Tab, 25 MG PO DAILY for 30 Days, MG 05/22/24 Lisinopril (Lisinopril) 2.5 Mg Tab, 2.5 MG PO DAILY for 30 Days, MG 05/22/24 Donepezil Hydrochloride (DONEPEZIL HCL) 5 Mg Tab, 5 MG PO DAILY for 30 Days, MG 05/22/24 Cholecalciferol (VITAMIN D3) 2,000 Unit Tab, 1 CAP PO DAILY 08/25/22 Docusate Sodium (Docusate Sodium) 100 Mg Cap, 1 CAP PO DAILY 08/25/22 Pantoprazole Sodium Sesquihydr (Pantoprazole Sodium) 40 Mg Tab, 1 TAB PO BID 08/25/22 Quetiapine Fumerate (QUETIAPINE FUMARATE) 50 Mg Tab, 1 TAB PO 08/25/22 Ondansetron (Zofran) 4 Mg Tab, 8 MG PO, TAB 08/24/22 Trazodone Hcl (Trazodone Hcl) 150 Mg Tab, 150 MG PO DAILY, MG 08/24/22 Senna (Senna Lax) 8.6 Mg Tab, 8.6 MG PO QHSP PRN for FOR CONSTIPATION, MG 08/24/22 Risperidone (Risperidone) 3 Mg Tab, 3 MG PO BID, TAB 08/24/22 Docusate Sodium (Docusate Sodium) 100 Mg Tab, 100 MG PO DAILYP PRN for FOR CONSTIPATION, MG 08/24/22 Chlorpromazine Hcl (Chlorpromazine Hcl) 25 Mg Tab, 50 MG PO BID, MG 08/24/22 Benztropine Mesylate (Benztropine Mesylate) 0.5 Mg Tab, 0.5 MG PO DAILY, MG 08/24/22 Risperidone (Risperidone) 3 Mg Tab, 1 TAB PO BID 08/24/22 Levothyroxine Sodium (Levothyroxine Sodium) 50 Mcg Tab, 1 TAB PO DAILY 08/24/22 Discontinued Reported Medications Ascorbic Acid (VITAMIN C TABLET) 500 Mg Tb, 500 MG PO DAILY for FOR SUPPLEMENT, TAB 05/22/24 Furosemide (Furosemide) 20 Mg Tab, 20 MG PO DAILY for 30 Days, MG 05/22/24 Current Medications Current Medications Medications (Trade) Dose Ordered Sig/Jose Route PRN Reason Start Time Stop Time Status Last Admin Levothyroxine Sodium (Synthroid Tablet) 50 mcg DAILY@0600 PO 07/02/24 06:00 Zolpidem Tartrate (Ambien) 5 mg HS PO 07/01/24 22:00 Pantoprazole Sodium 50 ml @ 10 mls/hr Q5H IV 07/01/24 18:00 07/02/24 09:00 Acetaminophen (Tylenol Tablet) 650 mg Q6HP PRN PO MILD PAIN (1-3 PAIN SCALE) 07/01/24 22:15 07/01/24 22:25 Hydromorphone HCl (Dilaudid Injection) 0.25 mg Q10M PRN IV MODERATE PAIN (4-6 PAIN SCALE) 07/02/24 13:15 07/02/24 13:46 UNV Review of Systems Review of systems as per HPI Vital Signs Vital Signs Date Time Temp Pulse Resp B/P (MAP) Pulse Ox O2 Delivery O2 Flow Rate FiO2 07/02/24 13:03 98.0 71 16 120/70 (87) 94 98.0 07/02/24 08:05 Oxymizer 2 N/A Physical Exam General: Alert and oriented male lying in bed no distress HEENT normocephalic atraumatic extraocular muscle intact pupils equal round react to light and accommodating Heart: Regular rate and rhythm Abdomen: Soft and nontender nondistended Extremities: No clubbing cyanosis or edema Neuro: Moves all four extremities Labs/Diagnostic Data Labs Test 07/01/24 19:09 07/01/24 05:08 06/30/24 06:45 06/29/24 14:30 Range/Units White Blood Count 5.7 # 4.4-10.8 10^3/uL Red Blood Count 2.78 L 4.5-5.90 10^6/uL Hemoglobin 7.7 #L 13.5-17.5 g/dL Hematocrit 23.2 #L 41.0-53.0 % Mean Corpuscular Volume 83.5 80.0-100.0 fL Mean Corpuscular Hemoglobin 27.7 L 28.0-32.0 pg Mean Corpuscular Hemoglobin Concent 33.1 32.0-36.0 g/dL Red Cell Distribution Width 17.3 H 11.8-14.3 % Platelet Count 159 140-450 10^3/uL Mean Platelet Volume 7.4 6.9-10.8 fL Neutrophils (%) (Auto) 74.8 37.0-80.0 % Lymphocytes (%) (Auto) 16.5 10.0-50.0 % Monocytes (%) (Auto) 6.2 0.0-12.0 % Eosinophils (%) (Auto) 2.1 0.0-7.0 % Basophils (%) (Auto) 0.4 0.0-2.0 % Neutrophils # (Auto) 4.3 1.6-8.6 10 ^3/uL Lymphocytes # (Auto) 0.9 0.4-5.4 10 ^3/uL Monocytes # (Auto) 0.4 0-1.3 10 ^3/uL Eosinophils # (Auto) 0.1 0-0.8 10 ^3/uL Basophils # (Auto) 0 0-0.2 10 ^3/uL Nucleated Red Blood Cells 0.0 % Sodium Level 139 136-145 mmol/L Potassium Level 3.8 3.5-5.1 mmol/L Chloride Level 101 98-107 mmol/L Carbon Dioxide Level 35 H 20-31 mmol/L Anion Gap 3 L 5-15 Blood Urea Nitrogen 5 L 9-23 mg/dL Creatinine 0.71 0.700-1.30 mg/dL Glomerular Filtration Rate Calc 107 >90 mL/min BUN/Creatinine Ratio 7.0 L 10.0-20.0 Serum Glucose 108 H 74-106 mg/dL Calcium Level 9.5 8.7-10.4 mg/dL Total Bilirubin 0.2 0.2-1.0 mg/dL Aspartate Amino Transferase (AST) 8 L 13-40 U/L Alanine Aminotransferase (ALT) 13 7-40 U/L Alkaline Phosphatase 62 46-116 U/L Total Protein 5.6 L 5.7-8.2 g/dL Albumin 3.3 3.2-4.8 g/dL Prothrombin Time 10.9 9.3-11.8 sec Prothrombin Time INR 1.03 0.9-1.15 Assessment 1. History of GI bleed 2. History of severe esophagitis 3. Hiatal hernia 4. Anemia Problems(with codes): (1) GI bleed (2) Anemia Plan/Recommendation 1. EGD today 2. Risks, benefits, and alternatives were discussed at length with the patient and he agrees. Questions were answered. 3. Follow H&H and transfuse as needed 4. Protonix GTT 5. Further recommendations after EGD Plan discussed with: Patient DEL LARA MD Jul 02, 2024 13:17
[2024-07-02] MEDS ORDERED: GLYCOPYRROLATE 0.2 MG/ML 1ML VIAL ONE (13:18)
[2024-07-02] MEDS ORDERED: LIDOCAINE 2% (LOCAL ANESTH.) PF 5ml SDV ONE (13:18)
[2024-07-02] MEDS ORDERED: PROPOFOL 10 MG/ML 20 ML IV ONE (13:18)
[2024-07-02] MEDS ORDERED: fentaNYL CITRATE 100 MCG/2 ML VL ONE (13:18)
[2024-07-02] MEDS ORDERED: ONDANSETRON HCL 4 MG/2 ML VIAL ONE (13:18)
[2024-07-02] MEDS ORDERED: MIDAZOLAM HCL 2MG/2ML 2ml VIAL (1mg/ml) ONE (13:18)
--- NOTE | 2024-07-02 13:43 | DVHNC2 ---
Procedure - PHYSICIAN: MARCO PROCEDURE PERFORMED: 1. ESOPHAGOGASTRODUODENOSCOPY WITH MONITORED ANESTHETIC CARE PRE-PROCEDURE DIAGNOSIS: 1. GI BLEED 2. HISTORY OF SEVERE EROSIVE ESOPHAGITIS POSTPROCEDURE DIAGNOSIS: 1. SEVERE EROSIVE ESOPHAGITIS WITH ULCERATION 2. HIATAL HERNIA 3. MILD GASTRITIS MEDICATIONS USED: PER ANESTHESIA DETAILS OF THE PROCEDURE: Informed consent was obtained after risks, benefits, and alternatives were discussed at length with the patient. Consent was given for the procedure as well as the medication used for anesthesia. The patient was placed in the left lateral decubitus position. An Olympus endoscope was inserted into the oropharynx and advanced into the esophagus, then into the stomach, then into the duodenal bulb and duodenum. The duodenal bulb and duodenum were normal in appearance. The stomach showed mild gastritis. The scope was then withdrawn. Retroflexion showed a small hiatal hernia. There was no old blood or fresh blood seen. There was no evidence of any ulceration in the stomach. The patient had a 4 cm hiatal hernia. The patient had severe esophagitis in the distal esophagus with friability and ulceration. This is likely source of bleeding. The scope was then withdrawn and the procedure completed. The patient tolerated the procedure well. IMPRESSION: 1. SUSPECT GI BLEED , WITH A SEVERE EROSIVE ESOPHAGITIS AND ULCERATION IN THE DISTAL ESOPHAGUS 2. HIATAL HERNIA RECOMMENDATIONS: 1. Elevate the head of the bed 2. Reflux precautions 3. Protonix or other proton pump inhibitor twice daily 4. Carafate 3 times a day 5. Observe for signs of epistaxis or signs of GI bleeding 6. Repeat EGD to ensure healing into months I would like to thank Dr Sandoval for allowing me to participate in the care of this patient DEL LARA MD Jul 02, 2024 13:43
[2024-07-03 05:00] VITALS: BP 101/49; PULSE 73; RESP 14; TEMP 98.6; O2SAT 92
[2024-07-03 08:00] VITALS: PULSE 69; RESP 20
[2024-07-03 08:17] LABS: Basophils # (auto) 0 10 ^3/uL (0-0.2); Basophils % (auto) 0.1 % (0.0-2.0); Eosinophils # (auto) 0.1 10 ^3/uL (0-0.8); Hematocrit 24.4 % (41.0-53.0); Lymphocytes # (auto) 0.4 10 ^3/uL (0.4-5.4); Lymphocytes % (auto) 5.2 % (10.0-50.0); Neutrophils % (auto) 89.8 % (37.0-80.0)
[2024-07-03 08:19] LABS: Eosinophils % (auto) 1.5 % (0.0-7.0); Mean Corpuscular Hemoglobin 27.3 pg (28.0-32.0); Mean Corpuscular Hgb Conc. 32.7 g/dL (32.0-36.0); Mean Corpuscular Volume 83.4 fL (80.0-100.0); Monocytes # (auto) 0.3 10 ^3/uL (0-1.3); Monocytes % (auto) 3.4 % (0.0-12.0); Neutrophils # (auto) 6.5 10 ^3/uL (1.6-8.6); Platelet Count (auto) 156 10^3/uL (140-450); Red Blood Cells 2.93 10^6/uL (4.5-5.90); Red Cell Distribution Width 17.5 % (11.8-14.3); White Blood Cell 7.3 10^3/uL (4.4-10.8)
[2024-07-03 08:27] LABS: Potassium 4.4 mmol/L (3.5-5.1); Sodium 137 mmol/L (136-145)
[2024-07-03 08:29] LABS: Anion Gap 5 (5-15); Carbon Dioxide 35 mmol/L (20-31); Chloride 97 mmol/L (98-107)
[2024-07-03 08:33] LABS: BUN/Creatinine Ratio 6.8 (10.0-20.0); Blood Urea Nitrogen 5 mg/dL (9-23); Glucose 88 mg/dL (74-106)
[2024-07-03 08:47] VITALS: BP 95/51; PULSE 84; RESP 18; TEMP 98; O2SAT 92
[2024-07-03] MEDS ORDERED: SUCR1SUS26 PO (10:12)
[2024-07-03] MEDS ORDERED: PANT40T PO (10:12)
[2024-07-03 11:13] VITALS: BP 102/37; PULSE 84; RESP 18; TEMP 98.6; O2SAT 92
[2024-07-03 11:16] LABS: Calcium 9.8 mg/dL (8.7-10.4)
--- NOTE | 2024-07-03 12:20 | DVHDSRES ---
Discharge Summary Date of Admission Resident Creating Document: JAMAR RUBIN RESIDENT Jun 29, 2024 at 23:41 Date of Discharge: Jul 03, 2024 Admitting Diagnosis Epistaxis Labs/Diagnostic Data: Laboratory Results Test 07/03/24 07:44 06/30/24 06:45 06/29/24 14:30 White Blood Count 7.3 10^3/uL (4.4-10.8) Red Blood Count 2.93 10^6/uL (4.5-5.90) Hemoglobin 8.0 g/dL (13.5-17.5) Hematocrit 24.4 % (41.0-53.0) Mean Corpuscular Volume 83.4 fL (80.0-100.0) Mean Corpuscular Hemoglobin 27.3 pg (28.0-32.0) Mean Corpuscular Hemoglobin Concent 32.7 g/dL (32.0-36.0) Red Cell Distribution Width 17.5 % (11.8-14.3) Platelet Count 156 10^3/uL (140-450) Mean Platelet Volume 7.9 fL (6.9-10.8) Neutrophils (%) (Auto) 89.8 % (37.0-80.0) Lymphocytes (%) (Auto) 5.2 % (10.0-50.0) Monocytes (%) (Auto) 3.4 % (0.0-12.0) Eosinophils (%) (Auto) 1.5 % (0.0-7.0) Basophils (%) (Auto) 0.1 % (0.0-2.0) Neutrophils # (Auto) 6.5 10 ^3/uL (1.6-8.6) Lymphocytes # (Auto) 0.4 10 ^3/uL (0.4-5.4) Monocytes # (Auto) 0.3 10 ^3/uL (0-1.3) Eosinophils # (Auto) 0.1 10 ^3/uL (0-0.8) Basophils # (Auto) 0 10 ^3/uL (0-0.2) Nucleated Red Blood Cells 0.0 % Sodium Level 137 mmol/L (136-145) Potassium Level 4.4 mmol/L (3.5-5.1) Chloride Level 97 mmol/L (98-107) Carbon Dioxide Level 35 mmol/L (20-31) Anion Gap 5 (5-15) Blood Urea Nitrogen 5 mg/dL (9-23) Creatinine 0.74 mg/dL (0.700-1.30) Glomerular Filtration Rate Calc 106 mL/min (>90) BUN/Creatinine Ratio 6.8 (10.0-20.0) Serum Glucose 88 mg/dL (74-106) Calcium Level 9.8 mg/dL (8.7-10.4) Total Bilirubin 0.2 mg/dL (0.2-1.0) Aspartate Amino Transferase (AST) 8 U/L (13-40) Alanine Aminotransferase (ALT) 13 U/L (7-40) Alkaline Phosphatase 62 U/L (46-116) Total Protein 5.6 g/dL (5.7-8.2) Albumin 3.3 g/dL (3.2-4.8) Prothrombin Time 10.9 sec (9.3-11.8) Prothrombin Time INR 1.03 (0.9-1.15) Other Laboratory Tests 07/03/24 07:44 Brief Hx & Hospital Course: Sukhdev Riley is a 59-year-old male was recently seen and managed for epistaxis. Epistaxis resolved and patient was discharge home. Patiet returned to the ED this evening with similar problem. On direct questioning, patient said that he is feeling well and has not had any further nose bleed prior to reporting to the ED. He mentioned that this second nose bleed was because he was picking his nose. But the bleeding has stopped. He is not on any blood thinners. Patient is stable and on antibiotics for the his recent aspiration pneumonia. Patient required hospital admission for further evaluation and management of sudden drop in his H&H. Continuously monitored for lab. Patient have history of gastritis and esophagitis, previously GI planned to do EGD but patient is already started have worsening of H&H which required blood transfusion urgently and performed EGD which showed severe erosive esophagitis with a friable mucosa along with mild gastritis. GI consulted advised to continue Protonix b.i.d. and Carafate t.i.d. and follow up on outpatient with the GI. Patient condition was improved, hemoglobin is stable and in condition to be discharged back to board and care facility with optimal medical treatment. Patient was advised about healthy lifestyle modifications including diet and exercise and to follow up with PCP and GI. General Appearance: Alert, Oriented X3, Cooperative, Not in acute distress HEENT: Atraumatic, Mucous membranes moist/pink Respiratory: Clear to auscultation, Normal air movement, crackles Cardiovascular: Regular rate, Normal S1, Normal S2, No murmurs Abdominal: Active bowel sounds, Soft, no distention, no tenderness Extremities: No edema, Normal pulses, No tenderness/swelling Skin: No Significant rash, except past surgical scars Neuro: Normal speech, sensorimotor deficits none Psych/Mental Status: Mental status NL, Mood NL Nurse was there as sharperone during examination Operations or Procedures PHYSICIAN: MARCO PROCEDURE PERFORMED: 1. ESOPHAGOGASTRODUODENOSCOPY WITH MONITORED ANESTHETIC CARE PRE-PROCEDURE DIAGNOSIS: 1. GI BLEED 2. HISTORY OF SEVERE EROSIVE ESOPHAGITIS POSTPROCEDURE DIAGNOSIS: 1. SEVERE EROSIVE ESOPHAGITIS WITH ULCERATION 2. HIATAL HERNIA 3. MILD GASTRITIS MEDICATIONS USED: PER ANESTHESIA DETAILS OF THE PROCEDURE: Informed consent was obtained after risks, benefits, and alternatives were discussed at length with the patient. Consent was given for the procedure as well as the medication used for anesthesia. The patient was placed in the left lateral decubitus position. An Olympus endoscope was inserted into the oropharynx and advanced into the esophagus, then into the stomach, then into the duodenal bulb and duodenum. The duodenal bulb and duodenum were normal in appearance. The stomach showed mild gastritis. The scope was then withdrawn. Retroflexion showed a small hiatal hernia. There was no old blood or fresh blood seen. There was no evidence of any ulceration in the stomach. The patient had a 4 cm hiatal hernia. The patient had severe esophagitis in the distal esophagus with friability and ulceration. This is likely source of bleeding. The scope was then withdrawn and the procedure completed. The patient tolerated the procedure well. IMPRESSION: 1. SUSPECT GI BLEED , WITH A SEVERE EROSIVE ESOPHAGITIS AND ULCERATION IN THE DISTAL ESOPHAGUS 2. HIATAL HERNIA RECOMMENDATIONS: 1. Elevate the head of the bed 2. Reflux precautions 3. Protonix or other proton pump inhibitor twice daily 4. Carafate 3 times a day 5. Observe for signs of epistaxis or signs of GI bleeding 6. Repeat EGD to ensure healing into months Condition at Discharge: Stable Final Diagnosis/Problems List # Acute blood loss anemia likely due to hematemesis in the setting of PUD s/p transfusion # Erosive esophagitis with ulcers # PUD # Acute hypoxic respiratory failure due to suspected aspiration pneumonia # Aspiration pneumonia # Suspected sepsis due to suspected aspiration pneumonia # Essential hypertension # Schizophrenia with cognitive decline # Hypothyroidism Discharge Disposition: Home Discharge Instruct/Medications Diet: Consistent carbohydrate, Cardiac 2g Na,low cholest Activity: No Restrictions, As Tolerated Follow Up/Referral: PCP GI Medications: Protonix 40 BID Carafate tid Discharge Statement: "Patient was advised to return to the ER or call 911 if any headaches, dizziness, shortness of breath, chest pain, abdominal pain, bleeding, fevers, or worsening of medical condition. Patient was counseled about treatment plan, medications, possible side effects, patientverbalized understanding. All questions were answered to the best of my ability. This discharge took greater then 30 minutes in planning, reviewing documentation, counseling the patient, and discussing with other team members." ASSESSMENT ASSESSMENT Assessment severe erosive esophagitis Date of Service: Jul 03, 2024 Billing Provider: ERYN CAMPOS MD Common Visit Codes: [id number]/[id number] DISCH DAY >30min JAMAR RUBIN RESIDENT Jul 03, 2024 12:20 ERYN CAMPOS MD Jul 04, 2024 09:56
[2024-07-03 13:11] VITALS: BP 94/47; PULSE 67; RESP 18; TEMP 98; O2SAT 94
[2024-07-03 16:36] VITALS: BP 114/51; PULSE 60; RESP 18; TEMP 97.6; O2SAT 98
--- NOTE | 2024-07-03 17:39 | ECG ---
[facility] Test Date: 2024-07-01 Test Time: 20:00:07 Pat Name: HENRIQUE HERNANDEZ Department: Respiratoy Room: 0214 B Gender: M [employer]er: NIRALI JEFFRIES : 1965 Requested By: BRENT COOPER Order Number: [id number] Reading MD: Gorge Quarles Measurements Intervals [place] Rate: 66 P: 128 [place]: 155 QRS: 115 QRSD: 113 T: 4 QT: 424 QTc: 445 Interpretive Statements Atrial-sensed ventricular-paced rhythm No further analysis attempted due to paced rhythm Electronically Signed On 07-06-2024 12:57:54 PDT by Gorge Quarles Please click the below link to view image of tracing.
== END 2024-07-03 17:40 | disposition home or self-care (01) | DRG 871 ==
LOC: EDUNIT# 12:37 → ER 12:37 → EDBD 12:37 → OVERFLOW 23:41 → CENTRAL 06-30 03:16
PROVIDERS: ADMIT Student in an Organized Health Care Education/Training Program; ATTEND Student in an Organized Health Care Education/Training Program
PROC: 30233N1 Transfusion of Nonautologous Red Blood Cells into Peripheral Vein, Percutaneous Approach (ICD-10-PCS; principal; 2024-07-01)
PROC: 0DJ08ZZ Inspection of Upper Intestinal Tract, Via Natural or Artificial Opening Endoscopic (ICD-10-PCS; 2024-07-02)
DX: A41.9 Sepsis, unspecified organism (principal); J18.9 Pneumonia, unspecified organism; J69.0 Pneumonitis due to inhalation of food and vomit; J96.01 Acute respiratory failure with hypoxia; K27.4 Chronic or unspecified peptic ulcer, site unspecified, with hemorrhage; D62 Acute posthemorrhagic anemia; K22.10 Ulcer of esophagus without bleeding; I11.0 Hypertensive heart disease with heart failure; F20.9 Schizophrenia, unspecified; I50.9 Heart failure, unspecified; J44.9 Chronic obstructive pulmonary disease, unspecified; R04.0 Epistaxis; E03.9 Hypothyroidism, unspecified; E83.52 Hypercalcemia; K44.9 Diaphragmatic hernia without obstruction or gangrene; K21.9 Gastro-esophageal reflux disease without esophagitis; J32.9 Chronic sinusitis, unspecified; K29.70 Gastritis, unspecified, without bleeding; J44.89 Other specified chronic obstructive pulmonary disease; Z79.899 Other long term (current) drug therapy; Z88.5 Allergy status to narcotic agent; Z79.2 Long term (current) use of antibiotics
CPT/HCPCS: 36415; 71045; 80048; 80053; 85025; 85610; 86850; 86900; 86901; 86920; 93005; 96361; 96365; 96366; G0378; J2003; J2250; J2405; J2704; Q0161